=== PATIENT | female | born 1985 | race Caucasian/White ===

== ENCOUNTER 2017-09-06 10:07 | Emergency (ER) | payer SELFPAY ==
[2017-09-06] MEDS ORDERED: ACETAMINOPHEN 500 MG TAB ONE (10:16)
--- NOTE | 2017-09-06 11:07 | ER ---
Nurse's Notes [facility] Name: Belgica Hill Age: 32 yrs Sex: Female : 1985 Arrival Date: 09/06/2017 Time: 10:09 Bed 10 Private MD: Diagnosis: Streptococcal pharyngitis Presentation: 09/06 10:10 Presenting complaint: Patient states: i have this sore throat that started last night; hj fever last night and my neck hurts;. Transition of care: patient was not received from another setting of care. Onset of symptoms was September 06, 2017. Care prior to arrival: None. 10:10 Method Of Arrival: Ambulatory hj 10:10 Acuity: DARIUS 4 hj Triage Assessment: 10:12 General: Appears in no apparent distress. uncomfortable, Behavior is calm, cooperative, hj appropriate for age. 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 - Social history:: Smoking status: unknown. Screenin:22 Abuse screen: Denies threats or abuse. Denies injuries from another. Nutritional ss screening: No deficits noted. Tuberculosis screening: Never had TB. Fall Risk None identified. Assessment: 10:11 Pain: Complains of pain in throat. Respiratory: Airway is patent Respiratory effort is hj even, unlabored, Respiratory pattern is regular, symmetrical, Breath sounds are clear. EENT: Throat. Vital Signs: 10:12 BP 130 / 64; Pulse 108; Resp 18; Temp 101.8; Pulse Ox 100% on R/A; Weight 99.79 kg; hj Height 5 ft. 3 in. (160.02 cm); Pain 10/10; 10:12 Body Mass Index 38.97 (99.79 kg, 160.02 cm) ED Course: 10:09 Patient arrived in ED. tw3 10:11 Triage completed. hj 10:11 Arm band placed on right wrist. hj 10:45 Alfie Rodney PA is PHCP. cp 10:45 Shimon Cervantes MD is Attending Physician. cp 11:00 Patient has correct armband on for positive identification. Bed in low position. ss 11:21 No provider procedures requiring assistance completed. Patient did not have IV access ss during this emergency room visit. Administered Medications: 10:14 Drug: Tylenol 1000 mg Route: PO; hj 11:22 Follow up: Response: No adverse reaction; Marked relief of symptoms ss Outcome: 11:06 Discharge ordered by MD. cp 11:21 Discharged to home ambulatory. ss 11:21 Condition: good 11:21 Discharge instructions given to patient, Instructed on discharge instructions, follow up and referral plans. medication usage, Demonstrated understanding of instructions, follow-up care, medications, Prescriptions given X 1. 11:22 Patient left the ED. ss Signatures: Geno Rouqe RN RN Jesus Regan RN RN hj Alfie Rodney, ZAHEER PA chula Montilla, Oralia tw3 Corrections: (The following items were deleted from the chart) 10:14 10:12 Pulse 110bpm; Resp 18bpm; Pulse Ox 100% RA; Temp 101.8F; 99.79 kg; Height 5 ft. 3 hj in.; BMI: 38.9; hj
--- NOTE | 2017-09-06 11:07 | EDPHYS ---
Physician Documentation [facility] Name: Belgica Hill Age: 32 yrs Sex: Female : 1985 Arrival Date: 09/06/2017 Time: 10:09 Bed 10 Private MD: ED Physician Shimon Cervantes HPI: 09/06 10:50 This 32 yrs old Female presents to ER via Ambulatory with complaints of Sore cp Throat. 10:50 The patient presents with sore throat. The patient describes throat pain as constant. cp Onset: The symptoms/episode began/occurred 5 day(s) ago. Severity of symptoms: in the emergency department the symptoms are unchanged, despite home interventions. Associated signs and symptoms: Pertinent positives: fever, Pertinent negatives cough, diarrhea, flu-like symptoms, vomiting, abdominal pain. 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 - Social history:: Smoking status: unknown. ROS: 10:52 Constitutional: Positive for fever, Negative for body aches, chills, poor PO intake. cp 10:52 Eyes: Negative for injury, pain, redness, and discharge. cp 10:52 ENT: Positive for ear pain, sore throat, Negative for drainage from ear(s). 10:52 Neck: Negative for pain with movement, stiffness. 10:52 Cardiovascular: Negative for chest pain, palpitations. 10:52 Respiratory: Negative for cough, shortness of breath, wheezing. 10:52 Abdomen/GI: Negative for abdominal pain, vomiting, diarrhea, constipation, anorexia. 10:52 Back: Negative for pain at rest, pain with movement. 10:52 : Negative for urinary symptoms. 10:52 Skin: Negative for cellulitis, rash. 10:52 Neuro: Negative for dizziness, headache, weakness. 10:52 All other systems are negative. Exam: 10:55 Constitutional: The patient appears in no acute distress, alert, awake, non-toxic, well cp developed, well nourished, febrile. 10:55 Head/Face: Normocephalic, atraumatic. cp 10:55 Eyes: Periorbital structures: appear normal, Conjunctiva: normal, no exudate, no injection, Lids and lashes: appear normal, bilaterally. 10:55 ENT: External ear(s): are unremarkable, Ear canal(s): are normal, clear, TM's: bulging, is not appreciated, bilaterally, dullness, bilaterally, erythema, is not appreciated, bilaterally, Nose: is normal, Mouth: Lips: moist, Oral mucosa: moist, Posterior pharynx: Airway: no evidence of obstruction, patent, Tonsils: surgically absent, Uvula: midline, non-edematous, swelling, is not appreciated, erythema, that is marked, exudate, is not appreciated, Voice: is normal. 10:55 Neck: ROM/movement: is normal, is supple, no range of motions limitations, no meningismus, no nuchal rigidity, Lymph nodes: lymphadenopathy is appreciated, anterior cervical nodes. 10:55 Chest/axilla: Inspection: normal, Palpation: is normal, no crepitus, no tenderness. 10:55 Cardiovascular: Rate: tachycardic, Rhythm: regular. 10:55 Respiratory: the patient does not display signs of respiratory distress, Respirations: normal, no use of accessory muscles, no retractions, no splinting, no tachypnea, Breath sounds: are clear throughout, no decreased breath sounds, no stridor, no wheezing. 10:55 Abdomen/GI: Exam negative for discomfort, distension, guarding, Inspection: abdomen appears normal. 10:55 Skin: cellulitis, is not appreciated, no rash present. Vital Signs: 10:12 BP 130 / 64; Pulse 108; Resp 18; Temp 101.8; Pulse Ox 100% on R/A; Weight 99.79 kg; hj Height 5 ft. 3 in. (160.02 cm); Pain 10/10; 10:12 Body Mass Index 38.97 (99.79 kg, 160.02 cm) hj MDM: 10:45 Patient medically screened. cp 10:55 Differential diagnosis: epiglottitis, group A strep tonsillitis, mononucleosis, cp peritonsillar abscess pharyngitis, retropharyngeal abcess. 11:05 Data reviewed: vital signs, nurses notes, lab test result(s), and as a result, I will cp discharge patient. 09/06 10:14 Order name: Strep; Complete Time: 10:54 09/06 10:54 Interpretation: Reviewed. cp Administered Medications: 10:14 Drug: Tylenol 1000 mg Route: PO; 11:22 Follow up: Response: No adverse reaction; Marked relief of symptoms ss Disposition: 13:56 Co-signature as Attending Physician, Shimon Cervantes MD I agree with the assessment and [facility] plan of care. Disposition: 09/06/17 11:06 Discharged to Home. Impression: Streptococcal pharyngitis. - Condition is Stable. - Discharge Instructions: Salt Water Gargle, Strep Throat. - Prescriptions for Clindamycin HCl 150 mg Oral Capsule - take 2 capsule by ORAL route every 8 hours for 10 days; 60 capsule. - Medication Reconciliation Form, Thank You Letter, Antibiotic Education, Prescription Opioid Use form. - Follow up: Private Physician; When: 2 - 3 days; Reason: Recheck today's complaints. - Problem is new. - Symptoms are unchanged. Signatures: Dispatcher [employer] EDCO Shimon Cervantes MD MD [facility] Geno Roque, RN RN ss Jesus Regan RN RN Alfie Medina PA PA
== END 2017-09-06 11:22 | disposition home or self-care (01) ==
LOC: ER 10:07
DX: J02.0 Streptococcal pharyngitis (principal); Z88.0 Allergy status to penicillin; Z88.2 Allergy status to sulfonamides
CPT/HCPCS: 87081; 99283

== ENCOUNTER 2018-02-16 16:58 | Emergency (ER) | payer SELFPAY ==
--- NOTE | 2018-02-16 18:13 | EDPHYS ---
Physician Documentation [facility] Name: Belgica Hill Age: 32 yrs Sex: Female : 1985 Arrival Date: 02/16/2018 Time: 17:00 Bed DIS4 Private MD: None, None ED Physician Thomas Pompa HPI: 02/16 23:35 This 32 yrs old Female presents to ER via Ambulatory with complaints of snw Cough, Eye Problem. 23:35 Onset: The symptoms/episode began/occurred gradually, 3 day(s) ago, and became snw persistent. Associated signs and symptoms: Pertinent positives: cough, tearing and redness to left eye, mild periorbital swelling. Modifying factors: The patient symptoms are alleviated by nothing. 23:36 The patient or guardian reports cough, that is intermittent. Severity of symptoms: At snw their worst the symptoms were mild, moderate. Associated signs and symptoms: Pertinent positives: sore throat. It is unknown whether or not the patient has had similar symptoms in the past. It is unknown whether or not the patient has recently seen a physician. Son with similar s/s. Historical: - Allergies: 17:21 PENICILLINS; hb 17:21 Sulfa (Sulfonamide Antibiotics); hb - PMHx: 17:21 Depression; Hypothyroidism; hb - PSHx: 17:21 ; Tonsillectomy; Adenoids; hb - Immunization history:: Adult Immunizations up to date. - Social history:: Smoking status: Patient/guardian denies using tobacco. - Ebola Screening: : No symptoms or risks identified at this time. ROS: 23:34 Constitutional: Negative for fever, chills, and weight loss, ENT: Negative for injury, snw pain, and discharge, Neck: Negative for injury, pain, and swelling, Cardiovascular: Negative for chest pain, palpitations, and edema, Respiratory: Negative for shortness of breath, cough, wheezing, and pleuritic chest pain, Abdomen/GI: Negative for abdominal pain, nausea, vomiting, diarrhea, and constipation, Back: Negative for injury and pain, : Negative for injury, bleeding, discharge, and swelling, MS/Extremity: Negative for injury and deformity, Skin: Negative for injury, rash, and discoloration, Neuro: Negative for headache, weakness, numbness, tingling, and seizure. 23:34 Eyes: Positive for swelling, tearing, of the left upper eyelid and left lower eyelid. Exam: 23:33 Constitutional: This is a well developed, well nourished patient who is awake, alert, snw and in no acute distress. Head/Face: Normocephalic, atraumatic. ENT: Nares patent. No nasal discharge, no septal abnormalities noted. Tympanic membranes are normal and external auditory canals are clear. Oropharynx with no redness, swelling, or masses, exudates, or evidence of obstruction, uvula midline. Mucous membranes moist. Neck: Trachea midline, no thyromegaly or masses palpated, and no cervical lymphadenopathy. Supple, full range of motion without nuchal rigidity, or vertebral point tenderness. No Meningismus. Chest/axilla: Normal chest wall appearance and motion. Nontender with no deformity. No lesions are appreciated. Cardiovascular: Regular rate and rhythm with a normal S1 and S2. No gallops, murmurs, or rubs. Normal PMI, no JVD. No pulse deficits. Respiratory: Lungs have equal breath sounds bilaterally, clear to auscultation and percussion. No rales, rhonchi or wheezes noted. No increased work of breathing, no retractions or nasal flaring. Abdomen/GI: Soft, non-tender, with normal bowel sounds. No distension or tympany. No guarding or rebound. No evidence of tenderness throughout. Back: No spinal tenderness. No costovertebral tenderness. Full range of motion. Skin: Warm, dry with normal turgor. Normal color with no rashes, no lesions, and no evidence of cellulitis. MS/ Extremity: Pulses equal, no cyanosis. Neurovascular intact. Full, normal range of motion. Neuro: Awake and alert, GCS 15, oriented to person, place, time, and situation. Cranial nerves II-XII grossly intact. Motor strength 5/5 in all extremities. Sensory grossly intact. Cerebellar exam normal. Normal gait. Psych: Awake, alert, with orientation to person, place and time. Behavior, mood, and affect are within normal limits. 23:33 Eyes: Periorbital structures: erythema, that is mild, swelling, that is moderate, on the left upper eyelid and left lower eyelid, Pupils: no acute changes, Extraocular movements: no acute changes. Vital Signs: 17:20 BP 144 / 96; Pulse 80; Resp 16; Temp 97.2; Pulse Ox 97% on R/A; Pain 5/10; hb MDM: 17:47 Patient medically screened. snw 23:34 Data reviewed: vital signs, nurses notes. Data interpreted: Pulse oximetry: on room air snw is 97 %. Interpretation: normal. Counseling: I had a detailed discussion with the patient and/or guardian regarding: the historical points, exam findings, and any diagnostic results supporting the discharge/admit diagnosis, the presence of at least one elevated blood pressure reading (>120/80) during this emergency department visit, lab results, the need for outpatient follow up, to return to the emergency department if symptoms worsen or persist or if there are any questions or concerns that arise at home. Special discussion: I have referred the patient to see his PCP for further evaluation of high blood pressure. Based on the history and exam findings, there is no indication for further emergent testing or inpatient evaluation. I discussed with the patient/guardian the need to see the primary care provider for further evaluation of the symptoms. 02/16 17:39 Order name: Flu aj 02/16 17:39 Order name: Strep aj Administered Medications: No medications were administered Disposition: 02/16/18 18:12 Discharged to Home. Impression: Conjunctivitis, Acute upper respiratory infection, unspecified. - Condition is Stable. - Discharge Instructions: Upper Respiratory Infection, Adult, Cool Mist Vaporizer, Rehydration, Adult. - Prescriptions for Vigamox 0.5 % Ophthalmic Drops - instill 1 drop by OPHTHALMIC route every 8 hours for 7 days; 5 milliliter. Zyrtec 10 mg Oral Tablet - take 1 tablet by ORAL route once daily As needed; 20 tablet. Zithromax 500 mg Oral Tablet - take 1 tablet by ORAL route once daily for 5 days; 5 tablet. - Medication Reconciliation Form, Thank You Letter, Antibiotic Education, Prescription Opioid Use form. - Follow up: Private Physician; When: 2 - 3 days; Reason: Recheck today's complaints, Continuance of care, Re-evaluation by your physician. Follow up: Emergency Department; When: As needed; Reason: Worsening of condition. Addendum: 02/20/2018 17:01 Co-signature as Attending Physician, Thomas Pompa MD. g s Signatures: Dispatcher [employer] Swetha Watts RN Leda East, PULP GRINDER-C PULP GRINDER-Csnw Farrah Varela RN RN Thomas Pompa MD MD gs Corrections: (The following items were deleted from the chart) 02/16 18:30 18:12 02/16/2018 18:12 Discharged to Home. Impression: Conjunctivitis; Acute upper aj respiratory infection, unspecified. Condition is Stable. Forms are Medication Reconciliation Form, Thank You Letter, Antibiotic Education, Prescription Opioid Use. Follow up: Private Physician; When: 2 - 3 days; Reason: Recheck today's complaints, Continuance of care, Re-evaluation by your physician. Follow up: Emergency Department; When: As needed; Reason: Worsening of condition. snw
--- NOTE | 2018-02-16 18:13 | ER ---
Nurse's Notes [facility] Name: Belgica Hill Age: 32 yrs Sex: Female : 1985 Arrival Date: 02/16/2018 Time: 17:00 Bed DIS4 Private MD: None, None Diagnosis: Conjunctivitis;Acute upper respiratory infection, unspecified Presentation: 02/16 17:20 Presenting complaint: Patient states: Cough and congestion x 1 week, left eye redness hb and swelling x 2 days. Transition of care: patient was not received from another setting of care. Onset of symptoms was February 16, 2018. Risk Assessment: Do you want to hurt yourself or someone else? Patient reports no desire to harm self or others. 17:20 Method Of Arrival: Ambulatory hb 17:20 Acuity: DARIUS 4 hb 18:30 Initial Sepsis Screen: Does the patient meet any 2 criteria? No. Patient's initial aj sepsis screen is negative. Does the patient have a suspected source of infection? No. Patient's initial sepsis screen is negative. Care prior to arrival: None. Historical: - Allergies: 17:21 PENICILLINS; hb 17:21 Sulfa (Sulfonamide Antibiotics); hb - PMHx: 17:21 Depression; Hypothyroidism; hb - PSHx: 17:21 ; Tonsillectomy; Adenoids; hb - Immunization history:: Adult Immunizations up to date. - Social history:: Smoking status: Patient/guardian denies using tobacco. - Ebola Screening: : No symptoms or risks identified at this time. Screenin:48 Abuse screen: Denies threats or abuse. Denies injuries from another. Nutritional aj screening: No deficits noted. Tuberculosis screening: No symptoms or risk factors identified. Fall Risk None identified. Assessment: 17:39 General: Appears in no apparent distress. comfortable, Behavior is calm, cooperative, aj appropriate for age. Pain: Denies pain. Neuro: Level of Consciousness is awake, alert, obeys commands, Oriented to person, place, time, situation, Appropriate for age. Respiratory: Reports cough that is Airway is patent Respiratory effort is even, unlabored, Respiratory pattern is regular, symmetrical. EENT: Sclera/Cornea are reddened in outer aspect of conjuctiva of left eye, iris of left eye and inner aspect of conjunctiva of left eye Reports nasal congestion nasal discharge. Derm: Skin is intact, is healthy with good turgor, Skin is pink, warm \T\ dry. normal. 18:29 Reassessment: Patient appears in no apparent distress at this time. No changes from aj previously documented assessment. Patient and/or family updated on plan of care and expected duration. Pain level reassessed. Patient is alert, oriented x 3, equal unlabored respirations, skin warm/dry/pink. Vital Signs: 17:20 BP 144 / 96; Pulse 80; Resp 16; Temp 97.2; Pulse Ox 97% on R/A; Pain 5/10; hb ED Course: 17:00 Patient arrived in ED. sb2 17:00 None, None is Private Physician. sb2 17:05 Leda Bass FNP-C [facility]. snw 17:05 Thomas Pompa MD is Attending Physician. snw 17:20 Triage completed. hb 17:21 Arm band placed on left wrist. hb 17:32 Swetha Christianson, RN is Primary Nurse. aj 17:48 No provider procedures requiring assistance completed. Patient did not have IV access aj during this emergency room visit. 18:29 Patient has correct armband on for positive identification. aj Administered Medications: No medications were administered Outcome: 18:12 Discharge ordered by . snw 18:29 Discharged to home ambulatory. aj 18:29 Condition: good 18:29 Discharge instructions given to patient, Instructed on discharge instructions, follow up and referral plans. medication usage, Demonstrated understanding of instructions, follow-up care, medications, Prescriptions given X 3. 18:30 Patient left the ED. aj Signatures: Swetha Christianson, RN RN Leda Parikh FNP-C FNP-Farrah Cornelius RN RN Jordyn العلي sb2
== END 2018-02-16 18:30 | disposition home or self-care (01) ==
LOC: ER 16:58
DX: J06.9 Acute upper respiratory infection, unspecified (principal); H10.9 Unspecified conjunctivitis; Z88.0 Allergy status to penicillin; Z88.2 Allergy status to sulfonamides
CPT/HCPCS: 87081; 87804; 99282

== ENCOUNTER 2018-06-30 15:46 | Emergency (ER) | payer SELFPAY ==
[2018-06-30] MEDS ORDERED: NA CHLORIDE 0.9% 1,000 ML ONE (17:26)
[2018-06-30] MEDS ORDERED: ONDANSETRON 4 MG/2 ML VIAL ONE (17:26)
[2018-06-30 17:42] LABS: Absolute Lymphocytes (CBC) 0.4 K/uL (0.7-4.9); Absolute Monocytes 0.2 K/uL (0.1-1.3); Absolute Neutrophil 1.8 K/uL (1.8-8.0); Basophils % 0.2 % (0-1.3); Hematocrit 41.8 % (36.0-45.0); Lymphocytes % 16.2 % (15.3-44.8); MPV 9.5 fL (7.6-11.3); Monocytes % 7.2 % (3.3-12.3)
[2018-06-30 18:00] LABS: Albumin 3.6 g/dL (3.4-5.0); Bilirubin Direct 0.1 mg/dL (0-0.2); Bilirubin Total 0.3 mg/dL (0.2-1.0); Potassium 3.4 mmol/L (3.5-5.1); Protein, Total 7.6 g/dL (6.4-8.2)
--- NOTE | 2018-06-30 18:55 | ER ---
Nurse's Notes [facility] Name: Belgica Hill Age: 33 yrs Sex: Female : 1985 Arrival Date: 06/30/2018 Time: 15:50 Bed 14 Private MD: Diagnosis: Influenza due to identified novel influenza A virus;Diarrhea, unspecified;Vomiting Presentation: 06/30 16:10 Presenting complaint: Patient states: N/V/D and cough that began Thursday. Pt also aa5 reports abd pain. 16:10 Transition of care: patient was not received from another setting of care. Onset of aa5 symptoms was June 2018. Risk Assessment: Do you want to hurt yourself or someone else? Patient reports no desire to harm self or others. Initial Sepsis Screen: Does the patient meet any 2 criteria? No. Patient's initial sepsis screen is negative. Does the patient have a suspected source of infection? No. Patient's initial sepsis screen is negative. Care prior to arrival: None. 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 - Social history:: Smoking status: Patient uses tobacco products, smokes one-half pack cigarettes per day. - Ebola Screening: : No symptoms or risks identified at this time. Screenin:20 Abuse screen: Denies threats or abuse. Denies injuries from another. Nutritional jl7 screening: No deficits noted. Tuberculosis screening: No symptoms or risk factors identified. Fall Risk IV access (20 points). Total Conde Fall Scale indicates No Risk (0-24 pts). Assessment: 17:20 General: Appears in no apparent distress. uncomfortable, Behavior is calm, cooperative, jl7 appropriate for age. Pain: Complains of pain in abdomen Pain currently is 9 out of 10 on a pain scale. Neuro: Level of Consciousness is awake, alert, obeys commands, Oriented to person, place, time, situation. Cardiovascular: Patient's skin is warm and dry. Respiratory: Airway is patent Respiratory effort is even, unlabored, Respiratory pattern is regular, symmetrical. GI: Abdomen is round non-distended, Reports nausea. : Reports urinary frequency. EENT: No signs and/or symptoms were reported regarding the EENT system. Derm: Skin is pink, warm \T\ dry. Musculoskeletal: No signs and/or symptoms reported regarding the musculoskeletal system. 18:45 Reassessment: Patient appears in no apparent distress at this time. Patient and/or jl7 family updated on plan of care and expected duration. Pain level reassessed. Patient is alert, oriented x 3, equal unlabored respirations, skin warm/dry/pink. Reports decreased nausea. Vital Signs: 16:12 BP 97 / 55; Pulse 115; Resp 18 S; Temp 99.9(TE); Pulse Ox 92% on R/A; Weight 99.79 kg aa5 (R); Height 5 ft. 3 in. (160.02 cm) (R); Pain 9/10; 18:45 BP 106 / 51; Pulse 100; Resp 19; Temp 100.3(O); Pulse Ox 93% ; jl7 16:12 Body Mass Index 38.97 (99.79 kg, 160.02 cm) aa5 ED Course: 15:50 Patient arrived in ED. rg4 16:10 Arm band placed on. aa5 16:12 Triage completed. aa5 16:53 Luis Fernando Corbin NP is PHCP. pm1 16:53 Arya Cartagena MD is Attending Physician. pm1 17:08 Joy Terrell RN is Primary Nurse. jl7 17:20 Radiology exam delayed due to lab results not completed at this time. (BUN/Creatinine) vr test not completed at this time. 17:20 Initial lab(s) drawn, by me, sent to lab. Inserted saline lock: 20 gauge in right jl7 antecubital area, using aseptic technique. Blood collected. 17:38 Urine collected: clean catch specimen, blood tinged. 5 17:38 Urine Microscopic Only Sent. mh5 17:39 Patient has correct armband on for positive identification. Placed in gown. Bed in low mh5 position. Call light in reach. Side rails up X 1. Pillow given. Pulse ox on. NIBP on. 17:56 Chest Single View XRAY In Process Unspecified. EDMS 19:09 No provider procedures requiring assistance completed. IV discontinued, intact, jl7 bleeding controlled, No redness/swelling at site. Pressure dressing applied. Administered Medications: 17:29 Drug: NS 0.9% 1000 ml Route: IV; Rate: 1000 ml; Site: right antecubital; jl7 18:30 Follow up: IV Status: Completed infusion jl7 17:30 Drug: Zofran 4 mg Route: IVP; Site: right antecubital; jl7 18:00 Follow up: Response: No adverse reaction; Nausea is decreased jl7 19:04 Drug: Ibuprofen 600 mg Route: PO; jl7 19:10 Follow up: Response: Medication administered at discharge. jl7 Outcome: 18:55 Discharge ordered by . pm1 19:09 Discharged to home ambulatory. jl7 19:09 Condition: stable 19:09 Discharge instructions given to patient, family, Instructed on discharge instructions, follow up and referral plans. medication usage, Demonstrated understanding of instructions, follow-up care, medications, Prescriptions given X 2. 19:11 Patient left the ED. jl7 Signatures: Dispatcher [employer] EDMS Marlene Lau, RN RN [email or web address] Grace Monahan Patrick, NP MANAGER UTILIZATION MANAGEMENT pm1 Eduarda Jones 4 Miranda Bangura 5 Joy Terrell RN RN jl7 Corrections: (The following items were deleted from the chart) 16:14 16:10 Presenting complaint: Patient states: N/V/D and cough that began Thursday. aa5 aa5 16:14 16:12 Pulse 115bpm; Resp 18bpm; Spontaneous; Pulse Ox 92% RA; Temp 99.9F Temporal; aa5 99.79 kg Reported; Height 5 ft. 3 in. Reported; BMI: 38.9; Pain 9/10; aa5
--- NOTE | 2018-06-30 18:56 | EDPHYS ---
Physician Documentation [facility] Name: Belgica Hill Age: 33 yrs Sex: Female : 1985 Arrival Date: 06/30/2018 Time: 15:50 Bed 14 Private MD: ED Physician Arya Cartagena HPI: 06/30 18:00 This 33 yrs old Female presents to ER via Ambulatory with complaints of pm1 Nausea/Vomiting/Diarrhea, Cough. 18:00 The patient presents to the emergency department with nausea, vomiting, diarrhea, pm1 abdominal pain. Onset: The symptoms/episode began/occurred 3 day(s) ago. Possible causes: sick contacts, by family, . The symptoms are aggravated by nothing. The symptoms are alleviated by nothing. Associated signs and symptoms: Pertinent positives: fever. Severity of symptoms: in the emergency department the symptoms are worse. The patient has not experienced similar symptoms in the past. The patient has not recently seen a physician. 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 - Social history:: Smoking status: Patient uses tobacco products, smokes one-half pack cigarettes per day. - Ebola Screening: : No symptoms or risks identified at this time. ROS: 18:00 Eyes: Negative for injury, pain, redness, and discharge, ENT: Negative for injury, pm1 pain, and discharge, Neck: Negative for injury, pain, and swelling, Cardiovascular: Negative for chest pain, palpitations, and edema, Respiratory: Negative for shortness of breath, cough, wheezing, and pleuritic chest pain. 18:00 Back: Negative for injury and pain, : Negative for injury, bleeding, discharge, and swelling, MS/Extremity: Negative for injury and deformity, Skin: Negative for injury, rash, and discoloration, Neuro: Negative for headache, weakness, numbness, tingling, and seizure. 18:00 Constitutional: Positive for body aches, fever. 18:00 Abdomen/GI: Positive for abdominal pain, nausea, vomiting, and diarrhea. Exam: 18:00 Constitutional: This is a well developed, well nourished patient who is awake, alert, pm1 and in no acute distress. Head/Face: Normocephalic, atraumatic. Eyes: Pupils equal round and reactive to light, extra-ocular motions intact. Lids and lashes normal. Conjunctiva and sclera are non-icteric and not injected. Cornea within normal limits. Periorbital areas with no swelling, redness, or edema. ENT: Nares patent. No nasal discharge, no septal abnormalities noted. Tympanic membranes are normal and external auditory canals are clear. Oropharynx with no redness, swelling, or masses, exudates, or evidence of obstruction, uvula midline. Mucous membranes moist. Neck: Trachea midline, no thyromegaly or masses palpated, and no cervical lymphadenopathy. Supple, full range of motion without nuchal rigidity, or vertebral point tenderness. No Meningismus. Chest/axilla: Normal chest wall appearance and motion. Nontender with no deformity. No lesions are appreciated. Cardiovascular: Regular rate and rhythm with a normal S1 and S2. No gallops, murmurs, or rubs. Normal PMI, no JVD. No pulse deficits. Respiratory: Lungs have equal breath sounds bilaterally, clear to auscultation and percussion. No rales, rhonchi or wheezes noted. No increased work of breathing, no retractions or nasal flaring. Abdomen/GI: Soft, non-tender, with normal bowel sounds. No distension or tympany. No guarding or rebound. No evidence of tenderness throughout. Back: No spinal tenderness. No costovertebral tenderness. Full range of motion. Skin: Warm, dry with normal turgor. Normal color with no rashes, no lesions, and no evidence of cellulitis. MS/ Extremity: Pulses equal, no cyanosis. Neurovascular intact. Full, normal range of motion. 18:00 Neuro: Orientation: is normal, Motor: is normal, moves all fours. Vital Signs: 16:12 BP 97 / 55; Pulse 115; Resp 18 S; Temp 99.9(TE); Pulse Ox 92% on R/A; Weight 99.79 kg aa5 (R); Height 5 ft. 3 in. (160.02 cm) (R); Pain 9/10; 18:45 BP 106 / 51; Pulse 100; Resp 19; Temp 100.3(O); Pulse Ox 93% ; jl7 16:12 Body Mass Index 38.97 (99.79 kg, 160.02 cm) aa5 MDM: 17:02 Patient medically screened. pm1 18:54 Data reviewed: vital signs. Counseling: I had a detailed discussion with the patient pm1 and/or guardian regarding: the historical points, exam findings, and any diagnostic results supporting the discharge/admit diagnosis, lab results, radiology results, the need for outpatient follow up, to return to the emergency department if symptoms worsen or persist or if there are any questions or concerns that arise at home. 06/30 15:58 Order name: Flu; Complete Time: 17:33 snw 06/30 15:58 Order name: Urine Microscopic Only; Complete Time: 19:16 snw 06/30 17:11 Order name: Basic Metabolic Panel; Complete Time: 18:12 pm1 06/30 17:11 Order name: CBC with Diff pm1 06/30 17:11 Order name: Creatinine for Radiology; Complete Time: 18:00 pm1 06/30 17:11 Order name: Hepatic Function; Complete Time: 18:12 pm1 06/30 17:11 Order name: Lipase; Complete Time: 18:12 pm1 06/30 17:12 Order name: Chest Single View XRAY pm1 06/30 17:46 Order name: Urine Dipstick--Ancillary (enter results) 06/30 17:46 Order name: Urine --Ancillary (enter results) 06/30 19:09 Order name: Urine Culture [facility] 06/30 15:58 Order name: Urine Test (obtain specimen); Complete Time: 17:38 snw 06/30 15:58 Order name: Urine Dipstick-Ancillary (obtain specimen); Complete Time: 17:38 snw 06/30 17:11 Order name: IV Saline Lock; Complete Time: 17:44 pm1 06/30 17:11 Order name: Labs collected and sent; Complete Time: 17:44 pm1 Administered Medications: 17:29 Drug: NS 0.9% 1000 ml Route: IV; Rate: 1000 ml; Site: right antecubital; jl7 18:30 Follow up: IV Status: Completed infusion jl7 17:30 Drug: Zofran 4 mg Route: IVP; Site: right antecubital; jl7 18:00 Follow up: Response: No adverse reaction; Nausea is decreased jl7 19:04 Drug: Ibuprofen 600 mg Route: PO; jl7 19:10 Follow up: Response: Medication administered at discharge. jl7 Disposition: 19:13 Co-signature as Attending Physician, Arya Cartagena MD. rn Disposition: 06/30/18 18:55 Discharged to Home. Impression: Influenza due to identified novel influenza A virus, Diarrhea, unspecified, Vomiting. - Condition is Stable. - Discharge Instructions: Diarrhea, Adult, Influenza, Adult, Nausea and Vomiting, Adult. - Prescriptions for Bentyl 20 mg Oral Tablet - take 1 tablet by ORAL route every 6 hours As needed; 20 tablet. Zofran 4 mg Oral Tablet - take 1 tablet by ORAL route every 12 hours As needed; 20 tablet. - Medication Reconciliation Form, Thank You Letter, Antibiotic Education, Prescription Opioid Use form. - Follow up: Emergency Department; When: As needed; Reason: Worsening of condition. Follow up: Private Physician; When: 2 - 3 days; Reason: Recheck today's complaints, Continuance of care, Re-evaluation by your physician. - Problem is new. - Symptoms have improved. Signatures: Dispatcher [employer] EDTN Leda Bass, VISUAL MERCHANDISING ASSOCIATE-C VISUAL MERCHANDISING ASSOCIATE-Csnw Arya Cartagena MD MD rn Calderon, Audri RN RN aa5 Luis Fernando Corbin, YAN SMALL BATTERY PLATE ASSEMBLER pm1 Joy Terrell RN RN jl7 Corrections: (The following items were deleted from the chart) 17:38 17:12 Abdomen Pelvis W Con+CT.RAD.BRZ ordered. [facility] EDTN 19:11 18:55 06/30/2018 18:55 Discharged to Home. Impression: Influenza due to identified jl7 novel influenza A virus; Diarrhea, unspecified; Vomiting. Condition is Stable. Forms are Medication Reconciliation Form, Thank You Letter, Antibiotic Education, Prescription Opioid Use. Follow up: Emergency Department; When: As needed; Reason: Worsening of condition. Follow up: Private Physician; When: 2 - 3 days; Reason: Recheck today's complaints, Continuance of care, Re-evaluation by your physician. Problem is new. Symptoms have improved. pm1
[2018-06-30 19:08] LABS: Urine Amorphous Sediment 3+ /HPF (NONE SEEN); Urine Bacteria 20-50 /HPF (<20); Urine Culture Reflex Order REFLEXED; Urine RBC TNTC /HPF (NONE SEEN)
[2018-06-30] MEDS ORDERED: IBUPROFEN 400 MG TAB ONE (19:11)
[2018-06-30] MEDS ORDERED: IBUPROFEN 200 MG TAB PO ONE (19:11)
--- NOTE | 2018-06-30 19:52 | RAD REPORT ---
EXAM DESCRIPTION: [place] Single View06/30/2018 5:55 pm CLINICAL HISTORY: cough COMPARISON: none FINDINGS: Mild bilateral interstitial lung opacities are present. The heart is normal size Mediastinum is mildly prominent IMPRESSION: Mild bilateral interstitial lung opacities may indicate an atypical pneumonia. Mediastinum is mildly prominent. This may be secondary to normal vessels, mediastinal fat or lymphade nopathy. Follow up PA and lateral chest series is recommended
[2018-06-30 20:46] LABS: Blood Morphology Comment NOT SEEN (NOT SEEN); Platelet Estimate ADEQ; Platelets, Giant PRESENT; Urine White Blood Cell Casts OK
[2018-06-30 21:41] LABS: Urine Blood 3+ (NEG); Urine Glucose NEGATIVE (NEG); Urine Protein 3+ (NEG); Urine Specific Gravity 1.025 (1.005-1.030)
== END 2018-06-30 19:11 | disposition home or self-care (01) ==
LOC: ER 15:46
DX: J10.1 Influenza due to other identified influenza virus with other respiratory manifestations (principal); R19.7 Diarrhea, unspecified; F17.210 Nicotine dependence, cigarettes, uncomplicated; Z88.0 Allergy status to penicillin; Z88.2 Allergy status to sulfonamides
CPT/HCPCS: 36415; 71045; 80048; 80076; 81003; 81015; 81025; 83690; 85025; 87086; 87088; 87804; 96361; 96374; 99284; J2405; J7030

== ENCOUNTER 2018-07-03 13:52 | Inpatient (IN) | payer MEDICAID, OTHER, SELFPAY ==
[2018-07-03] MEDS ORDERED: IPRATROPIUM BROM 0.5MG/2.5ML ONE (14:28)
[2018-07-03] MEDS ORDERED: ALBUTEROL 2.5 MG/3 ML NEB SOL ONE (14:28)
[2018-07-03 14:44] LABS: Absolute Lymphocytes (CBC) 0.4 K/uL (0.7-4.9); Absolute Monocytes 0.2 K/uL (0.1-1.3); Absolute Neutrophil 5.3 K/uL (1.8-8.0); Basophils % 0.2 % (0-1.3); Hematocrit 46.1 % (36.0-45.0); MPV 10.2 fL (7.6-11.3); RBC Red Blood Cell Count 6.11 M/uL (3.86-4.86)
[2018-07-03 14:48] LABS: Protime INR 1.4
[2018-07-03 14:54] LABS: ALT/SGPT 34 U/L (12-78); AST/SGOT 94 U/L (15-37); Albumin 3.1 g/dL (3.4-5.0); Alkaline Phosphatase 76 U/L (45-117); BUN Blood Urea Nitrogen 22 mg/dL (7-18); Bicarbonate 20 mmol/L (21-32); Bilirubin Direct 0.2 mg/dL (0-0.2); Bilirubin Total 0.4 mg/dL (0.2-1.0); CKMB Creatine Kinase MB < 1.0 ng/mL (0.3-3.6); Creatine Phosphokinase 996 U/L (26-192); Glucose Level 144 mg/dL (74-106); Lipase 142 U/L (73-393); Potassium 3.1 mmol/L (3.5-5.1); Protein, Total 7.7 g/dL (6.4-8.2); Sodium Level 137 mmol/L (136-145); Troponin (Emerg Dept Use Only) 0.02 ng/mL (0.0-0.045)
[2018-07-03] MEDS ORDERED: NA CHLORIDE 0.9% 2,000 ML ONE (15:05)
--- NOTE | 2018-07-03 15:05 | RAD REPORT ---
EXAM DESCRIPTION: [place] Pa And Lat (2 Views)07/03/2018 2:49 pm CLINICAL HISTORY: Cough COMPARISON: June 30, 2018 FINDINGS: Bilateral lung consolidations have developed. Heart is normal size IMPRESSION: Moderate bilateral pneumonia
[2018-07-03] MEDS ORDERED: Levofloxacin 750mg IV 750 MG/150 ML BAG IV ONE (15:14)
--- NOTE | 2018-07-03 15:58 | EDPHYS ---
Physician Documentation [facility] Name: Belgica Hill Age: 33 yrs Sex: Female : 1985 Arrival Date: 07/03/2018 Time: 14:04 Bed 15 Private MD: ED Physician Arya Cartagena HPI: 07/03 15:31 This 33 yrs old Female presents to ER via EMS with complaints of Flu Symptoms.kb 15:31 The patient presents to the emergency department with nausea, vomiting, diarrhea. kb Onset: The symptoms/episode began/occurred 6 day(s) ago. Possible causes: unknown. The symptoms are aggravated by nothing. The symptoms are alleviated by nothing. Associated signs and symptoms: Pertinent positives: diarrhea, nausea, vomiting. Severity of symptoms: At their worst the symptoms were moderate in the emergency department the symptoms are unchanged. The patient has not experienced similar symptoms in the past. The patient has been recently seen at the [facility] Emergency Department, this week, for similar complaints. Pt reports cough, congestion, shortness of breath, dizziness, n/v/d and weakness. Symptoms started on Thursday and have gotten worse. had similar symptoms, both seen here and diagnosed with the flu.. 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 - Social history:: Smoking status: Patient/guardian denies using tobacco. - Ebola Screening: : Patient negative for fever greater than or equal to 101.5 degrees Fahrenheit, and additional compatible Ebola Virus Disease symptoms. ROS: 15:30 Constitutional: Negative for fever, chills, and weight loss, ENT: Negative for injury, kb pain, and discharge, Neck: Negative for injury, pain, and swelling, Cardiovascular: Negative for chest pain, palpitations, and edema, Back: Negative for injury and pain, : Negative for injury, bleeding, discharge, and swelling, MS/Extremity: Negative for injury and deformity, Skin: Negative for injury, rash, and discoloration. 15:30 Respiratory: Positive for cough, shortness of breath, Negative for dyspnea on exertion, hemoptysis, orthopnea, pleurisy, sputum production, wheezing. 15:30 Abdomen/GI: Positive for nausea, vomiting, and diarrhea, Negative for abdominal pain, constipation, abdominal cramps, abdominal distension, anorexia. 15:30 Neuro: Positive for dizziness, weakness, Negative for altered mental status, gait disturbance, headache, hearing loss, loss of consciousness, numbness, seizure activity, speech changes, syncope, near syncope, tingling, tinnitus, tremor, visual changes. Exam: 15:30 Constitutional: This is a well developed, well nourished patient who is awake, alert, kb and in no acute distress. Head/Face: Normocephalic, atraumatic. Chest/axilla: Normal chest wall appearance and motion. Nontender with no deformity. No lesions are appreciated. Cardiovascular: Regular rate and rhythm with a normal S1 and S2. No gallops, murmurs, or rubs. Normal PMI, no JVD. No pulse deficits. Abdomen/GI: Soft, non-tender, with normal bowel sounds. No distension or tympany. No guarding or rebound. No evidence of tenderness throughout. Skin: Warm, dry with normal turgor. Normal color with no rashes, no lesions, and no evidence of cellulitis. MS/ Extremity: Pulses equal, no cyanosis. Neurovascular intact. Full, normal range of motion. Neuro: Awake and alert, GCS 15, oriented to person, place, time, and situation. Cranial nerves II-XII grossly intact. Motor strength 5/5 in all extremities. Sensory grossly intact. Cerebellar exam normal. Normal gait. 15:30 Respiratory: mild respiratory distress is noted, Respirations: normal, Breath sounds: decreased breath sounds, that are moderate, are located in both bases. Vital Signs: 13:50 BP 124 / 93; Pulse 124; Resp 19; Temp 98.8(O); Pulse Ox 78% on R/A; Weight 113.4 kg rb1 (R); Height 5 ft. 3 in. (160.02 cm); 15:09 BP 90 / 52; Pulse 130; Resp 26; hb 15:59 BP 106 / 65; Pulse 113; Resp 24; Pulse Ox 85% on 4 lpm NC; hb 16:30 BP 115 / 60; Pulse 112; Resp 31; Pulse Ox 91% ; rb1 17:30 BP 108 / 75; Pulse 108; Resp 34; Pulse Ox 92% ; rb1 18:04 BP 138 / 60; Pulse 108; Resp 30; Pulse Ox 91% ; rb1 19:29 BP 110 / 73; Pulse 119; Resp 26; Temp 98.7; Pulse Ox 95% on 75% BiPAP; aa1 13:50 Body Mass Index 44.29 (113.40 kg, 160.02 cm) rb1 13:50 Administered O2 5 L via mask rb1 16:30 Bipap rb1 17:30 BiPap rb1 18:04 BiPap rb1 MDM: 14:04 Patient medically screened. kb 15:29 Data reviewed: vital signs, nurses notes. Data interpreted: Pulse oximetry: on room air kb is 79 %. Interpretation: hypoxia. Plan: will initiate a nebulizer treatment. Counseling: I had a detailed discussion with the patient and/or guardian regarding: the historical points, exam findings, and any diagnostic results supporting the discharge/admit diagnosis, lab results, radiology results, the need for further work-up and treatment in the hospital. 07/03 14:05 Order name: Basic Metabolic Panel kb 07/03 14:05 Order name: Blood Culture Adult (2) kb 07/03 14:05 Order name: CBC with Diff kb 07/03 14:05 Order name: Ckmb kb 07/03 14:05 Order name: CPK kb 07/03 14:05 Order name: Lactate; Complete Time: 14:54 kb 07/03 14:05 Order name: LFT's; Complete Time: 14:58 kb 07/03 14:05 Order name: Lipase; Complete Time: 14:58 kb 07/03 14:05 Order name: Procalcitonin; Complete Time: 14:58 kb 07/03 14:05 Order name: Protime (+inr); Complete Time: 14:58 kb 07/03 14:05 Order name: Ptt, Activated; Complete Time: 14:58 kb 07/03 14:05 Order name: Troponin (emerg Dept Use Only); Complete Time: 14:58 kb 07/03 14:05 Order name: Urine Microscopic Only kb 07/03 14:06 Order name: Basic Metabolic Panel; Complete Time: 14:58 EDMS 07/03 14:06 Order name: Blood Culture EDMS 07/03 14:06 Order name: CBC with Automated Diff; Complete Time: 17:30 EDMS 07/03 14:06 Order name: CKMB Creatine Kinase MB; Complete Time: 14:58 EDMS 07/03 14:06 Order name: Creatine Phosphokinase; Complete Time: 14:58 EDMS 07/03 14:11 Order name: Chest Pa And Lat (2 Views) XRAY; Complete Time: 15:09 kb 07/03 15:56 Order name: Flu; Complete Time: 17:16 kb 07/03 15:56 Order name: Urine Culture kb 07/03 15:56 Order name: Sputum Culture kb 07/03 16:22 Order name: BIPAP eb 07/03 17:29 Order name: Manual Differential; Complete Time: 17:30 EDMS 07/03 17:57 Order name: ABG Arterial Blood Gas; Complete Time: 17:57 EDMS 07/03 18:09 Order name: Lactate Sepsis 2 HR Follow-up; Complete Time: 18:10 EDMS 07/03 14:05 Order name: Cardiac monitoring; Complete Time: 15:05 kb 07/03 14:05 Order name: EKG - Nurse/Tech; Complete Time: 15:05 kb 07/03 14:05 Order name: IV Saline Lock - Large Bore; Complete Time: 14:25 kb 07/03 14:05 Order name: Labs collected and sent; Complete Time: 14:25 kb 07/03 14:05 Order name: O2 Per Protocol; Complete Time: 14:25 kb 07/03 14:05 Order name: O2 Sat Monitoring; Complete Time: 14:25 kb Administered Medications: 14:20 Drug: DuoNeb (3:1) (2.5 mg - 0.5 mg) 3 ml Route: Nebulizer; hb 14:35 Follow up: Response: No adverse reaction rb1 14:55 Drug: NS 0.9% (30 ml/kg) 30 ml/kg Route: IV; Rate: bolus; Site: right antecubital; rb1 15:05 Drug: LevaQUIN 750 mg Volume: 150 ml; Route: IVPB; Infused Over: 90 mins; Site: right rb1 antecubital; 16:38 Follow up: Response: No adverse reaction; IV Status: Completed infusion rb1 17:00 Drug: NS 0.9% (30 ml/kg) 30 ml/kg {Note: 3rd Liter administered.} Route: IV; Rate: rb1 bolus; Site: right antecubital; 18:52 Follow up: IV Status: Completed infusion rb1 Disposition: 07/04 07:22 Co-signature as Attending Physician, Arya Cartagena MD. rn Disposition: 07/03/18 15:58 Hospitalization ordered by Andrae Rai for Inpatient Admission. Preliminary diagnosis are Influenza due to identified novel influenza A virus, Pneumonia, unspecified organism, Sepsis, unspecified organism. - Bed requested for Intensive Care Unit. - Status is Inpatient Admission. aa1 - Condition is Stable. - Problem is new. - Symptoms are unchanged. UTI on Admission? No Critical care time excluding procedures: 07/03 18:45 Critical care time: Bedside Care: 30 minutes, Consultation: 10 minutes, Family kb Intervention: 5 minutes. Total time: 45 minutes Signatures: Dispatcher [employer] [facility] Lilly Flores, SINTIA ETHANOL MAINTENANCE MECHANIC-Geetha Tran, YURIY RN aa1 Arya Cartagena MD MD rn Barber, Rebecca, RN RN [facility] Farrah Varela RN RN Rachel Ramos Corrections: (The following items were deleted from the chart) 14:47 14:06 Chest Single View+RAD.RAD.BRZ ordered. [facility] EDFL 17:55 15:58 Hospitalization Ordered by Andrae Rai DO for Inpatient Admission. Preliminary eb diagnosis is Influenza due to identified novel influenza A virus; Pneumonia, unspecified organism; Sepsis, unspecified organism. Bed requested for Intensive Care Unit. Status is Inpatient Admission. Condition is Stable. Problem is new. Symptoms are unchanged. UTI on Admission? No. kb 19:52 17:55 07/03/2018 15:58 Hospitalization Ordered by Andrae Rai DO for Inpatient aa1 Admission. Preliminary diagnosis is Influenza due to identified novel influenza A virus; Pneumonia, unspecified organism; Sepsis, unspecified organism. Bed requested for Intensive Care Unit. Status is Inpatient Admission. Condition is Stable. Problem is new. Symptoms are unchanged. UTI on Admission? No. eb
--- NOTE | 2018-07-03 15:58 | ER ---
Nurse's Notes [facility] Name: Belg[place] Hill Age: 33 yrs Sex: Female : 1985 Arrival Date: 07/03/2018 Time: 14:04 Bed 15 Private MD: Diagnosis: Influenza due to identified novel influenza A virus;Pneumonia, unspecified organism;Sepsis, unspecified organism Presentation: 07/03 13:50 Presenting complaint: EMS states: Pt. is 33 yr. old, was here 4 days ago for flu rb1 symptoms. A \T\ O x 4. C/o nausea, vomiting, diarrhea, and dizziness. P 120, 75% RA, 92% O2 4 L NC. History none, meds none, Allergy Penicillin and Sulfa. Transition of care: patient was not received from another setting of care. Onset of symptoms was June 29, 2018. Risk Assessment: Do you want to hurt yourself or someone else? Patient reports no desire to harm self or others. Initial Sepsis Screen: Does the patient meet any 2 criteria?. Care prior to arrival: None. 13:50 Method Of Arrival: EMS: [facility] rb1 13:50 Acuity: DARIUS 3 rb1 14:30 Initial Sepsis Screen: Does the patient meet any 2 criteria? RR > 20 per min. HR > 90 rb1 bpm. Yes Does the patient have a suspected source of infection? Yes: Productive cough/pneumonia If YES to both, name of provider notified: Lilly MOY-Lacey CLINICAL DATA SPECIALIST: 13:50 LMP 06/29/2018 rb1 Historical: - Allergies: 13:50 PENICILLINS; rb1 13:50 Sulfa (Sulfonamide Antibiotics); rb1 - Home Meds: 13:50 None [Active]; rb1 - PMHx: 13:50 Depression; Hypothyroidism; rb1 - PSHx: 13:50 ; Tonsillectomy; Adenoids; rb1 - Immunization history:: Adult Immunizations up to date. - Social history:: Smoking status: Patient/guardian denies using tobacco. - Ebola Screening: : Patient negative for fever greater than or equal to 101.5 degrees Fahrenheit, and additional compatible Ebola Virus Disease symptoms. Screenin:50 Abuse screen: Denies threats or abuse. Nutritional screening: Has had N/V for 3 or more rb1 days. Tuberculosis screening: No symptoms or risk factors identified. Fall Risk None identified. Assessment: 13:50 General: Appears uncomfortable, obese, Behavior is calm, cooperative, Reports chills rb1 for x 4 days. fever for feeling ill for fatigue for. General: Pt. reports being here 4 days ago for the same symptoms. Feeling worse.. Pain: Complains of pain in generalized body aches Pain currently is 6 out of 10 on a pain scale. Pain began x 4 days. Neuro: Level of Consciousness is awake, alert, obeys commands, Oriented to person, place, time, situation. Neuro: Reports dizziness. Cardiovascular: Capillary refill < 3 seconds is brisk in bilateral fingers. Respiratory: Airway is patent Respiratory effort is even, unlabored, Respiratory pattern is regular, symmetrical. Respiratory: Reports cough that is non-productive. GI: Reports diarrhea, nausea, vomiting. : No signs and/or symptoms were reported regarding the genitourinary system. Derm: Skin is pink, warm \T\ dry. Musculoskeletal: Range of motion: intact in all extremities. 14:50 Reassessment: Patient appears in no apparent distress at this time. No changes from rb1 previously documented assessment. 15:50 Reassessment: Patient appears in no apparent distress at this time. Patient and/or rb1 family updated on plan of care and expected duration. Pain level reassessed. Patient is alert, oriented x 3, equal unlabored respirations, skin warm/dry/pink. is at bedside. 16:45 Reassessment: Pt. is complaining of her chest hurting from wearing the BiPap. Provider rb1 notified. 17:01 Reassessment: Notified Dr. Rai that O2 sat on BiPap was 83%. Received order for ABG, rb1 respiratory was paged by Rachel law secretary. 17:03 Reassessment: Respiratory at bedside. Dr. Rai is at bedside. rb1 18:00 Reassessment: Patient appears in no apparent distress at this time. Patient and/or rb1 family updated on plan of care and expected duration. Pain level reassessed. Patient is alert, oriented x 3, equal unlabored respirations, skin warm/dry/pink. Pt. was asking when the BiPap could come off, re-educated on the necessity for the BiPap. BiPap settings are 15 over 8 and 45%. 18:09 Reassessment: Received lab alert for Lactate 7.1. rb1 18:15 Reassessment: Spoke to Dr. Rai via telephone, informed of critical lab for Lactate rb1 7.1. Received order for 1/2 NS \T\ 125 ml/h. 18:20 Reassessment: Called report to YURIY Moralez. Information from the SBAR was given. Informed rb1 that the Lovenox was not administered. All questions asked and answered. 19:10 Reassessment: Patient appears in no apparent distress at this time. Patient and/or aa1 family updated on plan of care and expected duration. Pain level reassessed. Patient is alert, oriented x 3, equal unlabored respirations, skin warm/dry/pink. Pt awaiting admission to ICU. 19:40 Reassessment: Patient appears in no apparent distress at this time. Patient is alert, aa1 oriented x 3, equal unlabored respirations, skin warm/dry/pink. Pt to be admitted to ICU at this time. Medicated for nausea per pt request. Vital Signs: 13:50 BP 124 / 93; Pulse 124; Resp 19; Temp 98.8(O); Pulse Ox 78% on R/A; Weight 113.4 kg rb1 (R); Height 5 ft. 3 in. (160.02 cm); 15:09 BP 90 / 52; Pulse 130; Resp 26; hb 15:59 BP 106 / 65; Pulse 113; Resp 24; Pulse Ox 85% on 4 lpm NC; hb 16:30 BP 115 / 60; Pulse 112; Resp 31; Pulse Ox 91% ; rb1 17:30 BP 108 / 75; Pulse 108; Resp 34; Pulse Ox 92% ; rb1 18:04 BP 138 / 60; Pulse 108; Resp 30; Pulse Ox 91% ; rb1 19:29 BP 110 / 73; Pulse 119; Resp 26; Temp 98.7; Pulse Ox 95% on 75% BiPAP; aa1 13:50 Body Mass Index 44.29 (113.40 kg, 160.02 cm) rb1 13:50 Administered O2 5 L via mask rb1 16:30 Bipap rb1 17:30 BiPap rb1 18:04 BiPap rb1 ED Course: 13:50 Arm band placed on right wrist. rb1 13:50 Patient has correct armband on for positive identification. Placed in gown. Bed in low rb1 position. Call light in reach. Side rails up X 1. laboratory monitor on. Pulse ox on. NIBP on. Warm blanket given. 14:04 Patient arrived in ED. kb 14:04 [facility] Flores [facility]-C [facility] kb 14:04 Arya Cartagena MD is Attending Physician. kb 14:05 Pati Wall, YURIY is Primary Nurse. rb1 14:11 Triage completed. rb1 14:18 Initial lab(s) drawn, by me, sent to lab. First set of blood cultures drawn by me. dh3 Inserted saline lock: 20 gauge in right antecubital area, using aseptic technique. Blood collected. 14:33 Second set of blood cultures drawn by me. dh3 14:48 Chest Pa And Lat (2 Views) XRAY In Process Unspecified. EDMS 15:04 EKG done, by ED staff, reviewed by Lilly PATRICIO. dh3 15:57 Andrae Rai DO is Hospitalizing Provider. kb 17:25 Missed attempt(s): 20 gauge in left antecubital area. Bleeding controlled, band aid dh3 applied, catheter tip intact. 17:30 Repeat lab(s) drawn. by me, sent to lab. Missed attempt(s): 24 gauge in right hand. dh3 Bleeding controlled, band aid applied, catheter tip intact. 19:00 Report given to YURIY Iniguez. rb1 19:40 No provider procedures requiring assistance completed. Patient admitted, IV remains in aa1 place. Administered Medications: 14:20 Drug: DuoNeb (3:1) (2.5 mg - 0.5 mg) 3 ml Route: Nebulizer; hb 14:35 Follow up: Response: No adverse reaction rb1 14:55 Drug: NS 0.9% (30 ml/kg) 30 ml/kg Route: IV; Rate: bolus; Site: right antecubital; rb1 15:05 Drug: LevaQUIN 750 mg Volume: 150 ml; Route: IVPB; Infused Over: 90 mins; Site: right rb1 antecubital; 16:38 Follow up: Response: No adverse reaction; IV Status: Completed infusion rb1 17:00 Drug: NS 0.9% (30 ml/kg) 30 ml/kg {Note: 3rd Liter administered.} Route: IV; Rate: rb1 bolus; Site: right antecubital; 18:52 Follow up: IV Status: Completed infusion rb1 Outcome: 15:58 Decision to Hospitalize by Provider. kb 19:40 Admitted to ICU accompanied by nurse, accompanied by tech, family with patient, via aa1 stretcher, room 3, with oxygen, on monitor, with chart, Other bedside report given to Gissell Hamilton RN 19:40 Condition: stable 19:40 Discharge instructions given to patient, significant other, Instructed on the need for admit, Demonstrated understanding of instructions. 19:52 Patient left the ED. aa1 Signatures: Dispatcher [employer] EDMS Lilly Flores, AUTOMATIC PAD MAKING MACHINE OPERATOR-C AUTOMATIC PAD MAKING MACHINE OPERATOR-Geetha Tran RN RN aa1 Pati Wall RN RN rb1 Farrah Varela RN RN Sierra Oconnell 3 Corrections: (The following items were deleted from the chart) 15:35 15:09 BP 90 / 52; Pulse 130bpm; hb hb
--- NOTE | 2018-07-03 16:15 | P.HP ---
Certification for Inpatient Patient admitted to: Inpatient With expected LOS: >2 Midnights Patient will require the following post-hospital care: None Practitioner: I am a practitioner with admitting privileges, knowledge of patient current condition, hospital course, and medical plan of care. Services: Services provided to patient in accordance with Admission requirements found in Title 42 Section 412.3 of the Code of Federal Regulations Patient History Date of Service: 07/03/18 Primary Care Provider: None Reason for admission: Shortness of breath History of Present Illness: 33-year-old female presented to the emergency room with increasing shortness of breath. Patient had increasing shortness of breath. Further reports of fever, chills, cough, congestion, nausea, vomiting, and poor oral intake has worsened over the last several days. Most of the information came from the ER provider and who was at bedside. Apparently the patient was seen early in the week and diagnosed with influenza. Since she had symptoms after being seen she had not been given any Tamiflu. She was sent home with symptomatic treatment. Her symptoms worsened. reports poor oral intake. Increase cough and congestion noted. Increased fatigue with poor mobility also noted. Patient came to the ER for further evaluation. Patient was seen in the emergency room. She was found to be hypoxic with noted tachycardia, tachypnea and hypotension. Sepsis protocol was started. Patient given bolus of normal saline with improvement of blood pressure. Patient started on nasal cannula. Patient found to have bilateral pneumonia. White count 6.0, hemoglobin 14. Sodium 137, potassium 3.1, BUN of 22, creatinine 1 2.6 with a GFR of 22. Glucose 144. Lactic acid elevated pro calcitonin elevated. Patient admitted to ICU for further treatment. When I saw the patient ER, she appeared septic. Patient stable at this time with normal saline and IV antibiotics started. Patient reports no prior medical problems in the past. She does smoke about a half a pack per day. Drinks on occasion. Allergies Penicillins Allergy (Verified 04/05/12 18:46) Hives/Rash Sulfa (Sulfonamide Antibiotics) [Sulfa(Sulfonamide Antibiotics)] Allergy ( Verified 04/05/12 18:46) Hives/Rash Home medications list reviewed: Yes - Past Medical/Surgical History -: Tobacco abuse -: 2 prior C-sections -: Tonsillectomy and adenectomy Psychosocial/ Personal History: Patient is . She has 2 children. She does not work. - Family History Mother -: Lung disease (COPD) - Social History Smoking Status: Light Tobacco smoker (1-9 cigarettes/day) Counseled patient to stop smoking for: less than 10 minutes Smoking therapy provided: Yes Patient receptive to therapy: Yes Alcohol use: Yes CD- Drugs: No Caffeine use: Yes Place of Residence: Home Review of Systems General: Fever, Chills, Weakness, Malaise, As per HPI Eyes: Unremarkable ENT: Nose Congestion, As per HPI Respiratory: Cough, Shortness of Breath, As per HPI Cardiovascular: Paroxysmal Noc. Dyspnea, As per HPI Gastrointestinal: Nausea, Vomiting, Diarrhea, As per HPI Genitourinary: Unremarkable Musculoskeletal: Back Pain, As per HPI Integumentary: Unremarkable Neurological: Weakness, As per HPI Lymphatics: Unremarkable Physical Examination - Physical Exam General: Alert, Oriented x3, Cooperative, Mild distress HEENT: Atraumatic, Normocephalic, PERRLA, Other (Mucous membranes dry including lips) Neck: Supple, No Thyromegaly Respiratory: Diminished (Bilaterally) Cardiovascular: Abnormal pulses (Sinus tachycardia noted) Gastrointestinal: Normal bowel sounds, Soft and benign, Non-distended, No tenderness, No masses, No rebound, No guarding, Other (Patient obese) Musculoskeletal: No contractures Integumentary: No rashes, No erythema, Other (Cool extremities noted. Capillary refill for 2 nail beds slow.) Neurological: Normal speech, Normal strength at 5/5 x4 extr, Normal tone, Normal affect - Studies Laboratory Data (last 24 hrs) 07/03/18 14:18: PT 16.3 H, INR 1.40, APTT 39.1 H 07/03/18 14:18: WBC 6.0 D, Hgb 14.8, Hct 46.1 H, Plt Count 112 L D 07/03/18 14:18: Sodium 137, Potassium 3.1 L, BUN 22 H, Creatinine 2.56 H D, Glucose 144 H, Total Bilirubin 0.4, AST 94 H, ALT 34, Alkaline Phosphatase 76, Lipase 142 Assessment and Plan - Plan Impression: Severe sepsis secondary acute respiratory failure related to bilateral pneumonia with recent influenza A positive Acute renal failure likely related to sepsis Nausea, vomiting, diarrhea likely related to influenza Thrombocytopenia likely related to sepsis Hypokalemia likely related to vomiting and diarrhea Tobacco abuse possibly underlying COPD Suspect underlying obstructive sleep apnea Plan: Severe sepsis secondary acute respiratory failure related to bilateral pneumonia with recent influenza A positive: Sepsis protocol initiated. Patient will go to ICU. Patient to get bolus normal saline. Will continue with aggressive fluid hydration. Blood cultures, sputum culture will be obtained. Will recheck influenza/strep test. Patient on IV Levaquin and Tamiflu. Will maintain sats above 90%. Patient may require CPAP/BiPAP at night. Will consult pulmonology and nephrology to further assess. Will continue to monitor closely. Monitor electrolytes. Recheck chest x-ray in the morning. Continue with sepsis protocol. Acute renal failure likely related to sepsis: Continue with aggressive fluid hydration with sepsis protocol in place. Nephrology consulted to further assess. Nausea, vomiting, diarrhea likely related to influenza: Continue IV fluids. Will provide medication for nausea. Thrombocytopenia likely related to sepsis: Will monitor closely. Hypokalemia likely related to vomiting and diarrhea: Will replace potassium. Will monitor and adjust appropriately. Tobacco abuse possibly underlying COPD: Patient plans to quit. Patient may require nicotine patch. Will provide albuterol/Atrovent/Brovana. Maintain sats above 90%. Suspect underlying obstructive sleep apnea: Patient may require CPAP at night. Patient should have sleep study done as an outpatient. Discharge Plan: Home Plan to discharge in: Greater than 2 days - Advance Directives Does patient have a Living Will: No Does patient have a Durable POA for Healthcare: No - Code Status/Comfort Care Code Status Assessed: Yes (Patient full code.) Time Spent Managing Pts Care (In Minutes): 55
[2018-07-03] MEDS ORDERED: NA CHLORIDE 0.9% 1,000 ML ONE (17:02)
[2018-07-03 17:24] LABS: Toxic Granulation PRESENT
[2018-07-03 17:25] LABS: Blood Morphology Comment NOT SEEN (NOT SEEN); Platelet Estimate ADEQ
[2018-07-03] MEDS ORDERED: BENZONATATE 100 MG CAP PO PRN (17:37)
[2018-07-03] MEDS ORDERED: NA CHLORIDE 0.9% 1,000 ML IV SCH (17:37)
[2018-07-03 17:55] LABS: Arterial Blood Carboxyhemoglob 0.5 % (0-1.5)
[2018-07-03] MEDS ORDERED: OSELTAMIVIR PHOSPHATE 30 MG/5 ML SUSPENSION UD PO SCH (18:30)
[2018-07-03] MEDS ORDERED: NACHLORIDE 0.45% 1,000 ML IV ONE (18:40)
[2018-07-03] MEDS: NACHLORIDE 0.45% 1,000 ML IV SCH (18:40)
[2018-07-03] MEDS: ONDANSETRON 4 MG/2 ML VIAL IV PRN (19:37)
[2018-07-03] MEDS ORDERED: ONDANSETRON 4 MG/2 ML VIAL ONE (19:48)
[2018-07-03] MEDS: ARFORMOTEROL TARTRATE 15 MCG/2 ML VIAL.NEB NEB SCH (20:00)
[2018-07-03] MEDS: ENOXAPARIN 30 MG/0.3 ML SQ SCH (20:28)
[2018-07-03] MEDS: ALBUTEROL 2.5 MG/3 ML NEB SOL NEB PRN (20:56)
[2018-07-03] MEDS: IPRATROPIUM BROM 0.5MG/2.5ML NEB PRN (20:56)
[2018-07-03] MEDS ORDERED: VANCOMYCIN 1 GM in NA CHLORIDE 0.9% 500 ML IVPB ONE (22:02)
[2018-07-03] MEDS ORDERED: VANCOMYCIN 1 GM/250 ML BAG ONE (22:40)
[2018-07-04] MEDS: IPRATROPIUM BROM 0.5MG/2.5ML NEB PRN ×2 (01:19→08:31)
[2018-07-04] MEDS: ALBUTEROL 2.5 MG/3 ML NEB SOL NEB PRN (01:19)
[2018-07-04 05:25] LABS: Arterial Blood Carboxyhemoglob 0.9 % (0-1.5); Blood Gas Oxyhemoglobin 91.6 % (94-97); Blood O2 Saturation 92.9 % (92-98.5)
[2018-07-04 05:41] LABS: Urine Appearance TURBID; Urine Blood 3+ (NEG); Urine Color DK YELLOW; Urine Glucose NEGATIVE (NEG); Urine Protein 3+ (NEG); Urine Specific Gravity >=1.030 (1.005-1.030); Urine Urobilinogen 0.2 mg/dL (0.2-1.0); Urine pH 5.5 (5.0-7.0)
--- NOTE | 2018-07-04 05:50 | P.INFCA ---
Sepsis Focused Assessment - Sepsis Screen Result Severe Sepsis: Positive Septic Shock: Negative - Evaluation Current stage of sepsis: Severe sepsis - Vital Signs Reviewed: Yes Temperature: 98.7 F Heart rate: 119 Blood Pressure: 110/73 Respiratory Rate: 26 - Examination Date exam was performed: 07/04/18 Time exam was performed: 02:00 Heart: Regular rate/rhythm, S1, S2, Tachycardia Lungs: Crackles, Respiratory distress Peripheral pulses: 2+ Slightly diminished Peripheral pulse location: Radial Capillary refill: <2 Seconds Skin examination: Pallor, Not mottled
[2018-07-04 05:51] LABS: Absolute Lymphocytes (CBC) 0.4 K/uL (0.7-4.9); Absolute Monocytes 0.2 K/uL (0.1-1.3); Absolute Neutrophil 3.5 K/uL (1.8-8.0); Basophils % 0.2 % (0-1.3); Hematocrit 35.5 % (36.0-45.0); Lymphocytes % 10.3 % (15.3-44.8); MPV 10.6 fL (7.6-11.3); Monocytes % 4.8 % (3.3-12.3); RBC Red Blood Cell Count 4.73 M/uL (3.86-4.86)
[2018-07-04] MEDS: NACHLORIDE 0.45% 1,000 ML IV SCH ×3 (06:00→16:44)
[2018-07-04 06:21] LABS: Urine Bilirubin NEGATIVE (NEG)
[2018-07-04 06:32] LABS: Platelet Estimate DECR; Urine White Blood Cell Casts OK
[2018-07-04 06:34] LABS: Blood Morphology Comment NOT SEEN (NOT SEEN); Platelets, Giant PRESENT
[2018-07-04 06:56] LABS: Albumin 2.1 g/dL (3.4-5.0); Bilirubin Total 0.2 mg/dL (0.2-1.0); Potassium 3.6 mmol/L (3.5-5.1); Protein, Total 5.5 g/dL (6.4-8.2)
[2018-07-04 07:24] LABS: Magnesium 1.3 mg/dL (1.8-2.4)
--- NOTE | 2018-07-04 07:53 | RAD REPORT ---
EXAM DESCRIPTION: US - Renal Ultrasound-Complete - 07/03/2018 10:51 pm CLINICAL HISTORY: Acute renal failure, sepsis COMPARISON: CT in July 2016 FINDINGS: The right kidney measures 12.2 x 5.0 x 4.7 cm. The left kidney measures 11.9 x 4.6 x 5.7 cm. Cortical thickness within normal range. Echogenicity is increased slightly which may be body habi tus artifact. Mild underlying medical renal disease is possible. No hydronephrosis or suspicious dalia l mass. Bladder was too contracted to allow all optimal assessment. IMPRESSION: No hydronephrosis or suspicious renal mass. Mild increase in cortical echogenicity may be body habitus artifact or mild underlying medical renal disease.
[2018-07-04] MEDS ORDERED: Magnesium Sulfate 2gm IVPB 2 G/50 ML BAG IV ONE (08:00)
[2018-07-04 08:03] LABS: Urine Bacteria >50 /HPF (<20); Urine Culture Reflex Order REFLEXED; Urine RBC <5 /HPF (NONE SEEN)
--- NOTE | 2018-07-04 08:03 | RAD REPORT ---
EXAM DESCRIPTION: RAD - Chest Single View - 07/04/2018 7:01 am CLINICAL HISTORY: Pneumonia COMPARISON: July 03 TECHNIQUE: AP portable chest image was obtained 0651 hours . FINDINGS: Lung volumes are low. Dense airspace opacification is present in the right hilum and supra hilar region slightly improved from prior day imaging. Right lung base opacification has improved. Th ere is significant mid and lower left lung field airspace opacification not substantially different. Left pleural fluid is evident. Cardiac silhouette is stable. Trachea remains midline. IMPRESSION: Minimal improvement in the bilateral pulmonary edema or bilateral pneumonia pattern.
[2018-07-04 08:04] LABS: Urine Amorphous Sediment TRACE /HPF (NONE SEEN)
[2018-07-04] MEDS: ARFORMOTEROL TARTRATE 15 MCG/2 ML VIAL.NEB NEB SCH ×2 (08:30→20:00)
[2018-07-04] MEDS ORDERED: VANCOMYCIN 1 GM in NA CHLORIDE 0.9% 500 ML IVPB SCH (09:00)
[2018-07-04] MEDS ORDERED: FAMOTIDINE 20 MG/2 ML VIAL IV SCH (09:00)
--- NOTE | 2018-07-04 09:34 | P.PN ---
Subjective Date of Service: 07/04/18 Primary Care Provider: None Chief Complaint: Shortness of breath Subjective: Other (Patient clinically appears improved since yesterday. Still on BiPAP.) Physical Examination - Vital Signs Temperature: 98.7 F Blood Pressure: 106/69 Pulse: 108 Respirations: 34 Pulse Ox (%): 95 - Physical Exam General: Alert, Other (Less distress noted since yesterday. Slight anxiety noted. Currently on BiPAP) HEENT: Atraumatic, Other (Dry mucous membranes) Neck: Supple Respiratory: Other (Improved air movement bilateral. Diminished to the lower bases posteriorly.) Cardiovascular: Abnormal pulses (Mild sinus tachycardia) Gastrointestinal: Normal bowel sounds, Soft and benign, Non-distended, No tenderness, No masses, No rebound, No guarding Musculoskeletal: No erythema, No tenderness, No warmth Integumentary: No tenderness/swelling, No erythema, No warmth, No cyanosis Neurological: Normal speech, Normal strength at 5/5 x4 extr, Normal tone, Normal affect - Studies Laboratory Data (last 24 hrs) 07/03/18 14:18: PT 16.3 H, INR 1.40, APTT 39.1 H 07/03/18 14:18: WBC 6.0 D, Hgb 14.8, Hct 46.1 H, Plt Count 112 L D 07/03/18 14:18: Sodium 137, Potassium 3.1 L, BUN 22 H, Creatinine 2.56 H D, Glucose 144 H, Total Bilirubin 0.4, AST 94 H, ALT 34, Alkaline Phosphatase 76, Lipase 142 Medications List Reviewed: Yes Assessment & Plan Discharge Plan: Home Plan to discharge in: Greater than 2 days Physician Review Additional Text: Impression: Severe sepsis secondary to acute respiratory failure related to bacteremia/UTI/ bilateral pneumonia with recent influenza A Acute renal failure secondary to sepsis Nausea, vomiting, diarrhea likely related to influenza/sepsis Thrombocytopenia secondary to sepsis Hypokalemia, hypomagnesia likely related to vomiting and diarrhea Tobacco abuse possibly with underlying COPD with exacerbation and acute respiratory failure Suspect underlying obstructive sleep apnea Suspect GERD Obesity, BMI 48.5 Plan: Severe sepsis secondary to acute respiratory failure related to bacteremia/UTI/ bilateral pneumonia with recent influenza A : Continue with aggressive IV fluid hydration. Patient currently on IV Levaquin. IV vancomycin added due to bacteremia with Gram-positive cocci. Await final culture results. Will continue to wean off BiPAP. Discontinue Tamiflu as repeat influenza test negative. Sepsis protocol in place. Patient clinically improved but will remain in ICU. Await further recommendations from pulmonology and nephrology. Encourage oral intake. I will turn the service over to Dr. Richardson tomorrow. I will go over the plan of care with her. Acute renal failure secondary to sepsis: Continue with aggressive IV fluid hydration with sepsis protocol in place. Nephrology consulted to further assess. Renal ultrasound ordered. Nausea, vomiting, diarrhea likely related to influenza/sepsis: Continue IV fluids. Will provide medication for nausea as needed. This appears improved.. Thrombocytopenia secondary to sepsis: Will monitor closely. Will hold DVT prophylaxis-Lovenox if platelet count less than 75. Hypokalemia, hypomagnesia likely related to vomiting and diarrhea: Will continue to replace potassium. Will monitor and adjust appropriately. Tobacco abuse possibly underlying COPD with exacerbation and acute respiratory failure: Patient plans to quit. Patient may require nicotine patch. Will continue with Albuterol/Atrovent/Brovana. Patient on oral steroid. Continue to wean off BiPAP. Maintain sats above 90%. Suspect underlying obstructive sleep apnea: Patient may require CPAP at night. Patient should have sleep study done as an outpatient. Suspect GERD: Continue with PPI. Obesity, BMI 48.5: Address lifestyle modification education. Time Spent Managing Pts Care (In Minutes): 55
[2018-07-04] MEDS: ALPRAZOLAM 0.25 MG TABLET PO PRN ×3 (09:44→21:30)
[2018-07-04] MEDS: VANCOMYCIN 2 GM in NA CHLORIDE 0.9% 500 ML IVPB SCH (09:44)
[2018-07-04] MEDS: THIAMINE 200 MG/2 ML INJ IVP SCH (09:45)
[2018-07-04] MEDS: GUAIFENESIN 600 MG SA TAB PO SCH ×2 (09:46→20:06)
[2018-07-04] MEDS: FAMOTIDINE 20 MG/2 ML VIAL IV SCH ×2 (09:46→20:06)
[2018-07-04] MEDS ORDERED: INFLUENZA VACCINE (for 3y+) 0.5 ML DOSE IMVAC ONE (10:00)
[2018-07-04 10:12] LABS: Blood O2 Saturation 86.8 % (92-98.5)
[2018-07-04 10:13] LABS: Blood Gas Oxyhemoglobin 85.7 % (94-97)
--- NOTE | 2018-07-04 10:55 | EKG ---
Test Date: 2018-07-03 Test Time: 14:51:54 Bulldozer Operator: ILANA MEASUREMENT RESULTS: Intervals: Rate: 119 CT: 130 QRSD: 76 QT: 290 QTc: 407 [place]: P: 46 CT: 130 QRS: 29 T: 48 INTERPRETIVE STATEMENTS: Sinus tachycardia Possible Left atrial enlargement Borderline ECG Compared to ECG 05/05/2016 20:15:38 Sinus rhythm no longer present Electronically Signed On 07-04-18 10:53:43 SOLO MUSICIAN by Kris Bowman
[2018-07-04 11:17] LABS: Phosphorus 3.5 mg/dL (2.5-4.9); Uric Acid 7.2 mg/dL (2.6-6.0)
[2018-07-04] MEDS: predniSONE 20 MG TAB PO SCH ×2 (11:30→20:06)
[2018-07-04 12:45] LABS: Urine Appearance TURBID; Urine Bilirubin NEGATIVE (NEG); Urine Blood NEGATIVE (NEG); Urine Color YELLOW; Urine Glucose NEGATIVE (NEG); Urine Protein 3+ (NEG); Urine Urobilinogen 0.2 mg/dL (0.2-1.0)
[2018-07-04 13:11] LABS: Urine Bacteria 20-50 /HPF (<20)
[2018-07-04 13:12] LABS: Urine Culture Reflex Order REFLEXED
[2018-07-04] MEDS: ENOXAPARIN 30 MG/0.3 ML SQ SCH (16:44)
[2018-07-04] MEDS: VANCOMYCIN ORAL SOLN 250 MG/5 ML OSYR PO SCH ×2 (18:10→23:03)
--- NOTE | 2018-07-04 22:52 | P.CNS ---
Date of Consult: 07/03/18 Reason for Consult: TRES Requesting Physician: Andrae Rai Primary Care Provider: None Chief Complaint: Shortness of breath History of Present Illness: 33-year-old female presented to the emergency room with increasing shortness of breath. Patient had increasing shortness of breath. Further reports of fever, chills, cough, congestion, nausea, vomiting, and poor oral intake has worsened over the last several days. Most of the information came from the ER provider and who was at bedside. Apparently the patient was seen early in the week and diagnosed with influenza. Since she had symptoms after being seen she had not been given any Tamiflu. She was sent home with symptomatic treatment. Her symptoms worsened. reports poor oral intake. Increase cough and congestion noted. Increased fatigue with poor mobility also noted. Patient came to the ER for further evaluation. Patient was seen in the emergency room. She was found to be hypoxic with noted tachycardia, tachypnea and hypotension. Sepsis protocol was started. Patient given bolus of normal saline with improvement of blood pressure. Patient started on nasal cannula. Patient found to have bilateral pneumonia. White count 6.0, hemoglobin 14. Sodium 137, potassium 3.1, BUN of 22, creatinine 1 2.6 with a GFR of 22. Glucose 144. Lactic acid elevated pro calcitonin elevated. Patient admitted to ICU for further treatment. 15:31 This 33 yrs old Female presents to ER via EMS with complaints of Flu Symptoms.kb 15:31 The patient presents to the emergency department with nausea, vomiting, diarrhea. kb Onset: The symptoms/episode began/occurred 6 day(s) ago. Possible causes: unknown. The symptoms are aggravated by nothing. The symptoms are alleviated by nothing. Associated signs and symptoms: Pertinent positives: diarrhea, nausea, vomiting. Severity of symptoms: At their worst the symptoms were moderate in the emergency department the symptoms are unchanged. The patient has not experienced similar symptoms in the past. The patient has been recently seen at the [facility] Emergency Department, this week, for similar complaints. Pt reports cough, congestion, shortness of breath, dizziness, n/v/d and weakness. Symptoms started on Thursday and have gotten worse. had similar symptoms, both seen here and diagnosed with the flu.. Allergies Penicillins Allergy (Verified 04/05/12 18:46) Hives/Rash Sulfa (Sulfonamide Antibiotics) [Sulfa(Sulfonamide Antibiotics)] Allergy ( Verified 04/05/12 18:46) Hives/Rash Home Medications: NK [No Home Meds] 07/03/18 - Past Medical/Surgical History Diabetic: No -: Tobacco abuse -: depression -: hypothroidism -: 2 prior C-sections -: Tonsillectomy and adenectomy Psychosocial/ Personal History: Patient is . She has 2 children. She does not work. - Family History Mother Medical History: Lung disease - Social History Smoking Status: Current every day smoker Alcohol use: No CD- Drugs: No Caffeine use: Yes Place of Residence: Home Review of Systems 10-point ROS is otherwise unremarkable General: Fever, Weakness, Malaise Respiratory: Cough, Shortness of Breath Cardiovascular: Edema, Light Headedness Neurological: Weakness Physical Examination Temp Pulse Resp BP Pulse Ox 97.9 F 95 H 36 H 104/81 95 07/04/18 20:00 07/04/18 22:00 07/04/18 22:00 07/04/18 22:00 07/04/18 22:00 General: Oriented x3, Cooperative, Moderate distress HEENT: Atraumatic, Mucous membr. moist/pink Neck: Supple Respiratory: Clear to auscultation bilaterally (on Bipap), Normal air movement Cardiovascular: Regular rate/rhythm, No rubs, Edema (Non pitting) Gastrointestinal: Hypoactive, Soft and benign, Non-distended, No guarding Musculoskeletal: No clubbing, No contractures Integumentary: No rashes, No cyanosis Neurological: Normal speech Urinary: Dover catheter Blood work reviewed in the chart. Na 137; K 3.1; CO2 20; BUN 22; Cr 2.56 Imagings Data: EXAM DESCRIPTION: [place] Feliciano And Lat (2 Views)07/03/2018 2:49 pm CLINICAL HISTORY: Cough COMPARISON: June 30, 2018 FINDINGS: Bilateral lung consolidations have developed. Heart is normal size IMPRESSION: Moderate bilateral pneumonia. EXAM DESCRIPTION: US - Renal Ultrasound-Complete - 07/03/2018 10:51 pm CLINICAL HISTORY: Acute renal failure, sepsis COMPARISON: CT in July 2016 FINDINGS: The right kidney measures 12.2 x 5.0 x 4.7 cm. The left kidney measures 11.9 x 4.6 x 5.7 cm. Cortical thickness within normal range. Echogenicity is increased slightly which may be body habitus artifact. Mild underlying medical renal disease is possible. No hydronephrosis or suspicious renal mass. Bladder was too contracted to allow all optimal assessment. IMPRESSION: No hydronephrosis or suspicious renal mass. Mild increase in cortical echogenicity may be body habitus artifact or mild underlying medical renal disease. Conclusions/Impression: A/ Sepsis/ Shock. Acute hypoxic respiratory failure. TRES. Proteinuria. Hypokalemia. Acidosis. Hypocalcemia. Hypomagnesemia. Hyperglycemia. Rhabdomyolysis, mild. Hypoalbuminemia. Microcytic anemia suspicious for iron deficiency. Thrombocytopenia. P/ Continue current POC and Medications. Seen and examined in the ER. Agree with transfer to the ICU. Bipap therapy as ordered. Replete lytes. Continue aggressive IVF. Bolus as needed. Agree with abx. No NSAIDs. AM labs. Daily weight. Thank you kindly for the consultation. Critical Care: Yes (Greater than 30 minutes patient care.)
[2018-07-04] MEDS ORDERED: POTASSIUM 25 MEQ EFFERV TAB PO ONE (22:57)
[2018-07-04] MEDS ORDERED: CALCITROL 0.25 MCG CAP PO ONE (23:00)
--- NOTE | 2018-07-04 23:08 | P.PN ---
Date of Service: 07/04/18 Vital Signs Temp Pulse Resp BP Pulse Ox 97.9 F 95 H 36 H 104/81 95 07/04/18 20:00 07/04/18 22:00 07/04/18 22:00 07/04/18 22:00 07/04/18 22:00 Medications Albuterol Sulfate (Proventil 0.083% Neb Soln) 2.5 mg NEB [id number] PRN PRN Reason: SHORTNESS OF BREATH Stop: 08/02/18 17:38 Last Admin: 07/04/18 01:19 Dose: 2.5 mg Alprazolam (Xanax) 0.25 mg PO TID PRN PRN Reason: ANXIETY Stop: 08/03/18 08:13 Last Admin: 07/04/18 21:30 Dose: 0.25 mg Arformoterol Tartrate (Brovana) 15 mcg NEB BIDRESP JOSE Stop: 08/02/18 20:01 Last Admin: 07/04/18 20:00 Dose: 15 mcg Benzonatate (Tessalon Perle) 100 mg PO TID PRN PRN Reason: COUGH Stop: 08/02/18 17:38 Calcitriol (Rocaltrol) 1 mcg PO ONCE ONE Stop: 07/04/18 23:01 Calcitriol (Rocaltrol) 0.5 mcg PO DAILY [facility] Stop: 08/04/18 09:01 Cholecalciferol (Vitamin D 5,000 Iu Cap) 5,000 unit PO DAILY JOSE Stop: 08/04/18 09:01 Enoxaparin Sodium (Lovenox 30 Mg Inj) 30 mg SQ DAILY 5 PM JOSE Stop: 08/02/18 17:38 Last Admin: 07/04/18 16:44 Dose: 30 mg Famotidine (Pepcid) 20 mg IV BID JOSE Stop: 08/03/18 21:01 Last Admin: 07/04/18 20:06 Dose: 20 mg Guaifenesin (Mucinex 600mg) 600 mg PO BID JSOE Stop: 08/03/18 09:01 Last Admin: 07/04/18 20:06 Dose: 600 mg Levofloxacin/Dextrose (Levaquin 750 Mg/150 Ml Ivpb (Premix)) 750 mg in 150 mls @ 100 mls/hr IV Q48H [facility]; Protocol Stop: 08/04/18 17:01 Sodium Chloride (Sodium Chloride 0.45%) 1,000 mls @ 125 mls/hr IV .Q8H [facility] Stop: 08/02/18 18:41 Last Admin: 07/04/18 16:44 Dose: 1,000 mls Vancomycin HCl 2 gm/ Sodium (Chloride) 500 mls @ 250 mls/hr IVPB Q36H [facility] Stop: 08/03/18 09:01 Last Admin: 07/04/18 09:44 Dose: 500 mls Ipratropium Stewart (Atrovent Neb) 0.5 mg NEB [id number] PRN PRN Reason: SHORTNESS OF BREATH Stop: 08/02/18 17:38 Last Admin: 07/04/18 08:31 Dose: 0.5 mg Ondansetron HCl (Zofran) 4 mg IV QIDP PRN PRN Reason: NAUSEA / VOMITING Stop: 08/02/18 17:38 Last Admin: 07/03/18 19:37 Dose: 4 mg Potassium Bicarbonate (K-Lyte) 50 meq PO 1X ONE Stop: 07/04/18 22:58 Prednisone (Deltasone) 20 mg PO BID [facility] Stop: 08/03/18 10:01 Last Admin: 07/04/18 20:06 Dose: 20 mg Sodium Bicarbonate (Sodium Bicarb 325 Mg) 650 mg PO BID [facility] Stop: 08/04/18 09:01 Thiamine HCl (Vitamin B-1) 100 mg IVP DAILY [facility] Stop: 08/03/18 09:01 Last Admin: 07/04/18 09:45 Dose: 100 mg Vancomycin HCl (Vancocin) 125 mg PO Q6HR [facility]; Protocol Stop: 08/03/18 18:01 Last Admin: 07/04/18 23:03 Dose: 125 mg Microbiology Results 07/03/18 14:35 Blood - Blood Aerobic Blood Culture - Preliminary 07/03/18 14:35 Blood - Blood Gram Stain - Preliminary 07/03/18 14:35 Blood - Blood Anaerobic Blood Culture - Preliminary 07/03/18 14:35 Blood - Blood Gram Stain - Preliminary 07/03/18 14:18 Blood - Blood Aerobic Blood Culture - Preliminary 07/03/18 14:18 Blood - Blood Gram Stain - Preliminary 07/03/18 14:18 Blood - Blood Anaerobic Blood Culture - Preliminary 07/03/18 14:18 Blood - Blood Gram Stain - Preliminary Assessment/ Plan: Nephrology. CPS stable on Bipap. +Dyspnea. No CP. No acute events overnight. Vitals, medications, blood work and imaging reviewed in the chart. General: Oriented x3, Cooperative, Moderate distress HEENT: Atraumatic, Mucous membr. moist/pink Neck: Supple Respiratory: Clear to auscultation bilaterally (on Bipap), Normal air movement Cardiovascular: Regular rate/rhythm, No rubs, Edema (Non pitting) Gastrointestinal: Hypoactive, Soft and benign, Non-distended, No guarding Musculoskeletal: No clubbing, No contractures Integumentary: No rashes, No cyanosis Neurological: Normal speech Urinary: Dover catheter Blood work reviewed in the chart. Na 137; K 3.1; CO2 20; BUN 22; Cr 2.56 Greater than 30 minutes patient care. Imagings Data: EXAM DESCRIPTION: [place] Feliciano And Lat (2 Views)07/03/2018 2:49 pm CLINICAL HISTORY: Cough COMPARISON: June 30, 2018 FINDINGS: Bilateral lung consolidations have developed. Heart is normal size IMPRESSION: Moderate bilateral pneumonia. EXAM DESCRIPTION: US - Renal Ultrasound-Complete - 07/03/2018 10:51 pm CLINICAL HISTORY: Acute renal failure, sepsis COMPARISON: CT in July 2016 FINDINGS: The right kidney measures 12.2 x 5.0 x 4.7 cm. The left kidney measures 11.9 x 4.6 x 5.7 cm. Cortical thickness within normal range. Echogenicity is increased slightly which may be body habitus artifact. Mild underlying medical renal disease is possible. No hydronephrosis or suspicious renal mass. Bladder was too contracted to allow all optimal assessment. IMPRESSION: No hydronephrosis or suspicious renal mass. Mild increase in cortical echogenicity may be body habitus artifact or mild underlying medical renal disease. Conclusions/Impression: A/ Sepsis/ Shock. Influenza. BL PNA. C.diff. Acute hypoxic respiratory failure. TRES in the setting of sepsis. Proteinuria. Hypokalemia. Acidosis. Hypocalcemia. Hypomagnesemia. Hyperglycemia on steroids. Rhabdomyolysis, mild. Hypoalbuminemia. Microcytic anemia suspicious for iron deficiency. Thrombocytopenia. P/ Continue current POC and Medications. Bipap therapy as ordered. Replete lytes. Give potassium. Start Vitamin D. Start oral bicarb. Continue aggressive IVF. Bolus as needed. Agree with abx. Follow up cultures. No NSAIDs. AM labs. Daily weight.
[2018-07-05] MEDS: ONDANSETRON 4 MG/2 ML VIAL IV PRN ×2 (00:31→09:02)
[2018-07-05] MEDS: NACHLORIDE 0.45% 1,000 ML IV SCH (00:36)
[2018-07-05] MEDS: VANCOMYCIN ORAL SOLN 250 MG/5 ML OSYR PO SCH ×4 (05:39→23:28)
[2018-07-05 05:44] LABS: Absolute Lymphocytes (CBC) 0.7 K/uL (0.7-4.9); Absolute Monocytes 0.3 K/uL (0.1-1.3); Absolute Neutrophil 6.5 K/uL (1.8-8.0); Basophils % 0.1 % (0-1.3); Hematocrit 35.6 % (36.0-45.0); Lymphocytes % 8.8 % (15.3-44.8); MPV 11.2 fL (7.6-11.3); Monocytes % 3.9 % (3.3-12.3)
[2018-07-05 05:55] LABS: Albumin 2.2 g/dL (3.4-5.0); Bilirubin Total 0.3 mg/dL (0.2-1.0); Magnesium 2.6 mg/dL (1.8-2.4); Phosphorus 1.9 mg/dL (2.5-4.9); Potassium 4.3 mmol/L (3.5-5.1); Protein, Total 6.4 g/dL (6.4-8.2); Uric Acid 7.7 mg/dL (2.6-6.0)
[2018-07-05 06:11] LABS: Blood Morphology Comment NOT SEEN (NOT SEEN); Platelet Estimate DECR; Urine White Blood Cell Casts OK
[2018-07-05] MEDS ORDERED: LIDOCAINE 1% MPF 5 ML VIAL ONE (07:28)
[2018-07-05] MEDS ORDERED: LORazepam 2 MG/ML VIAL IV ONE ×2 (07:57→10:06)
[2018-07-05] MEDS: ARFORMOTEROL TARTRATE 15 MCG/2 ML VIAL.NEB NEB SCH (08:06)
[2018-07-05] MEDS ORDERED: FUROSEMIDE 20 MG/ 2ML VIAL IV ONE ×2 (08:21→13:49)
--- NOTE | 2018-07-05 08:27 | P.CNS ---
Date of Consult: 07/05/18 Primary Care Provider: None Chief Complaint: Shortness of breath History of Present Illness: Patient is 33 years of age evaluated by me for bacteremia respiratory distress admitted to this hospital complaining of chills cough congestion patient also has diarrhea C. difficile positive she came to the emergency room was diagnosed with influenza discharged came back again in respiratory distress appear to be in septic shock presumed strep pneumonia blood cultures are positive renal insufficiency currently she is very agitated. Unable to keep the BiPAP - Allergies Penicillins Allergy (Verified 04/05/12 18:46) Hives/Rash Sulfa (Sulfonamide Antibiotics) [Sulfa(Sulfonamide Antibiotics)] Allergy ( Verified 04/05/12 18:46) Hives/Rash Home Medications: NK [No Home Meds] 07/03/18 - Past Medical/Surgical History Diabetic: No -: Tobacco abuse -: depression -: hypothroidism -: 2 prior C-sections -: Tonsillectomy and adenectomy Psychosocial/ Personal History: Patient is . She has 2 children. She does not work. - Family History Mother Medical History: Lung disease - Social History Smoking Status: Current every day smoker Alcohol use: No CD- Drugs: No Caffeine use: Yes Place of Residence: Home Review of Systems Respiratory: Cough, Shortness of Breath Gastrointestinal: Diarrhea Physical Examination Temp Pulse Resp BP Pulse Ox 97.8 F 95 H 30 H 113/75 92 07/05/18 00:00 07/05/18 08:00 07/05/18 08:00 07/05/18 08:00 07/05/18 08:00 General: Alert, Moderate distress HEENT: Atraumatic Neck: Supple Respiratory: Crackles/rales (Crackles bilaterally) Cardiovascular: No edema, Regular rate/rhythm, Normal S1 S2 Gastrointestinal: Normal bowel sounds, Soft and benign Musculoskeletal: No clubbing, No swelling - Problems (1) Pneumonia Current Visit: Yes Status: Acute Plan: Patient is 33 years of age admitted with bilateral diffuse pneumonia blood cultures are positive for Gram positive Haq I in pairs and chains most likely streptococcal pneumonia currently on vancomycin and levofloxacin ID is pending the Dc IV fluids steroids add vitamin-C to thymine pro calcitonin is very elevated patient also has acute renal failure most likely ET and no response to IV fluids patient is getting agitated refusal to keep BiPAP on she is also is a problem with a face mask patient needs to be on fluid restriction right now avoid volume overload he may end up being intubated Qualifiers: Pneumonia type: due to Pneumococcus
[2018-07-05] MEDS: THIAMINE 200 MG/2 ML INJ IVP SCH (08:32)
[2018-07-05] MEDS: GUAIFENESIN 600 MG SA TAB PO SCH ×2 (08:32→20:46)
[2018-07-05] MEDS: ASCORBIC ACID 500 MG TABLET PO SCH (08:32)
[2018-07-05] MEDS: VITAMIN D 5,000 UNIT CAP PO SCH (08:32)
[2018-07-05] MEDS: FAMOTIDINE 20 MG/2 ML VIAL IV SCH (08:32)
[2018-07-05] MEDS ORDERED: HALOPERIDOL LACT 5 MG/ML INJ IV ONE (08:56)
[2018-07-05] MEDS: CALCITROL 0.25 MCG CAP PO SCH (09:04)
[2018-07-05] MEDS: SODIUM BICARB 325 MG TAB PO SCH ×2 (09:04→20:46)
[2018-07-05] MEDS ORDERED: RSI MEDICATION KIT IV ONE (11:22)
[2018-07-05] MEDS ORDERED: PROPOFOL 1,000 MG/100 ML VIAL IV ONE (11:25)
[2018-07-05] MEDS ORDERED: MIDAZOLAM HCL 2 MG/2 ML INJ ONE (12:04)
[2018-07-05] MEDS ORDERED: KETAMINE HCL 500 MG/5 ML VIAL IV STA (12:57)
[2018-07-05] MEDS ORDERED: SUCCINYLCHOLINE 20 MG/ML (10 ML) IV ONE ×2 (13:00→15:41)
--- NOTE | 2018-07-05 13:14 | RAD REPORT ---
EXAM DESCRIPTION: RAD - Chest Single View - 07/05/2018 12:58 pm CLINICAL HISTORY: Respiratory distress, intubation, central line placement COMPARISON: July 04 TECHNIQUE: AP portable chest image was obtained 1256 hours . FINDINGS: ET tube has been placed. Tip is T3-4 level estimated 2 cm above the aortic arch. This is 4 cm from the clint. Right subclavian central line has been placed with tip mid SVC. No pneumothorax. Extensive alveolar opacification throughout the lung mensah progressive from prior day imaging. Cardi ac silhouette is stable. No enlarging pleural effusion. IMPRESSION: ETT T3-4 level well above the clint. Right subclavian central line placement with tip mid SVC. No pneumothorax. Worsening pulmonary edema pattern.
[2018-07-05] MEDS: ALBUTEROL 2.5 MG/3 ML NEB SOL NEB PRN ×2 (14:23→20:28)
[2018-07-05] MEDS: PROPOFOL 1,000 MG/100 ML VIAL IV PRN ×4 (14:26→23:27)
[2018-07-05] MEDS: ENOXAPARIN 30 MG/0.3 ML SQ SCH (16:23)
[2018-07-05] MEDS ORDERED: Levofloxacin 750mg IV 750 MG/150 ML BAG IV SCH (17:00)
--- NOTE | 2018-07-05 19:21 | P.PN ---
Subjective Date of Service: 07/06/18 Primary Care Provider: None Chief Complaint: Shortness of breath Subjective: Worsening Patient seen and examined at bedside. No family at bedside. Chart reviewed and case discussed with Dr. becker and nursing staff. Patient more agitated. She is pulling off her BiPAP mask, oxygen probe, and any other lines she could get a her hand to. As soon as she is off the oxygen, her oxygen saturation drops to 60s to 70s. She seems very agitated, unable to sit still. Unsure if she has any underlying behavioral/psych disease. Review of Systems 10-point ROS is otherwise unremarkable Physical Examination - Vital Signs Temperature: 97.6 F Blood Pressure: 88/60 Pulse: 99 Respirations: 30 Pulse Ox (%): 91 - Physical Exam General: Moderate distress, Confused HEENT: Atraumatic, Mucous membr. moist/pink Neck: 2+ carotid pulse no bruit Respiratory: Diminished, Crackles/rales, Other (Oxygen desaturation) Cardiovascular: No edema, Regular rate/rhythm Gastrointestinal: Normal bowel sounds, Soft and benign, Non-distended Musculoskeletal: No clubbing Integumentary: No rashes - Studies Medications List Reviewed: Yes Assessment And Plan - Plan Severe sepsis acute respiratory failure/ ARDS Bacteremia UTI Bilateral pneumonia with recent influenza A : Continue with aggressive IV fluid hydration. Patient currently on IV Levaquin, and IV vancomycin (due to bacteremia with Gram -positive cocci.) Await final culture results. Patient agitated overnight, continued to pull off wires and bi-pap. Continued to de sat, and was tachypneic. She continued to be agitated despite 2 x ativan and Haldol. She required intubation as she was tiring out. Difficult patient to sedate, continued agitation even after diprovan 150 Iv and succ 40 IV; She was able to be intubated after IM succinycholine. Her midline access likely was infiltrated. Since she needed urgent access, a center line was ordered and placed urgently for further fluids/medications. Acute renal failure secondary to sepsis: Continue with aggressive IV fluid hydration with sepsis protocol in place. Nephrology consulted to further assess. Renal ultrasound ordered. Nausea, vomiting, diarrhea likely related to influenza/sepsis: Continue IV fluids. Will provide medication for nausea as needed. This appears improved. Thrombocytopenia secondary to sepsis: Will monitor closely. Will hold DVT prophylaxis-Lovenox if platelet count less than 75. Hypokalemia, hypomagnesia likely related to vomiting and diarrhea: Will continue to replace potassium. Will monitor and adjust appropriately. Tobacco abuse possibly underlying COPD with exacerbation and acute respiratory failure: Patient plans to quit. Patient may require nicotine patch. Will continue with Albuterol/Atrovent/Brovana. Patient on oral steroid. Suspect underlying obstructive sleep apnea: Patient may require CPAP at night. Patient should have sleep study done as an outpatient. Suspect GERD: Continue with PPI.
[2018-07-05] MEDS: VANCOMYCIN 2 GM in NA CHLORIDE 0.9% 500 ML IVPB SCH (21:26)
--- NOTE | 2018-07-06 00:04 | P.PN ---
Date of Service: 07/05/18 Vital Signs Temp Pulse Resp BP Pulse Ox 97.5 F 101 H 31 H 94/65 94 07/05/18 20:00 07/05/18 22:00 07/05/18 22:00 07/05/18 22:00 07/05/18 22:00 Medications Albuterol Sulfate (Proventil 0.083% Neb Soln) 2.5 mg NEB [id number] PRN PRN Reason: SHORTNESS OF BREATH Stop: 08/02/18 17:38 Last Admin: 07/05/18 20:28 Dose: 2.5 mg Alprazolam (Xanax) 0.25 mg PO TID PRN PRN Reason: ANXIETY Stop: 08/03/18 08:13 Last Admin: 07/04/18 21:30 Dose: 0.25 mg Ascorbic Acid (Vitamin C) 500 mg PO DAILY [facility] Stop: 08/04/18 09:01 Last Admin: 07/05/18 08:32 Dose: 500 mg Benzonatate (Tessalon Perle) 100 mg PO TID PRN PRN Reason: COUGH Stop: 08/02/18 17:38 Last Admin: 07/05/18 00:31 Dose: 100 mg Calcitriol (Rocaltrol) 0.5 mcg PO DAILY [facility] Stop: 08/04/18 09:01 Last Admin: 07/05/18 09:04 Dose: 0.5 mcg Cholecalciferol (Vitamin D 5,000 Iu Cap) 5,000 unit PO DAILY [facility] Stop: 08/04/18 09:01 Last Admin: 07/05/18 08:32 Dose: 5,000 unit Enoxaparin Sodium (Lovenox 30 Mg Inj) 30 mg SQ DAILY 5 PM [facility]SE Stop: 08/02/18 17:38 Last Admin: 07/05/18 16:23 Dose: 30 mg Famotidine (Pepcid) 20 mg IV DAILY [facility] Stop: 08/03/18 21:01 Fentanyl Citrate (Sublimaze) 25 mcg IV Q4HP PRN PRN Reason: PAIN SEVERE Stop: 08/04/18 13:23 Guaifenesin (Mucinex 600mg) 600 mg PO BID JOSE Stop: 08/03/18 09:01 Last Admin: 07/05/18 20:46 Dose: Not Given Haloperidol Lactate (Haldol) 2 mg IV Q4H PRN PRN Reason: AGITATION Stop: 08/04/18 08:38 Levofloxacin/Dextrose (Levaquin 750 Mg/150 Ml Ivpb (Premix)) 750 mg in 150 mls @ 100 mls/hr IV Q48H [facility]; Protocol Stop: 08/04/18 17:01 Last Admin: 07/05/18 16:23 Dose: 150 mls Vancomycin HCl 2 gm/ Sodium (Chloride) 500 mls @ 250 mls/hr IVPB Q36H [facility] Stop: 08/03/18 09:01 Last Admin: 07/05/18 21:26 Dose: 500 mls Propofol (Diprivan) 1,000 mg in 100 mls @ 0 mls/hr IV PRN PRN; Protocol PRN Reason: SEDATION Stop: 08/04/18 13:23 Last Admin: 07/05/18 23:27 Dose: 100 mls Lorazepam (Ativan) 2 mg IV Q2HP PRN PRN Reason: SEDATION Stop: 08/04/18 13:23 Midazolam HCl (Versed) 2 mg IV Q2HP PRN PRN Reason: SEDATION Stop: 08/04/18 13:23 Ondansetron HCl (Zofran) 4 mg IV QIDP PRN PRN Reason: NAUSEA / VOMITING Stop: 08/02/18 17:38 Last Admin: 07/05/18 09:02 Dose: 4 mg Sodium Bicarbonate (Sodium Bicarb 325 Mg) 650 mg PO BID [facility] Stop: 08/04/18 09:01 Last Admin: 07/05/18 20:46 Dose: 650 mg Thiamine HCl (Vitamin B-1) 100 mg IVP DAILY [facility] Stop: 08/03/18 09:01 Last Admin: 07/05/18 08:32 Dose: 100 mg Vancomycin HCl (Vancocin) 125 mg PO Q6HR [facility]; Protocol Stop: 08/03/18 18:01 Last Admin: 07/05/18 23:28 Dose: 125 mg Microbiology Results 07/03/18 14:35 Blood - Blood Aerobic Blood Culture - Preliminary 07/03/18 14:35 Blood - Blood Gram Stain - Preliminary 07/03/18 14:35 Blood - Blood Anaerobic Blood Culture - Preliminary 07/03/18 14:35 Blood - Blood Gram Stain - Preliminary 07/03/18 14:18 Blood - Blood Aerobic Blood Culture - Preliminary 07/03/18 14:18 Blood - Blood Gram Stain - Preliminary 07/03/18 14:18 Blood - Blood Anaerobic Blood Culture - Preliminary 07/03/18 14:18 Blood - Blood Gram Stain - Preliminary Assessment/ Plan: Nephrology. Intubated this morning due to severe hypoxia. Unable to obtain an IH/ ROS due to sedation. Vitals, medications, blood work and imaging reviewed in the chart. General: Sedated HEENT: Atraumatic, Mucous membr. moist/pink Neck: Supple Respiratory: Clear to auscultation bilaterally (Intubated), Normal air movement Cardiovascular: Regular rate/rhythm, No rubs, Edema (Non pitting) Gastrointestinal: Hypoactive, Soft and benign, Non-distended, No guarding Musculoskeletal: No clubbing, No contractures Integumentary: No rashes, No cyanosis Neurological: Normal speech Urinary: Dover catheter Blood work reviewed in the chart. Na 137; K 3.1; CO2 20; BUN 22; Cr 2.56 Greater than 30 minutes patient care. Imagings Data: EXAM DESCRIPTION: [place] Feliciano And Lat (2 Views)07/03/2018 2:49 pm CLINICAL HISTORY: Cough COMPARISON: June 30, 2018 FINDINGS: Bilateral lung consolidations have developed. Heart is normal size IMPRESSION: Moderate bilateral pneumonia. EXAM DESCRIPTION: US - Renal Ultrasound-Complete - 07/03/2018 10:51 pm CLINICAL HISTORY: Acute renal failure, sepsis COMPARISON: CT in July 2016 FINDINGS: The right kidney measures 12.2 x 5.0 x 4.7 cm. The left kidney measures 11.9 x 4.6 x 5.7 cm. Cortical thickness within normal range. Echogenicity is increased slightly which may be body habitus artifact. Mild underlying medical renal disease is possible. No hydronephrosis or suspicious renal mass. Bladder was too contracted to allow all optimal assessment. IMPRESSION: No hydronephrosis or suspicious renal mass. Mild increase in cortical echogenicity may be body habitus artifact or mild underlying medical renal disease. Conclusions/Impression: A/ Sepsis/ Shock. Influenza. BL PNA. C.diff. Acute hypoxic respiratory failure sp intubation [id number]. TRES in the setting of sepsis. Proteinuria. Hypokalemia. Acidosis. Hypocalcemia. HypoPO4. Hypomagnesemia. Hyperglycemia on steroids. Rhabdomyolysis, mild. Hypoalbuminemia. Microcytic anemia suspicious for iron deficiency. Thrombocytopenia. P/ Continue current POC and Medications. Ventilatory support as ordered. Replete lytes per protocol. Hold IVF. Pressor support as need to maintain perfusion. Agree with abx. Monitor vanco levels. Follow up cultures. No NSAIDs. AM labs. Daily weight.
[2018-07-06] MEDS: PROPOFOL 1,000 MG/100 ML VIAL IV PRN ×6 (02:31→21:18)
[2018-07-06] MEDS: VANCOMYCIN ORAL SOLN 250 MG/5 ML OSYR PO SCH ×3 (05:10→19:22)
[2018-07-06 05:49] LABS: Arterial Blood Carboxyhemoglob 1.1 % (0-1.5); Blood Gas Oxyhemoglobin 87.4 % (94-97); Blood O2 Saturation 88.9 % (92-98.5)
[2018-07-06 05:50] LABS: Absolute Lymphocytes (CBC) 0.6 K/uL (0.7-4.9); Absolute Monocytes 0.2 K/uL (0.1-1.3); Absolute Neutrophil 5.5 K/uL (1.8-8.0); Basophils % 0.1 % (0-1.3); Lymphocytes % 10.1 % (15.3-44.8); MPV 10.1 fL (7.6-11.3); Monocytes % 3.7 % (3.3-12.3); RBC Red Blood Cell Count 4.03 M/uL (3.86-4.86)
[2018-07-06 05:59] LABS: Albumin 2.1 g/dL (3.4-5.0); Bilirubin Total 0.4 mg/dL (0.2-1.0); Magnesium 2.8 mg/dL (1.8-2.4); Potassium 3.2 mmol/L (3.5-5.1); Protein, Total 5.9 g/dL (6.4-8.2)
[2018-07-06] MEDS: KCL 20 MEQ/100 mL IVPB 20 MEQ/100 ML BAG IV SCH ×2 (06:57→09:03)
[2018-07-06] MEDS: CALCITROL 0.25 MCG CAP PO SCH (07:20)
[2018-07-06] MEDS: GUAIFENESIN 600 MG SA TAB PO SCH ×2 (07:20→21:00)
[2018-07-06] MEDS: FENTANYL CITR 100 MCG/2 ML IV PRN (07:28)
[2018-07-06] MEDS: ALBUTEROL 2.5 MG/3 ML NEB SOL NEB PRN (07:56)
[2018-07-06] MEDS: LORazepam 2 MG/ML VIAL IV PRN (08:00)
--- NOTE | 2018-07-06 08:08 | ECHO ---
HEIGHT: 5 ft 3 in WEIGHT: 275 lb 11.2 oz DATE OF STUDY: 07/05/[address]: Andrae Rai DO 2-DIMENSIONAL: YES M.MODE: YES DOPPLER: YES COLOR FLOW: YES TDS: NO PORTABLE: NO DEFINITY: NO BUBBLE STUDY: NO DIAGNOSIS: SEVERE SEPSIS CARDIAC HISTORY: CATHERIZATION: SURGERY: PROSTHETIC VALVE: PACEMAKER: MEASUREMENTS (cm) DIASTOLIC (NORMALS) SYSTOLIC (NORMALS) IVSd 1.1 (0.6-1.2) LA Diam (1.9-4.0) LVEF 48% LVIDd 4.5 (3.5-5.7) LVIDs 3.6 (2.0-3.5) %FS 16% LVPWd 1.2 (0.6-1.2) Ao Diam 2.2 (2.0-3.7) 2 DIMENSIONAL ASSESSMENT: RIGHT ATRIUM: NORMAL LEFT ATRIUM: NORMAL RIGHT VENTRICLE: NORMAL LEFT VENTRICLE: NORMAL TRICUSPID VALVE: NORMAL MITRAL VALVE: NORMAL PULMONIC VALVE: NORMAL AORTIC VALVE: NORMAL PERICARDIAL EFFUSION: NONE AORTIC ROOT: NORMAL LEFT VENTRICULAR WALL MOTION: MILD GLOBAL HYPOKINESIS. DOPPLER/COLOR FLOW: MILD MITRAL REGURGITATION. COMMENTS: MILDLY DEPRESSED LEFT VENTRICULAR EJECTION FRACTION. MILD MITRAL REGURGITATION. TECHNOLOGIST: Padma LEIJA
[2018-07-06] MEDS: MIDAZOLAM HCL 2 MG/2 ML INJ IV PRN (08:15)
[2018-07-06] MEDS ORDERED: NOREPINEPHRINE 4 MG in D5W 250 ML IV PRN (08:20)
--- NOTE | 2018-07-06 08:44 | P.PN ---
Subjective Date of Service: 07/08/18 Primary Care Provider: None Chief Complaint: Respiratory failure shock Patient is not improving she appears to be not in ARDS low blood pressure diffuse infiltrate blood cultures positive for pneumococcus Review of Systems is unable to be obtained Physical Examination - Vital Signs Temperature: 98.5 F Blood Pressure: 85/49 Pulse: 97 Respirations: 26 Pulse Ox (%): 92 - Physical Exam General: Moderate distress Respiratory: Crackles/rales, Expiratory wheezes Cardiovascular: No edema, Regular rate/rhythm - Studies Medications List Reviewed: Yes Assessment & Plan - Problems (Diagnosis) (1) Pneumonia Onset Date: 07/05/18 Current Visit: Yes Status: Acute Plan: Patient is 33 years of age admitted with bilateral diffuse pneumonia blood cultures are positive for Gram positive Haq I in pairs and chains most likely streptococcal pneumonia currently on vancomycin and levofloxacin ID is pending the Dc IV fluids steroids add vitamin-C to thymine pro calcitonin is very elevated patient also has acute renal failure most likely ET and no response to IV fluids patient is getting agitated refusal to keep BiPAP on she is also is a problem with a face mask patient needs to be on fluid restriction right now avoid volume overload he may end up being intubated Qualifiers: Pneumonia type: due to Pneumococcus Laterality: bilateral (2) Respiratory failure Current Visit: Yes Status: Acute Plan: Patient is in an respiratory failure probably has ARDS pneumococcal bacteremia acute renal failure renal function is worse IV increase the PEEP start low-dose tube feeds trial of some steroids change to cefepime Dc Levaquin and vancomycin patient is on DVT prophylaxis continue with famotidine chest x-ray looks worse may need to use Levophed patient is hypoxic with a PO2 of 60 on 70% oxygen PEEP was increased to 10 Physician Review Additional Text: I
--- NOTE | 2018-07-06 08:45 | RAD REPORT ---
EXAM DESCRIPTION: RAD - Chest Single View - 07/06/2018 7:05 am CLINICAL HISTORY: intubation Chest pain. COMPARISON: Chest Single View dated 07/05/2018; Chest Single View dated 07/04/2018; Chest Pa And Lat ( 2 Views) dated 07/03/2018; Chest Single View dated 06/30/2018 FINDINGS: Portable technique limits examination quality. Tip of the ET tube is above the clint. Enteric tube coils in the stomach. Right-sided venous cathete r has tip in the SVC. Bilateral pulmonary opacities are again noted, appearing mildly improved since comparative study. The heart is upper limit normal in size.
[2018-07-06] MEDS ORDERED: CEFEPIME 1 GM/VIAL IV SCH (09:00)
[2018-07-06] MEDS: CEFEPIME/SWI 1gm 10 ML IV SCH (09:03)
[2018-07-06] MEDS: HYDROCORTISONE SUC 100 MG INJ IV SCH ×2 (09:03→21:45)
[2018-07-06] MEDS: THIAMINE 200 MG/2 ML INJ IVP SCH (09:03)
[2018-07-06] MEDS: SODIUM BICARB 325 MG TAB PO SCH ×2 (09:04→21:45)
[2018-07-06] MEDS: FAMOTIDINE 20 MG/2 ML VIAL IV SCH (09:04)
[2018-07-06] MEDS: ASCORBIC ACID 500 MG TABLET PO SCH (09:05)
[2018-07-06] MEDS: VITAMIN D 5,000 UNIT CAP PO SCH (09:05)
[2018-07-06 10:05] LABS: Blood O2 Saturation 89.4 % (92-98.5)
--- NOTE | 2018-07-06 13:23 | P.PN ---
Subjective Date of Service: 07/06/18 Primary Care Provider: None Chief Complaint: Shortness of breath Subjective: Worsening Patient seen and examined at bedside. No family at bedside. Chart reviewed and case discussed with Dr. becker and nursing staff. Patient intubated yesterday. Currently sedated and requiring increasing Levophed for pressure support. Decreased urine production Review of Systems 10-point ROS is otherwise unremarkable Physical Examination - Vital Signs Temperature: 97.6 F Blood Pressure: 88/60 Pulse: 99 Respirations: 30 Pulse Ox (%): 91 - Physical Exam General: Other (Sedated, agitated when trying to; unable to follow commands) Neck: 2+ carotid pulse no bruit, JVD not distended Respiratory: Other (Intubated) Cardiovascular: No edema Gastrointestinal: Normal bowel sounds - Studies Microbiology Data (last 24 hrs): 07/03/18 14:35 Blood - Blood Aerobic Blood Culture - Final Strep Pneumoniae 07/03/18 14:35 Blood - Blood Gram Stain - Final 07/03/18 14:35 Blood - Blood Anaerobic Blood Culture - Final Strep Pneumoniae 07/03/18 14:35 Blood - Blood Gram Stain - Final 07/03/18 14:18 Blood - Blood Aerobic Blood Culture - Final Strep Pneumoniae 07/03/18 14:18 Blood - Blood Gram Stain - Final 07/03/18 14:18 Blood - Blood Anaerobic Blood Culture - Final Strep Pneumoniae 07/03/18 14:18 Blood - Blood Gram Stain - Final Medications List Reviewed: Yes Assessment And Plan - Plan Severe sepsis acute respiratory failure/ ARDS Bacteremia with Streptococcus pneumonia UTI Bilateral pneumonia with recent influenza A : Continue with aggressive IV fluid hydration. IV Levaquin and vancomycin discontinued. Patient switched to IV cefepime for bacteremia with Streptococcus pneumonia. Currently intubated and sedated. Acute renal failure secondary to sepsis: Continue with aggressive IV fluid hydration with sepsis protocol in place. Nephrology consulted to further assess. Worsening kidney function Clostridium difficile colitis: Continue oral vancomycin Thrombocytopenia secondary to sepsis: Will monitor closely. Will hold DVT prophylaxis-Lovenox if platelet count less than 75. Tobacco abuse possibly underlying COPD with exacerbation and acute respiratory failure: Patient plans to quit. Patient may require nicotine patch. Will continue with Albuterol/Atrovent/Brovana. Patient on oral steroid. Suspect underlying obstructive sleep apnea: Patient may require CPAP at night. Patient should have sleep study done as an outpatient. Suspect GERD: Continue with PPI. DVT prophylaxis: Lovenox GI prophylaxis: PPI Diet: NPO Disposition: Acutely ill at this time, serious condition. Discussed with the the severity of patient's illness this time.
[2018-07-06] MEDS: ENOXAPARIN 30 MG/0.3 ML SQ SCH (18:56)
--- NOTE | 2018-07-06 21:31 | P.PN ---
Date of Service: 07/06/18 Vital Signs Temp Pulse Resp BP Pulse Ox 98.3 F 88 28 H 104/63 96 07/06/18 16:00 07/06/18 19:15 07/06/18 19:15 07/06/18 19:15 07/06/18 19:15 Medications Alprazolam (Xanax) 0.25 mg PO TID PRN PRN Reason: ANXIETY Stop: 08/03/18 08:13 Last Admin: 07/04/18 21:30 Dose: 0.25 mg Ascorbic Acid (Vitamin C) 500 mg PO DAILY JOSE Stop: 08/04/18 09:01 Last Admin: 07/06/18 09:05 Dose: 500 mg Benzonatate (Tessalon Perle) 100 mg PO TID PRN PRN Reason: COUGH Stop: 08/02/18 17:38 Last Admin: 07/05/18 00:31 Dose: 100 mg Calcitriol (Rocaltrol) 0.5 mcg PO DAILY JOSE Stop: 08/04/18 09:01 Last Admin: 07/06/18 07:20 Dose: Not Given Cholecalciferol (Vitamin D 5,000 Iu Cap) 5,000 unit PO DAILY [facility] Stop: 08/04/18 09:01 Last Admin: 07/06/18 09:05 Dose: 5,000 unit Enoxaparin Sodium (Lovenox 30 Mg Inj) 30 mg SQ DAILY 5 PM [facility] Stop: 08/02/18 17:38 Last Admin: 07/06/18 18:56 Dose: 30 mg Enteral Nutritional Formula (Nepro) 0 ml FT CONT [facility] Stop: 08/05/18 09:01 Famotidine (Pepcid) 20 mg IV DAILY [facility] Stop: 08/03/18 21:01 Last Admin: 07/06/18 09:04 Dose: 20 mg Fentanyl Citrate (Sublimaze) 25 mcg IV Q4HP PRN PRN Reason: PAIN SEVERE Stop: 08/04/18 13:23 Last Admin: 07/06/18 07:28 Dose: 25 mcg Guaifenesin (Mucinex 600mg) 600 mg PO BID [facility] Stop: 08/03/18 09:01 Last Admin: 07/06/18 07:20 Dose: Not Given Haloperidol Lactate (Haldol) 2 mg IV Q4H PRN PRN Reason: AGITATION Stop: 08/04/18 08:38 Hydrocortisone Sodium Succinate (Solu-Cortef) 100 mg IV Q12HR JOSE Stop: 08/05/18 09:01 Last Admin: 07/06/18 09:03 Dose: 100 mg Propofol (Diprivan) 1,000 mg in 100 mls @ 0 mls/hr IV PRN PRN; Protocol PRN Reason: SEDATION Stop: 08/04/18 13:23 Last Admin: 07/06/18 21:18 Dose: 100 mls Norepinephrine Bitartrate 4 mg (/ Dextrose) 254 mls @ 0 mls/hr IV PRN PRN; Protocol PRN Reason: Hemodynamic Parameters Stop: 08/05/18 08:21 Last Admin: 07/06/18 08:37 Dose: 254 mls Cefepime HCl (Maxipime 1 Gm/10 Ml Ivp) 10 mls @ 200 mls/hr IV DAILY [facility] Stop: 08/05/18 09:01 Last Admin: 07/06/18 09:03 Dose: 10 mls Lorazepam (Ativan) 2 mg IV Q2HP PRN PRN Reason: SEDATION Stop: 08/04/18 13:23 Last Admin: 07/06/18 08:00 Dose: 2 mg Midazolam HCl (Versed) 2 mg IV Q2HP PRN PRN Reason: SEDATION Stop: 08/04/18 13:23 Last Admin: 07/06/18 08:15 Dose: 2 mg Ondansetron HCl (Zofran) 4 mg IV QIDP PRN PRN Reason: NAUSEA / VOMITING Stop: 08/02/18 17:38 Last Admin: 07/05/18 09:02 Dose: 4 mg Sodium Bicarbonate (Sodium Bicarb 325 Mg) 650 mg PO BID [facility] Stop: 08/04/18 09:01 Last Admin: 07/06/18 09:04 Dose: 650 mg Sterile Water (Sterile Water For Inj (10 Ml Vial)) 2 ml IV UD [facility] Stop: 08/05/18 09:01 Thiamine HCl (Vitamin B-1) 100 mg IVP DAILY [facility] Stop: 08/03/18 09:01 Last Admin: 07/06/18 09:03 Dose: 100 mg Vancomycin HCl (Vancocin) 125 mg PO Q6HR [facility]; Protocol Stop: 08/03/18 18:01 Last Admin: 07/06/18 19:22 Dose: 125 mg Microbiology Results 07/03/18 14:35 Blood - Blood Aerobic Blood Culture - Final Strep Pneumoniae 07/03/18 14:35 Blood - Blood Gram Stain - Final 07/03/18 14:35 Blood - Blood Anaerobic Blood Culture - Final Strep Pneumoniae 07/03/18 14:35 Blood - Blood Gram Stain - Final 07/03/18 14:18 Blood - Blood Aerobic Blood Culture - Final Strep Pneumoniae 07/03/18 14:18 Blood - Blood Gram Stain - Final 07/03/18 14:18 Blood - Blood Anaerobic Blood Culture - Final Strep Pneumoniae 07/03/18 14:18 Blood - Blood Gram Stain - Final Assessment/ Plan: Nephrology. Intubated [id number]. Sedated. Unable to obtain an IH/ ROS due to sedation. No acute events. Vitals, medications, blood work and imaging reviewed in the chart. General: Sedated HEENT: Atraumatic, Mucous membr. moist/pink Neck: Supple Respiratory: Clear to auscultation bilaterally (Intubated), Normal air movement Cardiovascular: Regular rate/rhythm, No rubs, No edema Gastrointestinal: Hypoactive, Soft and benign, Non-distended, No guarding Musculoskeletal: No clubbing, No contractures Integumentary: No rashes, No cyanosis Neurological: Normal speech Urinary: [place] catheter Blood work reviewed in the chart. Na 137; K 3.1; CO2 20; BUN 22; Cr 2.56 Greater than 30 minutes patient care. Imagings Data: EXAM DESCRIPTION: [place] Brasher (2 Views)07/03/2018 2:49 pm CLINICAL HISTORY: Cough COMPARISON: June 30, 2018 FINDINGS: Bilateral lung consolidations have developed. Heart is normal size IMPRESSION: Moderate bilateral pneumonia. EXAM DESCRIPTION: US - Renal Ultrasound-Complete - 07/03/2018 10:51 pm CLINICAL HISTORY: Acute renal failure, sepsis COMPARISON: CT in July 2016 FINDINGS: The right kidney measures 12.2 x 5.0 x 4.7 cm. The left kidney measures 11.9 x 4.6 x 5.7 cm. Cortical thickness within normal range. Echogenicity is increased slightly which may be body habitus artifact. Mild underlying medical renal disease is possible. No hydronephrosis or suspicious renal mass. Bladder was too contracted to allow all optimal assessment. IMPRESSION: No hydronephrosis or suspicious renal mass. Mild increase in cortical echogenicity may be body habitus artifact or mild underlying medical renal disease. Conclusions/Impression: A/ Sepsis/ Shock. Influenza. BL PNA. C.diff. Acute hypoxic respiratory failure sp intubation [id number]. TRES in the setting of sepsis. Proteinuria. Hypokalemia. Acidosis. Hypocalcemia. HypoPO4. Hypomagnesemia. Hyperglycemia on steroids. Rhabdomyolysis, mild. Hypoalbuminemia. Microcytic anemia suspicious for iron deficiency. Thrombocytopenia. P/ Continue current POC and Medications. Ventilatory support as ordered. Replete lytes per protocol. Pressor support as need to maintain perfusion. Agree with abx. Monitor vanco levels. Follow up cultures. Agree with tube feeds. No NSAIDs. AM labs. Daily weight.
[2018-07-07] MEDS: VANCOMYCIN ORAL SOLN 250 MG/5 ML OSYR PO SCH ×5 (00:21→23:53)
[2018-07-07] MEDS: PROPOFOL 1,000 MG/100 ML VIAL IV PRN ×5 (00:36→22:57)
[2018-07-07 05:07] LABS: Absolute Lymphocytes (CBC) 0.4 K/uL (0.7-4.9); Absolute Monocytes 0.4 K/uL (0.1-1.3); Absolute Neutrophil 5.2 K/uL (1.8-8.0); Hematocrit 29.3 % (36.0-45.0); MPV 9.9 fL (7.6-11.3); RBC Red Blood Cell Count 3.96 M/uL (3.86-4.86)
[2018-07-07 05:32] LABS: Bilirubin Total 0.4 mg/dL (0.2-1.0); Magnesium 3.3 mg/dL (1.8-2.4); Potassium 4.3 mmol/L (3.5-5.1); Protein, Total 6.2 g/dL (6.4-8.2); Thyroid Stimulating Hormone 0.434 uIU/mL (0.360-3.740); Uric Acid 9.6 mg/dL (2.6-6.0)
[2018-07-07 05:34] LABS: Urine Appearance CLOUDY; Urine Bilirubin NEGATIVE (NEG); Urine Blood 2+ (NEG); Urine Color YELLOW; Urine Glucose NEGATIVE (NEG); Urine Protein 1+ (NEG); Urine Urobilinogen 0.2 mg/dL (0.2-1.0); Urine pH 5.5 (5.0-7.0)
[2018-07-07 05:58] LABS: Urine Bacteria 20-50 /HPF (<20); Urine Culture Reflex Order NOT NEEDED; Urine RBC 20-50 /HPF (NONE SEEN)
[2018-07-07 06:54] LABS: Blood Gas Oxyhemoglobin 89.1 % (94-97); Blood O2 Saturation 90.8 % (92-98.5)
--- NOTE | 2018-07-07 08:24 | RAD REPORT ---
EXAM DESCRIPTION: [place] Single View07/07/2018 6:41 am CLINICAL HISTORY: Chest pain COMPARISON: July 06, 2018 FINDINGS: Endotracheal tube has its tip 4.5 centimeters above the clint. Nasogastric tube is prese nt the stomach. A central venous line remains in place. There has been mild improvement in diffuse bilateral pulmonary opacities. Heart is normal size IMPRESSION: Mild improvement in bilateral pulmonary opacities
--- NOTE | 2018-07-07 08:46 | P.PN ---
Subjective Date of Service: 07/08/18 Primary Care Provider: None Chief Complaint: Respiratory failure septic shock Patient's condition is stable she is weaned off for vasopressors oxygenation requirement is stable still on propofol Review of Systems is unable to be obtained Physical Examination - Vital Signs Temperature: 97.6 F Blood Pressure: 104/68 Pulse: 85 Respirations: 18 Pulse Ox (%): 93 - Physical Exam General: Unresponsive, Other HEENT: Atraumatic Respiratory: Crackles/rales (Crackles bilaterally) Cardiovascular: No edema, Regular rate/rhythm - Studies Microbiology Data (last 24 hrs): 07/03/18 14:35 Blood - Blood Aerobic Blood Culture - Final Strep Pneumoniae 07/03/18 14:35 Blood - Blood Gram Stain - Final 07/03/18 14:35 Blood - Blood Anaerobic Blood Culture - Final Strep Pneumoniae 07/03/18 14:35 Blood - Blood Gram Stain - Final 07/03/18 14:18 Blood - Blood Aerobic Blood Culture - Final Strep Pneumoniae 07/03/18 14:18 Blood - Blood Gram Stain - Final 07/03/18 14:18 Blood - Blood Anaerobic Blood Culture - Final Strep Pneumoniae 07/03/18 14:18 Blood - Blood Gram Stain - Final Medications List Reviewed: Yes Assessment & Plan - Problems (Diagnosis) (1) Pneumonia Onset Date: 07/05/18 Current Visit: Yes Status: Acute Plan: Patient is 33 years of age admitted with septic shock renal failure and kidney function is has not improved chest x-ray looks somewhat better advanced endotracheal tube by 2 cm white count is normal advanced tube feeds to 20 cc an hr patient is tolerating diarrhea has resolved Dc steroids tomorrow use Ativan and fentanyl wean off propofol patient is on FiO2 of 55% PEEP of 10 Qualifiers: Pneumonia type: due to Pneumococcus Laterality: bilateral (2) Respiratory failure Current Visit: Yes Status: Acute Plan: Patient is in an respiratory failure probably has ARDS pneumococcal bacteremia acute renal failure renal function is worse IV increase the PEEP start low-dose tube feeds trial of some steroids change to cefepime Dc Levaquin and vancomycin patient is on DVT prophylaxis continue with famotidine chest x-ray looks worse may need to use Levophed patient is hypoxic with a PO2 of 60 on 70% oxygen PEEP was increased to 10
[2018-07-07] MEDS: GUAIFENESIN 600 MG SA TAB PO SCH ×2 (09:00→20:06)
[2018-07-07] MEDS: FAMOTIDINE 20 MG/2 ML VIAL IV SCH (09:18)
[2018-07-07] MEDS: THIAMINE 200 MG/2 ML INJ IVP SCH (09:18)
[2018-07-07] MEDS: LORazepam 2 MG/ML VIAL IV PRN ×2 (09:18→14:46)
[2018-07-07] MEDS: CALCITROL 0.25 MCG CAP PO SCH (09:19)
[2018-07-07] MEDS: CEFEPIME/SWI 1gm 10 ML IV SCH (09:19)
[2018-07-07] MEDS: SODIUM BICARB 325 MG TAB PO SCH ×2 (09:19→20:05)
[2018-07-07] MEDS: ASCORBIC ACID 500 MG TABLET PO SCH (09:19)
[2018-07-07] MEDS: VITAMIN D 5,000 UNIT CAP PO SCH (09:19)
[2018-07-07] MEDS: HYDROCORTISONE SUC 100 MG INJ IV SCH ×2 (13:08→20:06)
[2018-07-07] MEDS ORDERED: FUROSEMIDE 40 MG/4 ML VIAL IV ONE (14:00)
[2018-07-07] MEDS ORDERED: PROPOFOL 200 MG/20 ML VIAL IV ONE ×3 (14:49→16:07)
[2018-07-07] MEDS ORDERED: PROPOFOL 200 MG/20 ML VIAL IV PRN (16:15)
[2018-07-07] MEDS: ENOXAPARIN 30 MG/0.3 ML SQ SCH (17:34)
[2018-07-07] MEDS: FUROSEMIDE 40 MG/4 ML VIAL IV SCH (19:25)
--- NOTE | 2018-07-07 19:34 | PN ---
Date of Progress Note: 07/07/2018 Subjective: The patient was seen and examined. She remains intubated. She has been off Levophed si nce last night. She is doing better. Objective: Vital signs: Showing temperature of 97.6, pulse rate of 85, respiratory rate of 18, and blood pressure 104/68. General: She is intubated and sedated. She remains on 10 of PEEP and 60% FiO2. HEENT: Atraumatic head. Lungs: Auscultation of lung revealed bilateral equal air entry. Abdomen: Obese and nontender. Extremities: Without any evidence of edema. Laboratory Data: At this time is showing sodium of 142, potassium of 4.3, chloride of 111, BUN of 60 and creatinine of 3.86, which seems to be worsening. CBC showing hemoglobin of 9.8, hematocrit of 2 9.3, and platelet count of 117, which also seems to be improving compared to previous. Current Medications: Include alprazolam p.r.n., ascorbic acid, calcitriol, cefepime 1 g daily, vitam in D, Lovenox for deep vein thrombosis prophylaxis, Haldol p.r.n. for agitation. She remains on Vers ed and vancomycin oral 125 mg every 6 hours. Impression: 1.Acute renal insufficiency secondary to possibly from acute tubular necrosis from ongoing sepsis an d hypotension. The patient is nonoliguric; however, urine output seems to be dropping slightly. We will go ahead and give her 1 dose of IV Lasix to promote urine output and monitor her closely and als o to help with her hypoxia. She is off pressors at this time. May need small boluses of IV fluids t o keep MAP above 70. 2.Hypoxic respiratory failure secondary to possibly from pneumonia and underlying influenza secondar y to septic shock. The patient remains on the ventilator and being managed by Pulmonary. 3.Clostridium difficile, currently on p.o. vancomycin. 4.Acidosis. Continue to monitor. 5.Hyperglycemia, on steroids. 6.Rhabdomyolysis, mild. 7.Thrombocytopenia, improving. Plan: The patient's renal function slightly worsened today. Urine output is also slightly dropping. We will give her a dose of Lasix and monitor her urine output. If she responds, she can be put on higher doses of Lasix and monitor her urine output and for hypoxia. Continue all other medications. Antibiotics have been adjusted for renal function and we will follow up with daily labs. MARIO/LEXI Voice ID: [id number] Report ID: [id number]
[2018-07-07] MEDS: WATER FOR INJ,STERILE 10 ML IV SCH (20:06)
--- NOTE | 2018-07-07 20:45 | RAD REPORT ---
EXAM DESCRIPTION: RAD - Chest Single View - 07/07/2018 8:25 pm CLINICAL HISTORY: E-tube reposition, Ngt placement Chest pain. COMPARISON: Chest Single View dated 07/07/2018; Chest Single View dated 07/06/2018; Chest Single View dated 07/05/2018; Chest Single View dated 07/04/2018 FINDINGS: Portable technique limits examination quality. The tip of the ET tube appears at the level of the clint. About 2 cm of retraction may be considered . Enteric tube descends into the upper abdomen. Right-sided PICC line is unchanged with tip in the SV C.
[2018-07-07] MEDS: MIDAZOLAM HCL 2 MG/2 ML INJ IV PRN (22:58)
[2018-07-08] MEDS: PROPOFOL 1,000 MG/100 ML VIAL IV PRN ×7 (02:10→22:58)
[2018-07-08] MEDS: LORazepam 2 MG/ML VIAL IV PRN ×2 (03:50→19:21)
[2018-07-08 05:20] LABS: Absolute Lymphocytes (CBC) 0.5 K/uL (0.7-4.9); Absolute Monocytes 0.4 K/uL (0.1-1.3); Absolute Neutrophil 7.7 K/uL (1.8-8.0); Basophils % 0.1 % (0-1.3); Eosinophils % 0.2 % (0-4.4); Hematocrit 29.4 % (36.0-45.0); Lymphocytes % 6.3 % (15.3-44.8); MPV 9.5 fL (7.6-11.3); Monocytes % 5.2 % (3.3-12.3); RBC Red Blood Cell Count 3.97 M/uL (3.86-4.86)
[2018-07-08] MEDS: VANCOMYCIN ORAL SOLN 250 MG/5 ML OSYR PO SCH ×4 (05:39→23:01)
[2018-07-08 05:43] LABS: Albumin 2.1 g/dL (3.4-5.0); Bilirubin Total 0.3 mg/dL (0.2-1.0); Magnesium 3.2 mg/dL (1.8-2.4); Phosphorus 4.7 mg/dL (2.5-4.9); Potassium 3.8 mmol/L (3.5-5.1); Protein, Total 6.1 g/dL (6.4-8.2)
--- NOTE | 2018-07-08 08:37 | P.PN ---
Subjective Date of Service: 07/08/18 Primary Care Provider: None Chief Complaint: Respiratory failure septic shock Patient continues to be agitated still hypoxic has desat on minimal exertion hemodynamically stable she is not on any vasopressors significant diarrhea since the tube feeds were increased Review of Systems is unable to be obtained Physical Examination - Vital Signs Temperature: 97.5 F Blood Pressure: 104/54 Pulse: 74 Respirations: 27 Pulse Ox (%): 93 - Physical Exam General: Unresponsive (On a propofol drip), Other Respiratory: Crackles/rales (Bilateral crackles) Cardiovascular: No edema, Regular rate/rhythm - Studies Medications List Reviewed: Yes Assessment & Plan - Problems (Diagnosis) (1) Pneumonia Onset Date: 07/05/18 Current Visit: Yes Status: Acute Plan: Patient is 33 years of age admitted with septic shock renal failure and kidney function is has not improved chest x-ray looks somewhat better advanced endotracheal tube by 2 cm white count is normal advanced tube feeds to 20 cc an hr patient is tolerating diarrhea has resolved Dc steroids tomorrow use Ativan and fentanyl wean off propofol patient is on FiO2 of 55% PEEP of 10 Qualifiers: Pneumonia type: due to Pneumococcus Laterality: bilateral (2) Respiratory failure Current Visit: Yes Status: Acute Plan: Patient has ARDS IV increase the PEEP to 15 cm agree with diuretics and 4 in negative fluid balance steroids have been discontinued patient has significant diarrhea I decrease tube feeds on oral vancomycin white count normal renal function is worse currently on vitamin-C p.o. and IV thymine continue with supportive care chest x-ray reviewed she still has bilateral infiltrates left greater than right Physician Review Additional Text: I
[2018-07-08] MEDS ORDERED: HYDROCORTISONE SUC 100 MG INJ IV SCH (09:00)
[2018-07-08] MEDS: GUAIFENESIN 600 MG SA TAB PO SCH ×2 (09:00→20:34)
[2018-07-08] MEDS: CALCITROL 0.25 MCG CAP PO SCH (09:00)
--- NOTE | 2018-07-08 09:49 | RAD REPORT ---
EXAM DESCRIPTION: RAD - Chest Single View - 07/08/2018 8:18 am CLINICAL HISTORY: Pneumonia, intubation COMPARISON: July 07 TECHNIQUE: AP portable chest image was obtained 0814 hours . FINDINGS: Tip of the endotracheal tube is at the T3 level, above the aortic arch an approximately 4 cm from the clint. NG tube extends below the diaphragm, off the field of view. Bilateral pulmonary opacification has improved but not resolved. Heart size is upper normal and stabl e. Vasculature is prominent. Right-sided venous access catheter has not changed. No pneumothorax or e nlarging pleural effusion. No acute bony abnormality seen. No acute aortic findings suspected. IMPRESSION: ETT tip is T3 level approximately 4 cm above the clint. NG tube remains in good positio n. Partial clearing of bilateral edema or infiltrate.
[2018-07-08] MEDS: FUROSEMIDE 40 MG/4 ML VIAL IV SCH (09:59)
[2018-07-08] MEDS: ASCORBIC ACID 500 MG TABLET PO SCH (09:59)
[2018-07-08] MEDS: VITAMIN D 5,000 UNIT CAP PO SCH (09:59)
[2018-07-08] MEDS: SODIUM BICARB 325 MG TAB PO SCH ×2 (09:59→20:32)
[2018-07-08] MEDS: FAMOTIDINE 20 MG/2 ML VIAL IV SCH (10:00)
[2018-07-08] MEDS: CEFEPIME/SWI 1gm 10 ML IV SCH (10:01)
[2018-07-08] MEDS: OSELTAMIVIR PHOSPHATE 30 MG/5 ML SUSPENSION UD PO SCH (10:31)
[2018-07-08] MEDS: THIAMINE 200 MG/2 ML INJ IVP SCH (10:31)
[2018-07-08] MEDS: METRONIDAZOLE 500mg IVPB 500 MG/100 ML BAG IV SCH ×2 (10:31→17:14)
[2018-07-08 11:11] LABS: Barbiturates NEGATIVE (NEGATIVE); Benzodiazepines POSITIVE (NEGATIVE); Cocaine NEGATIVE (NEGATIVE); METHAMPHETAM NEGATIVE (NEGATIVE); Methadone NEGATIVE (NEGATIVE); Opiates NEGATIVE (NEGATIVE); Phencyclidine NEGATIVE (NEGATIVE); THC Cannibis NEGATIVE (NEGATIVE)
[2018-07-08] MEDS: NEPRO 1,000 ML BOT FT SCH (12:58)
[2018-07-08] MEDS: ENOXAPARIN 30 MG/0.3 ML SQ SCH (17:14)
--- NOTE | 2018-07-08 17:40 | P.PN ---
Subjective Date of Service: 07/07/18 Primary Care Provider: None Chief Complaint: Respiratory failure septic shock Subjective: No new changes Patient seen and examined at bedside. No family at bedside. Chart reviewed and case discussed with Dr. becker and nursing staff. Patient intubated. Currently sedated and requiring increasing Levophed for pressure support. Decreased urine production Review of Systems 10-point ROS is otherwise unremarkable Physical Examination - Vital Signs Temperature: 97.6 F Blood Pressure: 99/67 Pulse: 99 Respirations: 43 Pulse Ox (%): 97 - Studies Medications List Reviewed: Yes Assessment And Plan - Plan Severe sepsis acute respiratory failure/ ARDS Bacteremia with Streptococcus pneumonia UTI Bilateral pneumonia with recent influenza A : Continue with aggressive IV fluid hydration. IV Levaquin and vancomycin discontinued. Patient switched to IV cefepime for bacteremia with Streptococcus pneumonia. Currently intubated and sedated. Acute renal failure secondary to sepsis: Continue with aggressive IV fluid hydration with sepsis protocol in place. Nephrology consulted to further assess. Worsening kidney function Clostridium difficile colitis: Continue oral vancomycin Thrombocytopenia secondary to sepsis: Will monitor closely. Will hold DVT prophylaxis-Lovenox if platelet count less than 75. Tobacco abuse possibly underlying COPD with exacerbation and acute respiratory failure: Patient on oral steroid. Suspect underlying obstructive sleep apnea: Patient may require CPAP at night. Patient should have sleep study done as an outpatient. Suspect GERD: Continue with PPI. DVT prophylaxis: Lovenox GI prophylaxis: PPI Diet: NPO Disposition: Acutely ill at this time, serious condition. Discussed with the and mother the severity of patient's illness this time.
--- NOTE | 2018-07-08 17:42 | P.PN ---
Subjective Date of Service: 07/08/18 Primary Care Provider: None Chief Complaint: Respiratory failure septic shock Subjective: No new changes Patient seen and examined at bedside. No family at bedside. Chart reviewed and case discussed with Dr. becker and nursing staff. Patient intubated. Currently sedated and requiring increasing Levophed for pressure support. Decreased urine production Review of Systems 10-point ROS is otherwise unremarkable Physical Examination - Vital Signs Temperature: 97.6 F Blood Pressure: 99/67 Pulse: 99 Respirations: 43 Pulse Ox (%): 97 - Physical Exam General: Unresponsive HEENT: Atraumatic, PERRLA, EOMI Neck: Supple, JVD not distended Respiratory: Other (Intubated) Cardiovascular: Regular rate/rhythm, Normal S1 S2 Gastrointestinal: Normal bowel sounds, No tenderness Musculoskeletal: No tenderness Integumentary: No rashes Neurological: Normal speech, Normal tone, Normal affect Lymphatics: No axilla or inguinal lymphadenopathy - Studies Medications List Reviewed: Yes Assessment And Plan - Plan Severe sepsis acute respiratory failure/ ARDS Bacteremia with Streptococcus pneumonia UTI Bilateral pneumonia with recent influenza A : Continue with aggressive IV fluid hydration. Continue IV cefepime for bacteremia with Streptococcus pneumonia. PEEP increased to 15 Tamiflu restarted for possibility of influenza Currently intubated and sedated. Requiring more pressure support Acute renal failure secondary to sepsis: Continue with aggressive IV fluid hydration with sepsis protocol in place. Nephrology consulted to further assess. Worsening kidney function Clostridium difficile colitis: Continue oral vancomycin Thrombocytopenia secondary to sepsis: Will monitor closely. Will hold DVT prophylaxis-Lovenox if platelet count less than 75. Tobacco abuse possibly underlying COPD with exacerbation and acute respiratory failure: Patient on oral steroid. Suspect underlying obstructive sleep apnea: Patient may require CPAP at night. Patient should have sleep study done as an outpatient. Suspect GERD: Continue with PPI. DVT prophylaxis: Lovenox GI prophylaxis: PPI Diet: NPO Disposition: Acutely ill at this time, serious condition. Discussed with the and mother the severity of patient's illness this time.
[2018-07-08] MEDS ORDERED: ALBUMIN HUMAN 25% 200 ML IV ONE (18:00)
[2018-07-08] MEDS: FENTANYL CITR 100 MCG/2 ML IV PRN (20:33)
--- NOTE | 2018-07-08 22:19 | P.PN ---
Date of Service: 07/08/18 Vital Signs Temp Pulse Resp BP Pulse Ox 97.6 F 102 H 33 H 78/44 L 94 07/08/18 17:41 07/08/18 18:00 07/08/18 18:00 07/08/18 18:00 07/08/18 18:00 Medications Alprazolam (Xanax) 0.25 mg PO TID PRN PRN Reason: ANXIETY Stop: 08/03/18 08:13 Last Admin: 07/04/18 21:30 Dose: 0.25 mg Ascorbic Acid (Vitamin C) 500 mg PO DAILY JOSE Stop: 08/04/18 09:01 Last Admin: 07/08/18 09:59 Dose: 500 mg Benzonatate (Tessalon Perle) 100 mg PO TID PRN PRN Reason: COUGH Stop: 08/02/18 17:38 Last Admin: 07/05/18 00:31 Dose: 100 mg Calcitriol (Rocaltrol) 0.5 mcg PO DAILY JOSE Stop: 08/04/18 09:01 Last Admin: 07/08/18 09:00 Dose: Not Given Cholecalciferol (Vitamin D 5,000 Iu Cap) 5,000 unit PO DAILY JOSE Stop: 08/04/18 09:01 Last Admin: 07/08/18 09:59 Dose: 5,000 unit Enoxaparin Sodium (Lovenox 30 Mg Inj) 30 mg SQ DAILY 5 PM JOSE Stop: 08/02/18 17:38 Last Admin: 07/08/18 17:14 Dose: 30 mg Enteral Nutritional Formula (Nepro) 0 ml FT CONT JOSE Stop: 08/05/18 09:01 Last Admin: 07/08/18 12:58 Dose: 1,000 ml Famotidine (Pepcid) 20 mg IV DAILY JOSE Stop: 08/03/18 21:01 Last Admin: 07/08/18 10:00 Dose: 20 mg Fentanyl Citrate (Sublimaze) 25 mcg IV Q4HP PRN PRN Reason: PAIN SEVERE Stop: 08/04/18 13:23 Last Admin: 07/08/18 20:33 Dose: 25 mcg Guaifenesin (Mucinex 600mg) 600 mg PO BID JOSE Stop: 08/03/18 09:01 Last Admin: 07/08/18 20:34 Dose: Not Given Haloperidol Lactate (Haldol) 2 mg IV Q4H PRN PRN Reason: AGITATION Stop: 08/04/18 08:38 Propofol (Diprivan) 1,000 mg in 100 mls @ 0 mls/hr IV PRN PRN; Protocol PRN Reason: SEDATION Stop: 08/04/18 13:23 Last Admin: 07/08/18 19:35 Dose: 100 mls Norepinephrine Bitartrate 4 mg (/ Dextrose) 254 mls @ 0 mls/hr IV PRN PRN; Protocol PRN Reason: Hemodynamic Parameters Stop: 08/05/18 08:21 Last Admin: 07/06/18 08:37 Dose: 254 mls Cefepime HCl (Maxipime 1 Gm/10 Ml Ivp) 10 mls @ 200 mls/hr IV DAILY JOSE Stop: 08/05/18 09:01 Last Admin: 07/08/18 10:01 Dose: 10 mls Metronidazole/Sodium Chloride (Flagyl 500mg/100 Ml Iv Premix) 500 mg in 100 mls @ 100 mls/hr IV Q8HR JOSE Stop: 08/07/18 10:01 Last Admin: 07/08/18 17:14 Dose: 100 mls Lorazepam (Ativan) 2 mg IV Q2HP PRN PRN Reason: SEDATION Stop: 08/04/18 13:23 Last Admin: 07/08/18 19:21 Dose: 2 mg Midazolam HCl (Versed) 2 mg IV Q2HP PRN PRN Reason: SEDATION Stop: 08/04/18 13:23 Last Admin: 07/07/18 22:58 Dose: 2 mg Ondansetron HCl (Zofran) 4 mg IV QIDP PRN PRN Reason: NAUSEA / VOMITING Stop: 08/02/18 17:38 Last Admin: 07/05/18 09:02 Dose: 4 mg Oseltamivir Phosphate (Tamiflu Suspension) 30 mg PO DAILY JOSE Stop: 07/12/18 09:01 Last Admin: 07/08/18 10:31 Dose: 30 mg Sodium Bicarbonate (Sodium Bicarb 325 Mg) 650 mg PO BID JOSE Stop: 08/04/18 09:01 Last Admin: 07/08/18 20:32 Dose: 650 mg Sterile Water (Sterile Water For Inj (10 Ml Vial)) 2 ml IV UD JOSE Stop: 08/05/18 09:01 Last Admin: 07/07/18 20:06 Dose: 2 ml Thiamine HCl (Vitamin B-1) 100 mg IVP DAILY JOSE Stop: 08/03/18 09:01 Last Admin: 07/08/18 10:31 Dose: 100 mg Vancomycin HCl (Vancocin) 125 mg PO Q6HR [facility]; Protocol Stop: 08/03/18 18:01 Last Admin: 07/08/18 17:16 Dose: 125 mg Microbiology Results 07/03/18 14:35 Blood - Blood Aerobic Blood Culture - Final Strep Pneumoniae 07/03/18 14:35 Blood - Blood Gram Stain - Final 07/03/18 14:35 Blood - Blood Anaerobic Blood Culture - Final Strep Pneumoniae 07/03/18 14:35 Blood - Blood Gram Stain - Final 07/03/18 14:18 Blood - Blood Aerobic Blood Culture - Final Strep Pneumoniae 07/03/18 14:18 Blood - Blood Gram Stain - Final 07/03/18 14:18 Blood - Blood Anaerobic Blood Culture - Final Strep Pneumoniae 07/03/18 14:18 Blood - Blood Gram Stain - Final Assessment/ Plan: Nephrology. Intubated [id number]. Sedated. Unable to obtain an IH/ ROS due to sedation. No acute events. Vitals, medications, blood work and imaging reviewed in the chart. General: Sedated HEENT: Atraumatic, Mucous membr. moist/pink Neck: Supple Respiratory: Clear to auscultation bilaterally (Intubated), Normal air movement Cardiovascular: Regular rate/rhythm, No rubs, No edema Gastrointestinal: Hypoactive, Soft and benign, Non-distended, No guarding Musculoskeletal: No clubbing, No contractures Integumentary: No rashes, No cyanosis Neurological: Normal speech Urinary: Dover catheter Blood work reviewed in the chart. Na 137; K 3.1; CO2 20; BUN 22; Cr 2.56 Greater than 30 minutes patient care. Imagings Data: EXAM DESCRIPTION: [place] Brasher (2 Views)07/03/2018 2:49 pm CLINICAL HISTORY: Cough COMPARISON: June 30, 2018 FINDINGS: Bilateral lung consolidations have developed. Heart is normal size IMPRESSION: Moderate bilateral pneumonia. EXAM DESCRIPTION: US - Renal Ultrasound-Complete - 07/03/2018 10:51 pm CLINICAL HISTORY: Acute renal failure, sepsis COMPARISON: CT in July 2016 FINDINGS: The right kidney measures 12.2 x 5.0 x 4.7 cm. The left kidney measures 11.9 x 4.6 x 5.7 cm. Cortical thickness within normal range. Echogenicity is increased slightly which may be body habitus artifact. Mild underlying medical renal disease is possible. No hydronephrosis or suspicious renal mass. Bladder was too contracted to allow all optimal assessment. IMPRESSION: No hydronephrosis or suspicious renal mass. Mild increase in cortical echogenicity may be body habitus artifact or mild underlying medical renal disease. Conclusions/Impression: A/ Sepsis/ Shock. Influenza. BL PNA. C.diff. Acute hypoxic respiratory failure sp intubation [id number]. TRES in the setting of sepsis. Proteinuria. Hypokalemia. Acidosis. Hypocalcemia. HypoPO4. Hypomagnesemia. Hyperglycemia on steroids. Rhabdomyolysis, mild. Hypoalbuminemia. Microcytic anemia suspicious for iron deficiency. Thrombocytopenia. P/ Continue current POC and Medications. Ventilatory support as ordered. Replete lytes per protocol. Pressor support as need to maintain perfusion. Agree with abx. Monitor vanco levels. Follow up cultures. Agree with tube feeds. Discontinue Lasix and give prn. No NSAIDs. AM labs. Daily weight.
[2018-07-08] MEDS: MIDAZOLAM HCL 2 MG/2 ML INJ IV PRN (23:57)
[2018-07-09] MEDS: METRONIDAZOLE 500mg IVPB 500 MG/100 ML BAG IV SCH ×3 (01:09→16:00)
[2018-07-09] MEDS: PROPOFOL 1,000 MG/100 ML VIAL IV PRN ×6 (02:08→21:42)
[2018-07-09] MEDS: HALOPERIDOL LACT 5 MG/ML INJ IV PRN ×2 (03:22→08:22)
[2018-07-09] MEDS: VANCOMYCIN ORAL SOLN 250 MG/5 ML OSYR PO SCH ×3 (05:19→17:27)
[2018-07-09 06:10] LABS: Urine Appearance TURBID; Urine Bilirubin NEGATIVE (NEG); Urine Blood 2+ (NEG); Urine Color YELLOW; Urine Glucose NEGATIVE (NEG); Urine Protein 1+ (NEG); Urine Specific Gravity 1.025 (1.005-1.030); Urine Urobilinogen 0.2 mg/dL (0.2-1.0)
[2018-07-09 06:13] LABS: Absolute Lymphocytes (CBC) 0.8 K/uL (0.7-4.9); Absolute Monocytes 0.3 K/uL (0.1-1.3); Absolute Neutrophil 8.5 K/uL (1.8-8.0); Albumin 2.6 g/dL (3.4-5.0); Basophils % 0.2 % (0-1.3); Bilirubin Total 0.5 mg/dL (0.2-1.0); Eosinophils % 0.8 % (0-4.4); Hematocrit 26.6 % (36.0-45.0); Lymphocytes % 7.8 % (15.3-44.8); MPV 9.1 fL (7.6-11.3); Monocytes % 3.1 % (3.3-12.3); Phosphorus 4.8 mg/dL (2.5-4.9); Potassium 3.7 mmol/L (3.5-5.1); Protein, Total 6.4 g/dL (6.4-8.2); Uric Acid 9.4 mg/dL (2.6-6.0)
[2018-07-09] MEDS: FENTANYL CITR 100 MCG/2 ML IV PRN ×2 (06:34→10:23)
[2018-07-09 06:41] LABS: Urine Bacteria NONE SEEN /HPF (<20); Urine RBC >50 /HPF (NONE SEEN)
[2018-07-09 06:42] LABS: Urine Amorphous Sediment 2+ /HPF (NONE SEEN); Urine Coarse Granular Casts 0-5 /LPF (NONE SEEN); Urine Culture Reflex Order NOT NEEDED
[2018-07-09] MEDS: CEFEPIME/SWI 1gm 10 ML IV SCH (08:22)
[2018-07-09] MEDS: FAMOTIDINE 20 MG/2 ML VIAL IV SCH (08:22)
[2018-07-09 08:26] LABS: Blood Morphology Comment NOTED (NOT SEEN); Hypochromasia 1+; Platelet Estimate ADEQ; Platelets, Giant FEW; Urine White Blood Cell Casts DIFF
[2018-07-09 08:27] LABS: Toxic Granulation 1+
[2018-07-09] MEDS: THIAMINE 200 MG/2 ML INJ IVP SCH (08:28)
[2018-07-09] MEDS: SODIUM BICARB 325 MG TAB PO SCH ×2 (08:28→22:14)
[2018-07-09] MEDS: ASCORBIC ACID 500 MG TABLET PO SCH (08:28)
[2018-07-09] MEDS: GUAIFENESIN 600 MG SA TAB PO SCH ×2 (08:28→22:14)
[2018-07-09] MEDS: VITAMIN D 5,000 UNIT CAP PO SCH (08:28)
[2018-07-09] MEDS: CALCITROL 0.25 MCG CAP PO SCH (08:28)
[2018-07-09] MEDS: OSELTAMIVIR PHOSPHATE 30 MG/5 ML SUSPENSION UD PO SCH (08:29)
[2018-07-09] MEDS ORDERED: POLYVINYL ALCOHOL 1.4% 15 ML EACH EYE PRN (10:45)
[2018-07-09] MEDS: LORazepam 2 MG/ML VIAL IV SCH ×3 (11:45→20:12)
--- NOTE | 2018-07-09 11:45 | P.PN ---
Subjective Date of Service: 07/09/18 Primary Care Provider: None Chief Complaint: Respiratory failure Patient is still continues to remain agitated requiring propofol has diarrhea lung 15 of peep 40% oxygen Review of Systems is unable to be obtained General: Unremarkable Physical Examination - Vital Signs Temperature: 99.1 F Blood Pressure: 93/58 Pulse: 96 Respirations: 35 Pulse Ox (%): 95 - Physical Exam General: Unresponsive Respiratory: Clear to auscultation bilaterally Cardiovascular: No edema, Regular rate/rhythm - Studies Medications List Reviewed: Yes Assessment & Plan - Problems (Diagnosis) (1) Respiratory failure Current Visit: Yes Status: Acute Plan: Patient admitted with respiratory failure secondary to pneumococcal pneumonia hemodynamically stable off vasopressors continue with current levels of peep and oxygen Lasix has been discontinued still has diarrhea continue with low level tube feeds use Ativan and fentanyl white to decrease dose of propofol labs reviewed chest x-ray ordered Qualifiers: Chronicity: acute Physician Review Additional Text: I
--- NOTE | 2018-07-09 13:40 | RAD REPORT ---
EXAM DESCRIPTION: RAD - Chest Single View - 07/09/2018 12:49 pm CLINICAL HISTORY: Respiratory failure COMPARISON: July 08 TECHNIQUE: AP portable chest image was obtained 1233 hours . FINDINGS: Endotracheal tube is unchanged in position. NG tube extends below the diaphragm, off the f ield of view. Right subclavian central line also unchanged. Interstitial and alveolar opacification in the lung mensah, slightly worse on the left, has not estrada ed significantly from prior imaging. No suspicion for a progressive process. Heart and vasculature are normal. No pneumothorax or enlarging pleural effusion. No acute bony abnor mality seen. No acute aortic findings suspected. IMPRESSION: Pleural and parenchymal opacification in each lung field not substantially different fro m prior day study. Tubes and lines are unchanged.
[2018-07-09] MEDS: FENTANYL CITR 100 MCG/2 ML IV SCH ×3 (13:57→22:13)
[2018-07-09] MEDS: ENOXAPARIN 30 MG/0.3 ML SQ SCH (16:00)
--- NOTE | 2018-07-09 16:44 | P.PN ---
Subjective Date of Service: 07/09/18 Primary Care Provider: None Chief Complaint: Respiratory failure Subjective: No new changes Patient seen and examined at bedside. No family at bedside. Chart reviewed and case discussed with Dr. becker, Dr. Jones and nursing staff. Patient intubated. Currently sedated; hemodynamically stable off of Levophed. Review of Systems 10-point ROS is otherwise unremarkable Physical Examination - Vital Signs Temperature: 99.0 F Blood Pressure: 125/94 Pulse: 111 Respirations: 36 Pulse Ox (%): 94 - Physical Exam General: Other (Sedated and intubated) HEENT: Atraumatic, PERRLA, EOMI Neck: Supple, JVD not distended Respiratory: Other (Intubated) Cardiovascular: Regular rate/rhythm, Normal S1 S2 Gastrointestinal: Normal bowel sounds, No tenderness Musculoskeletal: No tenderness Integumentary: No rashes Neurological: Normal speech, Normal tone, Normal affect Lymphatics: No axilla or inguinal lymphadenopathy - Studies Medications List Reviewed: Yes Assessment And Plan - Plan Severe sepsis acute respiratory failure/ ARDS Bacteremia with Streptococcus pneumonia UTI Bilateral pneumonia with recent influenza A : Continue with aggressive IV fluid hydration. Continue IV cefepime for bacteremia with Streptococcus pneumonia. PEEP increased to 15 Tamiflu restarted for possibility of influenza Currently intubated and sedated. Requiring more pressure support Now off Levophed, blood pressures stable at this time Acute renal failure secondary to sepsis: Continue with aggressive IV fluid hydration with sepsis protocol in place. Nephrology consulted to further assess. Worsening kidney function Clostridium difficile colitis: Continue oral vancomycin Thrombocytopenia secondary to sepsis: Will monitor closely. Will hold DVT prophylaxis-Lovenox if platelet count less than 75. Tobacco abuse possibly underlying COPD with exacerbation and acute respiratory failure: Patient on oral steroid. Suspect underlying obstructive sleep apnea: Patient may require CPAP at night. Patient should have sleep study done as an outpatient. Suspect GERD: Continue with PPI. DVT prophylaxis: Lovenox GI prophylaxis: PPI Diet: NPO Disposition: Acutely ill at this time, serious condition. Continue to monitor
[2018-07-09] MEDS ORDERED: POTASSIUM 25 MEQ EFFERV TAB FT ONE (21:22)
--- NOTE | 2018-07-09 21:24 | P.PN ---
Date of Service: 07/09/18 Vital Signs Temp Pulse Resp BP Pulse Ox 99.0 F 94 H 24 H 96/60 96 07/09/18 16:44 07/09/18 21:00 07/09/18 21:00 07/09/18 21:00 07/09/18 21:00 Medications Alprazolam (Xanax) 0.25 mg PO TID PRN PRN Reason: ANXIETY Stop: 08/03/18 08:13 Last Admin: 07/04/18 21:30 Dose: 0.25 mg Artificial Tears (Liquiflim Tears 1.4% Ophth Soumya) 1 drops EACH EYE TID PRN PRN Reason: DRY EYES Stop: 08/08/18 10:46 Ascorbic Acid (Vitamin C) 500 mg PO DAILY JOSE Stop: 08/04/18 09:01 Last Admin: 07/09/18 08:28 Dose: 500 mg Benzonatate (Tessalon Perle) 100 mg PO TID PRN PRN Reason: COUGH Stop: 08/02/18 17:38 Last Admin: 07/05/18 00:31 Dose: 100 mg Calcitriol (Rocaltrol) 0.5 mcg PO DAILY JOSE Stop: 08/04/18 09:01 Last Admin: 07/09/18 08:28 Dose: 0.5 mcg Cholecalciferol (Vitamin D 5,000 Iu Cap) 5,000 unit PO DAILY JOSE Stop: 08/04/18 09:01 Last Admin: 07/09/18 08:28 Dose: 5,000 unit Enoxaparin Sodium (Lovenox 30 Mg Inj) 30 mg SQ DAILY 5 PM JOSE Stop: 08/02/18 17:38 Last Admin: 07/09/18 16:00 Dose: 30 mg Enteral Nutritional Formula (Nepro) 0 ml FT CONT JOSE Stop: 08/05/18 09:01 Last Admin: 07/08/18 12:58 Dose: 1,000 ml Famotidine (Pepcid) 20 mg IV DAILY JOSE Stop: 08/03/18 21:01 Last Admin: 07/09/18 08:22 Dose: 20 mg Fentanyl Citrate (Sublimaze) 25 mcg IV Q4H JOSE Stop: 08/08/18 14:01 Last Admin: 07/09/18 18:14 Dose: 25 mcg Guaifenesin (Mucinex 600mg) 600 mg PO BID JOSE Stop: 08/03/18 09:01 Last Admin: 07/09/18 08:28 Dose: 600 mg Haloperidol Lactate (Haldol) 2 mg IV Q4H PRN PRN Reason: AGITATION Stop: 08/04/18 08:38 Last Admin: 07/09/18 08:22 Dose: 2 mg Propofol (Diprivan) 1,000 mg in 100 mls @ 0 mls/hr IV PRN PRN; Protocol PRN Reason: SEDATION Stop: 08/04/18 13:23 Last Admin: 07/09/18 15:55 Dose: 100 mls Norepinephrine Bitartrate 4 mg (/ Dextrose) 254 mls @ 0 mls/hr IV PRN PRN; Protocol PRN Reason: Hemodynamic Parameters Stop: 08/05/18 08:21 Last Admin: 07/06/18 08:37 Dose: 254 mls Cefepime HCl (Maxipime 1 Gm/10 Ml Ivp) 10 mls @ 200 mls/hr IV DAILY [facility] Stop: 08/05/18 09:01 Last Admin: 07/09/18 08:22 Dose: 10 mls Metronidazole/Sodium Chloride (Flagyl 500mg/100 Ml Iv Premix) 500 mg in 100 mls @ 100 mls/hr IV Q8HR [facility] Stop: 08/07/18 10:01 Last Admin: 07/09/18 16:00 Dose: 100 mls Lorazepam (Ativan) 2 mg IV Q2HP PRN PRN Reason: SEDATION Stop: 08/04/18 13:23 Last Admin: 07/08/18 19:21 Dose: 2 mg Lorazepam (Ativan) 2 mg IV Q4H JOSE Stop: 08/08/18 12:01 Last Admin: 07/09/18 20:12 Dose: 2 mg Midazolam HCl (Versed) 2 mg IV Q2HP PRN PRN Reason: SEDATION Stop: 08/04/18 13:23 Last Admin: 07/08/18 23:57 Dose: 2 mg Ondansetron HCl (Zofran) 4 mg IV QIDP PRN PRN Reason: NAUSEA / VOMITING Stop: 08/02/18 17:38 Last Admin: 07/05/18 09:02 Dose: 4 mg Oseltamivir Phosphate (Tamiflu Suspension) 30 mg PO DAILY [facility] Stop: 07/12/18 09:01 Last Admin: 07/09/18 08:29 Dose: 30 mg Sodium Bicarbonate (Sodium Bicarb 325 Mg) 650 mg PO BID JOSE Stop: 08/04/18 09:01 Last Admin: 07/09/18 08:28 Dose: 650 mg Sterile Water (Sterile Water For Inj (10 Ml Vial)) 2 ml IV UD [facility] Stop: 08/05/18 09:01 Last Admin: 07/07/18 20:06 Dose: 2 ml Thiamine HCl (Vitamin B-1) 100 mg IVP DAILY JOSE Stop: 08/03/18 09:01 Last Admin: 07/09/18 08:28 Dose: 100 mg Vancomycin HCl (Vancocin) 125 mg PO Q6HR [facility]; Protocol Stop: 08/03/18 18:01 Last Admin: 07/09/18 17:27 Dose: 125 mg Microbiology Results 07/03/18 14:35 Blood - Blood Aerobic Blood Culture - Final Strep Pneumoniae 07/03/18 14:35 Blood - Blood Gram Stain - Final 07/03/18 14:35 Blood - Blood Anaerobic Blood Culture - Final Strep Pneumoniae 07/03/18 14:35 Blood - Blood Gram Stain - Final 07/03/18 14:18 Blood - Blood Aerobic Blood Culture - Final Strep Pneumoniae 07/03/18 14:18 Blood - Blood Gram Stain - Final 07/03/18 14:18 Blood - Blood Anaerobic Blood Culture - Final Strep Pneumoniae 07/03/18 14:18 Blood - Blood Gram Stain - Final Assessment/ Plan: Nephrology. Intubated [id number]. Sedated. Unable to obtain an IH/ ROS due to sedation. No acute events. Vitals, medications, blood work and imaging reviewed in the chart. General: Sedated HEENT: Atraumatic, Mucous membr. moist/pink Neck: Supple Respiratory: Clear to auscultation bilaterally (Intubated), Normal air movement Cardiovascular: Regular rate/rhythm, No rubs, No edema Gastrointestinal: Hypoactive, Soft and benign, Non-distended, No guarding Musculoskeletal: No clubbing, No contractures Integumentary: No rashes, No cyanosis Neurological: Normal speech Urinary: Dover catheter Blood work reviewed in the chart. Na 137; K 3.1; CO2 20; BUN 22; Cr 2.56 Greater than 30 minutes patient care. Imagings Data: EXAM DESCRIPTION: [place] (2 Views)07/03/2018 2:49 pm CLINICAL HISTORY: Cough COMPARISON: June 30, 2018 FINDINGS: Bilateral lung consolidations have developed. Heart is normal size IMPRESSION: Moderate bilateral pneumonia. EXAM DESCRIPTION: US - Renal Ultrasound-Complete - 07/03/2018 10:51 pm CLINICAL HISTORY: Acute renal failure, sepsis COMPARISON: CT in July 2016 FINDINGS: The right kidney measures 12.2 x 5.0 x 4.7 cm. The left kidney measures 11.9 x 4.6 x 5.7 cm. Cortical thickness within normal range. Echogenicity is increased slightly which may be body habitus artifact. Mild underlying medical renal disease is possible. No hydronephrosis or suspicious renal mass. Bladder was too contracted to allow all optimal assessment. IMPRESSION: No hydronephrosis or suspicious renal mass. Mild increase in cortical echogenicity may be body habitus artifact or mild underlying medical renal disease. Conclusions/Impression: A/ Sepsis/ Shock. Influenza. BL PNA. C.diff. Acute hypoxic respiratory failure sp intubation [id number]. TRES in the setting of sepsis. Proteinuria. Hypokalemia. Hyponatremia. Acidosis. Hypocalcemia. HypoPO4. Hypomagnesemia. Hyperglycemia on steroids. Rhabdomyolysis, mild. Hypoalbuminemia. Microcytic anemia suspicious for iron deficiency. Thrombocytopenia. P/ Continue current POC and Medications. Ventilatory support as ordered. Replete lytes per protocol. Give potassium today. Pressor support as need to maintain perfusion. Agree with abx. Monitor vanco levels. Follow up cultures. Agree with tube feeds. Add free water due to hypernatremia. Give Lasix prn. No NSAIDs. AM labs. Daily weight. Case discussed with Dr. Richardson
[2018-07-10] MEDS: METRONIDAZOLE 500mg IVPB 500 MG/100 ML BAG IV SCH ×3 (00:11→16:54)
[2018-07-10] MEDS: LORazepam 2 MG/ML VIAL IV SCH ×6 (00:11→20:11)
[2018-07-10] MEDS: VANCOMYCIN ORAL SOLN 250 MG/5 ML OSYR PO SCH ×4 (00:11→18:29)
[2018-07-10] MEDS: FENTANYL CITR 100 MCG/2 ML IV SCH ×6 (01:53→22:00)
[2018-07-10] MEDS: PROPOFOL 1,000 MG/100 ML VIAL IV PRN ×4 (03:32→19:58)
[2018-07-10 05:37] LABS: Absolute Lymphocytes (CBC) 0.9 K/uL (0.7-4.9); Absolute Monocytes 0.5 K/uL (0.1-1.3); Absolute Neutrophil 11.7 K/uL (1.8-8.0); Basophils % 0.2 % (0-1.3); Eosinophils % 1.7 % (0-4.4); Hematocrit 27.5 % (36.0-45.0); Lymphocytes % 6.5 % (15.3-44.8); MPV 8.9 fL (7.6-11.3); Monocytes % 3.8 % (3.3-12.3)
[2018-07-10 05:54] LABS: Albumin 2.4 g/dL (3.4-5.0); Bilirubin Total 0.5 mg/dL (0.2-1.0); Potassium 3.8 mmol/L (3.5-5.1); Protein, Total 6.1 g/dL (6.4-8.2); Uric Acid 9.7 mg/dL (2.6-6.0)
[2018-07-10 06:26] LABS: Arterial Blood Carboxyhemoglob 1.5 % (0-1.5); Blood Gas Oxyhemoglobin 86.7 % (94-97); Blood O2 Saturation 88.7 % (92-98.5)
[2018-07-10] MEDS: FAMOTIDINE 20 MG/2 ML VIAL IV SCH (08:44)
[2018-07-10] MEDS: ASCORBIC ACID 500 MG TABLET PO SCH (08:44)
[2018-07-10] MEDS: SODIUM BICARB 325 MG TAB PO SCH ×2 (08:44→20:45)
[2018-07-10] MEDS: VITAMIN D 5,000 UNIT CAP PO SCH (08:44)
[2018-07-10] MEDS: OSELTAMIVIR PHOSPHATE 30 MG/5 ML SUSPENSION UD PO SCH ×2 (08:45→09:04)
[2018-07-10] MEDS: GUAIFENESIN 600 MG SA TAB PO SCH ×2 (08:45→20:15)
[2018-07-10] MEDS: CALCITROL 0.25 MCG CAP PO SCH (08:45)
[2018-07-10] MEDS: CEFEPIME/SWI 1gm 10 ML IV SCH (08:49)
[2018-07-10] MEDS: THIAMINE 200 MG/2 ML INJ IVP SCH (09:09)
--- NOTE | 2018-07-10 10:24 | P.PN ---
Subjective Date of Service: 07/10/18 Primary Care Provider: None Chief Complaint: Respiratory failure Patient has severe agitation requiring IV propofol Ativan fentanyl than 50% oxygen blood pressure stable hypernatremic Review of Systems is unable to be obtained Physical Examination - Vital Signs Temperature: 97.4 F Blood Pressure: 98/55 Pulse: 85 Respirations: 23 Pulse Ox (%): 98 - Physical Exam General: Comatose Respiratory: Clear to auscultation bilaterally, Diminished Cardiovascular: No edema, Regular rate/rhythm - Studies Medications List Reviewed: Yes Assessment & Plan - Problems (Diagnosis) (1) Respiratory failure Current Visit: Yes Status: Acute Plan: No change in her condition chest x-ray no change some haziness on both sides left greater than the right labs reviewed start on D5 water renal function is improving oxygenation satisfactory on 50% FiO2 Qualifiers: Chronicity: acute (2) Diarrhea Current Visit: Yes Status: Acute Plan: Patient has infectious diarrhea continue with 10 cc an hr up tube feeds she is on Flagyl and oral vancomycin for C. difficile Qualifiers: Diarrhea type: infectious Qualified Code(s): A09 - Infectious gastroenteritis and colitis, unspecified Physician Review Additional Text: I
--- NOTE | 2018-07-10 11:48 | RAD REPORT ---
EXAM DESCRIPTION: RAD - Chest Single View - 07/10/2018 5:47 am CLINICAL HISTORY: Respiratory failure Chest pain. COMPARISON: Chest Single View dated 07/09/2018; Chest Single View dated 07/08/2018; Chest Single View dated 07/07/2018; Chest Single View dated 07/07/2018 FINDINGS: Portable technique limits examination quality. Tip of the ET tube is above the clint. Enteric tube descends in the stomach. Right-sided PICC line h as tip in the SVC. Bilateral pulmonary opacities are noted, without significant change.The heart is n ormal in size. IMPRESSION: Stable chest.
[2018-07-10] MEDS: D5W 1,000 ML IV SCH (12:01)
--- NOTE | 2018-07-10 12:39 | P.PN ---
Subjective Date of Service: 07/10/18 Primary Care Provider: None Chief Complaint: Respiratory failure Subjective: No new changes Patient seen and examined at bedside. No family at bedside. Chart reviewed and case discussed with Dr. becker, Dr. Jones and nursing staff. Patient intubated. Currently sedated; hemodynamically stable off of Levophed. Review of Systems 10-point ROS is otherwise unremarkable Physical Examination - Vital Signs Temperature: 97.4 F Blood Pressure: 98/55 Pulse: 85 Respirations: 23 Pulse Ox (%): 98 - Physical Exam General: Other (Intubated, sedated) HEENT: Atraumatic, PERRLA, EOMI Neck: Supple, JVD not distended Cardiovascular: Regular rate/rhythm, Normal S1 S2 Gastrointestinal: Normal bowel sounds, No tenderness Musculoskeletal: No tenderness Integumentary: No rashes - Studies Medications List Reviewed: Yes Assessment And Plan - Plan Severe sepsis acute respiratory failure/ ARDS Bacteremia with Streptococcus pneumonia UTI Bilateral pneumonia with recent influenza A : Hypernatremia Continue IV fluids with D5 Continue IV cefepime for bacteremia with Streptococcus pneumonia. No pressure support, PEEP of 15, 5 to increase to 50. Tamiflu restarted for possibility of influenza Currently intubated and sedated. Now off Levophed, blood pressures stable at this time Still requiring proper fall. At 30 right now, continue to wean as tolerated Possibility of trach for patient as unable to be weaned off of vent. Acute renal failure secondary to sepsis: Continue with aggressive IV fluid hydration with sepsis protocol in place. Nephrology consulted to further assess. Worsening kidney function Clostridium difficile colitis: Continue oral vancomycin Thrombocytopenia secondary to sepsis: Will monitor closely. Will hold DVT prophylaxis-Lovenox if platelet count less than 75. Tobacco abuse possibly underlying COPD with exacerbation and acute respiratory failure: Patient on oral steroid. Suspect underlying obstructive sleep apnea: Patient may require CPAP at night. Patient should have sleep study done as an outpatient. Suspect GERD: Continue with PPI. DVT prophylaxis: Lovenox GI prophylaxis: PPI Diet: NPO Disposition: Acutely ill at this time, serious condition. Nursing staff discussed with importance of family meeting in regards to further goals of care for patient. not sure if he will be able to make it here today. If no answer by this afternoon, so called the discussed over the phone. I would rather not have this discussion over the phone regarding a trach.
--- NOTE | 2018-07-10 14:31 | P.PN ---
Date of Service: 07/10/18 patient looks quite ill. intubated. bun slightly higher/sodium high as well but creatinine actually better. patient has rectal tube with loose stools and has had over 1.2 litres of UO since yesterday. sedated/intubated. pulm/intesivist following. vs: sbp 70-90. sedated. intubated. lungs: decreased bs cvs regular 80-90 abd soft (patient is sedated) ext dry skin/non-pitting edema a/p septic shock/resp failure/persistent hypotension/darron/hypernatremia/ dehydration/? adrenal insufficiency...she was recently on steroids, were stopped few days ago: continue gentle d5w. the fact that her bp is not coming up easily and started staying low after the steroids were stopped, points to a component of adrenal insuffiency. i feel the risk of using some steroid to stabilize bp is outweight by the benefit of getting improvement in bp in setting of adrenal insufficiency. ordered stat random cortisol but it wont be helpful if its high as patient is very ill...a low level will confirm, furhter, need for iv steroids. will discuss with Dr. Villa and allow him to decide on steroid dose, if he as well agrees.
[2018-07-10] MEDS: WATER FOR INJ,STERILE 10 ML IV SCH (16:54)
[2018-07-10] MEDS: HYDROCORTISONE SUC 100 MG INJ IV SCH ×2 (16:54→20:11)
[2018-07-10] MEDS: ENOXAPARIN 30 MG/0.3 ML SQ SCH (16:56)
[2018-07-10] MEDS: NEPRO 1,000 ML BOT FT SCH (21:10)
[2018-07-11] MEDS: METRONIDAZOLE 500mg IVPB 500 MG/100 ML BAG IV SCH ×3 (00:07→17:00)
[2018-07-11] MEDS: D5W 1,000 ML IV SCH (00:08)
[2018-07-11] MEDS: PROPOFOL 1,000 MG/100 ML VIAL IV PRN ×3 (00:56→12:47)
[2018-07-11] MEDS: FENTANYL CITR 100 MCG/2 ML IV SCH ×6 (02:00→21:20)
[2018-07-11] MEDS: LORazepam 2 MG/ML VIAL IV SCH ×7 (03:59→23:46)
[2018-07-11] MEDS: VANCOMYCIN ORAL SOLN 250 MG/5 ML OSYR PO SCH ×4 (05:39→17:16)
[2018-07-11 05:51] LABS: Albumin 2.3 g/dL (3.4-5.0); Bilirubin Total 0.5 mg/dL (0.2-1.0); Potassium 3.9 mmol/L (3.5-5.1); Protein, Total 6.4 g/dL (6.4-8.2)
[2018-07-11 06:01] LABS: Arterial Blood Carboxyhemoglob 1.3 % (0-1.5); Blood Gas Oxyhemoglobin 94.3 % (94-97); Blood O2 Saturation 96.2 % (92-98.5)
[2018-07-11] MEDS: FAMOTIDINE 20 MG/2 ML VIAL IV SCH (08:17)
[2018-07-11] MEDS: HYDROCORTISONE SUC 100 MG INJ IV SCH ×2 (08:17→21:21)
[2018-07-11] MEDS: GUAIFENESIN 600 MG SA TAB PO SCH ×2 (08:18→21:00)
[2018-07-11] MEDS: SODIUM BICARB 325 MG TAB PO SCH ×2 (08:18→21:21)
[2018-07-11] MEDS: VITAMIN D 5,000 UNIT CAP PO SCH (08:19)
[2018-07-11] MEDS: CALCITROL 0.25 MCG CAP PO SCH (08:19)
[2018-07-11] MEDS: CEFEPIME/SWI 1gm 10 ML IV SCH (08:22)
[2018-07-11] MEDS: ASCORBIC ACID 500 MG TABLET PO SCH (08:22)
[2018-07-11] MEDS: THIAMINE 200 MG/2 ML INJ IVP SCH (08:22)
--- NOTE | 2018-07-11 09:49 | RAD REPORT ---
EXAM DESCRIPTION: [place] Single View07/11/2018 5:41 am CLINICAL HISTORY: Respiratory failure COMPARISON: July 10 FINDINGS: Bilateral pulmonary opacities have mildly improved. Lines and tubes remain in good position Heart is normal size IMPRESSION: Mild improvement in diffuse bilateral pulmonary opacities
[2018-07-11] MEDS ORDERED: D5W 1,000 ML IV SCH ×2 (14:00)
--- NOTE | 2018-07-11 15:03 | P.PN ---
Subjective Date of Service: 07/11/18 Primary Care Provider: None Chief Complaint: Respiratory failure Subjective: No new changes Patient seen and examined at bedside. No family at bedside. Chart reviewed and case discussed with Dr. becker, Dr. Jones and nursing staff. Patient intubated. Currently sedated; unable to be weaned off propofol. Review of Systems 10-point ROS is otherwise unremarkable Physical Examination - Vital Signs Temperature: 97.4 F Blood Pressure: 109/61 Pulse: 74 Respirations: 20 Pulse Ox (%): 97 - Physical Exam General: Other (Intubated and sedated) HEENT: Atraumatic, PERRLA, EOMI Neck: Supple, JVD not distended Cardiovascular: Regular rate/rhythm, Normal S1 S2 Gastrointestinal: Normal bowel sounds, No tenderness Musculoskeletal: No tenderness Integumentary: No rashes - Studies Medications List Reviewed: Yes Assessment And Plan - Plan Severe sepsis/shock acute respiratory failure/ ARDS Hypotension Bacteremia with Streptococcus pneumonia UTI Bilateral pneumonia with recent influenza A : Hypernatremia Continue IV fluids with D5W, hypernatremia improving Continue IV cefepime for bacteremia with Streptococcus pneumonia. No pressure support, PEEP of 15, 5 to increase to 50. Continue to wean as tolerated Tamiflu restarted for possibility of influenza Currently intubated and sedated. Now off Levophed, blood pressures stable at this time Still requiring propofol. Decreased to 25 at this time. Continue to wean as tolerated. Possibility of trach for patient as unable to be weaned off of vent. Acute renal failure secondary to sepsis: Continue with aggressive IV fluid hydration with sepsis protocol in place. Nephrology consulted to further assess. Worsening kidney function Clostridium difficile colitis: Continue oral vancomycin Thrombocytopenia secondary to sepsis: Will monitor closely. Will hold DVT prophylaxis-Lovenox if platelet count less than 75. Tobacco abuse possibly underlying COPD with exacerbation and acute respiratory failure: Patient on oral steroid. Suspect underlying obstructive sleep apnea: Patient may require CPAP at night. Patient should have sleep study done as an outpatient. Suspect GERD: Continue with PPI. DVT prophylaxis: Lovenox GI prophylaxis: PPI Diet: NPO Family discussion, 07/11/2018. Meds with , mother, step dad and brother along with ICU nurse Zora. We discussed the severity of illness at this time in the guarded prognosis for Ms. Hill at this time. We discussed current care: Patient is currently receiving 2 broad-spectrum antibiotics for her bacteremia and pneumonia. She is receiving Tamiflu for her influenza and she is receiving oral vancomycin via tube feeds for her C. diff colitis. She is also getting D5 W for hypernatremic, tube feeds. She is currently intubated , ventilated via vent only. We also discussed that renal failure is stable at this time, no dialysis at this moment but it it could still be a possibility down the line. We discussed that patient has been unable to be weaned off of the vent and sedation. Anytime sedation is decreased or FiO2 is decreased, patient starts to get agitated and starts to desat. We discussed that being intubated is not a long-term solution and a trach may be a possibility for the patient as she has been unable to be weaned off of the vent and sedation. and family agree with the plan to proceed for a ENT evaluation for trach placement. Family would like to be at bedside more often now to see if the agitation/anxiety will be less with them around and they would like another trial of weaning off of sedation. Disposition: Acutely ill at this time, serious condition. Nursing staff discussed with importance of family meeting in regards to further goals of care for patient. not sure if he will be able to make it here today. If no answer by this afternoon, so called the discussed over the phone. I would rather not have this discussion over the phone regarding a trach.
[2018-07-11] MEDS: ENOXAPARIN 30 MG/0.3 ML SQ SCH (17:00)
[2018-07-12] MEDS: VANCOMYCIN ORAL SOLN 250 MG/5 ML OSYR PO SCH ×5 (00:22→23:47)
[2018-07-12] MEDS: METRONIDAZOLE 500mg IVPB 500 MG/100 ML BAG IV SCH ×3 (00:53→17:25)
[2018-07-12] MEDS: PROPOFOL 1,000 MG/100 ML VIAL IV PRN (00:53)
[2018-07-12] MEDS: FENTANYL CITR 100 MCG/2 ML IV SCH ×6 (02:01→21:55)
[2018-07-12] MEDS: LORazepam 2 MG/ML VIAL IV SCH ×6 (04:20→23:47)
[2018-07-12 06:23] LABS: Arterial Blood Carboxyhemoglob 1.7 % (0-1.5); Blood Gas Oxyhemoglobin 93.5 % (94-97); Blood O2 Saturation 95.6 % (92-98.5)
[2018-07-12 07:26] LABS: Absolute Lymphocytes (CBC) 1.2 K/uL (0.7-4.9); Absolute Monocytes 0.9 K/uL (0.1-1.3); Absolute Neutrophil 11.2 K/uL (1.8-8.0); Basophils % 0.5 % (0-1.3); Eosinophils % 1.5 % (0-4.4); Hematocrit 28.5 % (36.0-45.0); MPV 7.9 fL (7.6-11.3); Monocytes % 6.7 % (3.3-12.3); RBC Red Blood Cell Count 3.86 M/uL (3.86-4.86)
[2018-07-12 07:37] LABS: Magnesium 2.9 mg/dL (1.8-2.4); Phosphorus 6.6 mg/dL (2.5-4.9)
[2018-07-12 07:39] LABS: Albumin 2.3 g/dL (3.4-5.0); Bilirubin Total 0.3 mg/dL (0.2-1.0); Potassium 3.6 mmol/L (3.5-5.1); Protein, Total 6.2 g/dL (6.4-8.2)
[2018-07-12 08:04] LABS: Urine White Blood Cell Casts OK
[2018-07-12 08:05] LABS: Anisocytosis SLIGHT; Blood Morphology Comment NOTED (NOT SEEN); Platelet Estimate ADEQ
--- NOTE | 2018-07-12 08:06 | RAD REPORT ---
EXAM DESCRIPTION: [place] Single View07/12/2018 6:53 am CLINICAL HISTORY: Shortness of breath COMPARISON: July 11, 2018 FINDINGS: Mild worsening in diffuse bilateral alveolar pulmonary opacities The heart is normal size Lines and tubes remain good position IMPRESSION: Mild worsening in diffuse bilateral alveolar opacities which may represent pulmonary brea ma or ARDS
[2018-07-12] MEDS: THIAMINE 200 MG/2 ML INJ IVP SCH (08:09)
[2018-07-12] MEDS: WATER FOR INJ,STERILE 10 ML IV SCH ×2 (08:09→20:44)
[2018-07-12] MEDS: HYDROCORTISONE SUC 100 MG INJ IV SCH ×3 (08:09→20:44)
[2018-07-12] MEDS: FAMOTIDINE 20 MG/2 ML VIAL IV SCH (08:09)
[2018-07-12] MEDS: MIDAZOLAM HCL 2 MG/2 ML INJ IV PRN ×3 (08:09→20:44)
[2018-07-12] MEDS: GUAIFENESIN 600 MG SA TAB PO SCH (08:10)
[2018-07-12] MEDS: CALCITROL 0.25 MCG CAP PO SCH (08:10)
--- NOTE | 2018-07-12 08:26 | P.PN ---
Subjective Date of Service: 07/12/18 Primary Care Provider: None Chief Complaint: Respiratory failure Patient is improving renal function. is the better oxygen requirements have declined. Patient still has significant diarrhea Review of Systems is unable to be obtained Physical Examination - Vital Signs Temperature: 97.6 F Blood Pressure: 126/82 Pulse: 97 Respirations: 26 Pulse Ox (%): 93 - Physical Exam General: Unresponsive Respiratory: Clear to auscultation bilaterally Cardiovascular: No edema, Regular rate/rhythm - Studies Medications List Reviewed: Yes Assessment & Plan - Problems (Diagnosis) (1) Respiratory failure Current Visit: Yes Status: Acute Plan: Admitted with respiratory failure clinically doing better oxygen requirements have declined renal function has improved plan to reduce the dose of steroids cultures are so far negative chest x-ray no significant change patient's oxygenation has improved significantly plan to hold trach for now reduce dose of Ativan and fentanyl Qualifiers: Chronicity: acute (2) Diarrhea Current Visit: Yes Status: Acute Plan: Patient still has significant diarrhea will hold tube feeds for 24 hr Qualifiers: Diarrhea type: infectious Qualified Code(s): A09 - Infectious gastroenteritis and colitis, unspecified Physician Review Additional Text: I
[2018-07-12] MEDS: ASCORBIC ACID 500 MG TABLET PO SCH (08:28)
[2018-07-12] MEDS: CEFEPIME/SWI 1gm 10 ML IV SCH (08:28)
[2018-07-12] MEDS: SODIUM BICARB 325 MG TAB PO SCH ×2 (08:29→20:44)
[2018-07-12] MEDS: VITAMIN D 5,000 UNIT CAP PO SCH (08:29)
[2018-07-12 09:59] LABS: Albumin 2.3 g/dL (3.4-5.0); Bilirubin Total 0.3 mg/dL (0.2-1.0); Potassium 3.4 mmol/L (3.5-5.1); Protein, Total 6.3 g/dL (6.4-8.2)
[2018-07-12] MEDS: LORazepam 2 MG/ML VIAL IV PRN (11:13)
--- NOTE | 2018-07-12 13:05 | P.PN ---
Subjective Date of Service: 07/12/18 Primary Care Provider: None Chief Complaint: Respiratory failure Patient seen and examined at bedside. No family at bedside. Chart reviewed and case discussed with Dr. becker, Dr. Jones and nursing staff. Patient intubated. Decreased oxygen requirement today. Off of propofal since 4:30 a.m. tolerating well Review of Systems 10-point ROS is otherwise unremarkable Physical Examination - Vital Signs Temperature: 97.6 F Blood Pressure: 110/68 Pulse: 82 Respirations: 19 Pulse Ox (%): 94 - Physical Exam General: Obese, Other (Intubated) Respiratory: Other (Intubated) Cardiovascular: Normal pulses, Regular rate/rhythm Gastrointestinal: Other (NG tube ) - Studies Medications List Reviewed: Yes Assessment And Plan - Plan Severe sepsis/shock acute respiratory failure/ ARDS Hypotension Bacteremia with Streptococcus pneumonia UTI Bilateral pneumonia with recent influenza A : Hypernatremia Continue IV fluids with D5W, hypernatremia resolved Continue IV cefepime for bacteremia with Streptococcus pneumonia. On SIMV currently. Tolerating. Continue to wean as tolerated Tamiflu restarted for possibility of influenza Currently intubated and sedated. Now off propofol. Scheduled Ativan and frontal Now off Levophed, blood pressures stable at this time Possibility of trach for patient as unable to be weaned off of vent. We will hold off further few days to see how patient tolerates vent P ENT consulted for trach evaluation Acute renal failure secondary to sepsis: Continue with aggressive IV fluid hydration with sepsis protocol in place. Nephrology consulted to further assess. Clostridium difficile colitis: Continue oral vancomycin. Thrombocytopenia secondary to sepsis: Will monitor closely. Will hold DVT prophylaxis-Lovenox if platelet count less than 75. Tobacco abuse possibly underlying COPD with exacerbation and acute respiratory failure: Patient on oral steroid. Suspect underlying obstructive sleep apnea: Patient may require CPAP at night. Patient should have sleep study done as an outpatient. Suspect GERD: Continue with PPI. DVT prophylaxis: Lovenox GI prophylaxis: PPI Diet: Tube feeds. Patient continues to have diarrhea, will hold tube feeds at this time. Family discussion, 07/11/2018. Met with , mother, step dad and brother along with ICU nurse Zora. We discussed the severity of illness at this time in the guarded prognosis for Ms. Hill at this time. We discussed current care: Patient is currently receiving 2 broad-spectrum antibiotics for her bacteremia and pneumonia. She is receiving Tamiflu for her influenza and she is receiving oral vancomycin via tube feeds for her C. diff colitis. She is also getting D5 W for hypernatremic, tube feeds. She is currently intubated , ventilated via vent only. We also discussed that renal failure is stable at this time, no dialysis at this moment but it it could still be a possibility down the line. We discussed that patient has been unable to be weaned off of the vent and sedation. Anytime sedation is decreased or FiO2 is decreased, patient starts to get agitated and starts to desat. We discussed that being intubated is not a long-term solution and a trach may be a possibility for the patient as she has been unable to be weaned off of the vent and sedation. and family agree with the plan to proceed for a ENT evaluation for trach placement. Family would like to be at bedside more often now to see if the agitation/anxiety will be less with them around and they would like another trial of weaning off of sedation. Disposition: Acutely ill at this time, serious condition. Trach evaluation, possible trach if unable to be weaned off vent
[2018-07-12] MEDS: KCL 20 MEQ/100 mL IVPB 20 MEQ/100 ML BAG IV SCH ×2 (14:42→15:51)
[2018-07-12] MEDS: ENOXAPARIN 30 MG/0.3 ML SQ SCH (17:25)
--- NOTE | 2018-07-12 17:58 | P.PN ---
Date of Service: 07/12/18 Consult for trach noted in Virtual Event [facility]. Chart briefly reviewed and spoke with nurse, Zora. Patient improving today with toleration of SIMV, decreasing oxygen requirements and lessening need for sedation. Will hold off on formal consult. Please call my office if consult is needed in the future. Thanks!
[2018-07-12] MEDS: D5W 1,000 ML IV SCH (18:00)
[2018-07-12] MEDS: NYSTATIN 500,000 UNIT/5 ML UDC PO SCH (22:17)
[2018-07-13] MEDS: METRONIDAZOLE 500mg IVPB 500 MG/100 ML BAG IV SCH ×3 (01:51→17:20)
[2018-07-13] MEDS: FENTANYL CITR 100 MCG/2 ML IV SCH ×6 (01:52→22:03)
[2018-07-13] MEDS ORDERED: KCL 20 MEQ/100 mL IVPB 20 MEQ/100 ML BAG IV SCH (02:00)
[2018-07-13] MEDS: LORazepam 2 MG/ML VIAL IV SCH ×5 (03:59→20:27)
[2018-07-13 05:20] LABS: Albumin 2.2 g/dL (3.4-5.0); Bilirubin Total 0.4 mg/dL (0.2-1.0); Magnesium 2.6 mg/dL (1.8-2.4); Phosphorus 4.7 mg/dL (2.5-4.9); Protein, Total 6.1 g/dL (6.4-8.2)
[2018-07-13] MEDS: VANCOMYCIN ORAL SOLN 250 MG/5 ML OSYR PO SCH ×3 (05:46→17:21)
[2018-07-13 06:01] LABS: Blood O2 Saturation 94.6 % (92-98.5)
[2018-07-13] MEDS: MIDAZOLAM HCL 2 MG/2 ML INJ IV PRN ×3 (06:41→21:15)
--- NOTE | 2018-07-13 08:29 | RAD REPORT ---
EXAM DESCRIPTION: RAD - [place] Single View - 07/13/2018 7:15 am CLINICAL HISTORY: Respiratory failure Chest pain. COMPARISON: Chest Single View dated 07/12/2018; Chest Single View dated 07/11/2018; Chest Single View dated 07/10/2018; Chest Single View dated 07/09/2018 FINDINGS: Portable technique limits examination quality. Extensive bilateral pulmonary opacities appear unchanged since comparative study. The heart is normal in size. Tip of the ET tube is above the clint. Right-sided venous catheter has tip in the SVC. Ent maggie tube descends into the upper abdomen. IMPRESSION: Stable chest since 07/12/2018.
--- NOTE | 2018-07-13 08:45 | P.PN ---
Subjective Date of Service: 07/13/18 Primary Care Provider: None Chief Complaint: Respiratory failure Patient is steadily put improving is off propofol using Ativan and fentanyl scheduled doses still has significant diarrhea despite turning off the tube feeds hemodynamically stable the knee function has improved Review of Systems is unable to be obtained Physical Examination - Vital Signs Temperature: 98.5 F Blood Pressure: 126/79 Pulse: 99 Respirations: 24 Pulse Ox (%): 92 - Physical Exam General: Unresponsive Respiratory: Clear to auscultation bilaterally Cardiovascular: No edema, Regular rate/rhythm - Studies Medications List Reviewed: Yes Assessment & Plan - Problems (Diagnosis) (1) Respiratory failure Current Visit: Yes Status: Acute Plan: Patient is steadily improving currently on FiO2 of 35% PEEP of 10 chest x-ray still shows some haziness hemodynamically stable renal function is also improving cultures are all negative Qualifiers: Chronicity: acute (2) Diarrhea Current Visit: Yes Status: Acute Plan: Still has persistent diarrhea resume low grades of tube feeds Lomotil for diarrhea Qualifiers: Diarrhea type: infectious Qualified Code(s): A09 - Infectious gastroenteritis and colitis, unspecified Physician Review Additional Text: I
[2018-07-13] MEDS ORDERED: NEPRO 1,000 ML BOT FT SCH (09:00)
[2018-07-13] MEDS: CALCITROL 0.25 MCG CAP PO SCH (09:00)
[2018-07-13] MEDS: NYSTATIN 500,000 UNIT/5 ML UDC PO SCH ×3 (10:00→20:28)
[2018-07-13] MEDS: CEFEPIME/SWI 1gm 10 ML IV SCH (10:07)
[2018-07-13] MEDS: WATER FOR INJ,STERILE 10 ML IV SCH ×2 (10:43→20:27)
[2018-07-13] MEDS: HYDROCORTISONE SUC 100 MG INJ IV SCH ×2 (10:43→20:27)
[2018-07-13] MEDS: FAMOTIDINE 20 MG/2 ML VIAL IV SCH (10:43)
[2018-07-13] MEDS: THIAMINE 200 MG/2 ML INJ IVP SCH (10:43)
[2018-07-13 10:56] LABS: Albumin 2.4 g/dL (3.4-5.0); Bilirubin Total 0.4 mg/dL (0.2-1.0); Potassium 3.7 mmol/L (3.5-5.1); Protein, Total 6.3 g/dL (6.4-8.2)
--- NOTE | 2018-07-13 11:32 | RAD REPORT ---
EXAM DESCRIPTION: RAD - Abdomen 1 View (KUB) - 07/13/2018 11:26 am CLINICAL HISTORY: confirm dobhoff placement Pain COMPARISON: No comparisons FINDINGS: The enteric tube is likely in the stomach, although the tip is not completely included on the radiograph.
[2018-07-13] MEDS: DIPHENOX/ATROP SULF 1 TAB PO PRN (13:19)
[2018-07-13] MEDS: VITAMIN D 5,000 UNIT CAP PO SCH (13:19)
[2018-07-13] MEDS: SODIUM BICARB 325 MG TAB PO SCH ×2 (13:19→20:28)
[2018-07-13] MEDS: ASCORBIC ACID 500 MG TABLET PO SCH (13:19)
--- NOTE | 2018-07-13 13:26 | RAD REPORT ---
EXAM DESCRIPTION: RAD - Abdomen 1 View (KUB) - 07/13/2018 1:17 pm CLINICAL HISTORY: verify dobhoff placement Pain COMPARISON: Abdomen 1 View (KUB) dated 07/13/2018 FINDINGS: The enteric tube is in the stomach. The tip is in the distal aspect of the stomach.
[2018-07-13] MEDS: NEPRO 1,000 ML BOT FT SCH (15:32)
[2018-07-13] MEDS: D5W 1,000 ML IV SCH (15:32)
[2018-07-13] MEDS: ENOXAPARIN 30 MG/0.3 ML SQ SCH (17:20)
[2018-07-13] MEDS: LACTOBACILLUS/ACIDOPHILUS TAB PO SCH (17:20)
--- NOTE | 2018-07-13 17:36 | PN ---
Date of Progress Note: 07/13/2018 Subjective: The patient is seen and examined. Chart reviewed and case discussed with RN. Family at the bedside. Treatment plan explained. All questions answered. The patient overall is doing frankie r. She has been in the hospital for 10 days, still on the ventilator. She has been able to be weane d off the propofol and is not as sedated. She is beginning to follow commands and appears to underst and conversation. Medications: List reviewed. Physical Examination: Vital Signs: Temperature 98.5, heart rate 99, blood pressure 126/79, respirations 24, and O2 of 92% on ET tube 35% FiO2. General: Awake, alert, intubated, lightly sedated, morbidly obese female, somewhat ill appearing. CV: S1 and S2. Regular rate and rhythm. Peripheral pulses present. Respiratory: Moving air well. Diminished breath sounds. Minimal wheezing. No stridor or use of ac cessory muscles. Gastrointestinal: Abdomen is soft, nontender, and nondistended. Positive bowel sounds. No guarding or rigidity. Extremities: No clubbing or cyanosis. The patient does have some trace pedal edema. Neurologic: Nonfocal. Moves all 4 extremities. Opens eyes spontaneously. ET tube in place. Laboratory Data: Sodium 147, potassium 3.7, chloride 115, CO2 of 23, BUN 87, creatinine 2.32, glucos e 101, calcium 8.3, and albumin 2.4. WBC 13.6, H and H of 9.2 and 28.5, platelets 469, and neutrophi ls 82%. ABG; pH is 7.42, PCO2 is 30.8, PO2 of 74, and bicarb is 19. Blood cultures grew out Strep p neumoniae. C diff assay is positive. Repeat influenza screen is negative. Repeat blood culture cheng wed no growth to date. KUB shows enteric tube is likely in the stomach, although the tip is not comp letely included on the radiograph. Assessment And Plan: A 33-year-old female with, 1.Severe sepsis, shock, improving, not on pressors at this time. 2.Acute respiratory failure secondary to acute respiratory distress syndrome related to pneumonia an d influenza. The patient is still on the ventilator, difficult to wean. We will continue to obtain weaning trials. The patient is currently on 35% FiO2. Awake, alert, and following commands. I appr eciate Dr. Villa's input. 3.Bacteremia with Streptococcus pneumoniae. We will continue with IV antibiotics. Repeat cultures are negative to date. 4.Bilateral pneumonia with recent influenza A. Continue antibiotics. 5.Hypernatremia. Continue D5W. Monitor sodium levels. The patient to be restarted on feeds. We w ill continue the free water bolus. 6.Hypotension, improved. 7.Acute cystitis without hematuria. Urine culture pending. 8.Clostridium difficile infection. The patient is on Flagyl and vancomycin. We will add Lactinex. 9.Acute kidney injury secondary to sepsis. Creatinine is improving. 10.Thrombocytopenia secondary to sepsis, resolved. Platelet count has improved. 11.Nicotine dependence with cigarette smoking, continuous. 12.Likely chronic obstructive pulmonary disease with acute exacerbation. 13.Likely obstructive sleep apnea. Recommend sleep study done as an outpatient. 14.Gastroesophageal reflux disease. We will continue with PPI. 15.Gastrointestinal and deep venous thrombosis prophylaxis with Lovenox and PPI. PLAN: We will add probiotics. We will restart tube feeds. Continue with weaning trials and extubat e if continues to improve. Hold off on trach at this time. Monitor sodium levels. We will continue to monitor in ICU setting. SA/MODL Voice ID: [id number] Report ID: [id number]
[2018-07-14] MEDS: LORazepam 2 MG/ML VIAL IV SCH ×4 (00:10→12:00)
[2018-07-14] MEDS: METRONIDAZOLE 500mg IVPB 500 MG/100 ML BAG IV SCH ×3 (00:10→18:09)
[2018-07-14] MEDS: VANCOMYCIN ORAL SOLN 250 MG/5 ML OSYR PO SCH ×4 (00:11→18:09)
[2018-07-14] MEDS: FENTANYL CITR 100 MCG/2 ML IV SCH ×4 (02:44→14:00)
[2018-07-14 04:35] LABS: HBsAG Nonreactive (Nonreactive)
[2018-07-14 05:28] LABS: Absolute Lymphocytes (CBC) 1.5 K/uL (0.7-4.9); Absolute Monocytes 0.9 K/uL (0.1-1.3); Absolute Neutrophil 10.2 K/uL (1.8-8.0); Basophils % 0.4 % (0-1.3); Eosinophils % 1.1 % (0-4.4); Hematocrit 25.6 % (36.0-45.0); Lymphocytes % 11.6 % (15.3-44.8); MPV 7.7 fL (7.6-11.3); Monocytes % 7.1 % (3.3-12.3); RBC Red Blood Cell Count 3.47 M/uL (3.86-4.86)
[2018-07-14 05:42] LABS: Albumin 2.1 g/dL (3.4-5.0); Bilirubin Total 0.3 mg/dL (0.2-1.0); Magnesium 2.3 mg/dL (1.8-2.4); Phosphorus 4.5 mg/dL (2.5-4.9); Potassium 3.9 mmol/L (3.5-5.1); Protein, Total 5.7 g/dL (6.4-8.2); Uric Acid 9.6 mg/dL (2.6-6.0)
[2018-07-14] MEDS ORDERED: POTASSIUM 25 MEQ EFFERV TAB PO ONE (05:51)
[2018-07-14] MEDS: CALCITROL 0.25 MCG CAP PO SCH (09:00)
[2018-07-14 09:39] LABS: Urine Appearance TURBID; Urine Bilirubin NEGATIVE (NEG); Urine Blood 2+ (NEG); Urine Color YELLOW; Urine Glucose NEGATIVE (NEG); Urine Protein 1+ (NEG); Urine Specific Gravity 1.015 (1.005-1.030); Urine Urobilinogen 0.2 mg/dL (0.2-1.0); Urine pH 5.5 (5.0-7.0)
[2018-07-14] MEDS: FAMOTIDINE 20 MG/2 ML VIAL IV SCH (09:54)
[2018-07-14] MEDS: D5W 1,000 ML IV SCH (09:54)
[2018-07-14] MEDS: CEFEPIME/SWI 1gm 10 ML IV SCH (09:54)
[2018-07-14] MEDS: THIAMINE 200 MG/2 ML INJ IVP SCH (09:55)
[2018-07-14] MEDS: ASCORBIC ACID 500 MG TABLET PO SCH (09:56)
[2018-07-14] MEDS: VITAMIN D 5,000 UNIT CAP PO SCH (09:57)
[2018-07-14] MEDS: DIPHENOX/ATROP SULF 1 TAB PO PRN (09:58)
[2018-07-14 10:35] LABS: Urine Bacteria <20 /HPF (<20); Urine Coarse Granular Casts 0-5 /LPF (NONE SEEN); Urine Culture Reflex Order REFLEXED; Urine RBC 20-50 /HPF (NONE SEEN); Urine Yeast MANY (NONE SEEN)
[2018-07-14] MEDS: SODIUM BICARB 325 MG TAB PO SCH ×2 (11:09→20:50)
[2018-07-14] MEDS: NYSTATIN 500,000 UNIT/5 ML UDC PO SCH ×3 (11:09→20:50)
[2018-07-14] MEDS: LACTOBACILLUS/ACIDOPHILUS TAB PO SCH (11:11)
[2018-07-14] MEDS: LORazepam 2 MG/ML VIAL IV PRN (14:44)
[2018-07-14] MEDS ORDERED: AMILORIDE HCL 5 MG TABLET PO ONE ×2 (15:00→19:00)
[2018-07-14] MEDS ORDERED: VITAL HP 1,000 ML BOT RTH SCH (16:00)
[2018-07-14] MEDS ORDERED: FENTANYL CITR 100 MCG/2 ML IV PRN (16:04)
--- NOTE | 2018-07-14 17:32 | PN ---
Date of Progress Note: 07/14/2018 Subjective: Patient was seen and examined. Chart reviewed and case was discussed with RN and Dr. Villa. The patient is cooperating with exam. Seems to be more alert and attentive. Being weaned off all sedation. Medication was reviewed. Physical Examination: Vital Signs: Temperature 98.6, heart rate 97, blood pressure 116/70, respirations 24, O2 93% on 40% FiO2 via ET tube. General: Awake, alert, intubated, not sedated following commands. CV: S1, S2. Regular rate and rhythm. Peripheral pulses present. Respiratory: Somewhat diminished breath sounds. Some rhonchi heard. Otherwise , no use of accessory muscles or stridor. Gastrointestinal: Abdomen is soft, nontender, nondistended. Positive bowel sounds. No guarding or rigidity. Extremities: No clubbing, cyanosis, or edema. Neurologic: Nonfocal. Laboratory Data: Sodium 147, potassium 3.9, chloride 116, CO2 24, BUN 76, creatinine 1.96, glucose 97, uric acid 9.6, calcium 7.7, phosphorus 4.5, magnesium 2.3, albumin 2.1. WBC 12.7, H and H 8.3, 25.6, platelets 401, neutrophils 79%. Repeat UA shows negative nitrite, 1+ leukocyte esterase, 20- 50 rbc's, 5-10 wbc's, less than 20 bacteria. Blood cultures growing out strep pneumoniae 4/4 bottles. C. diff positive. Repeat blood cultures, no growth to date. Sputum cultures, no growth. KUB shows enteric tube in the stomach. Tip is in the distal aspect of the stomach. Assessment And Plan: A 33-year-old female with, 1. Severe sepsis, shock, improving, now off pressors. White count is trending down. 2. Acute respiratory failure secondary to acute respiratory distress syndrome , related to pneumonia and influenza with hypoxia. The patient is slow to wean off the ventilator. We will plan for extubation today. Dr. Villa is on board. 3. Bacteremia secondary to Streptococcus pneumoniae. We will continue IV antibiotics. Repeat blood cultures negative to date. 4. Bacterial pneumonia with recent influenza A infection. Sputum cultures are negative. Continue antibiotics. 5. Hypernatremia. Sodium still elevated mildly at 147. We will continue on D5W. Continue to monitor sodium levels. 6. Acute cystitis without hematuria. Urine has been repeated. Culture has been obtained. Has been treated with antibiotics. 7. Clostridium difficile infection. Continue with Flagyl and p.o. vancomycin. Continue probiotics. 8. Acute kidney injury secondary to sepsis. Creatinine is still elevated at 1.96, however, improving. We will continue to monitor and avoid NSAIDs. 9. Thrombocytopenia, resolved. 10. Nicotine dependence with cigarette smoking continuous. 11. Probable chronic obstructive pulmonary disease with acute exacerbation. 12. Likely obstructive sleep apnea. Will need outpatient sleep study. 13. Gastroesophageal reflux disease without esophagitis. We will continue PPI. 14. Deep venous thrombosis prophylaxis with Lovenox. 15. Severe protein calorie malnutrition Plan: Anticipate extubation today. Continue to monitor in the ICU setting. /LEXI Voice ID: [id number] Report ID: [id number] MTDD
[2018-07-14] MEDS: ENOXAPARIN 30 MG/0.3 ML SQ SCH (18:09)
[2018-07-14] MEDS: MIDAZOLAM HCL 2 MG/2 ML INJ IV PRN (20:50)
[2018-07-15] MEDS: VANCOMYCIN ORAL SOLN 250 MG/5 ML OSYR PO SCH ×4 (01:20→18:13)
[2018-07-15] MEDS: LORazepam 2 MG/ML VIAL IV PRN (01:21)
[2018-07-15] MEDS: METRONIDAZOLE 500mg IVPB 500 MG/100 ML BAG IV SCH (01:21)
[2018-07-15 05:18] LABS: Absolute Lymphocytes (CBC) 1.4 K/uL (0.7-4.9); Absolute Monocytes 0.9 K/uL (0.1-1.3); Absolute Neutrophil 9.5 K/uL (1.8-8.0); Basophils % 0.7 % (0-1.3); Eosinophils % 0.9 % (0-4.4); Hematocrit 26.3 % (36.0-45.0); Lymphocytes % 11.8 % (15.3-44.8); MPV 7.4 fL (7.6-11.3); Monocytes % 7.8 % (3.3-12.3); RBC Red Blood Cell Count 3.56 M/uL (3.86-4.86)
[2018-07-15 05:32] LABS: Albumin 2.2 g/dL (3.4-5.0); Bilirubin Total 0.4 mg/dL (0.2-1.0); Potassium 3.9 mmol/L (3.5-5.1); Protein, Total 6.1 g/dL (6.4-8.2)
[2018-07-15] MEDS: D5W 1,000 ML IV SCH ×3 (06:12→20:12)
--- NOTE | 2018-07-15 08:13 | P.PN ---
Subjective Date of Service: 07/15/18 Primary Care Provider: None Chief Complaint: Respiratory failure Patient is improving doing much better diarrhea has decreased tube feeds were changed patient did tolerate the spontaneous breathing trial yesterday vital signs stable Review of Systems is unable to be obtained Physical Examination - Vital Signs Temperature: 98.5 F Blood Pressure: 119/75 Pulse: 92 Respirations: 22 Pulse Ox (%): 97 - Physical Exam General: Alert, Cooperative Respiratory: Clear to auscultation bilaterally Cardiovascular: Normal S1 S2 - Studies Medications List Reviewed: Yes Assessment & Plan - Problems (Diagnosis) (1) Respiratory failure Current Visit: Yes Status: Acute Plan: Doing much better labs reviewed renal function has improved change to IV Rocephin Dc Flagyl vital signs in oxygenation stable diarrhea has decreased significantly plan to wean and extubate today Qualifiers: Chronicity: acute (2) Diarrhea Current Visit: Yes Status: Acute Plan: Still has persistent diarrhea resume low grades of tube feeds Lomotil for diarrhea Qualifiers: Diarrhea type: infectious Qualified Code(s): A09 - Infectious gastroenteritis and colitis, unspecified Physician Review Additional Text: I
[2018-07-15] MEDS: NYSTATIN 500,000 UNIT/5 ML UDC PO SCH ×4 (09:00→22:39)
[2018-07-15] MEDS: CALCITROL 0.25 MCG CAP PO SCH (09:00)
[2018-07-15] MEDS: VITAMIN D 5,000 UNIT CAP PO SCH (09:36)
[2018-07-15] MEDS: LACTOBACILLUS/ACIDOPHILUS TAB PO SCH (09:36)
[2018-07-15] MEDS: SODIUM BICARB 325 MG TAB PO SCH ×2 (09:36→22:39)
[2018-07-15] MEDS: CEFTRIAXONE/SWI 1gm 1 GM/10 ML SYR IV SCH (09:36)
--- NOTE | 2018-07-15 15:29 | PN ---
Date of Progress Note: 07/15/2018 History: The patient seen and examined. Chart reviewed and case discussed with RN and Dr. Villa. The patient is doing better, now completely off sedation, awake and alert. Plan is to be extubated today. Medications: List reviewed. Physical Examination: Vital Signs: Temperature 98.5, heart rate 92, blood pressure 119/75, respirations 22, and O2 of 97% on the ET tube, 35% FiO2. General: Awake, alert, no acute distress, morbidly obese female. CV: S1, S2. Regular rate and rhythm. Peripheral pulses present. Respiratory: Diminished breath sounds overall. No wheezing or stridor. Gastrointestinal: Abdomen is soft, nontender, nondistended. Positive bowel sounds. Extremities: No clubbing, cyanosis, or edema. Neurologic: Nonfocal. ET tube in place. Laboratory Data: Sodium 145, potassium 3.9, chloride 115, CO2 24, BUN 53, creatinine 1.32, glucose 1 05, calcium 8, albumin 2.2. WBC 12.1, H and H 8.5 and 26.3, platelets 43, neutrophils 78%. Blood cu ltures growing out strep pneumo, / bottles. Assessment And Plan: A 33-year-old female with: 1.Severe sepsis with shock, improving. No longer on pressors. White count is trending down seconda ry to bacteremia. 2.Acute respiratory failure secondary to acute respiratory distress syndrome related to pneumonia an d influenza with hypoxia. Plan is to be extubated today. Appreciate Pulmonology input. 3.Bacteremia secondary to Streptococcus pneumoniae. Continue with IV antibiotics. Repeat cultures are negative to date. 4.Bacterial pneumonia with recent influenzae infection. Sputum cultures are negative. Continue ant ibiotics. 5.Hypernatremia, resolved, corrected. Continue to monitor. 6.Acute cystitis without hematuria, status post treatment. 7.Clostridium difficile infection, on Flagyl, p.o. vancomycin. Continue probiotics. 8.Acute kidney injury secondary to sepsis. Creatinine is trending down, almost normalized. Continu e to monitor and avoid nephrotoxins. 9.Nicotine dependence with cigarette smoking, continuous. 10.Probable chronic obstructive pulmonary disease with acute exacerbation, improved. 11.Likely sleep apnea, obstructive. Outpatient sleep study. 12.Gastroesophageal reflux disease without esophagitis. Continue PPI. 13.Deep vein thrombosis prophylaxis with Lovenox. SA/MODL Voice ID: [id number] Report ID: [id number]
[2018-07-15] MEDS: DIPHENOX/ATROP SULF 1 TAB PO PRN (15:56)
[2018-07-15] MEDS: ENOXAPARIN 30 MG/0.3 ML SQ SCH (18:13)
[2018-07-16] MEDS: VANCOMYCIN ORAL SOLN 250 MG/5 ML OSYR PO SCH ×5 (00:10→23:00)
[2018-07-16 05:12] LABS: Absolute Lymphocytes (CBC) 1.6 K/uL (0.7-4.9); Absolute Monocytes 0.8 K/uL (0.1-1.3); Absolute Neutrophil 8.1 K/uL (1.8-8.0); Basophils % 0.7 % (0-1.3); Eosinophils % 0.8 % (0-4.4); Hematocrit 27.5 % (36.0-45.0); Lymphocytes % 14.9 % (15.3-44.8); MPV 7.8 fL (7.6-11.3); Monocytes % 7.4 % (3.3-12.3); RBC Red Blood Cell Count 3.71 M/uL (3.86-4.86)
[2018-07-16 05:59] LABS: Albumin 2.3 g/dL (3.4-5.0); Bilirubin Total 0.3 mg/dL (0.2-1.0); Folic Acid, (Folate) 10.8 ng/mL (3.1-17.5); Potassium 3.6 mmol/L (3.5-5.1); Protein, Total 6.3 g/dL (6.4-8.2); Uric Acid 5.6 mg/dL (2.6-6.0)
[2018-07-16] MEDS: LACTOBACILLUS/ACIDOPHILUS TAB PO SCH (08:50)
[2018-07-16] MEDS: CEFTRIAXONE/SWI 1gm 1 GM/10 ML SYR IV SCH (08:50)
[2018-07-16] MEDS: SODIUM BICARB 325 MG TAB PO SCH ×2 (08:51→20:07)
[2018-07-16] MEDS: VITAMIN D 5,000 UNIT CAP PO SCH (08:51)
[2018-07-16] MEDS: NYSTATIN 500,000 UNIT/5 ML UDC PO SCH ×3 (08:51→20:07)
[2018-07-16] MEDS: CALCITROL 0.25 MCG CAP PO SCH (08:52)
[2018-07-16] MEDS: ALPRAZOLAM 0.25 MG TABLET PO PRN ×2 (10:54→17:21)
[2018-07-16] MEDS ORDERED: POTASSIUM CL SA 10 MEQ TAB PO ONE (16:00)
[2018-07-16] MEDS: ENOXAPARIN 30 MG/0.3 ML SQ SCH (17:21)
--- NOTE | 2018-07-16 17:33 | PN ---
Date of Progress Note: 07/16/2018 Subjective: The patient is seen and examined. Chart reviewed, and case discussed with RN and Dr. Dk gonzales. The patient was extubated yesterday, has been doing stable on the nasal cannula. at bedside. The patient has been asking to leave the hospital, however, she was counseled that she is not ready to leave. She is still requiring supplemental oxygen at 4 L and she still need to be able to demonstrate eating enterally. Medications: List reviewed. Physical Examination: Vital Signs: Temperature 97.6, heart rate 112, blood pressure 132/84, respirations 26, O2 of 95% on 4 L via nasal cannula. General: Awake, alert, oriented x3. A somewhat ill-appearing female, morbidly obese, BMI 48.7. CV: S1 and S2. Sinus tachycardia. Peripheral pulses present. Respiratory: Moving air well. Diminished breath sounds at the bases. No wheezing. No stridor. Gastrointestinal: Abdomen is soft, nontender, nondistended. Positive bowel sounds. Extremities: No clubbing, cyanosis, or edema. Neurologic: Nonfocal. Laboratory Data: Sodium 144, potassium 3.6, chloride 113, CO2 of 26, BUN 35, creatinine 0.84, glucos e 133, uric acid 5.6, calcium 8.1, iron 42, TIBC 179, transferrin 128, albumin 2.3. Vitamin B12 is 5 99, folate 10.8. WBC 10.6, H and H 9.2/27.5, platelets 329, neutrophils 76%. Urine culture shows E coli, pansensitive. Repeat blood cultures also negative. Initial blood cultures grew out strep pneu moniae. Assessment: A 33-year-old female with: 1.Severe sepsis with shock, resolving. White count has normalized. Off pressors. Secondary to danuta teremia, urinary tract infection, and Clostridium difficile. 2.Acute respiratory failure secondary to acute respiratory distress syndrome related to pneumonia po st-influenza. The patient has hypoxia, doing well off the ventilator. Is currently on 4 L of oxygen via nasal cannula. Appreciate Dr. Villa's input. 3.Bacteremia secondary to Streptococcus pneumoniae. Repeat blood cultures have been negative. We w ill discuss with ID regarding antibiotics. We will likely switch over to p.o. 4.Hypernatremia, corrected. We will continue to monitor. 5.Acute cystitis without hematuria, status post treatment. Repeat urine culture growing out Escheri shahbaz coli. The patient is on Rocephin. 6.Bacterial pneumonia with recent influenza infection. Sputum culture is negative. Antibiotic jan tment completed. 7.Clostridium difficile infection, on p.o. vancomycin. We will continue probiotics. The patient's diarrhea is slowing down. She had 1 episode today. 8.Acute kidney injury secondary to sepsis. Creatinine is now normalized. Continue to avoid NSAIDs. 9.Likely chronic obstructive pulmonary disease with acute exacerbation, improving. 10.Probable sleep apnea, obstructive. The patient will need outpatient sleep study. 11.Nicotine dependence with cigarette smoking, continuous. 12.Gastroesophageal reflux disease without esophagitis. We will continue PPI. 13.Deep venous thrombosis prophylaxis with Lovenox. Plan: The patient did well with sips of water and was able to take her medications. We will go ahea d and start on clear liquid diet and advance as tolerated. Step down to regular floor. Likely disch arge in the next 24 to 48 hours once weaned off oxygen and C diff has improved. /LEXI Voice ID: [id number] Report ID: [id number]
[2018-07-16] MEDS: ONDANSETRON 4 MG/2 ML VIAL IV PRN (22:31)
[2018-07-17 05:01] LABS: Absolute Lymphocytes (CBC) 1.8 K/uL (0.7-4.9); Absolute Monocytes 0.8 K/uL (0.1-1.3); Absolute Neutrophil 7.3 K/uL (1.8-8.0); Basophils % 1.1 % (0-1.3); Eosinophils % 0.9 % (0-4.4); Hematocrit 26.1 % (36.0-45.0); Lymphocytes % 17.5 % (15.3-44.8); MPV 7.8 fL (7.6-11.3); Monocytes % 8.3 % (3.3-12.3); RBC Red Blood Cell Count 3.48 M/uL (3.86-4.86)
[2018-07-17 05:22] LABS: Albumin 2.5 g/dL (3.4-5.0); Bilirubin Total 0.3 mg/dL (0.2-1.0); Potassium 3.9 mmol/L (3.5-5.1); Protein, Total 6.1 g/dL (6.4-8.2)
[2018-07-17] MEDS: VANCOMYCIN ORAL SOLN 250 MG/5 ML OSYR PO SCH ×3 (05:22→17:02)
[2018-07-17] MEDS ORDERED: POTASSIUM CL SA 10 MEQ TAB PO ONE (09:00)
[2018-07-17] MEDS: VITAMIN D 5,000 UNIT CAP PO SCH (10:18)
[2018-07-17] MEDS: LACTOBACILLUS/ACIDOPHILUS TAB PO SCH (10:19)
[2018-07-17] MEDS: SODIUM BICARB 325 MG TAB PO SCH ×2 (10:20→20:49)
[2018-07-17] MEDS: CALCITROL 0.25 MCG CAP PO SCH (10:21)
[2018-07-17] MEDS: NYSTATIN 500,000 UNIT/5 ML UDC PO SCH ×3 (10:21→20:49)
[2018-07-17] MEDS: CEFTRIAXONE/SWI 1gm 1 GM/10 ML SYR IV SCH (10:21)
[2018-07-17] MEDS: D5 0.45 NS 1,000 ML IV SCH (12:43)
--- NOTE | 2018-07-17 13:47 | PN ---
Date of Progress Note: 07/17/2018 Subjective: The patient seen and examined. Chart reviewed and case discussed with RN. at t he bedside. The patient still not doing well on nasal cannula, had to be replaced on Venturi mask. The patient had 1 episode of diarrhea, seems to be a little bit more solid. Medications: List reviewed. Physical Examination: Vital Signs: Temperature 98.3, heart rate 94, blood pressure 123/69, respirations 20, and O2 93% on 10 L venturi mask. General: Awake, alert, oriented x3. Mild respiratory distress. Morbidly obese female. CV: S1 and S2. Sinus tachycardia. Peripheral pulses present. Respiratory: Diminished breath sounds. No wheezing. Gastrointestinal: Abdomen is soft, nontender, nondistended. Positive bowel sounds. Extremities: No clubbing, cyanosis, or edema. Neurologic: Nonfocal. Laboratory Data: Sodium 147, potassium 3.9, chloride 114, CO2 28, BUN 26, creatinine 0.81, glucose 8 7, calcium 8.2. WBC 10.1, H and H 8.6 and 26.1, platelets 295, neutrophils 72%. Blood cultures grow ing strep pneumo. However, repeat blood cultures are negative. Urine culture from the is growi ng out Escherichia coli, pansensitive. Assessment And Plan: A 33-year-old female with: 1.Severe sepsis with shock, resolving secondary to bacteremia, urinary tract infection and Clostridi um difficile infection. 2.Acute respiratory failure secondary to ARDS from post influenza pneumonia. The patient is still h ypoxic on nasal cannula, has to be on Ventimask. We will continue to wean as tolerated, improving. Pulmonology on board. 3.Bacteremia secondary to Streptococcus pneumoniae. Repeat cultures negative. We will switch to p. o. antibiotics on discharge. 4.Hypernatremia. We will start on D5 half NS and monitor. 5.Acute cystitis without hematuria. Status post antibiotics treatment. Urine repeat culture is betito wing out Escherichia coli. Currently on Rocephin. 6.Bacterial pneumonia with recent influenza infection. Sputum cultures negative. Completed treatme nt with antibiotics. 7.Clostridium difficile infection. Continue p.o. vancomycin. Frequency of stools has decreased cherelle n to 1 episode. We will give probiotics. 8.Acute kidney injury secondary to sepsis. Creatinine normalized. Continue to monitor. 9.Probable chronic obstructive pulmonary disease with acute exacerbation, improving. 10.Sleep apnea, obstructive. We will need outpatient sleep study. 11.Nicotine dependence with cigarette smoking continuous. 12.Gastroesophageal reflux disease without esophagitis. Continue PPI. 13.Deep venous thrombosis prophylaxis with Lovenox. Plan: Wean off oxygen as tolerated. Monitor hemoglobin level. Continue Rocephin. We will adjust L ovenox dose to 40 as creatinine is no normalized. Anticipate discharge in the next 24-48 hours vidya spencer on clinical response. /LEXI Voice ID: [id number] Report ID: [id number]
[2018-07-17] MEDS: ENOXAPARIN 40 MG/0.4 ML SQ SCH (17:02)
[2018-07-18] MEDS: VANCOMYCIN ORAL SOLN 250 MG/5 ML OSYR PO SCH ×4 (00:01→17:27)
[2018-07-18] MEDS: D5 0.45 NS 1,000 ML IV SCH (00:01)
[2018-07-18 05:14] LABS: BUN Blood Urea Nitrogen 14 mg/dL (7-18); Bicarbonate 28 mmol/L (21-32); Glucose Level 102 mg/dL (74-106); Potassium 3.7 mmol/L (3.5-5.1); Sodium Level 150 mmol/L (136-145)
[2018-07-18] MEDS: SODIUM BICARB 325 MG TAB PO SCH (09:00)
[2018-07-18] MEDS ORDERED: POTASSIUM CL SA 10 MEQ TAB PO ONE (09:00)
[2018-07-18] MEDS: CALCITROL 0.25 MCG CAP PO SCH (09:32)
[2018-07-18] MEDS: VITAMIN D 5,000 UNIT CAP PO SCH (09:33)
[2018-07-18] MEDS: LACTOBACILLUS/ACIDOPHILUS TAB PO SCH (09:33)
[2018-07-18] MEDS: NYSTATIN 500,000 UNIT/5 ML UDC PO SCH ×3 (09:34→20:53)
[2018-07-18] MEDS: CEFTRIAXONE/SWI 1gm 1 GM/10 ML SYR IV SCH (09:34)
[2018-07-18] MEDS: D5W 1,000 ML IV SCH (10:52)
--- NOTE | 2018-07-18 14:45 | PN ---
Date of Progress Note: 07/18/2018 Subjective: Patient seen at bedside. No events reported. The patient feels well. Denies any fever s, chills, chest pain, shortness of breath, nausea, vomiting, or diarrhea. Objective: Vital Signs: Blood pressure is 137/63, pulse 104, temperature 98.2. General: No acute distress. Heart: Regular rate and rhythm. No murmurs, rubs, gallops. Lungs: Clear to auscultation bilaterally. Abdomen: Soft, nontender, nondistended. Positive bowel sounds x4. Extremities: With trace edema. Laboratory Data: Serum chemistry, sodium 150, potassium 3.7, chloride 115, CO2 28, BUN 14, creatinin e 0.58, glucose 102, calcium 7.9. Impression: 1.Acute kidney injury, resolved. 2.Hypernatremia in the setting of free water deficit of approximately 1.5 L. Plan: The patient has been switched over to D5 at 75 mL/h. We will continue at this rate. I have a lso encouraged the patient to increase her free water intake and we will continue to follow. /LEXI Voice ID: [id number] Report ID: [id number]
[2018-07-18] MEDS: ENOXAPARIN 40 MG/0.4 ML SQ SCH (17:27)
--- NOTE | 2018-07-18 17:37 | PN ---
Subjective: The patient is seen and examined. Chart reviewed, and case discussed with RN. Overall, the patient seems to be doing better. at the bedside. Medications: List reviewed. Physical Examination: Vital Signs: Temperature 98.2, heart rate 104, blood pressure 137/63, respirations 18, O2 of 91% on 5 L via nasal cannula. General: Awake, alert, oriented x3. A morbidly obese female, in some mild respiratory distress. CV: S1, S2. Sinus tachycardia. Peripheral pulses present. Respiratory: The patient is slightly tachypneic. No use of accessory muscles. Somewhat diminished breath sounds. No wheezing. Gastrointestinal: Abdomen is soft, nontender, nondistended. Positive bowel sounds. Extremities: No clubbing, cyanosis, or edema. Neurologic: Nonfocal. Laboratory Data: Sodium 150, potassium 3.7, chloride 115, CO2 of 28, BUN 14, creatinine 0.58, glucos e 102, calcium 7.9. WBC 10.1, H and H 8.6 and 26.1, platelets 295, neutrophils 72%. E coli in urine culture from 07/14/2018. Blood cultures grew out strep pneumo. Repeat blood cultures are negative to date. Assessment: A 33-year-old female with: 1.Severe sepsis with shock, resolving, secondary to bacteremia, urinary tract infection, and Clostri dium difficile infection. 2.Acute respiratory failure secondary to acute respiratory distress syndrome from post-influenza pne umonia. Still hypoxic, requiring nasal cannula and sometimes Ventimask. Continue to wean as tolerat ed. Appreciate Pulmonology input. 3.Bacteremia secondary to streptococcus pneumoniae. Repeat culture is negative. Treated with antib iotics. 4.Hypernatremia. We will switch over to D5W and repeat sodium level. 5.Acute cystitis without hematuria. Repeat urine culture growing out Escherichia coli. On Rocephin currently. 6.Bacterial pneumonia after influenza infection. Sputum cultures are negative. Treatment completed . 7.Clostridium difficile infection. Continue p.o. vancomycin. Stool frequency is decreased. Contin ue probiotics. 8.Acute kidney injury secondary to sepsis. Creatinine normalized. 9.Probable chronic obstructive pulmonary disease with acute exacerbation, currently requiring supple mental oxygen, improved. 10.Obstructive sleep apnea. We will need outpatient sleep study. 11.Nicotine dependence with cigarette smoking, continuous. 12.Gastroesophageal reflux disease without esophagitis. 13.Deep venous thrombosis. Continue Lovenox. Plan: Wean off oxygen. Monitor sodium levels. SA/MODL Voice ID: [id number] Report ID: [id number]
[2018-07-19] MEDS: VANCOMYCIN ORAL SOLN 250 MG/5 ML OSYR PO SCH ×3 (00:36→12:00)
[2018-07-19] MEDS: D5W 1,000 ML IV SCH ×2 (01:11→12:40)
[2018-07-19 05:31] LABS: BUN Blood Urea Nitrogen 9 mg/dL (7-18); Bicarbonate 28 mmol/L (21-32); Glucose Level 103 mg/dL (74-106); Potassium 4.1 mmol/L (3.5-5.1); Sodium Level 146 mmol/L (136-145)
[2018-07-19] MEDS: ALPRAZOLAM 0.25 MG TABLET PO PRN (05:49)
--- NOTE | 2018-07-19 08:38 | P.PN ---
Subjective Date of Service: 07/19/18 Primary Care Provider: None Chief Complaint: Pneumonia and hypoxemia Patient is doing better still requiring oxygen denies having any diarrhea mildly hypernatremic Review of Systems Respiratory: Shortness of Breath Physical Examination - Vital Signs Temperature: 98.6 F Blood Pressure: 107/50 Pulse: 103 Respirations: 24 Pulse Ox (%): 88 - Physical Exam General: Alert, Oriented x3 Respiratory: Clear to auscultation bilaterally Cardiovascular: No edema, Regular rate/rhythm - Studies Medications List Reviewed: Yes Assessment & Plan - Problems (Diagnosis) (1) Respiratory failure Current Visit: Yes Status: Acute Plan: Patient is improving titrate sat to 90% will need home oxygen pneumonia Dc antibiotics Qualifiers: Chronicity: acute (2) Diarrhea Current Visit: Yes Status: Acute Plan: According to the patient has resolved Qualifiers: Diarrhea type: infectious Qualified Code(s): A09 - Infectious gastroenteritis and colitis, unspecified Physician Review Additional Text: I
[2018-07-19] MEDS: VITAMIN D 5,000 UNIT CAP PO SCH (09:10)
[2018-07-19] MEDS: LACTOBACILLUS/ACIDOPHILUS TAB PO SCH (09:10)
[2018-07-19] MEDS: CALCITROL 0.25 MCG CAP PO SCH (09:10)
[2018-07-19] MEDS: NYSTATIN 500,000 UNIT/5 ML UDC PO SCH ×2 (09:11→16:03)
--- NOTE | 2018-07-19 11:57 | RAD REPORT ---
EXAM DESCRIPTION: CT - Head Brain Wo Cont - 07/19/2018 11:42 am CLINICAL HISTORY: Transient alteration of awareness, sepsis COMPARISON: None. TECHNIQUE: Axial 5 mm thick images of the head were obtained without IV contrast. All CT scans are performed using dose optimization technique as appropriate and may include automated exposure control or mA/KV adjustment according to patient size. FINDINGS: No intracranial hemorrhage is present. A 2.3 centimeter area of diminished attenuation wit h poor demarcation of the margins noted in the superior right temporal lobe. Finding is nonspecific i n a patient this age. Nonhemorrhagic infarction is certainly possible although unusual at this age. G iven the history of sepsis, cerebritis or infectious process of the brain parenchyma would be a consi deration. Abscess is not identifiable at this time. If tolerable by the patient, contrast MRI imaging would be recommended. No cortical edema or sulcal effacement. No mass effect, edema or shift of midline structures. Ventric les are normal. Mastoid air cells and visualized portions of the paranasal sinuses are clear. No acute bony findings. Findings telephoned to the referring physician 11:50 a.m.. IMPRESSION: Approximately 2.3 centimeter area of diminished attenuation in the superior right tempor al lobe. Differential considerations include infarction given the complex nature of the patient's medical cond ition. Given the sepsis history, cerebritis or infectious process of the brain parenchyma is not excl uded. If tolerable by the patient, contrast MRI imaging of the head would be suggested.
[2018-07-19] MEDS ORDERED: levETIRAcetam 1,000 MG in NA CHLORIDE 0.9% 100 ML IV ONE (13:10)
[2018-07-19 13:27] LABS: Protime INR 1.5
--- NOTE | 2018-07-19 14:22 | RAD REPORT ---
EXAM DESCRIPTION: MRI - Brain W/Wo Cont - 07/19/2018 2:04 pm CLINICAL HISTORY: CT positive Headache, sepsis. COMPARISON: MRA Head Wo Cont dated 07/19/2018; Head Brain Wo Cont dated 07/19/2018 TECHNIQUE: Multi-sequence, multiplanar MR imaging of the brain was performed with contrast. FINDINGS: A 7 x 6 mm rim enhancing lesion is present in the subcortical white matter left frontal lo be. 16 x 12 mm rim enhancing lesion is seen in the right temporal lobe. Moderate elevated T2 and FLAI R hyperintensity is seen associated with these brain lesions. Restricted diffusion is seen associated with these two lesions, likely indicating that they represent brain abscesses. No hydrocephalus, midline shift or acute hemorrhage seen. Mild fluid is seen in both mastoid air cells. IMPRESSION: Two rim enhancing lesions are present in the brain as detailed demonstrating restricted diffusion mild surrounding brain edema, most compatible with brain abscesses. Findings were discussed with Dr. Fajardo 2:20 p.m. 07/19/2018 by telephone.
--- NOTE | 2018-07-19 14:26 | RAD REPORT ---
EXAM DESCRIPTION: MRI - MRA Head Wo Cont - 07/19/2018 2:03 pm CLINICAL HISTORY: Sepsis, headache, drowsiness COMPARISON: Head Brain Wo Cont dated 07/19/2018 FINDINGS: 3D noncontrast etur-hj-sgbaxy MR angiography of the [place] of [place] was performed. No aneurysm, flow-limiting stenosis or vascular malformation is seen. origin of both posterior communicating artery is noted, normal variant. Forward flow seen in codominant vertebral arteries. The visualized dural venous sinuses appear patent. IMPRESSION: No significant flow abnormality of the [place] of [place] is identified.
--- NOTE | 2018-07-19 14:34 | RAD REPORT ---
EXAM DESCRIPTION: MRI - MRA Neck W/Wo Cont - 07/19/2018 2:04 pm CLINICAL HISTORY: CT POSITIVE Headache, sepsis, drowsiness COMPARISON: No comparisons FINDINGS: Contrast enhance 2D disq-ud-syndgg MR angiography of the neck vessels was performed. A left aortic arch is noted with a normal branching pattern of the great vessels. Common carotid delmar sim and internal carotid arteries are widely patent with no evidence stenosis or occlusion. Vertebra l arteries are patent bilaterally. IMPRESSION: No significant flow abnormality of the neck vessels identified.
[2018-07-19] MEDS ORDERED: VANCOMYCIN 2 GM in NA CHLORIDE 0.9% 500 ML IVPB SCH (15:00)
[2018-07-19] MEDS ORDERED: VANCOMYCIN 1.25 GM in NA CHLORIDE 0.9% 250 ML IVPB SCH (15:00)
[2018-07-19] MEDS: ENOXAPARIN 40 MG/0.4 ML SQ SCH (16:10)
[2018-07-19] MEDS ORDERED: METRONIDAZOLE 500mg IVPB 500 MG/100 ML BAG IV SCH (17:00)
[2018-07-19] MEDS ORDERED: ACYCLOVIR INJ 400 MG in NA CHLORIDE 0.9% 100 ML IVPB SCH (17:00)
[2018-07-19 17:01] LABS: Absolute Lymphocytes (CBC) 1.3 K/uL (0.7-4.9); Absolute Monocytes 0.6 K/uL (0.1-1.3); Absolute Neutrophil 6.7 K/uL (1.8-8.0); Basophils % 1.4 % (0-1.3); Eosinophils % 0.9 % (0-4.4); Hematocrit 25.4 % (36.0-45.0); Lymphocytes % 14.8 % (15.3-44.8); MPV 8.3 fL (7.6-11.3); Monocytes % 6.9 % (3.3-12.3); RBC Red Blood Cell Count 3.31 M/uL (3.86-4.86)
--- NOTE | 2018-07-19 18:37 | EKG ---
Test Date: 2018-07-19 Test Time: 14:53:41 Felled Seam Operator Chainstitch: RONI MEASUREMENT RESULTS: Intervals: Rate: 84 [place]: 116 QRSD: 86 QT: 346 QTc: 408 [place]: P: 26 [place]: 116 QRS: 11 T: 22 INTERPRETIVE STATEMENTS: Normal sinus rhythm Normal ECG Compared to ECG 07/03/2018 14:51:54 Sinus tachycardia no longer present Electronically Signed On 07-19-18 18:35:47 LENS CUTTER by Kris Bowman
--- NOTE | 2018-07-19 20:14 | CON ---
History Of Present Illness: This patient is a 33-year-old female. I was consulted for evaluation of brain abscess, which was diagnosed on MRI done earlier today. The patient initially came in with sh ortness of breath with fever, chills, cough and congestion and eventually, was went into ARDS and was admitted to the hospital and went on to be on ventilator. The patient was continued to have confusi on and CT scan was done and showed some area of suspicion and on MRI, which came out to be most likel y possible 2 abscesses. The patient is currently getting treatment with acyclovir, Rocephin and vanc omycin. Past Medical History: Includes , tonsillectomy, adenectomy, tobacco use. Family History: Consist of lung disease, COPD. Social History: Tobacco use 1 to 9 cigarettes per day. Medications: Vancomycin, Rocephin and acyclovir. See MARs for other medication. Review of Systems: A 10-point review was performed. Physical Examination: General: This is a 33-year-old female lying in bed with shivering and feeling of cold. Vital Signs: Temperature 97.3, pulse 76, respirations 18, blood pressure 136/56. HEENT: Unremarkable. Neck: Supple. Lungs: Basal crackles. Heart: S1, S2. Regular. Abdomen: Soft. Bowel sounds present. Extremity: No edema. Laboratory Data: Shows no new labs are available for this morning. CBC is pending. Chemistry shows sodium 146, potassium 4.1, chloride 112, bicarb 28, BUN 9, creatinine 0.59, glucose is 103. Micro d usha: The patient has E. coli in her urine, sensitive to cephalosporins. The patient also had strep pneumo in her blood cultures 4/4 bottles, sensitive to cephalosporins, Rocephin and vancomycin. MRI of the brain shows 2 rim enhancing lesions are present in the brain as detailed demonstrating restric stacie diffusion, mild surrounding brain edema most compatible with brain abscesses findings. Assessment And Plan: A 33-year-old female with recent respiratory failure and ET tube and NG tube pl acement. Possible reason for brain abscess is upper respiratory tract infection like sinusitis. Con tinue Rocephin and vancomycin as the patient is sensitive to cephalosporins, which was found in her b lood on initial admission strep pneumo and also, the patient was found to have E. coli in her urine. We will continue treatment with that. Consider adding Flagyl if necessary and continue Rocephin hig h dose. We will follow the patient closely. Consider getting toxoplasma and HIV test done also. We will follow the patient as needed. FRANNIE/LEXI Voice ID: [id number] Report ID: [id number]
[2018-07-19] MEDS ORDERED: CEFTRIAXONE/SWI 2gm 2 GM/20 ML SYR IV SCH (21:00)
--- NOTE | 2018-07-20 09:27 | DS ---
Date of Discharge: 07/19/2018 Consultants: 1.Dr. Villa with Pulmonology. 2.Dr. Jones with Nephrology. 3.Dr. Layton with Nephrology. 4.Dr. Doss with Infectious Disease. 5.Dr. Bryant with Neurology. Admitting Diagnoses: 1.Severe sepsis secondary to acute respiratory failure related to bilateral pneumonia with recent in fluenza A positive. 2.Acute renal failure. 3.Intractable nausea and vomiting. 4.Diarrhea. 5.Thrombocytopenia. 6.Hypokalemia. 7.Nicotine dependence with cigarette smoking. 8.Underlying chronic obstructive pulmonary disease. 9.Possible sleep apnea. Discharge Diagnoses: 1.Severe sepsis with shock, resolved. 2.Acute respiratory failure with hypoxia, resolved. 3.Bacteremia secondary to Streptococcus pneumonia, treated with antibiotics. Repeat blood cultures negative. 4.Brain abscess. 5.Hypernatremia, improving. 6.Acute cystitis without hematuria secondary to Escherichia coli. 7.Bacterial pneumonia post influenza. 8.Influenza, treated with Tamiflu. 9.Clostridium difficile infection, treatment completed with p.o. vancomycin. 10.Acute kidney injury secondary to sepsis, corrected. 11.Chronic obstructive pulmonary disease, stable. 12.Most likely, the patient does have obstructive sleep apnea, will need outpatient sleep study. 13.Nicotine dependence with cigarette smoking, continuous. 14.Gastroesophageal reflux disease without esophagitis. Hospital Course: The patient is a 33-year-old female who comes in with severe sepsis with shock seco ndary to influenza pneumonia and subsequent pneumonia post influenza. The patient had some shortness of breath, fever, chills. She was found to be hypoxic. The patient was admitted to the ICU. The p atient remained on the ventilator for a prolonged period of time. Dr. Oconnell was consulted for poss ible trach; however, as the patient was getting ready to be extubated, tracheostomy was deferred. Th e patient also saw Dr. Villa with Pulmonology for ventilation management and due to her respirator y symptoms. The patient responded well to treatment. She did well over the course of the hospital s tre. Her acute respiratory failure improved. She was able to be extubated after a prolonged period of time on the ventilator. She was on nasal cannula. The patient had several sources of infection i ncluding bacteremia secondary to Strep pneumo, which was treated with broad-spectrum IV antibiotics. Repeat cultures were negative. Urine cultures did grow out E coli, which was treated with Rocephin. The patient also developed C diff infection, which was treated with p.o. vancomycin. She completed 15 days of p.o. vancomycin and her diarrhea had essentially resolved. The patient did have some epi sodes of confusion, and therefore she had a CT scan of the brain done, which showed a 2.3 cm lesion. MRI of the brain was done to further elucidate the etiology of this lesion, and findings were consis tent with abscess, one in the frontal lobe and one in the right temporal lobe. The patient likely alvarenga d seeding from bacteremia versus due to immunocompromised state. HIV panel, toxoplasmosis, and LP we re ordered. Neurology consultation was sought. Dr. Bryant recommended Keppra as seizure prophylax is. EEG was also ordered. The patient was started on broad-spectrum IV antibiotics including vancom ycin, Rocephin, and Flagyl, which have brain penetration due to her abscess. The patient was also st arted on acyclovir. The patient's confusion improved. She was then referred for a higher level of c are to tertiary care facility where Neurosurgery Services would be available. The patient was then a ccepted by Dr. Casanova at [facility] to the [facility] neuro floor for neurosurgical consultation and po ssible abscess drainage. The patient was transferred once a bed was available. Total time spent transferring the patient was 52 minutes. Physical Examination: General: Awake, alert, oriented x3. Some mild distress. CV: S1, S2. No murmurs. Respiratory: Moving air well bilaterally with no wheezing. Some diminished breath sounds at the bas es. Gastrointestinal: Abdomen is soft, nontender, nondistended. Positive bowel sounds. Extremities: No clubbing, cyanosis, edema. Neuro: Nonfocal. Speech is normal. SA/MODL Voice ID: [id number] Report ID: [id number]
[2018-07-23 19:36] LABS: HIV 1/2 Antibody Diff Not indicated.; HIV AG/AB 4TH GEN Non-reactive (Non-reactive)
== END 2018-07-19 19:30 | disposition short-term general hospital (02) | DRG 870 ==
LOC: ER 13:52 → ERHOLD 16:00 → 3RD-ICU 19:27 → 4TH 07-16 15:15
PROVIDERS: ADMIT Family Medicine; ATTEND Family Medicine
PROC: 5A09557 Assistance with Respiratory Ventilation, Greater than 96 Consecutive Hours, Continuous Positive Airway Pressure (ICD-10-PCS; 2018-07-03)
PROC: 5A1955Z Respiratory Ventilation, Greater than 96 Consecutive Hours (ICD-10-PCS; principal; 2018-07-05)
PROC: 0BH17EZ Insertion of Endotracheal Airway into Trachea, Via Natural or Artificial Opening (ICD-10-PCS; 2018-07-05)
PROC: 02HV33Z Insertion of Infusion Device into Superior Vena Cava, Percutaneous Approach (ICD-10-PCS; 2018-07-05)
PROC: 0DH57UZ Insertion of Feeding Device into Esophagus, Via Natural or Artificial Opening (ICD-10-PCS; 2018-07-05)
PROC: 3E0G76Z Introduction of Nutritional Substance into Upper GI, Via Natural or Artificial Opening (ICD-10-PCS; 2018-07-05)
DX: A40.3 Sepsis due to Streptococcus pneumoniae (principal); J09.X1 Influenza due to identified novel influenza A virus with pneumonia; J15.9 Unspecified bacterial pneumonia; R65.21 Severe sepsis with septic shock; J96.01 Acute respiratory failure with hypoxia; G06.0 Intracranial abscess and granuloma; N17.0 Acute kidney failure with tubular necrosis; E43 Unspecified severe protein-calorie malnutrition; N17.9 Acute kidney failure, unspecified; E87.0 Hyperosmolality and hypernatremia; N30.00 Acute cystitis without hematuria; A04.72 Enterocolitis due to Clostridium difficile, not specified as recurrent; J44.0 Chronic obstructive pulmonary disease with (acute) lower respiratory infection; J44.1 Chronic obstructive pulmonary disease with (acute) exacerbation; Z68.42 Body mass index [BMI] 45.0-49.9, adult; E87.2 Acidosis; M62.82 Rhabdomyolysis; E27.40 Unspecified adrenocortical insufficiency; B96.20 Unspecified Escherichia coli [E. coli] as the cause of diseases classified elsewhere; G47.33 Obstructive sleep apnea (adult) (pediatric); K21.9 Gastro-esophageal reflux disease without esophagitis; Z88.0 Allergy status to penicillin; Z88.2 Allergy status to sulfonamides; D69.6 Thrombocytopenia, unspecified; E87.6 Hypokalemia; E83.42 Hypomagnesemia; F17.218 Nicotine dependence, cigarettes, with other nicotine-induced disorders; E03.9 Hypothyroidism, unspecified; R80.9 Proteinuria, unspecified; E83.51 Hypocalcemia; R73.9 Hyperglycemia, unspecified; E88.09 Other disorders of plasma-protein metabolism, not elsewhere classified; D50.9 Iron deficiency anemia, unspecified; I95.9 Hypotension, unspecified; E66.01 Morbid (severe) obesity due to excess calories
CPT/HCPCS: 36415; 70450; 70544; 70549; 70553; 71045; 71046; 74018; 76770; 80048; 80053; 80076; 80202; 80307; 81001; 81003; 81015; 81025; 82043; 82435; 82533; 82550; 82553; 82570; 82607; 82746; 82805; 82962; 83540; 83605; 83690; 83735; 83880; 84100; 84132; 84145; 84295; 84300; 84443; 84466; 84484; 84550; 85025; 85610; 85730; 86704; 86706; 86803; 87040; 87070; 87077; 87086; 87088; 87186; 87205; 87340; 87389; 87493; 87804; 93005; 93306; 94002; 94003; 94640; 94660; 94760; 96361; 96365; 96366; 96374; 97110; 97112; 97162; 97530; 99284; 99285; A9577; G9035; J0133; J0330; J0692; J0696; J1630; J1650; J1720; J1940; J1953; J2250; J2405; J2704; J3010; J3370; J3411; J3475; J7030; J7060; J7512; J7605; P9047

== ENCOUNTER 2019-06-09 19:12 | Emergency (ER) | payer OTHER, SELFPAY ==
--- OUTSIDE RECORDS SUMMARY | 2019-06-09 19:20 | XMS REPORT ---
:1985 [facility] [address] [place] [address] [address] [place] [address] Care Team Providers Name Role Phone NIKUNJ COLE Unavailable Unavailable Problems This patient has no known problems. Allergies, Adverse Reactions, Alerts This patient has no known allergies or adverse reactions. Medications This patient has no known medications. Results Test Description Test Time Test Comments Text Results Atomic Results Result Comments RAD, CHEST, 1 2018-08-08 13:13:00 Reason for FINAL REPORT PATIENT ID: VIEW, NON DEPT exam:->hypoxia [id number] RAD, CHEST, 1 VIEW, NON DEPT INDICATION: hypoxia COMPARISON: Prior day's exam FINDINGS: Portable frontal view of the chest. IMPRESSION: Support Lines: None. Lungs and pleura: Improvement inspiration with persistent interstitial congestion at the hilum. No pneumothorax.Heart and mediastinum: Stable contours. Additional findings: None. Signed: JR Robbins Robert MDReport Verified Date/Time: 08/08/2018 13:13:02 Reading Location: [address] Neuro Reading Room C METABOLIC PANEL 2018-08-08 06:21:00 Test Item Value Reference Range Comments SODIUM (BEAKER) (test 138 meq/L 136-145 wjcs=485) POTASSIUM (BEAKER) (test 3.3 meq/L 3.5-5.1 Specimen slightly hemolyzed mfwx=761) CHLORIDE (BEAKER) (test 100 meq/L 98-107 ltnt=320) CO2 (BEAKER) (test rvdy=581) 23 meq/L 22-29 BLOOD UREA NITROGEN (BEAKER) 17 mg/dL 7-21 (test khvz=066) CREATININE (BEAKER) (test 0.74 mg/dL 0.57-1.25 Specimen slightly hemolyzed ppdc=765) GLUCOSE RANDOM (BEAKER) 94 mg/dL 70-105 (test zjrp=741) CALCIUM (BEAKER) (test 9.8 mg/dL 8.4-10.2 olns=111) EGFR (BEAKER) (test 90 mL/min/1.73 sq m ESTIMATED GFR IS NOT denc=0220) ACCURATE CREATININE CLEARANCE IN PREDICTING GLOMERULAR FILTRATION RATE. ESTIMATED GFR IS NOT APPLICABLE FOR DIALYSIS PATIENTS. POCT-GLUCOSE [id number] 17:59:00 Test Item Value Reference Range Comments POC-GLUCOSE METER (BEAKER) 166 mg/dL 70-110 TESTED AT [facility] [address] [facility] (test xpdf=1821) [facility] [address] [id number] 05:42:00 Test Item Value Reference Range Comments MAGNESIUM (BEAKER) (test 1.7 mg/dL 1.6-2.6 Specimen slightly hemolyzed uhse=188) [id number] 05:42:00 Test Item Value Reference Range Comments PHOSPHORUS (BEAKER) (test 4.8 mg/dL 2.3-4.7 Specimen slightly hemolyzed keae=015) BASIC METABOLIC [id number] 05:42:00 Test Item Value Reference Range Comments SODIUM (BEAKER) (test 136 meq/L 136-145 bhwy=559) POTASSIUM (BEAKER) (test 3.1 meq/L 3.5-5.1 Specimen slightly byts=458) hemolyzed CHLORIDE (BEAKER) (test 97 meq/L 98-107 xqgk=601) CO2 (BEAKER) (test 24 meq/L 22-29 igzi=208) BLOOD UREA NITROGEN 18 mg/dL 7-21 (BEAKER) (test mjas=086) CREATININE (BEAKER) (test 0.83 mg/dL 0.57-1.25 Specimen slightly tqzv=898) hemolyzed GLUCOSE RANDOM (BEAKER) 96 mg/dL 70-105 (test refd=592) CALCIUM (BEAKER) (test 10.1 mg/dL 8.4-10.2 dvee=971) EGFR (BEAKER) (test 79 mL/min/1.73 sq m ESTIMATED GFR IS NOT gnnx=0444) ACCURATE CREATININE CLEARANCE IN PREDICTING GLOMERULAR FILTRATION RATE. ESTIMATED GFR IS NOT APPLICABLE FOR DIALYSIS PATIENTS. CBC W/PLT COUNT & AUTO [id number] 05:02:00 Test Item Value Reference Range Comments WHITE BLOOD CELL COUNT (BEAKER) (test wejd=722) 9.7 K/ L 3.5-10.5 RED BLOOD CELL COUNT (BEAKER) (test rwrl=006) 4.26 M/ L 3.93-5.22 HEMOGLOBIN (BEAKER) (test hvqu=322) 10.7 GM/DL 11.2-15.7 HEMATOCRIT (BEAKER) (test evwk=370) 35.7 % 34.1-44.9 MEAN CORPUSCULAR VOLUME (BEAKER) (test gtta=314) 83.8 fL 79.4-94.8 MEAN CORPUSCULAR HEMOGLOBIN (BEAKER) (test 25.1 pg 25.6-32.2 suwp=543) MEAN CORPUSCULAR HEMOGLOBIN CONC (BEAKER) (test 30.0 GM/DL 32.2-35.5 utnm=269) RED CELL DISTRIBUTION WIDTH (BEAKER) (test 17.7 % 11.7-14.4 gcbk=509) PLATELET COUNT (BEAKER) (test utfr=725) 469 K/CU MM 150-450 MEAN PLATELET VOLUME (BEAKER) (test hgof=411) 10.8 fL 9.4-12.3 NUCLEATED RED BLOOD CELLS (BEAKER) (test 0 /100 WBC 0-0 qvry=918) NEUTROPHILS RELATIVE PERCENT (BEAKER) (test 65 % oqzx=414) LYMPHOCYTES RELATIVE PERCENT (BEAKER) (test 22 % amtl=483) MONOCYTES RELATIVE PERCENT (BEAKER) (test 7 % piij=264) EOSINOPHILS RELATIVE PERCENT (BEAKER) (test 4 % rrzg=582) BASOPHILS RELATIVE PERCENT (BEAKER) (test 1 % zhvd=186) NEUTROPHILS ABSOLUTE COUNT (BEAKER) (test 6.32 K/ L 1.56-6.13 tfhg=873) LYMPHOCYTES ABSOLUTE COUNT (BEAKER) (test 2.13 K/ L 1.18-3.74 inzk=406) MONOCYTES ABSOLUTE COUNT (BEAKER) (test 0.71 K/ L 0.24-0.36 xyjc=381) EOSINOPHILS ABSOLUTE COUNT (BEAKER) (test 0.42 K/ L 0.04-0.36 kjij=026) BASOPHILS ABSOLUTE COUNT (BEAKER) (test 0.10 K/ L 0.01-0.08 ncvc=952) IMMATURE GRANULOCYTES-RELATIVE PERCENT (BEAKER) 1 % 0-1 (test ypvf=7988) [id number] 06:38:00 Test Item Value Reference Range Comments PHOSPHORUS (BEAKER) (test acuz=798) 4.9 mg/dL 2.3-4.7 [id number] 06:38:00 Test Item Value Reference Range Comments MAGNESIUM (BEAKER) (test hhlz=751) 1.8 mg/dL 1.6-2.6 BASIC METABOLIC [id number] 06:38:00 Test Item Value Reference Range Comments SODIUM (BEAKER) (test 138 meq/L 136-145 dcam=336) POTASSIUM (BEAKER) (test 2.9 meq/L 3.5-5.1 zrxe=227) CHLORIDE (BEAKER) (test 97 meq/L 98-107 swfb=556) CO2 (BEAKER) (test 29 meq/L 22-29 ndpj=151) BLOOD UREA NITROGEN 22 mg/dL 7-21 (BEAKER) (test ybyi=441) CREATININE (BEAKER) (test 0.79 mg/dL 0.57-1.25 imxv=135) GLUCOSE RANDOM (BEAKER) 105 mg/dL 70-105 (test wvde=120) CALCIUM (BEAKER) (test 10.1 mg/dL 8.4-10.2 bhkq=108) EGFR (BEAKER) (test 84 mL/min/1.73 sq m ESTIMATED GFR IS NOT nufo=3245) ACCURATE CREATININE CLEARANCE IN PREDICTING GLOMERULAR FILTRATION RATE. ESTIMATED GFR IS NOT APPLICABLE FOR DIALYSIS PATIENTS. CBC W/PLT COUNT & AUTO [id number] 05:58:00 Test Item Value Reference Range Comments WHITE BLOOD CELL COUNT (BEAKER) (test yykx=662) 9.4 K/ L 3.5-10.5 RED BLOOD CELL COUNT (BEAKER) (test sjen=471) 4.26 M/ L 3.93-5.22 HEMOGLOBIN (BEAKER) (test zqvg=669) 10.9 GM/DL 11.2-15.7 HEMATOCRIT (BEAKER) (test wvzg=022) 35.3 % 34.1-44.9 MEAN CORPUSCULAR VOLUME (BEAKER) (test lywg=986) 82.9 fL 79.4-94.8 MEAN CORPUSCULAR HEMOGLOBIN (BEAKER) (test 25.6 pg 25.6-32.2 mxar=775) MEAN CORPUSCULAR HEMOGLOBIN CONC (BEAKER) (test 30.9 GM/DL 32.2-35.5 qqir=707) RED CELL DISTRIBUTION WIDTH (BEAKER) (test 17.9 % 11.7-14.4 imsq=732) PLATELET COUNT (BEAKER) (test nslp=847) 415 K/CU MM 150-450 MEAN PLATELET VOLUME (BEAKER) (test xtqw=676) 10.5 fL 9.4-12.3 NUCLEATED RED BLOOD CELLS (BEAKER) (test 0 /100 WBC 0-0 zjzt=453) NEUTROPHILS RELATIVE PERCENT (BEAKER) (test 64 % vbcs=949) LYMPHOCYTES RELATIVE PERCENT (BEAKER) (test 22 % lodt=190) MONOCYTES RELATIVE PERCENT (BEAKER) (test 9 % bdvx=538) EOSINOPHILS RELATIVE PERCENT (BEAKER) (test 4 % fklb=917) BASOPHILS RELATIVE PERCENT (BEAKER) (test 1 % reuz=832) NEUTROPHILS ABSOLUTE COUNT (BEAKER) (test 6.00 K/ L 1.56-6.13 rgqx=933) LYMPHOCYTES ABSOLUTE COUNT (BEAKER) (test 2.05 K/ L 1.18-3.74 befa=572) MONOCYTES ABSOLUTE COUNT (BEAKER) (test 0.83 K/ L 0.24-0.36 qbsz=336) EOSINOPHILS ABSOLUTE COUNT (BEAKER) (test 0.42 K/ L 0.04-0.36 pylk=635) BASOPHILS ABSOLUTE COUNT (BEAKER) (test 0.08 K/ L 0.01-0.08 okiv=326) IMMATURE GRANULOCYTES-RELATIVE PERCENT (BEAKER) 1 % 0-1 (test qkmr=3555) [id number] 09:27:00 Test Item Value Reference Range Comments PHOSPHORUS (BEAKER) (test iaji=838) 4.9 mg/dL 2.3-4.7 BASIC METABOLIC [id number] 09:27:00 Test Item Value Reference Range Comments SODIUM (BEAKER) (test 138 meq/L 136-145 cemh=106) POTASSIUM (BEAKER) (test 3.5 meq/L 3.5-5.1 ypcr=093) CHLORIDE (BEAKER) (test 99 meq/L 98-107 inaf=465) CO2 (BEAKER) (test 27 meq/L 22-29 tbta=951) BLOOD UREA NITROGEN 22 mg/dL 7-21 (BEAKER) (test wjqc=803) CREATININE (BEAKER) (test 0.71 mg/dL 0.57-1.25 ocpq=684) GLUCOSE RANDOM (BEAKER) 108 mg/dL 70-105 (test ovnh=518) CALCIUM (BEAKER) (test 10.4 mg/dL 8.4-10.2 htfd=136) EGFR (BEAKER) (test 95 mL/min/1.73 sq m ESTIMATED GFR IS NOT rrns=8914) ACCURATE CREATININE CLEARANCE IN PREDICTING GLOMERULAR FILTRATION RATE. ESTIMATED GFR IS NOT APPLICABLE FOR DIALYSIS PATIENTS. CBC W/PLT COUNT & AUTO [id number] 06:27:00 Test Item Value Reference Range Comments WHITE BLOOD CELL COUNT (BEAKER) (test wicy=101) 9.1 K/ L 3.5-10.5 RED BLOOD CELL COUNT (BEAKER) (test wxte=453) 4.25 M/ L 3.93-5.22 HEMOGLOBIN (BEAKER) (test edqz=937) 10.7 GM/DL 11.2-15.7 HEMATOCRIT (BEAKER) (test lthf=524) 35.7 % 34.1-44.9 MEAN CORPUSCULAR VOLUME (BEAKER) (test vtlz=837) 84.0 fL 79.4-94.8 MEAN CORPUSCULAR HEMOGLOBIN (BEAKER) (test 25.2 pg 25.6-32.2 sgvj=502) MEAN CORPUSCULAR HEMOGLOBIN CONC (BEAKER) (test 30.0 GM/DL 32.2-35.5 szdo=531) RED CELL DISTRIBUTION WIDTH (BEAKER) (test 18.3 % 11.7-14.4 vibg=318) PLATELET COUNT (BEAKER) (test ixtx=766) 452 K/CU MM 150-450 MEAN PLATELET VOLUME (BEAKER) (test nhwa=476) 10.7 fL 9.4-12.3 NUCLEATED RED BLOOD CELLS (BEAKER) (test 0 /100 WBC 0-0 fwio=159) NEUTROPHILS RELATIVE PERCENT (BEAKER) (test 62 % ctdr=801) LYMPHOCYTES RELATIVE PERCENT (BEAKER) (test 24 % edsh=439) MONOCYTES RELATIVE PERCENT (BEAKER) (test 9 % eykb=359) EOSINOPHILS RELATIVE PERCENT (BEAKER) (test 4 % qfap=348) BASOPHILS RELATIVE PERCENT (BEAKER) (test 1 % wbmh=337) NEUTROPHILS ABSOLUTE COUNT (BEAKER) (test 5.64 K/ L 1.56-6.13 owax=736) LYMPHOCYTES ABSOLUTE COUNT (BEAKER) (test 2.14 K/ L 1.18-3.74 ugwa=907) MONOCYTES ABSOLUTE COUNT (BEAKER) (test 0.83 K/ L 0.24-0.36 igiw=100) EOSINOPHILS ABSOLUTE COUNT (BEAKER) (test 0.36 K/ L 0.04-0.36 ywdr=407) BASOPHILS ABSOLUTE COUNT (BEAKER) (test 0.08 K/ L 0.01-0.08 rlaj=798) IMMATURE GRANULOCYTES-RELATIVE PERCENT (BEAKER) 1 % 0-1 (test glsv=5973) [id number] 19:57:00 Test Item Value Reference Range Comments MAGNESIUM (BEAKER) (test cmri=617) 1.6 mg/dL 1.6-2.6 BASIC METABOLIC [id number] 19:57:00 Test Item Value Reference Range Comments SODIUM (BEAKER) (test 140 meq/L 136-145 kcjq=079) POTASSIUM (BEAKER) (test 3.4 meq/L 3.5-5.1 yuhe=505) CHLORIDE (BEAKER) (test 96 meq/L 98-107 ufrq=776) CO2 (BEAKER) (test 31 meq/L 22-29 goew=150) BLOOD UREA NITROGEN 23 mg/dL 7-21 (BEAKER) (test jgvt=769) CREATININE (BEAKER) (test 0.74 mg/dL 0.57-1.25 oauo=642) GLUCOSE RANDOM (BEAKER) 121 mg/dL 70-105 (test ghmp=778) CALCIUM (BEAKER) (test 10.5 mg/dL 8.4-10.2 zmyh=826) EGFR (BEAKER) (test 90 mL/min/1.73 sq m ESTIMATED GFR IS NOT bumc=4194) ACCURATE CREATININE CLEARANCE IN PREDICTING GLOMERULAR FILTRATION RATE. ESTIMATED GFR IS NOT APPLICABLE FOR DIALYSIS PATIENTS. POCT-GLUCOSE [id number] 18:02:00 Test Item Value Reference Range Comments POC-GLUCOSE METER (BEAKER) 129 mg/dL 70-110 TESTED AT [address] (test mkdy=2175) [facility] [id number] POCT-GLUCOSE [id number] 12:08:00 Test Item Value Reference Range Comments POC-GLUCOSE METER (BEAKER) 145 mg/dL 70-110 TESTED AT [address] (test hhvt=1428) [facility] [address] POCT-GLUCOSE [id number] 06:33:00 Test Item Value Reference Range Comments POC-GLUCOSE METER (BEAKER) 109 mg/dL 70-110 TESTED AT [address] (test apbj=8750) [facility] [address] RAD, CHEST, 1 VIEW, NON [id number] 05:12:00Reason for exam:->PICC line verificationShould this be performed at the bedside?->YesFINAL REPORT Chest one view. Clinical history: PICC line verification Comparison: Chest radiograph 08/03/2018. Technique: A single frontal view of the chest was obtained. Findings: There is a left PICC line with tip in the SVC. The cardiomediastinal contours are stable. There are low lung volumes. There are diffuse bilateral airspace opacities, decreased in the interval. Thereis a small left pleural effusion, grossly unchanged. There is mild elevation of the right hemidiaphragm. There is no pneumothorax. There are surgical clips in the right upper quadrant. Signed: Arya Chávez Verified Date/Time: 08/04/2018 05:12:40 Reading Location: [address] Body Reading Room Electronically signed by: ARYA CHÁVEZ MD on 2018 05:12 [id number] 03:22:00 Test Item Value Reference Range Comments PHOSPHORUS (BEAKER) (test xdfd=794) 4.5 mg/dL 2.3-4.7 BASIC METABOLIC [id number] 03:22:00 Test Item Value Reference Range Comments SODIUM (BEAKER) (test 137 meq/L 136-145 jrck=320) POTASSIUM (BEAKER) (test 3.4 meq/L 3.5-5.1 cxzk=952) CHLORIDE (BEAKER) (test 93 meq/L 98-107 qgux=915) CO2 (BEAKER) (test 32 meq/L 22-29 oinw=698) BLOOD UREA NITROGEN 25 mg/dL 7-21 (BEAKER) (test vcdf=667) CREATININE (BEAKER) (test 0.79 mg/dL 0.57-1.25 idyq=524) GLUCOSE RANDOM (BEAKER) 118 mg/dL 70-105 (test appx=908) CALCIUM (BEAKER) (test 10.6 mg/dL 8.4-10.2 afkv=183) EGFR (BEAKER) (test 84 mL/min/1.73 sq m ESTIMATED GFR IS NOT askt=0553) ACCURATE CREATININE CLEARANCE IN PREDICTING GLOMERULAR FILTRATION RATE. ESTIMATED GFR IS NOT APPLICABLE FOR DIALYSIS PATIENTS. CBC W/PLT COUNT & AUTO [id number] 03:06:00 Test Item Value Reference Range Comments WHITE BLOOD CELL COUNT (BEAKER) (test tcpi=018) 9.5 K/ L 3.5-10.5 RED BLOOD CELL COUNT (BEAKER) (test ipdp=204) 4.51 M/ L 3.93-5.22 HEMOGLOBIN (BEAKER) (test saub=221) 11.3 GM/DL 11.2-15.7 HEMATOCRIT (BEAKER) (test znjk=214) 37.7 % 34.1-44.9 MEAN CORPUSCULAR VOLUME (BEAKER) (test mlry=386) 83.6 fL 79.4-94.8 MEAN CORPUSCULAR HEMOGLOBIN (BEAKER) (test 25.1 pg 25.6-32.2 oizq=877) MEAN CORPUSCULAR HEMOGLOBIN CONC (BEAKER) (test 30.0 GM/DL 32.2-35.5 wtjt=951) RED CELL DISTRIBUTION WIDTH (BEAKER) (test 17.8 % 11.7-14.4 tcju=032) PLATELET COUNT (BEAKER) (test hiix=901) 442 K/CU MM 150-450 MEAN PLATELET VOLUME (BEAKER) (test ukkp=526) 10.4 fL 9.4-12.3 NUCLEATED RED BLOOD CELLS (BEAKER) (test 0 /100 WBC 0-0 jewq=876) NEUTROPHILS RELATIVE PERCENT (BEAKER) (test 70 % yeco=255) LYMPHOCYTES RELATIVE PERCENT (BEAKER) (test 19 % zvyy=397) MONOCYTES RELATIVE PERCENT (BEAKER) (test 9 % wrpi=280) EOSINOPHILS RELATIVE PERCENT (BEAKER) (test 1 % bqod=546) BASOPHILS RELATIVE PERCENT (BEAKER) (test 1 % ayqt=601) NEUTROPHILS ABSOLUTE COUNT (BEAKER) (test 6.58 K/ L 1.56-6.13 iwty=485) LYMPHOCYTES ABSOLUTE COUNT (BEAKER) (test 1.81 K/ L 1.18-3.74 ayoy=018) MONOCYTES ABSOLUTE COUNT (BEAKER) (test 0.83 K/ L 0.24-0.36 oomk=614) EOSINOPHILS ABSOLUTE COUNT (BEAKER) (test 0.12 K/ L 0.04-0.36 xwar=644) BASOPHILS ABSOLUTE COUNT (BEAKER) (test 0.06 K/ L 0.01-0.08 gfqy=142) IMMATURE GRANULOCYTES-RELATIVE PERCENT (BEAKER) 1 % 0-1 (test dcca=6125) POCT-GLUCOSE [id number] 18:21:00 Test Item Value Reference Range Comments POC-GLUCOSE METER (BEAKER) 176 mg/dL 70-110 TESTED AT [address] (test tdge=3950) [place] [address] POCT-GLUCOSE [id number] 11:59:00 Test Item Value Reference Range Comments POC-GLUCOSE METER (BEAKER) 140 mg/dL 70-110 TESTED AT [address] (test awzq=8531) [place] [address] [id number] 08:32:00 Test Item Value Reference Range Comments POTASSIUM (BEAKER) (test mxbb=533) 4.0 meq/L 3.5-5.1 Check Serum Potassium level 2 hours after oral potassium replacement completed or 30 min after intravenous potassium replacement.POCT-GLUCOSE [id number] 06:25:00 Test Item Value Reference Range Comments POC-GLUCOSE METER (BEAKER) 121 mg/dL 70-110 TESTED AT [address] (test tuya=5151) [place] [address] RAD, CHEST, 1 VIEW, NON [id number] 05:21:00While intubatedReason for exam:-& gt;intubated, hypoxemiaShould this be performed at the bedside?->YesFINAL REPORT Chest one view. Clinical history: intubated, hypoxemia Comparison: Chest radiograph 08/02/2018 Technique: A single frontal view of the chest was obtained. Findings:There is a left PICC line with tip in the SVC.The cardiomediastinal contours are stable. There are diffuse airspace opacities which may represent pulmonary edema and/or pneumonia, mildly increased in the interval. There is a small left pleural effusion. There is no pneumothorax. Signed: Arya Chávezeport Verified Date/Time: 08/03/2018 05: 21:21 Reading Location: [facility] C013Y CT Body Reading Room [id number] 04:50:00 Test Item Value Reference Range Comments PHOSPHORUS (BEAKER) (test domw=066) 3.8 mg/dL 2.3-4.7 BASIC METABOLIC [id number] 04:50:00 Test Item Value Reference Range Comments SODIUM (BEAKER) (test 140 meq/L 136-145 kmrs=440) POTASSIUM (BEAKER) (test 3.5 meq/L 3.5-5.1 xzet=703) CHLORIDE (BEAKER) (test 98 meq/L 98-107 sfzs=577) CO2 (BEAKER) (test 30 meq/L 22-29 kyue=174) BLOOD UREA NITROGEN 27 mg/dL 7-21 (BEAKER) (test uubr=071) CREATININE (BEAKER) (test 0.72 mg/dL 0.57-1.25 jgnj=673) GLUCOSE RANDOM (BEAKER) 109 mg/dL 70-105 (test lqgf=931) CALCIUM (BEAKER) (test 10.5 mg/dL 8.4-10.2 lihm=480) EGFR (BEAKER) (test 93 mL/min/1.73 sq m ESTIMATED GFR IS NOT cdsl=8090) ACCURATE CREATININE CLEARANCE IN PREDICTING GLOMERULAR FILTRATION RATE. ESTIMATED GFR IS NOT APPLICABLE FOR DIALYSIS PATIENTS. BLOOD GAS, [id number] 04:45:00 Test Item Value Reference Range Comments PH ARTERIAL (BEAKER) (test ielo=467) 7.48 7.35-7.45 PCO2 ARTERIAL (BEAKER) (test ucou=398) 47 mmHg 35-45 PO2 ARTERIAL (BEAKER) (test rstn=972) 73 mmHg 80-90 O2 SATURATION ARTERIAL (BEAKER) (test shaq=609) 95.3 % 96.0-97.0 HCO3 ARTERIAL (BEAKER) (test gbqi=767) 33 mmol/L 21-29 BASE EXCESS ARTERIAL (BEAKER) (test bvwh=616) 8.8 mmol/L -2.0-3.0 PATIENT TEMPERATURE (BEAKER) (test jthr=2400) 37.2 C FIO2 (BEAKER) (test xqiy=2448) 40.0 % CBC W/PLT COUNT & AUTO [id number] 04:41:00 Test Item Value Reference Range Comments WHITE BLOOD CELL COUNT (BEAKER) (test sksh=980) 6.5 K/ L 3.5-10.5 RED BLOOD CELL COUNT (BEAKER) (test obnb=952) 4.25 M/ L 3.93-5.22 HEMOGLOBIN (BEAKER) (test kepm=817) 10.7 GM/DL 11.2-15.7 HEMATOCRIT (BEAKER) (test ybql=909) 36.2 % 34.1-44.9 MEAN CORPUSCULAR VOLUME (BEAKER) (test iblf=841) 85.2 fL 79.4-94.8 MEAN CORPUSCULAR HEMOGLOBIN (BEAKER) (test 25.2 pg 25.6-32.2 xauv=164) MEAN CORPUSCULAR HEMOGLOBIN CONC (BEAKER) (test 29.6 GM/DL 32.2-35.5 jfcf=472) RED CELL DISTRIBUTION WIDTH (BEAKER) (test 18.1 % 11.7-14.4 turw=882) PLATELET COUNT (BEAKER) (test lllc=947) 390 K/CU MM 150-450 MEAN PLATELET VOLUME (BEAKER) (test xndz=243) 10.5 fL 9.4-12.3 NUCLEATED RED BLOOD CELLS (BEAKER) (test 0 /100 WBC 0-0 bjxo=315) NEUTROPHILS RELATIVE PERCENT (BEAKER) (test 62 % hkot=892) LYMPHOCYTES RELATIVE PERCENT (BEAKER) (test 24 % wsxy=086) MONOCYTES RELATIVE PERCENT (BEAKER) (test 11 % tchx=322) EOSINOPHILS RELATIVE PERCENT (BEAKER) (test 2 % yrjr=744) BASOPHILS RELATIVE PERCENT (BEAKER) (test 1 % lhpj=535) NEUTROPHILS ABSOLUTE COUNT (BEAKER) (test 4.05 K/ L 1.56-6.13 fjuv=077) LYMPHOCYTES ABSOLUTE COUNT (BEAKER) (test 1.53 K/ L 1.18-3.74 adnc=308) MONOCYTES ABSOLUTE COUNT (BEAKER) (test 0.71 K/ L 0.24-0.36 zfqg=315) EOSINOPHILS ABSOLUTE COUNT (BEAKER) (test 0.13 K/ L 0.04-0.36 xahp=917) BASOPHILS ABSOLUTE COUNT (BEAKER) (test 0.05 K/ L 0.01-0.08 rxea=956) IMMATURE GRANULOCYTES-RELATIVE PERCENT (BEAKER) 1 % 0-1 (test xdjp=6236) POCT-GLUCOSE [id number] 23:57:00 Test Item Value Reference Range Comments POC-GLUCOSE METER (BEAKER) 140 mg/dL 70-110 TESTED AT [address] (test mabk=2576) [place] [address] POCT-GLUCOSE [id number] 18:40:00 Test Item Value Reference Range Comments POC-GLUCOSE METER (BEAKER) 108 mg/dL 70-110 TESTED AT [address] (test hekh=3555) [place] [address] [id number] 18:09:00 Test Item Value Reference Range Comments POTASSIUM (BEAKER) (test qmte=744) 4.0 meq/L 3.5-5.1 Check Serum Potassium level 2 hours after oral potassium replacement completed or 30 min after intravenous potassium replacement.[id number] 14:26:00 Test Item Value Reference Range Comments POTASSIUM (BEAKER) (test lrgq=454) 3.9 meq/L 3.5-5.1 Check Serum Potassium level 2 hours after oral potassium replacement completed or 30 min after intravenous potassium replacement.POCT-GLUCOSE [id number] 11:56:00 Test Item Value Reference Range Comments POC-GLUCOSE METER (BEAKER) 123 mg/dL 70-110 TESTED AT [address] (test xffy=5315) [place] [address] RAD, CHEST, 1 VIEW, NON [id number] 07:24:00While intubatedReason for exam:-& gt;intubated, hypoxemiaShould this be performed at the bedside?->YesFINAL REPORT RAD, CHEST, 1 VIEW, NON DEPT INDICATION: intubated , hypoxemia COMPARISON: Prior day's exam FINDINGS: Portable frontal view of the chest. IMPRESSION: Support Lines: Stable left PICC. Lungs and pleura: Unchanged congestive interstitial disease. No pneumothorax.Heart and mediastinum : Stable contours. Additional findings: None. Signed: JR Robbins Robert MDReport Verified Date/Time: 08/02/2018 07:24:36 Reading Location: [address] Neuro Reading Room BLOOD GAS, [id number] 06:38:00 Test Item Value Reference Range Comments PH ARTERIAL (BEAKER) (test mujo=129) 7.49 7.35-7.45 PCO2 ARTERIAL (BEAKER) (test pgpx=389) 42 mmHg 35-45 PO2 ARTERIAL (BEAKER) (test rpft=519) 109 mmHg 80-90 O2 SATURATION ARTERIAL (BEAKER) (test marh=706) 98.3 % 96.0-97.0 HCO3 ARTERIAL (BEAKER) (test vddc=058) 32 mmol/L 21-29 BASE EXCESS ARTERIAL (BEAKER) (test qnbc=774) 7.9 mmol/L -2.0-3.0 PATIENT TEMPERATURE (BEAKER) (test ujny=0215) 37.0 C FIO2 (BEAKER) (test groa=7495) 50.0 % [id number] 04:42:00 Test Item Value Reference Range Comments PHOSPHORUS (BEAKER) (test sofj=272) 2.7 mg/dL 2.3-4.7 [id number] 04:42:00 Test Item Value Reference Range Comments MAGNESIUM (BEAKER) (test zpph=011) 2.2 mg/dL 1.6-2.6 BASIC METABOLIC [id number] 04:42:00 Test Item Value Reference Range Comments SODIUM (BEAKER) (test 140 meq/L 136-145 owmf=031) POTASSIUM (BEAKER) (test 3.1 meq/L 3.5-5.1 cgtn=973) CHLORIDE (BEAKER) (test 97 meq/L 98-107 bsst=685) CO2 (BEAKER) (test 32 meq/L 22-29 edha=688) BLOOD UREA NITROGEN 30 mg/dL 7-21 (BEAKER) (test xyrt=641) CREATININE (BEAKER) (test 0.69 mg/dL 0.57-1.25 rzit=586) GLUCOSE RANDOM (BEAKER) 102 mg/dL 70-105 (test ftdb=263) CALCIUM (BEAKER) (test 10.0 mg/dL 8.4-10.2 lozr=671) EGFR (BEAKER) (test 98 mL/min/1.73 sq m ESTIMATED GFR IS NOT lhud=4878) ACCURATE CREATININE CLEARANCE IN PREDICTING GLOMERULAR FILTRATION RATE. ESTIMATED GFR IS NOT APPLICABLE FOR DIALYSIS PATIENTS. CBC W/PLT COUNT & AUTO [id number] 04:05:00 Test Item Value Reference Range Comments WHITE BLOOD CELL COUNT (BEAKER) (test wdib=634) 6.0 K/ L 3.5-10.5 RED BLOOD CELL COUNT (BEAKER) (test cfyo=140) 4.20 M/ L 3.93-5.22 HEMOGLOBIN (BEAKER) (test swem=954) 10.5 GM/DL 11.2-15.7 HEMATOCRIT (BEAKER) (test epwk=387) 35.2 % 34.1-44.9 MEAN CORPUSCULAR VOLUME (BEAKER) (test rvzm=156) 83.8 fL 79.4-94.8 MEAN CORPUSCULAR HEMOGLOBIN (BEAKER) (test 25.0 pg 25.6-32.2 zxaq=704) MEAN CORPUSCULAR HEMOGLOBIN CONC (BEAKER) (test 29.8 GM/DL 32.2-35.5 osqv=062) RED CELL DISTRIBUTION WIDTH (BEAKER) (test 18.3 % 11.7-14.4 etma=510) PLATELET COUNT (BEAKER) (test tjcr=754) 373 K/CU MM 150-450 MEAN PLATELET VOLUME (BEAKER) (test thrp=899) 10.4 fL 9.4-12.3 NUCLEATED RED BLOOD CELLS (BEAKER) (test 0 /100 WBC 0-0 wrim=862) NEUTROPHILS RELATIVE PERCENT (BEAKER) (test 55 % iwjm=547) LYMPHOCYTES RELATIVE PERCENT (BEAKER) (test 26 % gwsc=802) MONOCYTES RELATIVE PERCENT (BEAKER) (test 14 % atmw=446) EOSINOPHILS RELATIVE PERCENT (BEAKER) (test 4 % amjo=608) BASOPHILS RELATIVE PERCENT (BEAKER) (test 1 % uhch=629) NEUTROPHILS ABSOLUTE COUNT (BEAKER) (test 3.28 K/ L 1.56-6.13 sesl=491) LYMPHOCYTES ABSOLUTE COUNT (BEAKER) (test 1.54 K/ L 1.18-3.74 upnt=824) MONOCYTES ABSOLUTE COUNT (BEAKER) (test 0.83 K/ L 0.24-0.36 vewh=182) EOSINOPHILS ABSOLUTE COUNT (BEAKER) (test 0.22 K/ L 0.04-0.36 cdlw=328) BASOPHILS ABSOLUTE COUNT (BEAKER) (test 0.05 K/ L 0.01-0.08 afgn=257) IMMATURE GRANULOCYTES-RELATIVE PERCENT (BEAKER) 1 % 0-1 (test hean=8822) POCT-GLUCOSE [id number] 00:19:00 Test Item Value Reference Range Comments POC-GLUCOSE METER (BEAKER) 85 mg/dL 70-110 TESTED AT [address] (test xypr=1186) [place] [address] [id number] 20:41:00 Test Item Value Reference Range Comments MAGNESIUM (BEAKER) (test wpsl=553) 2.3 mg/dL 1.6-2.6 POCT-GLUCOSE [id number] 17:45:00 Test Item Value Reference Range Comments POC-GLUCOSE METER (BEAKER) 111 mg/dL 70-110 TESTED AT [address] (test reiq=1080) [place] [address] [id number] 13:40:00 Test Item Value Reference Range Comments POTASSIUM (BEAKER) (test gpdj=127) 3.2 meq/L 3.5-5.1 [id number] 13:40:00 Test Item Value Reference Range Comments MAGNESIUM (BEAKER) (test kuiz=622) 2.4 mg/dL 1.6-2.6 POCT-GLUCOSE [id number] 13:24:00 Test Item Value Reference Range Comments POC-GLUCOSE METER (BEAKER) 119 mg/dL 70-110 TESTED AT [address] (test suhf=7609) [place] [address] RAD, CHEST, 1 VIEW, NON [id number] 09:07:00While intubatedReason for exam:-& gt;intubated, hypoxemiaShould this be performed at the bedside?->YesFINAL REPORT CLINICAL HISTORY: intubated, hypoxemia TECHNIQUE: 1 view of the chest. COMPARISON: 07/31/2018 IMPRESSION: The ETT and NGT have been removed. The left PICC line remains. Bilateral airspace opacities are grossly unchanged. There is no increasing pleural fluid. The cardiomediastinal silhouette is magnified by technique. Signed: Shani Zimmerman MDReport Verified Date/Time: 08/01/2018 09:07:57 Reading Location: [facility] [id number] Neuro Reading Room POCT-GLUCOSE [id number] 06:20:00 Test Item Value Reference Range Comments POC-GLUCOSE METER (BEAKER) 102 mg/dL 70-110 TESTED AT [facility] [address] [facility] (test tiez=0967) [facility] [address] BLOOD GAS, [id number] 05:44:00 Test Item Value Reference Range Comments PH ARTERIAL (BEAKER) (test fbgm=016) 7.49 7.35-7.45 PCO2 ARTERIAL (BEAKER) (test lizd=153) 49 mmHg 35-45 PO2 ARTERIAL (BEAKER) (test zodo=776) 183 mmHg 80-90 O2 SATURATION ARTERIAL (BEAKER) (test qtyq=080) 99.3 % 96.0-97.0 HCO3 ARTERIAL (BEAKER) (test fczu=403) 36 mmol/L 21-29 BASE EXCESS ARTERIAL (BEAKER) (test oemb=705) 11.6 mmol/L -2.0-3.0 PATIENT TEMPERATURE (BEAKER) (test lvyv=9459) 37.5 C FIO2 (BEAKER) (test nafb=5790) 60.0 % [id number] 05:01:00 Test Item Value Reference Range Comments PHOSPHORUS (BEAKER) (test dvnv=520) 4.0 mg/dL 2.3-4.7 BASIC METABOLIC [id number] 05:01:00 Test Item Value Reference Range Comments SODIUM (BEAKER) (test 139 meq/L 136-145 noed=380) POTASSIUM (BEAKER) (test 3.1 meq/L 3.5-5.1 jdyw=354) CHLORIDE (BEAKER) (test 90 meq/L 98-107 ephi=162) CO2 (BEAKER) (test 34 meq/L 22-29 pyvw=021) BLOOD UREA NITROGEN 46 mg/dL 7-21 (BEAKER) (test dvtp=631) CREATININE (BEAKER) (test 0.85 mg/dL 0.57-1.25 jfkg=590) GLUCOSE RANDOM (BEAKER) 110 mg/dL 70-105 (test blla=631) CALCIUM (BEAKER) (test 10.5 mg/dL 8.4-10.2 koaz=646) EGFR (BEAKER) (test 77 mL/min/1.73 sq m ESTIMATED GFR IS NOT gxho=6613) ACCURATE CREATININE CLEARANCE IN PREDICTING GLOMERULAR FILTRATION RATE. ESTIMATED GFR IS NOT APPLICABLE FOR DIALYSIS PATIENTS. CBC W/PLT COUNT & AUTO [id number] 04:00:00 Test Item Value Reference Range Comments WHITE BLOOD CELL COUNT (BEAKER) (test clxn=203) 5.8 K/ L 3.5-10.5 RED BLOOD CELL COUNT (BEAKER) (test ruit=842) 4.11 M/ L 3.93-5.22 HEMOGLOBIN (BEAKER) (test ibtc=177) 10.2 GM/DL 11.2-15.7 HEMATOCRIT (BEAKER) (test nwyf=265) 34.1 % 34.1-44.9 MEAN CORPUSCULAR VOLUME (BEAKER) (test dben=388) 83.0 fL 79.4-94.8 MEAN CORPUSCULAR HEMOGLOBIN (BEAKER) (test 24.8 pg 25.6-32.2 qpnh=793) MEAN CORPUSCULAR HEMOGLOBIN CONC (BEAKER) (test 29.9 GM/DL 32.2-35.5 jysv=449) RED CELL DISTRIBUTION WIDTH (BEAKER) (test 18.6 % 11.7-14.4 vkbm=971) PLATELET COUNT (BEAKER) (test rhba=473) 344 K/CU MM 150-450 MEAN PLATELET VOLUME (BEAKER) (test nqyg=359) 10.3 fL 9.4-12.3 NUCLEATED RED BLOOD CELLS (BEAKER) (test 0 /100 WBC 0-0 umlp=993) NEUTROPHILS RELATIVE PERCENT (BEAKER) (test 56 % bskq=869) LYMPHOCYTES RELATIVE PERCENT (BEAKER) (test 20 % mzmi=443) MONOCYTES RELATIVE PERCENT (BEAKER) (test 15 % qofz=755) EOSINOPHILS RELATIVE PERCENT (BEAKER) (test 8 % mdkx=600) BASOPHILS RELATIVE PERCENT (BEAKER) (test 1 % jyai=404) NEUTROPHILS ABSOLUTE COUNT (BEAKER) (test 3.23 K/ L 1.56-6.13 ckvc=464) LYMPHOCYTES ABSOLUTE COUNT (BEAKER) (test 1.15 K/ L 1.18-3.74 yyfk=481) MONOCYTES ABSOLUTE COUNT (BEAKER) (test 0.84 K/ L 0.24-0.36 kolj=504) EOSINOPHILS ABSOLUTE COUNT (BEAKER) (test 0.43 K/ L 0.04-0.36 dqpu=685) BASOPHILS ABSOLUTE COUNT (BEAKER) (test 0.04 K/ L 0.01-0.08 rkll=879) IMMATURE GRANULOCYTES-RELATIVE PERCENT (BEAKER) 1 % 0-1 (test lsrv=1921) POCT-GLUCOSE [id number] 00:23:00 Test Item Value Reference Range Comments POC-GLUCOSE METER (BEAKER) 105 mg/dL 70-110 TESTED AT [address] (test debs=4398) [place] [id number] 20:23:00 Test Item Value Reference Range Comments MAGNESIUM (BEAKER) (test jznr=516) 2.2 mg/dL 1.6-2.6 POCT-GLUCOSE [id number] 17:54:00 Test Item Value Reference Range Comments POC-GLUCOSE METER (BEAKER) 156 mg/dL 70-110 TESTED AT [address] (test olwv=7310) [place] [address] [id number] 15:45:00 Test Item Value Reference Range Comments MAGNESIUM (BEAKER) (test nyls=179) 2.3 mg/dL 1.6-2.6 BLOOD GAS, [id number] 15:32:00 Test Item Value Reference Range Comments PH ARTERIAL (BEAKER) (test gewx=777) 7.51 7.35-7.45 PCO2 ARTERIAL (BEAKER) (test vwjp=227) 50 mmHg 35-45 PO2 ARTERIAL (BEAKER) (test pdbb=452) 109 mmHg 80-90 O2 SATURATION ARTERIAL (BEAKER) (test dvmz=092) 98.3 % 96.0-97.0 HCO3 ARTERIAL (BEAKER) (test vumh=454) 38 mmol/L 21-29 BASE EXCESS ARTERIAL (BEAKER) (test grsz=063) 13.4 mmol/L -2.0-3.0 PATIENT TEMPERATURE (BEAKER) (test jbks=2964) 37.0 C BASIC METABOLIC [id number] 11:32:00 Test Item Value Reference Range Comments SODIUM (BEAKER) (test 136 meq/L 136-145 saud=009) POTASSIUM (BEAKER) (test 3.6 meq/L 3.5-5.1 bnqh=187) CHLORIDE (BEAKER) (test 86 meq/L 98-107 gkkl=412) CO2 (BEAKER) (test 38 meq/L 22-29 pdpv=033) BLOOD UREA NITROGEN 52 mg/dL 7-21 (BEAKER) (test uuaj=942) CREATININE (BEAKER) (test 1.14 mg/dL 0.57-1.25 xkhk=460) GLUCOSE RANDOM (BEAKER) 103 mg/dL 70-105 (test dibd=757) CALCIUM (BEAKER) (test 10.2 mg/dL 8.4-10.2 mgov=023) EGFR (BEAKER) (test 55 mL/min/1.73 sq m ESTIMATED GFR IS NOT gdor=1303) ACCURATE CREATININE CLEARANCE IN PREDICTING GLOMERULAR FILTRATION RATE. ESTIMATED GFR IS NOT APPLICABLE FOR DIALYSIS PATIENTS. [id number] 07:46:00 Test Item Value Reference Range Comments PHOSPHORUS (BEAKER) (test ljrt=588) 6.9 mg/dL 2.3-4.7 [id number] 07:46:00 Test Item Value Reference Range Comments MAGNESIUM (BEAKER) (test pufg=857) 2.3 mg/dL 1.6-2.6 COMPREHENSIVE METABOLIC [id number] 07:46:00 Test Item Value Reference Range Comments TOTAL PROTEIN (BEAKER) 8.2 gm/dL 6.0-8.3 (test eedl=979) ALBUMIN (BEAKER) (test 3.9 g/dL 3.5-5.0 lvoy=9623) ALKALINE PHOSPHATASE 53 U/L 40-150 (BEAKER) (test gcvj=598) BILIRUBIN TOTAL (BEAKER) 0.3 mg/dL 0.2-1.2 (test fahr=027) SODIUM (BEAKER) (test 135 meq/L 136-145 klwt=148) POTASSIUM (BEAKER) (test 3.6 meq/L 3.5-5.1 kaxx=805) CHLORIDE (BEAKER) (test 85 meq/L 98-107 dlfr=289) CO2 (BEAKER) (test 37 meq/L 22-29 nymx=538) BLOOD UREA NITROGEN 45 mg/dL 7-21 (BEAKER) (test fixy=704) CREATININE (BEAKER) (test 1.15 mg/dL 0.57-1.25 fsqt=414) GLUCOSE RANDOM (BEAKER) 117 mg/dL 70-105 (test hegt=038) CALCIUM (BEAKER) (test 10.0 mg/dL 8.4-10.2 phna=300) AST (SGOT) (BEAKER) (test 18 U/L 5-34 tyug=282) ALT (SGPT) (BEAKER) (test 19 U/L 6-55 kqht=654) EGFR (BEAKER) (test 54 mL/min/1.73 sq m ESTIMATED GFR IS NOT quld=6295) ACCURATE CREATININE CLEARANCE IN PREDICTING GLOMERULAR FILTRATION RATE. ESTIMATED GFR IS NOT APPLICABLE FOR DIALYSIS PATIENTS. Specimen slightly lipemicCBC W/PLT COUNT & AUTO [id number] 06:44 :00 Test Item Value Reference Range Comments WHITE BLOOD CELL COUNT (BEAKER) (test eiis=131) 5.8 K/ L 3.5-10.5 RED BLOOD CELL COUNT (BEAKER) (test zjcb=054) 4.13 M/ L 3.93-5.22 HEMOGLOBIN (BEAKER) (test ndpc=591) 10.3 GM/DL 11.2-15.7 HEMATOCRIT (BEAKER) (test pkog=140) 34.6 % 34.1-44.9 MEAN CORPUSCULAR VOLUME (BEAKER) (test ynxh=551) 83.8 fL 79.4-94.8 MEAN CORPUSCULAR HEMOGLOBIN (BEAKER) (test 24.9 pg 25.6-32.2 kjwu=537) MEAN CORPUSCULAR HEMOGLOBIN CONC (BEAKER) (test 29.8 GM/DL 32.2-35.5 ayzd=629) RED CELL DISTRIBUTION WIDTH (BEAKER) (test 18.6 % 11.7-14.4 piln=212) PLATELET COUNT (BEAKER) (test uznj=169) 335 K/CU MM 150-450 MEAN PLATELET VOLUME (BEAKER) (test mdko=262) 10.6 fL 9.4-12.3 NUCLEATED RED BLOOD CELLS (BEAKER) (test 0 /100 WBC 0-0 aerh=454) NEUTROPHILS RELATIVE PERCENT (BEAKER) (test 52 % rfsp=524) LYMPHOCYTES RELATIVE PERCENT (BEAKER) (test 26 % vyoa=159) MONOCYTES RELATIVE PERCENT (BEAKER) (test 12 % nwbo=318) EOSINOPHILS RELATIVE PERCENT (BEAKER) (test 8 % wwwx=664) BASOPHILS RELATIVE PERCENT (BEAKER) (test 1 % blcp=744) NEUTROPHILS ABSOLUTE COUNT (BEAKER) (test 3.03 K/ L 1.56-6.13 daum=592) LYMPHOCYTES ABSOLUTE COUNT (BEAKER) (test 1.51 K/ L 1.18-3.74 royu=550) MONOCYTES ABSOLUTE COUNT (BEAKER) (test 0.69 K/ L 0.24-0.36 legk=137) EOSINOPHILS ABSOLUTE COUNT (BEAKER) (test 0.48 K/ L 0.04-0.36 rwhx=088) BASOPHILS ABSOLUTE COUNT (BEAKER) (test 0.05 K/ L 0.01-0.08 ybff=831) IMMATURE GRANULOCYTES-RELATIVE PERCENT (BEAKER) 1 % 0-1 (test lruh=8103) BLOOD GAS, [id number] 06:41:00 Test Item Value Reference Range Comments PH ARTERIAL (BEAKER) (test rwrh=901) 7.49 7.35-7.45 PCO2 ARTERIAL (BEAKER) (test tpch=426) 54 mmHg 35-45 PO2 ARTERIAL (BEAKER) (test dyfr=126) 74 mmHg 80-90 O2 SATURATION ARTERIAL (BEAKER) (test lgle=626) 95.7 % 96.0-97.0 HCO3 ARTERIAL (BEAKER) (test fbxu=503) 40 mmol/L 21-29 BASE EXCESS ARTERIAL (BEAKER) (test iakb=411) 14.7 mmol/L -2.0-3.0 PATIENT TEMPERATURE (BEAKER) (test cqhf=7632) 36.6 C FIO2 (BEAKER) (test ktht=6941) 50.0 % While intubatedPOCT-GLUCOSE [id number] 05:56:00 Test Item Value Reference Range Comments POC-GLUCOSE METER (BEAKER) 149 mg/dL 70-110 TESTED AT [address] (test sree=2259) [facility] [address] RAD, CHEST, 1 VIEW, NON [id number] 04:52:00While intubatedReason for exam:-& gt;intubated, hypoxemiaShould this be performed at the bedside?->YesFINAL REPORT RAD, CHEST, 1 VIEW, NON DEPT INDICATION: intubated , hypoxemia COMPARISON: Prior day's exam FINDINGS: Portable frontal view of the chest. IMPRESSION: Support Lines: Stable. Lungs and pleura: Unchanged airspace and pleural opacities. No pneumothorax.Heart and mediastinum: Stable contours. Additional findings: None. Signed: Ja Fernando Verified Date/Time: 07/31/2018 04:52:56 Reading Location: [address] Reading Room POCT-GLUCOSE [id number] 00:15:00 Test Item Value Reference Range Comments POC-GLUCOSE METER (BEAKER) 137 mg/dL 70-110 TESTED AT [address] (test kmji=7551) [place] [id number] 20:57:00 Test Item Value Reference Range Comments MAGNESIUM (BEAKER) (test fiba=905) 2.5 mg/dL 1.6-2.6 BASIC METABOLIC [id number] 20:57:00 Test Item Value Reference Range Comments SODIUM (BEAKER) (test 137 meq/L 136-145 jwny=618) POTASSIUM (BEAKER) (test 3.6 meq/L 3.5-5.1 lkbe=996) CHLORIDE (BEAKER) (test 84 meq/L 98-107 qqaj=489) CO2 (BEAKER) (test 39 meq/L 22-29 ldyr=915) BLOOD UREA NITROGEN 35 mg/dL 7-21 (BEAKER) (test ppio=167) CREATININE (BEAKER) (test 1.05 mg/dL 0.57-1.25 sogk=335) GLUCOSE RANDOM (BEAKER) 113 mg/dL 70-105 (test lqby=757) CALCIUM (BEAKER) (test 10.3 mg/dL 8.4-10.2 sqbg=004) EGFR (BEAKER) (test 60 mL/min/1.73 sq m ESTIMATED GFR IS NOT ipeb=5130) ACCURATE CREATININE CLEARANCE IN PREDICTING GLOMERULAR FILTRATION RATE. ESTIMATED GFR IS NOT APPLICABLE FOR DIALYSIS PATIENTS. POCT-GLUCOSE [id number] 18:15:00 Test Item Value Reference Range Comments POC-GLUCOSE METER (BEAKER) 104 mg/dL 70-110 TESTED AT [facility] [address] [facility] (test yply=0235) [facility] [address] POCT-GLUCOSE [id number] 18:05:00 Test Item Value Reference Range Comments POC-GLUCOSE METER (BEAKER) 128 mg/dL 70-110 TESTED AT [place] [id number] [facility] (test krbp=0696) [facility] [address] RAD, CHEST, 1 VIEW, NON [id number] 14:13:00Reason for exam:->ARDSShould this be performed at the bedside?->YesFINAL REPORT TECHNIQUE: Frontal chest radiograph dated 07/30/2018. CLINICAL HISTORY: ARDS COMPARISON STUDY: Chest radiograph performed earlier the same day IMPRESSION: Life supporttubes and lines are stable in position. No change in diffuse bilateral airspace disease. No pleural effusion or pneumothorax. Cardiomediastinal silhouette is normal in size. No fracture. Signed: Kaitlin Verdeeport Verified Date/Time: 07/30/2018 14:13:56 Reading Location: [facility] Radiology Reading Room [id number] 12:47:00 Test Item Value Reference Range Comments MAGNESIUM (BEAKER) (test oubq=556) 2.2 mg/dL 1.6-2.6 BASIC METABOLIC [id number] 12:47:00 Test Item Value Reference Range Comments SODIUM (BEAKER) (test 139 meq/L 136-145 erkb=483) POTASSIUM (BEAKER) (test 3.3 meq/L 3.5-5.1 lnhr=090) CHLORIDE (BEAKER) (test 85 meq/L 98-107 anfq=357) CO2 (BEAKER) (test 39 meq/L 22-29 vnqr=999) BLOOD UREA NITROGEN 32 mg/dL 7-21 (BEAKER) (test umad=148) CREATININE (BEAKER) (test 0.85 mg/dL 0.57-1.25 ephp=556) GLUCOSE RANDOM (BEAKER) 110 mg/dL 70-105 (test guow=715) CALCIUM (BEAKER) (test 10.8 mg/dL 8.4-10.2 gabq=964) EGFR (BEAKER) (test 77 mL/min/1.73 sq m ESTIMATED GFR IS NOT gusn=7066) ACCURATE CREATININE CLEARANCE IN PREDICTING GLOMERULAR FILTRATION RATE. ESTIMATED GFR IS NOT APPLICABLE FOR DIALYSIS PATIENTS. BLOOD GAS, [id number] 12:40:00 Test Item Value Reference Range Comments PH ARTERIAL (BEAKER) (test mjno=415) 7.57 7.35-7.45 PCO2 ARTERIAL (BEAKER) (test zela=640) 49 mmHg 35-45 PO2 ARTERIAL (BEAKER) (test zzoc=426) 79 mmHg 80-90 O2 SATURATION ARTERIAL (BEAKER) (test vcbx=136) 97.0 % 96.0-97.0 HCO3 ARTERIAL (BEAKER) (test kclf=364) 44 mmol/L 21-29 BASE EXCESS ARTERIAL (BEAKER) (test ehhn=977) 19.8 mmol/L -2.0-3.0 PATIENT TEMPERATURE (BEAKER) (test uxnv=4679) 36.5 C FIO2 (BEAKER) (test lrsi=1381) 50.0 % POCT-GLUCOSE [id number] 12:25:00 Test Item Value Reference Range Comments POC-GLUCOSE METER (BEAKER) 122 mg/dL 70-110 TESTED AT [address] (test vjhd=9112) [facility] [address] POCT-GLUCOSE [id number] 07:07:00 Test Item Value Reference Range Comments POC-GLUCOSE METER (BEAKER) 117 mg/dL 70-110 TESTED AT [address] (test vnhe=2957) [facility] [address] [id number] 05:03:00 Test Item Value Reference Range Comments PHOSPHORUS (BEAKER) (test kcxi=496) 6.0 mg/dL 2.3-4.7 [id number] 05:01:00 Test Item Value Reference Range Comments PROTIME (BEAKER) (test udaq=477) 14.5 seconds 11.7-14.7 INR (BEAKER) (test zrjo=427) 1.1 <=5.9 PARTIAL THROMBOPLASTIN TIME (BEAKER) (test 35.6 seconds 22.5-36.0 atcd=265) RECOMMENDED COUMADIN/WARFARIN INR THERAPY RANGESSTANDARD DOSE: 2.0 - 3.0 Includes: PROPHYLAXIS forvenous thrombosis, systemic embolization; TREATMENT for venous thrombosis and/or pulmonary embolus.HIGH RISK: Target INR is 2.5-3.5 for patients with mechanical heart valves.BLOOD GAS, [id number] 04:56:00 Test Item Value Reference Range Comments PH ARTERIAL (BEAKER) (test faas=750) 7.48 7.35-7.45 PCO2 ARTERIAL (BEAKER) (test jvxd=660) 53 mmHg 35-45 PO2 ARTERIAL (BEAKER) (test hrlq=668) 79 mmHg 80-90 O2 SATURATION ARTERIAL (BEAKER) (test nkdf=872) 96.0 % 96.0-97.0 HCO3 ARTERIAL (BEAKER) (test yqnt=225) 39 mmol/L 21-29 BASE EXCESS ARTERIAL (BEAKER) (test eanp=903) 14.0 mmol/L -2.0-3.0 PATIENT TEMPERATURE (BEAKER) (test rzal=4940) 37.5 C FIO2 (BEAKER) (test hyfw=4283) 50.0 % While intubatedRAD, CHEST, 1 VIEW, NON [id number] 04:46:00While intubatedReason for exam:->intubated, hypoxemiaShould this be performed at the bedside?->YesFINAL REPORT RAD, CHEST, 1 VIEW, NON DEPT INDICATION: intubated, hypoxemia COMPARISON: Prior day's exam FINDINGS: Portable frontal view of the chest. IMPRESSION: Support Lines: Stable. Lungs and pleura: Decreased lung volumes with increased prominent pulmonary vasculature andbilateral patchy heterogeneous airspace opacities. Findings may reflect worsening interstitial and alveolar pulmonary edema however superimposed infection cannot be excluded in the proper clinical setting. Small left pleural effusion. No pneumothorax.Heart and mediastinum: Stable contours. Additional findings: None. Signed: Ja Fernandoort Verified Date/ Time: 07/30/2018 04:46:21 ReadingLocation: [facility] Reading Room CBC W/PLT COUNT & AUTO [id number] 04:40:00 Test Item Value Reference Range Comments WHITE BLOOD CELL COUNT (BEAKER) (test jovy=006) 5.6 K/ L 3.5-10.5 RED BLOOD CELL COUNT (BEAKER) (test hwbm=925) 3.96 M/ L 3.93-5.22 HEMOGLOBIN (BEAKER) (test tnfn=376) 9.8 GM/DL 11.2-15.7 HEMATOCRIT (BEAKER) (test iomi=702) 33.2 % 34.1-44.9 MEAN CORPUSCULAR VOLUME (BEAKER) (test tirh=998) 83.8 fL 79.4-94.8 MEAN CORPUSCULAR HEMOGLOBIN (BEAKER) (test 24.7 pg 25.6-32.2 wavd=480) MEAN CORPUSCULAR HEMOGLOBIN CONC (BEAKER) (test 29.5 GM/DL 32.2-35.5 njyk=051) RED CELL DISTRIBUTION WIDTH (BEAKER) (test 18.4 % 11.7-14.4 iiff=410) PLATELET COUNT (BEAKER) (test nnju=002) 294 K/CU MM 150-450 MEAN PLATELET VOLUME (BEAKER) (test zolb=937) 10.2 fL 9.4-12.3 NUCLEATED RED BLOOD CELLS (BEAKER) (test 0 /100 WBC 0-0 fyvy=917) NEUTROPHILS RELATIVE PERCENT (BEAKER) (test 51 % kbwd=941) LYMPHOCYTES RELATIVE PERCENT (BEAKER) (test 25 % octk=956) MONOCYTES RELATIVE PERCENT (BEAKER) (test 11 % rvxl=757) EOSINOPHILS RELATIVE PERCENT (BEAKER) (test 11 % hvcc=057) BASOPHILS RELATIVE PERCENT (BEAKER) (test 1 % cedz=811) NEUTROPHILS ABSOLUTE COUNT (BEAKER) (test 2.82 K/ L 1.56-6.13 gokm=908) LYMPHOCYTES ABSOLUTE COUNT (BEAKER) (test 1.39 K/ L 1.18-3.74 kihy=195) MONOCYTES ABSOLUTE COUNT (BEAKER) (test 0.62 K/ L 0.24-0.36 trbb=109) EOSINOPHILS ABSOLUTE COUNT (BEAKER) (test 0.63 K/ L 0.04-0.36 cscn=958) BASOPHILS ABSOLUTE COUNT (BEAKER) (test 0.04 K/ L 0.01-0.08 tslk=687) IMMATURE GRANULOCYTES-RELATIVE PERCENT (BEAKER) 1 % 0-1 (test ggqy=0134) BLOOD [id number] 02:00:00 Test Item Value Reference Range Comments CULTURE (BEAKER) (test tkes=0421) No growth in 5 days BLOOD [id number] 02:00:00 Test Item Value Reference Range Comments CULTURE (BEAKER) (test ygej=0859) No growth in 5 days POCT-GLUCOSE [id number] 01:27:00 Test Item Value Reference Range Comments POC-GLUCOSE METER (BEAKER) 112 mg/dL 70-110 TESTED AT [facility] [address] [facility] (test ltos=9668) [facility] [address] [id number] 20:35:00 Test Item Value Reference Range Comments MAGNESIUM (BEAKER) (test fmba=286) 2.0 mg/dL 1.6-2.6 BASIC METABOLIC [id number] 20:35:00 Test Item Value Reference Range Comments SODIUM (BEAKER) (test 139 meq/L 136-145 ndzj=543) POTASSIUM (BEAKER) (test 3.8 meq/L 3.5-5.1 esqb=259) CHLORIDE (BEAKER) (test 87 meq/L 98-107 luhn=264) CO2 (BEAKER) (test 38 meq/L 22-29 flgo=721) BLOOD UREA NITROGEN 23 mg/dL 7-21 (BEAKER) (test izgy=698) CREATININE (BEAKER) (test 0.79 mg/dL 0.57-1.25 dick=027) GLUCOSE RANDOM (BEAKER) 127 mg/dL 70-105 (test qhft=638) CALCIUM (BEAKER) (test 10.6 mg/dL 8.4-10.2 bzlu=590) EGFR (BEAKER) (test 84 mL/min/1.73 sq m ESTIMATED GFR IS NOT plcd=2681) ACCURATE CREATININE CLEARANCE IN PREDICTING GLOMERULAR FILTRATION RATE. ESTIMATED GFR IS NOT APPLICABLE FOR DIALYSIS PATIENTS. RAD, CHEST, 1 VIEW, NON [id number] 20:14:00Reason for exam:->PICC placementShould this be performed at the bedside?->YesFINAL REPORT Portable chest. CLINICAL HISTORY: PICC placement. COMPARISON STUDY : July 29, 2018. FINDINGS: The cardiac silhouette is enlarged. The pulmonary parenchyma demonstrateextensive interstitial and airspace opacities, as on previous. Again noted, a left PICC line has been inserted, the tip projecting over the SVC. The remaining support lines and tubes are unchanged. No pneumothorax is seen. Degenerative changes are noted. IMPRESSION: Left PICC line insertion, the tip projecting over the SVC. Signed: Maciej Espinal MDReport Verified Date/Time: 07/29/2018 20:14:53 Reading Location: [address] Consult Reading Room POCT-GLUCOSE [id number] 16:57:00 Test Item Value Reference Range Comments POC-GLUCOSE METER (BEAKER) 149 mg/dL 70-110 TESTED AT [address] (test pwxn=3480) [place] [address] HEPARIN ASSAY - LOW MOLECULAR [id number] 15:18:00 Test Item Value Reference Range Comments LOVENOX-ANTI 10A (BEAKER) (test voed=2250) 1.09 u/ml 0.60-2.00 Anti-Factor 10-A Level (Heparin Assay for Low Molecular Weight Heparin) Monitoring Guidelines: Blood samples should be obtained 4 hours post subcutaneous injection (time of Peak level) Therapeutic Peak Levels: 0.6-1.0 units/mL twice daily enoxaparin 1.0-2.0 units/mL once daily enoxaparinRef: CHEST 2012;[id number] 13:27:00 Test Item Value Reference Range Comments POC-GLUCOSE METER (BEAKER) 121 mg/dL 70-110 TESTED AT [address] (test dypi=1284) [place] [address] BASIC METABOLIC [id number] 12:13:00 Test Item Value Reference Range Comments SODIUM (BEAKER) (test 140 meq/L 136-145 nibz=924) POTASSIUM (BEAKER) (test 3.2 meq/L 3.5-5.1 xgdh=902) CHLORIDE (BEAKER) (test 91 meq/L 98-107 cvfo=237) CO2 (BEAKER) (test 41 meq/L 22-29 fzdb=876) BLOOD UREA NITROGEN 16 mg/dL 7-21 (BEAKER) (test frby=148) CREATININE (BEAKER) (test 0.68 mg/dL 0.57-1.25 nzuq=865) GLUCOSE RANDOM (BEAKER) 133 mg/dL 70-105 (test gwwp=229) CALCIUM (BEAKER) (test 10.0 mg/dL 8.4-10.2 qygl=199) EGFR (BEAKER) (test 100 mL/min/1.73 sq m ESTIMATED GFR IS NOT llgc=5142) ACCURATE CREATININE CLEARANCE IN PREDICTING GLOMERULAR FILTRATION RATE. ESTIMATED GFR IS NOT APPLICABLE FOR DIALYSIS PATIENTS. [id number] 11:59:00 Test Item Value Reference Range Comments MAGNESIUM (BEAKER) (test nwkz=369) 1.9 mg/dL 1.6-2.6 CBC W/PLT COUNT & AUTO [id number] 07:37:00 Test Item Value Reference Range Comments WHITE BLOOD CELL COUNT (BEAKER) (test hljl=910) 5.1 K/ L 3.5-10.5 RED BLOOD CELL COUNT (BEAKER) (test pwjb=773) 3.67 M/ L 3.93-5.22 HEMOGLOBIN (BEAKER) (test nccl=194) 9.1 GM/DL 11.2-15.7 HEMATOCRIT (BEAKER) (test offo=220) 31.6 % 34.1-44.9 MEAN CORPUSCULAR VOLUME (BEAKER) (test rbll=553) 86.1 fL 79.4-94.8 MEAN CORPUSCULAR HEMOGLOBIN (BEAKER) (test 24.8 pg 25.6-32.2 pdhr=236) MEAN CORPUSCULAR HEMOGLOBIN CONC (BEAKER) (test 28.8 GM/DL 32.2-35.5 kacb=839) RED CELL DISTRIBUTION WIDTH (BEAKER) (test 18.0 % 11.7-14.4 xrgi=310) PLATELET COUNT (BEAKER) (test rdbg=392) 294 K/CU MM 150-450 MEAN PLATELET VOLUME (BEAKER) (test bhej=153) 10.6 fL 9.4-12.3 NUCLEATED RED BLOOD CELLS (BEAKER) (test 0 /100 WBC 0-0 nwam=247) NEUTROPHILS RELATIVE PERCENT (BEAKER) (test 55 % iuaq=536) LYMPHOCYTES RELATIVE PERCENT (BEAKER) (test 23 % xabt=679) MONOCYTES RELATIVE PERCENT (BEAKER) (test 11 % ijfp=268) EOSINOPHILS RELATIVE PERCENT (BEAKER) (test 9 % nwwt=814) BASOPHILS RELATIVE PERCENT (BEAKER) (test 0 % djys=793) NEUTROPHILS ABSOLUTE COUNT (BEAKER) (test 2.83 K/ L 1.56-6.13 bszu=781) LYMPHOCYTES ABSOLUTE COUNT (BEAKER) (test 1.16 K/ L 1.18-3.74 lhqk=564) MONOCYTES ABSOLUTE COUNT (BEAKER) (test 0.58 K/ L 0.24-0.36 khrc=664) EOSINOPHILS ABSOLUTE COUNT (BEAKER) (test 0.44 K/ L 0.04-0.36 khmp=480) BASOPHILS ABSOLUTE COUNT (BEAKER) (test 0.02 K/ L 0.01-0.08 zput=176) IMMATURE GRANULOCYTES-RELATIVE PERCENT (BEAKER) 2 % 0-1 (test rqxm=1664) [id number] 07:05:00 Test Item Value Reference Range Comments PHOSPHORUS (BEAKER) (test scoj=621) 5.1 mg/dL 2.3-4.7 BASIC METABOLIC [id number] 07:05:00 Test Item Value Reference Range Comments SODIUM (BEAKER) (test 142 meq/L 136-145 zmpr=593) POTASSIUM (BEAKER) (test 3.9 meq/L 3.5-5.1 jiec=316) CHLORIDE (BEAKER) (test 92 meq/L 98-107 bylu=868) CO2 (BEAKER) (test 38 meq/L 22-29 okil=471) BLOOD UREA NITROGEN 17 mg/dL 7-21 (BEAKER) (test kmgv=637) CREATININE (BEAKER) (test 0.70 mg/dL 0.57-1.25 zcbz=699) GLUCOSE RANDOM (BEAKER) 140 mg/dL 70-105 (test pumi=802) CALCIUM (BEAKER) (test 10.3 mg/dL 8.4-10.2 efqj=316) EGFR (BEAKER) (test 96 mL/min/1.73 sq m ESTIMATED GFR IS NOT hcxi=8582) ACCURATE CREATININE CLEARANCE IN PREDICTING GLOMERULAR FILTRATION RATE. ESTIMATED GFR IS NOT APPLICABLE FOR DIALYSIS PATIENTS. [id number] 07:00:00 Test Item Value Reference Range Comments PROTIME (BEAKER) (test ezbg=514) 14.7 seconds 11.7-14.7 INR (BEAKER) (test ogby=480) 1.1 <=5.9 PARTIAL THROMBOPLASTIN TIME (BEAKER) (test 30.5 seconds 22.5-36.0 bhuq=354) RECOMMENDED COUMADIN/WARFARIN INR THERAPY RANGESSTANDARD DOSE: 2.0 - 3.0 Includes: PROPHYLAXIS forvenous thrombosis, systemic embolization; TREATMENT for venous thrombosis and/or pulmonary embolus.HIGH RISK: Target INR is 2.5-3.5 for patients with mechanical heart valves.[id number] 06:59:00 Test Item Value Reference Range Comments MAGNESIUM (BEAKER) (test skyw=017) 2.4 mg/dL 1.6-2.6 BLOOD GAS, [id number] 06:57:00 Test Item Value Reference Range Comments PH ARTERIAL (BEAKER) (test yqbx=645) 7.46 7.35-7.45 PCO2 ARTERIAL (BEAKER) (test lyes=838) 59 mmHg 35-45 PO2 ARTERIAL (BEAKER) (test wysl=748) 120 mmHg 80-90 O2 SATURATION ARTERIAL (BEAKER) (test temd=684) 98.4 % 96.0-97.0 HCO3 ARTERIAL (BEAKER) (test vdoy=795) 41 mmol/L 21-29 BASE EXCESS ARTERIAL (BEAKER) (test jihu=870) 15.4 mmol/L -2.0-3.0 PATIENT TEMPERATURE (BEAKER) (test eahi=9895) 37.2 C FIO2 (BEAKER) (test oaml=0845) 50.0 % While intubatedRAD, CHEST, 1 VIEW, NON [id number] 06:02:00While intubatedReason for exam:->intubated, hypoxemiaShould this be performed at the bedside?->YesFINAL REPORT Chest one view. Clinical history: intubated, hypoxemia Comparison: Chest radiograph 07/28/2018. Technique: A single frontal view of the chest was obtained. Findings:Support devices are in satisfactory position.The cardiomediastinal contours are stable. There are persistent diffuse bilateral airspace opacities. There is no pneumothorax. Small bilateral pleural effusions cannot be excluded. Signed: Arya Chávezeport Verified Date/Time: 07/29/2018 06:02:56 Reading Location : [facility] C013Y CT Body Reading Room Electronically signed by: Peewee OLIVAREZ 07/29/2018 06:02 AMPOCT-GLUCOSE [id number] 05:55:00 Test Item Value Reference Range Comments POC-GLUCOSE METER (BEAKER) 165 mg/dL 70-110 TESTED AT [place] [id number] [facility] (test urpx=2478) [facility] [address] POCT-GLUCOSE [id number] 00:09:00 Test Item Value Reference Range Comments POC-GLUCOSE METER (BEAKER) 133 mg/dL 70-110 TESTED AT [address] (test lugp=5254) [place] [address] [id number] 22:33:00 Test Item Value Reference Range Comments MAGNESIUM (BEAKER) (test ymmr=472) 1.8 mg/dL 1.6-2.6 BASIC METABOLIC [id number] 22:33:00 Test Item Value Reference Range Comments SODIUM (BEAKER) (test 142 meq/L 136-145 sazw=383) POTASSIUM (BEAKER) (test 3.5 meq/L 3.5-5.1 sexl=268) CHLORIDE (BEAKER) (test 95 meq/L 98-107 kajh=493) CO2 (BEAKER) (test 36 meq/L 22-29 qxgt=434) BLOOD UREA NITROGEN 16 mg/dL 7-21 (BEAKER) (test pqjx=630) CREATININE (BEAKER) (test 0.73 mg/dL 0.57-1.25 ccpp=703) GLUCOSE RANDOM (BEAKER) 121 mg/dL 70-105 (test kcvn=610) CALCIUM (BEAKER) (test 9.8 mg/dL 8.4-10.2 jqtu=355) EGFR (BEAKER) (test 92 mL/min/1.73 sq m ESTIMATED GFR IS NOT ooxo=2260) ACCURATE CREATININE CLEARANCE IN PREDICTING GLOMERULAR FILTRATION RATE. ESTIMATED GFR IS NOT APPLICABLE FOR DIALYSIS PATIENTS. POCT-GLUCOSE [id number] 17:48:00 Test Item Value Reference Range Comments POC-GLUCOSE METER (BEAKER) 140 mg/dL 70-110 TESTED AT [address] (test ghki=4680) [place] [address] [id number] 12:42:00 Test Item Value Reference Range Comments MAGNESIUM (BEAKER) (test ywjo=042) 1.9 mg/dL 1.6-2.6 BASIC METABOLIC [id number] 12:42:00 Test Item Value Reference Range Comments SODIUM (BEAKER) (test 141 meq/L 136-145 ykor=622) POTASSIUM (BEAKER) (test 4.4 meq/L 3.5-5.1 krtt=541) CHLORIDE (BEAKER) (test 97 meq/L 98-107 ebdb=103) CO2 (BEAKER) (test 35 meq/L 22-29 ybqu=168) BLOOD UREA NITROGEN 15 mg/dL 7-21 (BEAKER) (test gcjk=434) CREATININE (BEAKER) (test 0.71 mg/dL 0.57-1.25 hgfs=800) GLUCOSE RANDOM (BEAKER) 121 mg/dL 70-105 (test zrbi=138) CALCIUM (BEAKER) (test 9.8 mg/dL 8.4-10.2 vimg=702) EGFR (BEAKER) (test 95 mL/min/1.73 sq m ESTIMATED GFR IS NOT dsfg=3368) ACCURATE CREATININE CLEARANCE IN PREDICTING GLOMERULAR FILTRATION RATE. ESTIMATED GFR IS NOT APPLICABLE FOR DIALYSIS PATIENTS. POCT-GLUCOSE [id number] 12:32:00 Test Item Value Reference Range Comments POC-GLUCOSE METER (BEAKER) 129 mg/dL 70-110 TESTED AT [address] (test seoj=2448) [place] [address] RAD, CHEST, 1 VIEW, NON [id number] 07:24:00While intubatedReason for exam:-& gt;intubated, hypoxemiaShould this be performed at the bedside?->YesFINAL REPORT Portable chest. CLINICAL HISTORY: intubated, hypoxemia. COMPARISON STUDY: Chest x-ray from yesterday. FINDINGS: The cardiac silhouette is enlarged. The pulmonary parenchyma demonstrate extensive airspace and interstitial markings, slightly improved from previous. The support lines and tubes are unchanged. No pneumothorax is seen. Degenerative changes are noted. IMPRESSION: Slight improvement in extensive pulmonary opacities. Signed: Maciej Espinal MDReport Verified Date/Time: 07/28/2018 07:24:03 Reading Location: [facility] Reading Room [id number] 05:26:00 Test Item Value Reference Range Comments PHOSPHORUS (BEAKER) (test jzvf=449) 3.8 mg/dL 2.3-4.7 [id number] 05:26:00 Test Item Value Reference Range Comments MAGNESIUM (BEAKER) (test qwtu=191) 2.0 mg/dL 1.6-2.6 COMPREHENSIVE METABOLIC [id number] 05:26:00 Test Item Value Reference Range Comments TOTAL PROTEIN (BEAKER) 7.0 gm/dL 6.0-8.3 (test iixt=374) ALBUMIN (BEAKER) (test 3.2 g/dL 3.5-5.0 clvb=9271) ALKALINE PHOSPHATASE 46 U/L 40-150 (BEAKER) (test wiis=024) BILIRUBIN TOTAL (BEAKER) 0.2 mg/dL 0.2-1.2 (test zbqn=021) SODIUM (BEAKER) (test 142 meq/L 136-145 zuun=616) POTASSIUM (BEAKER) (test 3.6 meq/L 3.5-5.1 aasl=281) CHLORIDE (BEAKER) (test 96 meq/L 98-107 spsl=137) CO2 (BEAKER) (test 39 meq/L 22-29 kuhz=378) BLOOD UREA NITROGEN 14 mg/dL 7-21 (BEAKER) (test qghd=997) CREATININE (BEAKER) (test 0.65 mg/dL 0.57-1.25 xsua=753) GLUCOSE RANDOM (BEAKER) 102 mg/dL 70-105 (test cuje=773) CALCIUM (BEAKER) (test 9.9 mg/dL 8.4-10.2 ykkx=889) AST (SGOT) (BEAKER) (test 24 U/L 5-34 xexa=660) ALT (SGPT) (BEAKER) (test 19 U/L 6-55 ilgq=538) EGFR (BEAKER) (test 105 mL/min/1.73 sq ESTIMATED GFR IS NOT nfun=6859) m ACCURATE CREATININE CLEARANCE IN PREDICTING GLOMERULAR FILTRATION RATE. ESTIMATED GFR IS NOT APPLICABLE FOR DIALYSIS PATIENTS. [id number] 05:14:00 Test Item Value Reference Range Comments PROTIME (BEAKER) (test trcp=689) 14.7 seconds 11.7-14.7 INR (BEAKER) (test wwxo=521) 1.1 <=5.9 PARTIAL THROMBOPLASTIN TIME (BEAKER) (test 40.2 seconds 22.5-36.0 byhj=074) RECOMMENDED COUMADIN/WARFARIN INR THERAPY RANGESSTANDARD DOSE: 2.0 - 3.0 Includes: PROPHYLAXIS forvenous thrombosis, systemic embolization; TREATMENT for venous thrombosis and/or pulmonary embolus.HIGH RISK: Target INR is 2.5-3.5 for patients with mechanical heart valves.BLOOD GAS, [id number] 05:11:00 Test Item Value Reference Range Comments PH ARTERIAL (BEAKER) (test oqls=976) 7.44 7.35-7.45 PCO2 ARTERIAL (BEAKER) (test bkzd=854) 64 mmHg 35-45 PO2 ARTERIAL (BEAKER) (test nxvl=769) 117 mmHg 80-90 O2 SATURATION ARTERIAL (BEAKER) (test mfqv=323) 98.2 % 96.0-97.0 HCO3 ARTERIAL (BEAKER) (test nzxu=535) 42 mmol/L 21-29 BASE EXCESS ARTERIAL (BEAKER) (test lyhh=499) 15.5 mmol/L -2.0-3.0 PATIENT TEMPERATURE (BEAKER) (test wtgm=2735) 37.5 C FIO2 (BEAKER) (test zehl=6837) 50.0 % While intubatedCBC W/PLT COUNT & AUTO [id number] 05:03:00 Test Item Value Reference Range Comments WHITE BLOOD CELL COUNT (BEAKER) (test hrwg=742) 5.3 K/ L 3.5-10.5 RED BLOOD CELL COUNT (BEAKER) (test xrgu=899) 3.40 M/ L 3.93-5.22 HEMOGLOBIN (BEAKER) (test lonh=846) 8.7 GM/DL 11.2-15.7 HEMATOCRIT (BEAKER) (test ackz=797) 29.2 % 34.1-44.9 MEAN CORPUSCULAR VOLUME (BEAKER) (test jeoz=303) 85.9 fL 79.4-94.8 MEAN CORPUSCULAR HEMOGLOBIN (BEAKER) (test 25.6 pg 25.6-32.2 dhia=937) MEAN CORPUSCULAR HEMOGLOBIN CONC (BEAKER) (test 29.8 GM/DL 32.2-35.5 tyfd=058) RED CELL DISTRIBUTION WIDTH (BEAKER) (test 17.7 % 11.7-14.4 awfu=456) PLATELET COUNT (BEAKER) (test wogo=330) 264 K/CU MM 150-450 MEAN PLATELET VOLUME (BEAKER) (test ozbd=613) 10.2 fL 9.4-12.3 NUCLEATED RED BLOOD CELLS (BEAKER) (test 0 /100 WBC 0-0 qnof=269) NEUTROPHILS RELATIVE PERCENT (BEAKER) (test 54 % hxlj=518) LYMPHOCYTES RELATIVE PERCENT (BEAKER) (test 23 % wyng=965) MONOCYTES RELATIVE PERCENT (BEAKER) (test 10 % hrur=832) EOSINOPHILS RELATIVE PERCENT (BEAKER) (test 11 % twtq=035) BASOPHILS RELATIVE PERCENT (BEAKER) (test 1 % jhar=924) NEUTROPHILS ABSOLUTE COUNT (BEAKER) (test 2.83 K/ L 1.56-6.13 hmfe=152) LYMPHOCYTES ABSOLUTE COUNT (BEAKER) (test 1.22 K/ L 1.18-3.74 uvwg=623) MONOCYTES ABSOLUTE COUNT (BEAKER) (test 0.53 K/ L 0.24-0.36 huje=035) EOSINOPHILS ABSOLUTE COUNT (BEAKER) (test 0.60 K/ L 0.04-0.36 fztc=633) BASOPHILS ABSOLUTE COUNT (BEAKER) (test 0.03 K/ L 0.01-0.08 mutz=257) IMMATURE GRANULOCYTES-RELATIVE PERCENT (BEAKER) 1 % 0-1 (test pojh=1539) POCT-GLUCOSE [id number] 21:23:00 Test Item Value Reference Range Comments POC-GLUCOSE METER (BEAKER) 118 mg/dL 70-110 TESTED AT [facility] [address] [facility] (test lcqy=9183) [facility] [address] [id number] 20:20:00 Test Item Value Reference Range Comments MAGNESIUM (BEAKER) (test rmnd=776) 1.8 mg/dL 1.6-2.6 BASIC METABOLIC [id number] 20:20:00 Test Item Value Reference Range Comments SODIUM (BEAKER) (test 142 meq/L 136-145 gvoi=531) POTASSIUM (BEAKER) (test 3.5 meq/L 3.5-5.1 pmnz=701) CHLORIDE (BEAKER) (test 96 meq/L 98-107 inqq=185) CO2 (BEAKER) (test 39 meq/L 22-29 lfac=226) BLOOD UREA NITROGEN 16 mg/dL 7-21 (BEAKER) (test upey=712) CREATININE (BEAKER) (test 0.66 mg/dL 0.57-1.25 jiir=663) GLUCOSE RANDOM (BEAKER) 107 mg/dL 70-105 (test wdej=890) CALCIUM (BEAKER) (test 9.9 mg/dL 8.4-10.2 qtpp=248) EGFR (BEAKER) (test 103 mL/min/1.73 sq m ESTIMATED GFR IS NOT sowe=6250) ACCURATE CREATININE CLEARANCE IN PREDICTING GLOMERULAR FILTRATION RATE. ESTIMATED GFR IS NOT APPLICABLE FOR DIALYSIS PATIENTS. POCT-GLUCOSE [id number] 18:38:00 Test Item Value Reference Range Comments POC-GLUCOSE METER (BEAKER) 103 mg/dL 70-110 TESTED AT [facility] [address] [facility] (test ntee=8069) [facility] [address] HEPARIN ASSAY - LOW MOLECULAR [id number] 14:56:00 Test Item Value Reference Range Comments LOVENOX-ANTI 10A (BEAKER) (test hjzu=9697) 1.20 u/ml 0.60-2.00 Anti-Factor 10-A Level (Heparin Assay for Low Molecular Weight Heparin) Monitoring Guidelines: Blood samples should be obtained 4 hours post subcutaneous injection (time of Peak level) Therapeutic Peak Levels: 0.6-1.0 units/mL twice daily enoxaparin 1.0-2.0 units/mL once daily enoxaparinRef: CHEST 2012;141:p38e-x06pJyya-Bf level, draw 4 hours after 3rd dose of Lovenox.POCT-GLUCOSE [id number] 13:02:00 Test Item Value Reference Range Comments POC-GLUCOSE METER (BEAKER) 116 mg/dL 70-110 TESTED AT [facility] [address] (test pxrm=9024) [facility] [address] BLOOD GAS, [id number] 11:56:00 Test Item Value Reference Range Comments PH ARTERIAL (BEAKER) (test bcdu=434) 7.44 7.35-7.45 PCO2 ARTERIAL (BEAKER) (test reyi=689) 60 mmHg 35-45 PO2 ARTERIAL (BEAKER) (test gmfe=040) 108 mmHg 80-90 O2 SATURATION ARTERIAL (BEAKER) (test gvdt=089) 97.9 % 96.0-97.0 HCO3 ARTERIAL (BEAKER) (test dext=364) 40 mmol/L 21-29 BASE EXCESS ARTERIAL (BEAKER) (test jumi=440) 14.1 mmol/L -2.0-3.0 PATIENT TEMPERATURE (BEAKER) (test kxon=6541) 37.5 C FIO2 (BEAKER) (test pwrf=7789) 50.0 % SPUTUM CULTURE + GRAM [id number] 10:06:00 Test Item Value Reference Range Comments CULTURE (BEAKER) (test hzwu=8932) See comment GRAM STAIN RESULT (BEAKER) (test 3+ White blood cells seen lqsg=8929) GRAM STAIN RESULT (BEAKER) (test 0-5 epithelial cells qjdz=654895) GRAM STAIN RESULT (BEAKER) (test No organisms seen mudl=358795) <1+ yeastNo Normal respiratory perez presentRAD, CHEST, 1 VIEW, NON [id number] 07:38:00While intubatedReason for exam:->intubated, hypoxemiaShould this be performed at the bedside?->YesFINAL REPORT CLINICAL HISTORY: intubated, hypoxemia TECHNIQUE: 1 view of the chest. COMPARISON: 07/26/2018 IMPRESSION: The supporting lines and tubes are unchanged. Confluent bilateral airspace opacities are unchanged versus slightly increased. Pleural effusions cannot be excluded. The cardiac mediastinal silhouette is obscured. Signed: Shani Zimmerman MDReport Verified Date/Time:07/27/2018 07:38:50 Reading Location: [address] Neuro Reading Room CBC W/PLT COUNT & AUTO [id number] 05:47:00 Test Item Value Reference Range Comments WHITE BLOOD CELL COUNT (BEAKER) (test zexi=980) 4.6 K/ L 3.5-10.5 RED BLOOD CELL COUNT (BEAKER) (test qext=729) 3.21 M/ L 3.93-5.22 HEMOGLOBIN (BEAKER) (test lnnm=751) 8.2 GM/DL 11.2-15.7 HEMATOCRIT (BEAKER) (test bzjg=733) 28.0 % 34.1-44.9 MEAN CORPUSCULAR VOLUME (BEAKER) (test xbdk=313) 87.2 fL 79.4-94.8 MEAN CORPUSCULAR HEMOGLOBIN (BEAKER) (test 25.5 pg 25.6-32.2 sswn=837) MEAN CORPUSCULAR HEMOGLOBIN CONC (BEAKER) (test 29.3 GM/DL 32.2-35.5 ahdr=712) RED CELL DISTRIBUTION WIDTH (BEAKER) (test 16.9 % 11.7-14.4 hiew=334) PLATELET COUNT (BEAKER) (test gcjm=894) 218 K/CU MM 150-450 MEAN PLATELET VOLUME (BEAKER) (test dwnl=374) 10.4 fL 9.4-12.3 NUCLEATED RED BLOOD CELLS (BEAKER) (test 0 /100 WBC 0-0 rank=324) NEUTROPHILS RELATIVE PERCENT (BEAKER) (test 52 % esuu=893) LYMPHOCYTES RELATIVE PERCENT (BEAKER) (test 24 % ngml=720) MONOCYTES RELATIVE PERCENT (BEAKER) (test 10 % yskx=977) EOSINOPHILS RELATIVE PERCENT (BEAKER) (test 13 % smby=140) BASOPHILS RELATIVE PERCENT (BEAKER) (test 1 % xvdh=183) NEUTROPHILS ABSOLUTE COUNT (BEAKER) (test 2.41 K/ L 1.56-6.13 sfmu=093) LYMPHOCYTES ABSOLUTE COUNT (BEAKER) (test 1.11 K/ L 1.18-3.74 rvvt=740) MONOCYTES ABSOLUTE COUNT (BEAKER) (test 0.45 K/ L 0.24-0.36 delt=498) EOSINOPHILS ABSOLUTE COUNT (BEAKER) (test 0.59 K/ L 0.04-0.36 nybi=147) BASOPHILS ABSOLUTE COUNT (BEAKER) (test 0.03 K/ L 0.01-0.08 uodo=810) IMMATURE GRANULOCYTES-RELATIVE PERCENT (BEAKER) 1 % 0-1 (test dkcq=8003) [id number] 05:35:00 Test Item Value Reference Range Comments PHOSPHORUS (BEAKER) (test ozpi=389) 3.5 mg/dL 2.3-4.7 [id number] 05:35:00 Test Item Value Reference Range Comments MAGNESIUM (BEAKER) (test jxnd=160) 1.8 mg/dL 1.6-2.6 COMPREHENSIVE METABOLIC [id number] 05:35:00 Test Item Value Reference Range Comments TOTAL PROTEIN (BEAKER) 6.7 gm/dL 6.0-8.3 (test scgn=093) ALBUMIN (BEAKER) (test 3.0 g/dL 3.5-5.0 pmyx=4657) ALKALINE PHOSPHATASE 43 U/L 40-150 (BEAKER) (test grpe=193) BILIRUBIN TOTAL (BEAKER) 0.2 mg/dL 0.2-1.2 (test rgqu=050) SODIUM (BEAKER) (test 141 meq/L 136-145 tdqe=145) POTASSIUM (BEAKER) (test 3.8 meq/L 3.5-5.1 mrfr=941) CHLORIDE (BEAKER) (test 96 meq/L 98-107 vjee=713) CO2 (BEAKER) (test 38 meq/L 22-29 dahd=292) BLOOD UREA NITROGEN 15 mg/dL 7-21 (BEAKER) (test lrun=474) CREATININE (BEAKER) (test 0.59 mg/dL 0.57-1.25 iprx=225) GLUCOSE RANDOM (BEAKER) 106 mg/dL 70-105 (test mikv=170) CALCIUM (BEAKER) (test 9.9 mg/dL 8.4-10.2 qiwy=312) AST (SGOT) (BEAKER) (test 30 U/L 5-34 ndgj=333) ALT (SGPT) (BEAKER) (test 18 U/L 6-55 nkum=930) EGFR (BEAKER) (test 117 mL/min/1.73 sq ESTIMATED GFR IS NOT gvnx=0708) m ACCURATE CREATININE CLEARANCE IN PREDICTING GLOMERULAR FILTRATION RATE. ESTIMATED GFR IS NOT APPLICABLE FOR DIALYSIS PATIENTS. BLOOD GAS, [id number] 05:23:00 Test Item Value Reference Range Comments PH ARTERIAL (BEAKER) (test qgee=559) 7.46 7.35-7.45 PCO2 ARTERIAL (BEAKER) (test nslb=365) 52 mmHg 35-45 PO2 ARTERIAL (BEAKER) (test osom=219) 151 mmHg 80-90 O2 SATURATION ARTERIAL (BEAKER) (test vchh=572) 99.0 % 96.0-97.0 HCO3 ARTERIAL (BEAKER) (test ekhz=557) 36 mmol/L 21-29 BASE EXCESS ARTERIAL (BEAKER) (test hqaa=495) 11.1 mmol/L -2.0-3.0 PATIENT TEMPERATURE (BEAKER) (test umtd=8532) 37.0 C FIO2 (BEAKER) (test vtpf=5731) 50.0 % While intubatedPOCT-GLUCOSE [id number] 04:36:00 Test Item Value Reference Range Comments POC-GLUCOSE METER (BEAKER) 108 mg/dL 70-110 TESTED AT [address] (test muho=8635) [facility] [address] POCT-GLUCOSE [id number] 23:10:00 Test Item Value Reference Range Comments POC-GLUCOSE METER (BEAKER) 127 mg/dL 70-110 TESTED AT [address] (test akzt=5815) [facility] [address] [id number] 20:05:00 Test Item Value Reference Range Comments MAGNESIUM (BEAKER) (test fndz=503) 1.9 mg/dL 1.6-2.6 BASIC METABOLIC [id number] 20:05:00 Test Item Value Reference Range Comments SODIUM (BEAKER) (test 142 meq/L 136-145 rhis=014) POTASSIUM (BEAKER) (test 3.8 meq/L 3.5-5.1 xtas=420) CHLORIDE (BEAKER) (test 95 meq/L 98-107 ikph=842) CO2 (BEAKER) (test 39 meq/L 22-29 ywtr=021) BLOOD UREA NITROGEN 16 mg/dL 7-21 (BEAKER) (test cusf=209) CREATININE (BEAKER) (test 0.61 mg/dL 0.57-1.25 ikyk=236) GLUCOSE RANDOM (BEAKER) 104 mg/dL 70-105 (test xxgc=750) CALCIUM (BEAKER) (test 10.0 mg/dL 8.4-10.2 lwzl=946) EGFR (BEAKER) (test 113 mL/min/1.73 sq m ESTIMATED GFR IS NOT gbjc=0590) ACCURATE CREATININE CLEARANCE IN PREDICTING GLOMERULAR FILTRATION RATE. ESTIMATED GFR IS NOT APPLICABLE FOR DIALYSIS PATIENTS. POCT-GLUCOSE [id number] 18:18:00 Test Item Value Reference Range Comments POC-GLUCOSE METER (BEAKER) 105 mg/dL 70-110 TESTED AT [address] (test uaup=1515) [facility] [address] MR, BRAIN, [id number] 18:14:00FINAL REPORT MR, BRAIN , WITH \T\ WITHOUT CONTRAST INDICATION: Evaluate brain abscesses TECHNIQUE: Multiplanar, multisequence MR imaging of the brain was obtained before and afteruneventful administration of gadolinium contrast. COMPARISON: Contrast enhanced brain MRI dated July 19, 2018 obtained by [facility] FINDINGS:There are two primary diffusion restricted foci which exhibit complete/circumferential rim enhancement. There is minimal adjacent vasogenic edema. Postcontrast lesion measurements are approximately 0.9 x 0.8 mm in the left frontal lobeand the 15 x 12 mm in the right temporal lobe. These measurements are consistent with those demonstrated in the reference examination. No new signal abnormalities have developed over the interval. There is no midline shift or hydrocephalus. Susceptibility weighted images reveal no evidence of intracranial hemorrhage. There are bilateral mastoid effusions. The calvarium is intact. Remaining paranasal sinuses reveal multichamber mucosal thickening. No layering fluid is present. Orbital contents are unremarkable. 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 No new lesions have developed. Paranasal sinus disease likely secondary to intubation status. Signed: JR Robbins Robert MDReport Verified Date/Time: 07/26/2018 18:14:16 Reading Location: [facility] Radiology Reading Room POCT-GLUCOSE [id number] 12 :40:00 Test Item Value Reference Range Comments POC-GLUCOSE METER (BEAKER) 94 mg/dL 70-110 TESTED AT [address] (test heij=3380) [facility] [address] RAD, CHEST, 1 VIEW, NON [id number] 06:56:00While intubatedReason for exam:-& gt;intubated, hypoxemiaShould this be performed at the bedside?->YesFINAL REPORT Chest, one view. HISTORY: intubated, hypoxemia COMPARISON: Radiograph from 07/25/2018 IMPRESSION: Unchanged positioning of the endotracheal tube and left PICC. The patchy pulmonary opacities are unchanged and likely due to edema. There is a more dense left retrocardiac opacity which could be due to atelectasis. However, infection cannot be excluded. Small left pleural effusion. No pneumothorax. The cardiac silhouette is unchanged. No acute bony abnormality. Signed: Darwin Garrison Verified Date/Time: 2018 06:56:26 Reading Location: [facility] Radiology Reading Room [id number] 06:03:00 Test Item Value Reference Range Comments PARTIAL THROMBOPLASTIN TIME (BEAKER) (test 72.1 seconds 22.5-36.0 hocn=089) BLOOD GAS, [id number] 05:48:00 Test Item Value Reference Range Comments PH ARTERIAL (BEAKER) (test rsfg=790) 7.36 7.35-7.45 PCO2 ARTERIAL (BEAKER) (test uimb=597) 73 mmHg 35-45 PO2 ARTERIAL (BEAKER) (test dsrf=147) 89 mmHg 80-90 O2 SATURATION ARTERIAL (BEAKER) (test baaw=990) 96.0 % 96.0-97.0 HCO3 ARTERIAL (BEAKER) (test ckys=673) 40 mmol/L 21-29 BASE EXCESS ARTERIAL (BEAKER) (test onez=042) 12.6 mmol/L -2.0-3.0 PATIENT TEMPERATURE (BEAKER) (test tdjq=5462) 37.0 C FIO2 (BEAKER) (test jxoj=4143) 50.0 % POCT-GLUCOSE [id number] 05:46:00 Test Item Value Reference Range Comments POC-GLUCOSE METER (BEAKER) 154 mg/dL 70-110 TESTED AT [address] (test wxsi=7656) [facility] [address] COMPREHENSIVE METABOLIC [id number] 04:35:00 Test Item Value Reference Range Comments TOTAL PROTEIN (BEAKER) 6.4 gm/dL 6.0-8.3 (test pmcp=207) ALBUMIN (BEAKER) (test 2.8 g/dL 3.5-5.0 sloo=5777) ALKALINE PHOSPHATASE 43 U/L 40-150 (BEAKER) (test xruo=313) BILIRUBIN TOTAL (BEAKER) 0.2 mg/dL 0.2-1.2 (test pcew=630) SODIUM (BEAKER) (test 141 meq/L 136-145 rpig=954) POTASSIUM (BEAKER) (test 3.8 meq/L 3.5-5.1 gauv=618) CHLORIDE (BEAKER) (test 96 meq/L 98-107 ykcn=124) CO2 (BEAKER) (test 41 meq/L 22-29 mmze=532) BLOOD UREA NITROGEN 17 mg/dL 7-21 (BEAKER) (test ljyd=237) CREATININE (BEAKER) (test 0.61 mg/dL 0.57-1.25 zkpv=722) GLUCOSE RANDOM (BEAKER) 119 mg/dL 70-105 (test jyij=257) CALCIUM (BEAKER) (test 9.4 mg/dL 8.4-10.2 obnj=136) AST (SGOT) (BEAKER) (test 22 U/L 5-34 omrv=598) ALT (SGPT) (BEAKER) (test 10 U/L 6-55 bwhm=256) EGFR (BEAKER) (test 113 mL/min/1.73 sq ESTIMATED GFR IS NOT noka=1170) m ACCURATE CREATININE CLEARANCE IN PREDICTING GLOMERULAR FILTRATION RATE. ESTIMATED GFR IS NOT APPLICABLE FOR DIALYSIS PATIENTS. [id number] 04:31:00 Test Item Value Reference Range Comments TRIGLYCERIDES (BEAKER) (test ujxd=196) 233 mg/dL TRIGLYCERIDE REFERENCE RANGELow Risk <150Borderline Risk 150-199High Risk 200-499Very High Risk>=[id number] 04:31:00 Test Item Value Reference Range Comments MAGNESIUM (BEAKER) (test jtec=636) 1.8 mg/dL 1.6-2.6 [id number] 04:31:00 Test Item Value Reference Range Comments PHOSPHORUS (BEAKER) (test oqys=991) 3.2 mg/dL 2.3-4.7 BLOOD GAS, [id number] 04:13:00 Test Item Value Reference Range Comments PH ARTERIAL (BEAKER) (test yxxu=248) 7.35 7.35-7.45 PCO2 ARTERIAL (BEAKER) (test pjqg=006) 78 mmHg 35-45 PO2 ARTERIAL (BEAKER) (test fiwv=004) 165 mmHg 80-90 O2 SATURATION ARTERIAL (BEAKER) (test qbgx=474) 98.9 % 96.0-97.0 HCO3 ARTERIAL (BEAKER) (test ynvd=046) 42 mmol/L 21-29 BASE EXCESS ARTERIAL (BEAKER) (test qjol=974) 14.7 mmol/L -2.0-3.0 PATIENT TEMPERATURE (BEAKER) (test kirg=1442) 37.0 C FIO2 (BEAKER) (test jlkd=4207) 60.0 % While intubatedCBC W/PLT COUNT & AUTO [id number] 04:12:00 Test Item Value Reference Range Comments WHITE BLOOD CELL COUNT (BEAKER) (test gden=883) 4.4 K/ L 3.5-10.5 RED BLOOD CELL COUNT (BEAKER) (test evgr=471) 3.10 M/ L 3.93-5.22 HEMOGLOBIN (BEAKER) (test xqdh=936) 7.8 GM/DL 11.2-15.7 HEMATOCRIT (BEAKER) (test javx=913) 27.0 % 34.1-44.9 MEAN CORPUSCULAR VOLUME (BEAKER) (test mglf=944) 87.1 fL 79.4-94.8 MEAN CORPUSCULAR HEMOGLOBIN (BEAKER) (test 25.2 pg 25.6-32.2 wnol=006) MEAN CORPUSCULAR HEMOGLOBIN CONC (BEAKER) (test 28.9 GM/DL 32.2-35.5 lmmw=077) RED CELL DISTRIBUTION WIDTH (BEAKER) (test 16.7 % 11.7-14.4 ooti=829) PLATELET COUNT (BEAKER) (test fmlm=948) 206 K/CU MM 150-450 MEAN PLATELET VOLUME (BEAKER) (test drpc=850) 10.0 fL 9.4-12.3 NUCLEATED RED BLOOD CELLS (BEAKER) (test 0 /100 WBC 0-0 hdeu=290) NEUTROPHILS RELATIVE PERCENT (BEAKER) (test 51 % lexl=537) LYMPHOCYTES RELATIVE PERCENT (BEAKER) (test 27 % prcz=677) MONOCYTES RELATIVE PERCENT (BEAKER) (test 9 % dsnz=275) EOSINOPHILS RELATIVE PERCENT (BEAKER) (test 12 % zjph=109) BASOPHILS RELATIVE PERCENT (BEAKER) (test 1 % yexg=773) NEUTROPHILS ABSOLUTE COUNT (BEAKER) (test 2.25 K/ L 1.56-6.13 dmcm=301) LYMPHOCYTES ABSOLUTE COUNT (BEAKER) (test 1.21 K/ L 1.18-3.74 etan=541) MONOCYTES ABSOLUTE COUNT (BEAKER) (test 0.39 K/ L 0.24-0.36 uxgd=722) EOSINOPHILS ABSOLUTE COUNT (BEAKER) (test 0.53 K/ L 0.04-0.36 nvia=556) BASOPHILS ABSOLUTE COUNT (BEAKER) (test 0.02 K/ L 0.01-0.08 kgwi=827) IMMATURE GRANULOCYTES-RELATIVE PERCENT (BEAKER) 1 % 0-1 (test typr=9389) POCT-GLUCOSE [id number] 00:09:00 Test Item Value Reference Range Comments POC-GLUCOSE METER (BEAKER) 127 mg/dL 70-110 TESTED AT [address] (test ztak=4145) [place] [address] POCT-GLUCOSE [id number] 18:07:00 Test Item Value Reference Range Comments POC-GLUCOSE METER (BEAKER) 151 mg/dL 70-110 TESTED AT [address] (test fnxa=9560) [place] [id number] BLOOD GAS, [id number] 14:03:00 Test Item Value Reference Range Comments PH ARTERIAL (BEAKER) (test xhih=306) 7.33 7.35-7.45 PCO2 ARTERIAL (BEAKER) (test iudy=637) 76 mmHg 35-45 PO2 ARTERIAL (BEAKER) (test bfcx=448) 102 mmHg 80-90 O2 SATURATION ARTERIAL (BEAKER) (test azyv=246) 96.9 % 96.0-97.0 HCO3 ARTERIAL (BEAKER) (test jkho=220) 40 mmol/L 21-29 BASE EXCESS ARTERIAL (BEAKER) (test ttur=480) 11.8 mmol/L -2.0-3.0 PATIENT TEMPERATURE (BEAKER) (test hgga=7855) 37.1 C FIO2 (BEAKER) (test comh=8746) 50.0 % TOXOPLASMA GONDII ANTIBODY, [id number] 13:46:00 Test Item Value Reference Range Comments TOXOPLASMA IGM ANTIBODY (BEAKER) (test jogm=165) Negative TEST PERFORMED BY WorkhintPOCT-GLUCOSE [id number] 12:14:00 Test Item Value Reference Range Comments POC-GLUCOSE METER (BEAKER) 119 mg/dL 70-110 TESTED AT [facility] [address] [facility] (test ztuy=8247) [facility] [address] BLOOD [id number] 07:01:00 Test Item Value Reference Range Comments CULTURE (BEAKER) (test bypd=9277) No growth in 5 days BLOOD [id number] 07:01:00 Test Item Value Reference Range Comments CULTURE (BEAKER) (test rihx=6894) No growth in 5 days CBC W/PLT COUNT & AUTO [id number] 06:12:00 Test Item Value Reference Range Comments WHITE BLOOD CELL COUNT (BEAKER) (test fdfl=876) 5.6 K/ L 3.5-10.5 RED BLOOD CELL COUNT (BEAKER) (test cdhx=229) 3.15 M/ L 3.93-5.22 HEMOGLOBIN (BEAKER) (test boms=214) 7.9 GM/DL 11.2-15.7 HEMATOCRIT (BEAKER) (test wigr=775) 27.7 % 34.1-44.9 MEAN CORPUSCULAR VOLUME (BEAKER) (test zdjq=955) 87.9 fL 79.4-94.8 MEAN CORPUSCULAR HEMOGLOBIN (BEAKER) (test 25.1 pg 25.6-32.2 gjow=996) MEAN CORPUSCULAR HEMOGLOBIN CONC (BEAKER) (test 28.5 GM/DL 32.2-35.5 utgv=386) RED CELL DISTRIBUTION WIDTH (BEAKER) (test 16.6 % 11.7-14.4 kotd=978) PLATELET COUNT (BEAKER) (test qfjb=919) 214 K/CU MM 150-450 MEAN PLATELET VOLUME (BEAKER) (test ccgs=052) 10.6 fL 9.4-12.3 NUCLEATED RED BLOOD CELLS (BEAKER) (test 0 /100 WBC 0-0 maze=918) NEUTROPHILS RELATIVE PERCENT (BEAKER) (test 63 % tkdb=370) LYMPHOCYTES RELATIVE PERCENT (BEAKER) (test 20 % tneb=453) MONOCYTES RELATIVE PERCENT (BEAKER) (test 7 % epos=473) EOSINOPHILS RELATIVE PERCENT (BEAKER) (test 9 % vveh=244) BASOPHILS RELATIVE PERCENT (BEAKER) (test 0 % irxi=822) NEUTROPHILS ABSOLUTE COUNT (BEAKER) (test 3.53 K/ L 1.56-6.13 euju=723) LYMPHOCYTES ABSOLUTE COUNT (BEAKER) (test 1.11 K/ L 1.18-3.74 eanc=459) MONOCYTES ABSOLUTE COUNT (BEAKER) (test 0.40 K/ L 0.24-0.36 ukrc=301) EOSINOPHILS ABSOLUTE COUNT (BEAKER) (test 0.53 K/ L 0.04-0.36 kfmv=028) BASOPHILS ABSOLUTE COUNT (BEAKER) (test 0.01 K/ L 0.01-0.08 qhbi=970) IMMATURE GRANULOCYTES-RELATIVE PERCENT (BEAKER) 1 % 0-1 (test utcm=2585) [id number] 05:24:00 Test Item Value Reference Range Comments PHOSPHORUS (BEAKER) (test jdjc=901) 3.3 mg/dL 2.3-4.7 [id number] 05:24:00 Test Item Value Reference Range Comments MAGNESIUM (BEAKER) (test fqvb=878) 1.3 mg/dL 1.6-2.6 COMPREHENSIVE METABOLIC [id number] 05:24:00 Test Item Value Reference Range Comments TOTAL PROTEIN (BEAKER) 6.1 gm/dL 6.0-8.3 (test butq=294) ALBUMIN (BEAKER) (test 2.6 g/dL 3.5-5.0 oudc=4813) ALKALINE PHOSPHATASE 45 U/L 40-150 (BEAKER) (test dwcl=155) BILIRUBIN TOTAL (BEAKER) 0.2 mg/dL 0.2-1.2 (test pbcv=775) SODIUM (BEAKER) (test 140 meq/L 136-145 opuz=692) POTASSIUM (BEAKER) (test 4.3 meq/L 3.5-5.1 pxxy=194) CHLORIDE (BEAKER) (test 99 meq/L 98-107 wmay=813) CO2 (BEAKER) (test 38 meq/L 22-29 ablo=133) BLOOD UREA NITROGEN 14 mg/dL 7-21 (BEAKER) (test icon=477) CREATININE (BEAKER) (test 0.65 mg/dL 0.57-1.25 ootc=794) GLUCOSE RANDOM (BEAKER) 128 mg/dL 70-105 (test jrke=885) CALCIUM (BEAKER) (test 8.8 mg/dL 8.4-10.2 lwxc=788) AST (SGOT) (BEAKER) (test 12 U/L 5-34 klqn=952) ALT (SGPT) (BEAKER) (test 8 U/L 6-55 asku=688) EGFR (BEAKER) (test 105 mL/min/1.73 sq ESTIMATED GFR IS NOT vyuy=5807) m ACCURATE CREATININE CLEARANCE IN PREDICTING GLOMERULAR FILTRATION RATE. ESTIMATED GFR IS NOT APPLICABLE FOR DIALYSIS PATIENTS. [id number] 05:18:00 Test Item Value Reference Range Comments PARTIAL THROMBOPLASTIN TIME (BEAKER) (test 76.2 seconds 22.5-36.0 zjbm=750) BLOOD GAS, [id number] 05:18:00 Test Item Value Reference Range Comments PH ARTERIAL (BEAKER) (test lbzf=981) 7.32 7.35-7.45 PCO2 ARTERIAL (BEAKER) (test vlhm=718) 78 mmHg 35-45 PO2 ARTERIAL (BEAKER) (test drrk=891) 162 mmHg 80-90 O2 SATURATION ARTERIAL (BEAKER) (test kchp=712) 98.8 % 96.0-97.0 HCO3 ARTERIAL (BEAKER) (test sulk=591) 39 mmol/L 21-29 BASE EXCESS ARTERIAL (BEAKER) (test zknb=269) 9.7 mmol/L -2.0-3.0 PATIENT TEMPERATURE (BEAKER) (test zpwz=2986) 38.0 C FIO2 (BEAKER) (test mjim=4264) 70.0 % While intubatedRAD, CHEST, 1 VIEW, NON [id number] 04:30:00While intubatedReason for exam:->intubated, hypoxemiaShould this be performed at the bedside?->YesFINAL REPORT EXAMINATION: AP PORTABLE CHEST RADIOGRAPH CLINICAL INDICATION: Hypoxia IMPRESSION: Compared with 07/24/2018 Endotracheal tube tip projects over the midline approximately 3 cm superior to the clint. Tip of the left upper extremity central line projects over the cavoatrial junction. Tip of the nasogastric tube is indistinct. Dedicated abdominal imaging could be performed to confirm tip positioning. The heart is enlarged as before. Coarse reticular and more confluent patchy opacities are again noted throughout both lungs, similar to previous allowing for differences in technique and rotation. No definite evidence of new lung consolidation or pneumothorax. Signed: Monica Hickmaneport Verified Date/Time: 07/25/2018 04:30:31 Reading Location: [address] Reading Room [id number] 02:21:00 Test Item Value Reference Range Comments PARTIAL THROMBOPLASTIN TIME (BEAKER) (test 70.5 seconds 22.5-36.0 ulmz=111) POCT-GLUCOSE [id number] 01:58:00 Test Item Value Reference Range Comments POC-GLUCOSE METER (BEAKER) 135 mg/dL 70-110 TESTED AT [address] (test kagt=7599) [place] [address] SCREEN, [id number] 22:22:00 Test Item Value Reference Range Comments TEST URINE (BEAKER) (test fjwl=821) Negative [id number] 19:30:00 Test Item Value Reference Range Comments PARTIAL THROMBOPLASTIN TIME (BEAKER) (test 82.7 seconds 22.5-36.0 vzvk=401) POCT-GLUCOSE [id number] 18:04:00 Test Item Value Reference Range Comments POC-GLUCOSE METER (BEAKER) 125 mg/dL 70-110 TESTED AT [address] (test dggt=3904) [place] [address] POCT-GLUCOSE [id number] 17:35:00 Test Item Value Reference Range Comments POC-GLUCOSE METER (BEAKER) 80 mg/dL 70-110 TESTED AT [address] (test qjnd=4399) [place] [id number] BLOOD GAS, [id number] 12:31:00 Test Item Value Reference Range Comments PH ARTERIAL (BEAKER) (test dewk=063) 7.31 7.35-7.45 PCO2 ARTERIAL (BEAKER) (test cxkb=231) 71 mmHg 35-45 PO2 ARTERIAL (BEAKER) (test othe=174) 139 mmHg 80-90 O2 SATURATION ARTERIAL (BEAKER) (test vsmm=927) 98.4 % 96.0-97.0 HCO3 ARTERIAL (BEAKER) (test qvup=551) 35 mmol/L 21-29 BASE EXCESS ARTERIAL (BEAKER) (test tbwx=930) 7.2 mmol/L -2.0-3.0 PATIENT TEMPERATURE (BEAKER) (test porp=2160) 37.3 C FIO2 (BEAKER) (test dzsc=4336) 70.0 % POCT-GLUCOSE [id number] 11:52:00 Test Item Value Reference Range Comments POC-GLUCOSE METER (BEAKER) 119 mg/dL 70-110 TESTED AT [facility] [address] [place] [address] (test boog=7492) [facility] [address] [id number] 11:05:00 Test Item Value Reference Range Comments PARTIAL THROMBOPLASTIN TIME (BEAKER) (test 87.8 seconds 22.5-36.0 naus=841) RAD, CHEST, 1 VIEW, NON [id number] 08:36:00While intubatedReason for exam:-& gt;intubated, hypoxemiaShould this be performed at the bedside?->YesFINAL REPORT Chest x-ray Clinical History: intubated, hypoxemia Comparison: July 23, 2018 Views: PRASAD Chest x-ray:The cardiac and mediastinal silhouettes are difficult to visualize. There is no evidence of a pneumothorax. There is evidence of a small left pleural effusion.There is evidence of overt cardiac failure. The visible regional skeleton is intact. There is evidence of a diffusely increased interstitial markings and parenchymal disease. A nasogastric tube traverses the esophagus. The patient is intubated. There is a right PICC line terminating in the superior vena cava.. Impression: No change Signed: Lana Solano Verified Date/Time: 2018 08:36:14 Reading Location: [place] [address] Angio Body Reading Room [id number] 06:52:00 Test Item Value Reference Range Comments PHOSPHORUS (BEAKER) (test figk=996) 2.8 mg/dL 2.3-4.7 [id number] 06:52:00 Test Item Value Reference Range Comments MAGNESIUM (BEAKER) (test wdyw=135) 1.4 mg/dL 1.6-2.6 COMPREHENSIVE METABOLIC [id number] 06:52:00 Test Item Value Reference Range Comments TOTAL PROTEIN (BEAKER) 5.9 gm/dL 6.0-8.3 (test dtkn=650) ALBUMIN (BEAKER) (test 2.6 g/dL 3.5-5.0 aacm=6139) ALKALINE PHOSPHATASE 48 U/L 40-150 (BEAKER) (test cxbx=960) BILIRUBIN TOTAL (BEAKER) 0.2 mg/dL 0.2-1.2 (test wmcz=092) SODIUM (BEAKER) (test 140 meq/L 136-145 xixs=340) POTASSIUM (BEAKER) (test 4.3 meq/L 3.5-5.1 gkmo=081) CHLORIDE (BEAKER) (test 103 meq/L 98-107 sngn=247) CO2 (BEAKER) (test 34 meq/L 22-29 goui=309) BLOOD UREA NITROGEN 11 mg/dL 7-21 (BEAKER) (test ivfb=189) CREATININE (BEAKER) (test 0.64 mg/dL 0.57-1.25 pitt=695) GLUCOSE RANDOM (BEAKER) 125 mg/dL 70-105 (test igeu=138) CALCIUM (BEAKER) (test 8.4 mg/dL 8.4-10.2 ksiy=852) AST (SGOT) (BEAKER) (test 11 U/L 5-34 tlvo=747) ALT (SGPT) (BEAKER) (test 6 U/L 6-55 ujuz=231) EGFR (BEAKER) (test 107 mL/min/1.73 sq ESTIMATED GFR IS NOT dopg=4539) m ACCURATE CREATININE CLEARANCE IN PREDICTING GLOMERULAR FILTRATION RATE. ESTIMATED GFR IS NOT APPLICABLE FOR DIALYSIS PATIENTS. BLOOD GAS, [id number] 06:24:00 Test Item Value Reference Range Comments PH ARTERIAL (BEAKER) (test encx=230) 7.32 7.35-7.45 PCO2 ARTERIAL (BEAKER) (test sdrf=413) 69 mmHg 35-45 PO2 ARTERIAL (BEAKER) (test yeji=932) 129 mmHg 80-90 O2 SATURATION ARTERIAL (BEAKER) (test nutb=052) 98.1 % 96.0-97.0 HCO3 ARTERIAL (BEAKER) (test ibml=380) 34 mmol/L 21-29 BASE EXCESS ARTERIAL (BEAKER) (test mjpp=334) 7.0 mmol/L -2.0-3.0 PATIENT TEMPERATURE (BEAKER) (test qffl=1231) 38.0 C FIO2 (BEAKER) (test mhnr=8716) 70.0 % While intubatedC W/PLT COUNT & AUTO [id number] 06:19:00 Test Item Value Reference Range Comments WHITE BLOOD CELL COUNT (BEAKER) (test kcuu=979) 6.4 K/ L 3.5-10.5 RED BLOOD CELL COUNT (BEAKER) (test pqpo=885) 3.13 M/ L 3.93-5.22 HEMOGLOBIN (BEAKER) (test pvqk=581) 8.0 GM/DL 11.2-15.7 HEMATOCRIT (BEAKER) (test gahx=271) 26.8 % 34.1-44.9 MEAN CORPUSCULAR VOLUME (BEAKER) (test hibf=774) 85.6 fL 79.4-94.8 MEAN CORPUSCULAR HEMOGLOBIN (BEAKER) (test 25.6 pg 25.6-32.2 zwzb=177) MEAN CORPUSCULAR HEMOGLOBIN CONC (BEAKER) (test 29.9 GM/DL 32.2-35.5 hohf=674) RED CELL DISTRIBUTION WIDTH (BEAKER) (test 16.4 % 11.7-14.4 dhgx=113) PLATELET COUNT (BEAKER) (test lvtx=929) 182 K/CU MM 150-450 MEAN PLATELET VOLUME (BEAKER) (test zxap=511) 10.2 fL 9.4-12.3 NUCLEATED RED BLOOD CELLS (BEAKER) (test 0 /100 WBC 0-0 ctun=914) NEUTROPHILS RELATIVE PERCENT (BEAKER) (test 73 % zexl=350) LYMPHOCYTES RELATIVE PERCENT (BEAKER) (test 14 % ppcj=817) MONOCYTES RELATIVE PERCENT (BEAKER) (test 5 % ugyw=326) EOSINOPHILS RELATIVE PERCENT (BEAKER) (test 8 % lfaf=462) BASOPHILS RELATIVE PERCENT (BEAKER) (test 0 % gelh=757) NEUTROPHILS ABSOLUTE COUNT (BEAKER) (test 4.64 K/ L 1.56-6.13 omav=357) LYMPHOCYTES ABSOLUTE COUNT (BEAKER) (test 0.87 K/ L 1.18-3.74 iftf=431) MONOCYTES ABSOLUTE COUNT (BEAKER) (test 0.34 K/ L 0.24-0.36 tbhy=053) EOSINOPHILS ABSOLUTE COUNT (BEAKER) (test 0.49 K/ L 0.04-0.36 diiz=197) BASOPHILS ABSOLUTE COUNT (BEAKER) (test 0.02 K/ L 0.01-0.08 qiwy=479) IMMATURE GRANULOCYTES-RELATIVE PERCENT (BEAKER) 1 % 0-1 (test fhwe=0833) POCT-GLUCOSE [id number] 06:13:00 Test Item Value Reference Range Comments POC-GLUCOSE METER (BEAKER) 132 mg/dL 70-110 TESTED AT [facility] [address] [facility] (test cisv=4552) [facility] [address] CBC W/PLT COUNT & AUTO [id number] 01:49:00 Test Item Value Reference Range Comments WHITE BLOOD CELL COUNT (BEAKER) (test knhy=688) 7.0 K/ L 3.5-10.5 RED BLOOD CELL COUNT (BEAKER) (test ljel=058) 3.19 M/ L 3.93-5.22 HEMOGLOBIN (BEAKER) (test nupq=835) 8.0 GM/DL 11.2-15.7 HEMATOCRIT (BEAKER) (test axho=432) 27.3 % 34.1-44.9 MEAN CORPUSCULAR VOLUME (BEAKER) (test gcsm=341) 85.6 fL 79.4-94.8 MEAN CORPUSCULAR HEMOGLOBIN (BEAKER) (test 25.1 pg 25.6-32.2 lghc=842) MEAN CORPUSCULAR HEMOGLOBIN CONC (BEAKER) (test 29.3 GM/DL 32.2-35.5 nxpq=801) RED CELL DISTRIBUTION WIDTH (BEAKER) (test 16.4 % 11.7-14.4 ruyh=741) PLATELET COUNT (BEAKER) (test tuyo=290) 191 K/CU MM 150-450 MEAN PLATELET VOLUME (BEAKER) (test ppma=997) 10.4 fL 9.4-12.3 NUCLEATED RED BLOOD CELLS (BEAKER) (test 0 /100 WBC 0-0 wiju=928) NEUTROPHILS RELATIVE PERCENT (BEAKER) (test 68 % ntkz=665) LYMPHOCYTES RELATIVE PERCENT (BEAKER) (test 15 % xmfb=782) MONOCYTES RELATIVE PERCENT (BEAKER) (test 5 % ijhi=943) EOSINOPHILS RELATIVE PERCENT (BEAKER) (test 11 % tmzj=480) BASOPHILS RELATIVE PERCENT (BEAKER) (test 0 % nyub=841) NEUTROPHILS ABSOLUTE COUNT (BEAKER) (test 4.79 K/ L 1.56-6.13 mrhb=437) LYMPHOCYTES ABSOLUTE COUNT (BEAKER) (test 1.04 K/ L 1.18-3.74 ftsg=299) MONOCYTES ABSOLUTE COUNT (BEAKER) (test 0.38 K/ L 0.24-0.36 cwtu=770) EOSINOPHILS ABSOLUTE COUNT (BEAKER) (test 0.75 K/ L 0.04-0.36 uvld=890) BASOPHILS ABSOLUTE COUNT (BEAKER) (test 0.02 K/ L 0.01-0.08 bpab=808) IMMATURE GRANULOCYTES-RELATIVE PERCENT (BEAKER) 1 % 0-1 (test drbr=8710) [id number] 01:26:00 Test Item Value Reference Range Comments PARTIAL THROMBOPLASTIN TIME (BEAKER) (test 66.2 seconds 22.5-36.0 ghjj=721) POCT-GLUCOSE [id number] 00:57:00 Test Item Value Reference Range Comments POC-GLUCOSE METER (BEAKER) 105 mg/dL 70-110 TESTED AT [address] (test kdzq=7888) [place] [id number] POCT-GLUCOSE [id number] 18:55:00 Test Item Value Reference Range Comments POC-GLUCOSE METER (BEAKER) 102 mg/dL 70-110 TESTED AT [address] (test ovwj=0455) [place] [address] [id number] 18:46:00 Test Item Value Reference Range Comments PARTIAL THROMBOPLASTIN TIME (BEAKER) (test 66.5 seconds 22.5-36.0 tstj=815) POCT-GLUCOSE [id number] 11:56:00 Test Item Value Reference Range Comments POC-GLUCOSE METER (BEAKER) 90 mg/dL 70-110 TESTED AT [address] (test bhzy=8805) [facility] [address] TOXOPLASMA GONDII ANTIBODY, [id number] 11:31:00 Test Item Value Reference Range Comments TOXOPLASMA GONDII IGG QUANTITATIVE (BEAKER) (test < IU/mL <10.0 pist=8308) Toxoplasma Gondii IgG Result Interpretation: </=9.9 IU/mL Normal 10- 11 IU/mL Equivocal>/=12 IU/mL [id number] 11:12:00 Test Item Value Reference Range Comments PARTIAL THROMBOPLASTIN TIME (BEAKER) (test 78.5 seconds 22.5-36.0 ijhx=721) HEMOGLOBIN AND [id number] 11:05:00 Test Item Value Reference Range Comments HEMOGLOBIN (BEAKER) (test vzvi=987) 6.9 GM/DL 11.2-15.7 HEMATOCRIT (BEAKER) (test hlnp=626) 24.2 % 34.1-44.9 BLOOD GAS, [id number] 10:57:00 Test Item Value Reference Range Comments PH ARTERIAL (BEAKER) (test oflr=849) 7.30 7.35-7.45 PCO2 ARTERIAL (BEAKER) (test ntdj=046) 66 mmHg 35-45 PO2 ARTERIAL (BEAKER) (test nvmp=239) 160 mmHg 80-90 O2 SATURATION ARTERIAL (BEAKER) (test llhx=301) 98.8 % 96.0-97.0 HCO3 ARTERIAL (BEAKER) (test xbes=618) 32 mmol/L 21-29 BASE EXCESS ARTERIAL (BEAKER) (test kyro=722) 4.6 mmol/L -2.0-3.0 PATIENT TEMPERATURE (BEAKER) (test gijc=3979) 38.0 C FIO2 (BEAKER) (test nwys=1941) 80.0 % SPUTUM CULTURE + GRAM [id number] 10:48:00 Test Item Value Reference Range Comments CULTURE (BEAKER) (test vjyi=4074) No growth GRAM STAIN RESULT (BEAKER) (test 2+ White blood cells seen ihgy=7585) GRAM STAIN RESULT (BEAKER) (test 0-5 epithelial cells cbck=62411) GRAM STAIN RESULT (BEAKER) (test No organisms seen bfuj=07933) POCT-GLUCOSE [id number] 06:42:00 Test Item Value Reference Range Comments POC-GLUCOSE METER (BEAKER) 106 mg/dL 70-110 TESTED AT [facility] [address] (test pasm=8752) [place] [address] RAD, CHEST, 1 VIEW, NON [id number] 04:43:00While intubatedReason for exam:-& gt;intubated, hypoxemiaShould this be performed at the bedside?->YesFINAL REPORT RAD, CHEST, 1 VIEW, NON DEPT INDICATION: intubated , hypoxemia COMPARISON: Prior day's exam FINDINGS: Portable frontal view of the chest. IMPRESSION: Support Lines: ET tube, feeding tube and left-sided central catheter without evidence of malpositioning. Right-sided PICC is been removed in the interim. Lungs and pleura: Left retrocardiac and bilateral airspace opacities are slightly decreased in the interim, compatible with decreased edema No pneumothorax.Heart and mediastinum: Stable contours. Additional findings: None. Signed: Peterson Booker MDReport Verified Date/Time: 07/23/2018 04:43:52 Reading Location: [address] Neuro Reading Room BLOOD GAS, [id number] 04:29:00 Test Item Value Reference Range Comments PH ARTERIAL (BEAKER) (test upds=396) 7.31 7.35-7.45 PCO2 ARTERIAL (BEAKER) (test qzzh=239) 64 mmHg 35-45 PO2 ARTERIAL (BEAKER) (test xjai=124) 180 mmHg 80-90 O2 SATURATION ARTERIAL (BEAKER) (test xtmc=721) 99.0 % 96.0-97.0 HCO3 ARTERIAL (BEAKER) (test lkxa=151) 31 mmol/L 21-29 BASE EXCESS ARTERIAL (BEAKER) (test cvdy=662) 4.5 mmol/L -2.0-3.0 PATIENT TEMPERATURE (BEAKER) (test qseh=7946) 38.0 C FIO2 (BEAKER) (test zsmt=3654) 100.0 % While [id number] 04:07:00 Test Item Value Reference Range Comments PHOSPHORUS (BEAKER) (test kobr=801) 4.5 mg/dL 2.3-4.7 [id number] 04:07:00 Test Item Value Reference Range Comments MAGNESIUM (BEAKER) (test kmnp=621) 1.4 mg/dL 1.6-2.6 COMPREHENSIVE METABOLIC [id number] 04:07:00 Test Item Value Reference Range Comments TOTAL PROTEIN (BEAKER) 6.0 gm/dL 6.0-8.3 (test fbou=394) ALBUMIN (BEAKER) (test 2.7 g/dL 3.5-5.0 qvys=7363) ALKALINE PHOSPHATASE 49 U/L 40-150 (BEAKER) (test nscw=355) BILIRUBIN TOTAL (BEAKER) 0.3 mg/dL 0.2-1.2 (test gvwy=913) SODIUM (BEAKER) (test 141 meq/L 136-145 fchv=794) POTASSIUM (BEAKER) (test 4.3 meq/L 3.5-5.1 ekef=950) CHLORIDE (BEAKER) (test 104 meq/L 98-107 fttb=050) CO2 (BEAKER) (test 31 meq/L 22-29 myps=399) BLOOD UREA NITROGEN 13 mg/dL 7-21 (BEAKER) (test btil=526) CREATININE (BEAKER) (test 0.79 mg/dL 0.57-1.25 sgld=212) GLUCOSE RANDOM (BEAKER) 97 mg/dL 70-105 (test nasw=311) CALCIUM (BEAKER) (test 8.1 mg/dL 8.4-10.2 wfek=917) AST (SGOT) (BEAKER) (test 11 U/L 5-34 fism=401) ALT (SGPT) (BEAKER) (test 9 U/L 6-55 qnqa=815) EGFR (BEAKER) (test 84 mL/min/1.73 sq m ESTIMATED GFR IS NOT qgda=9469) ACCURATE CREATININE CLEARANCE IN PREDICTING GLOMERULAR FILTRATION RATE. ESTIMATED GFR IS NOT APPLICABLE FOR DIALYSIS PATIENTS. [id number] 04:00:00 Test Item Value Reference Range Comments PARTIAL THROMBOPLASTIN TIME (BEAKER) (test 63.6 seconds 22.5-36.0 vclz=798) CBC W/PLT COUNT & AUTO [id number] 03:49:00 Test Item Value Reference Range Comments WHITE BLOOD CELL COUNT (BEAKER) (test hzwz=754) 7.8 K/ L 3.5-10.5 RED BLOOD CELL COUNT (BEAKER) (test bvsq=136) 2.82 M/ L 3.93-5.22 HEMOGLOBIN (BEAKER) (test vzbt=884) 7.0 GM/DL 11.2-15.7 HEMATOCRIT (BEAKER) (test bhgm=756) 24.0 % 34.1-44.9 MEAN CORPUSCULAR VOLUME (BEAKER) (test tivo=626) 85.1 fL 79.4-94.8 MEAN CORPUSCULAR HEMOGLOBIN (BEAKER) (test 24.8 pg 25.6-32.2 kzsf=257) MEAN CORPUSCULAR HEMOGLOBIN CONC (BEAKER) (test 29.2 GM/DL 32.2-35.5 vnzq=844) RED CELL DISTRIBUTION WIDTH (BEAKER) (test 18.0 % 11.7-14.4 mbpy=476) PLATELET COUNT (BEAKER) (test nrcx=993) 181 K/CU MM 150-450 MEAN PLATELET VOLUME (BEAKER) (test brhd=361) 10.5 fL 9.4-12.3 NUCLEATED RED BLOOD CELLS (BEAKER) (test 0 /100 WBC 0-0 sacj=198) NEUTROPHILS RELATIVE PERCENT (BEAKER) (test 78 % fouo=035) LYMPHOCYTES RELATIVE PERCENT (BEAKER) (test 14 % ibdk=349) MONOCYTES RELATIVE PERCENT (BEAKER) (test 6 % asrf=168) EOSINOPHILS RELATIVE PERCENT (BEAKER) (test 1 % jewo=768) BASOPHILS RELATIVE PERCENT (BEAKER) (test 0 % anoj=323) NEUTROPHILS ABSOLUTE COUNT (BEAKER) (test 6.13 K/ L 1.56-6.13 txzk=696) LYMPHOCYTES ABSOLUTE COUNT (BEAKER) (test 1.12 K/ L 1.18-3.74 wqwm=601) MONOCYTES ABSOLUTE COUNT (BEAKER) (test 0.48 K/ L 0.24-0.36 knna=189) EOSINOPHILS ABSOLUTE COUNT (BEAKER) (test 0.05 K/ L 0.04-0.36 aakg=395) BASOPHILS ABSOLUTE COUNT (BEAKER) (test 0.03 K/ L 0.01-0.08 hvfs=114) IMMATURE GRANULOCYTES-RELATIVE PERCENT (BEAKER) 0 % 0-1 (test wntd=4980) POCT-GLUCOSE [id number] 01:32:00 Test Item Value Reference Range Comments POC-GLUCOSE METER (BEAKER) 98 mg/dL 70-110 TESTED AT [address] (test agoy=3754) [place] [address] [id number] 19:05:00 Test Item Value Reference Range Comments PARTIAL THROMBOPLASTIN TIME (BEAKER) (test 36.8 seconds 22.5-36.0 rzae=799) BLOOD GAS, [id number] 18:27:00 Test Item Value Reference Range Comments PH ARTERIAL (BEAKER) (test ezwv=425) 7.34 7.35-7.45 PCO2 ARTERIAL (BEAKER) (test dtgm=937) 60 mmHg 35-45 PO2 ARTERIAL (BEAKER) (test qseo=937) 92 mmHg 80-90 O2 SATURATION ARTERIAL (BEAKER) (test pgvg=467) 95.6 % 96.0-97.0 HCO3 ARTERIAL (BEAKER) (test xqwb=492) 31 mmol/L 21-29 BASE EXCESS ARTERIAL (BEAKER) (test rkrd=495) 5.0 mmol/L -2.0-3.0 PATIENT TEMPERATURE (BEAKER) (test njis=9546) 38.5 C FIO2 (BEAKER) (test kota=9359) 100.0 % POCT-GLUCOSE [id number] 18:14:00 Test Item Value Reference Range Comments POC-GLUCOSE METER (BEAKER) 89 mg/dL 70-110 TESTED AT [address] (test xyap=6726) [place] [address] BLOOD GAS, [id number] 14:54:00 Test Item Value Reference Range Comments PH ARTERIAL (BEAKER) (test bzlk=734) 7.36 7.35-7.45 PCO2 ARTERIAL (BEAKER) (test dgay=424) 60 mmHg 35-45 PO2 ARTERIAL (BEAKER) (test evnw=599) 88 mmHg 80-90 O2 SATURATION ARTERIAL (BEAKER) (test vkne=139) 94.9 % 96.0-97.0 HCO3 ARTERIAL (BEAKER) (test xofx=323) 32 mmol/L 21-29 BASE EXCESS ARTERIAL (BEAKER) (test rbml=056) 6.3 mmol/L -2.0-3.0 PATIENT TEMPERATURE (BEAKER) (test wwcb=1800) 39.0 C FIO2 (BEAKER) (test qxfz=8220) 100.0 % BASIC METABOLIC [id number] 12:45:00 Test Item Value Reference Range Comments SODIUM (BEAKER) (test 141 meq/L 136-145 mxxb=621) POTASSIUM (BEAKER) (test 4.5 meq/L 3.5-5.1 vzvs=594) CHLORIDE (BEAKER) (test 102 meq/L 98-107 ximo=005) CO2 (BEAKER) (test 28 meq/L 22-29 qeko=925) BLOOD UREA NITROGEN 9 mg/dL 7-21 (BEAKER) (test fkdd=670) CREATININE (BEAKER) (test 0.66 mg/dL 0.57-1.25 mray=703) GLUCOSE RANDOM (BEAKER) 78 mg/dL 70-105 (test slmv=720) CALCIUM (BEAKER) (test 7.9 mg/dL 8.4-10.2 fxzz=762) EGFR (BEAKER) (test 103 mL/min/1.73 sq m ESTIMATED GFR IS NOT elvd=8807) ACCURATE CREATININE CLEARANCE IN PREDICTING GLOMERULAR FILTRATION RATE. ESTIMATED GFR IS NOT APPLICABLE FOR DIALYSIS PATIENTS. [id number] 12:32:00 Test Item Value Reference Range Comments PARTIAL THROMBOPLASTIN TIME (BEAKER) (test 44.4 seconds 22.5-36.0 bryq=450) CRYPTOCOCCAL [id number] 11:54:00 Test Item Value Reference Range Comments CRYPTOCOCCAL ANTIGEN, SERUM (BEAKER) (test Negative Negative, Interference xrsz=9305) RESPIRATORY PANEL [id number] 10:54:00 Test Item Value Reference Range Comments HUMAN METAPNEUMOVIRUS (BEAKER) (test Not detected Not detected, Equivocal wvlj=6260) RHINOVIRUS (BEAKER) (test aijb=0096) Not detected Not detected, Equivocal INFLUENZA A (BEAKER) (test reab=7308) Not detected Not detected, Equivocal INFLUENZA A (NO SUBTYPE) (test Not detected, Equivocal qdgq=4296) INFLUENZA A SUBTYPE H1 (BEAKER) (test Not detected, Equivocal vncw=6159) INFLUENZA A SUBTYPE H3 (BEAKER) (test Not detected, Equivocal pqpa=4017) INFLUENZA A SUBTYPE H1-2009 (BEAKER) Not detected, Equivocal (test cmty=8996) INFLUENZA B (BEAKER) (test mtqx=0359) Not detected Not detected, Equivocal RESPIRATORY SYNCYTIAL VIRUS (BEAKER) Not detected Not detected, Equivocal (test tcnx=3538) PARAINFLUENZA VIRUS 1 (BEAKER) (test Not detected Not detected, Equivocal ccrx=7654) PARAINFLUENZA VIRUS 2 (BEAKER) (test Not detected Not detected, Equivocal kvgg=8124) PARAINFLUENZA VIRUS 3 (BEAKER) (test Not detected Not detected, Equivocal yjby=9671) PARAINFLUENZA VIRUS 4 (BEAKER) (test Not detected Not detected, Equivocal yeps=4957) ADENOVIRUS (BEAKER) (test oqtn=6042) Not detected Not detected, Equivocal CORONAVIRUS 229E (BEAKER) (test Not detected Not detected, Equivocal ssim=4771) CORONAVIRUS HKU1 (BEAKER) (test Not detected Not detected, Equivocal gdnk=6441) CORONAVIRUS NL63 (BEAKER) (test Not detected Not detected, Equivocal hfjs=2464) CORONAVIRUS OC43 (BEAKER) (test Not detected Not detected, Equivocal paif=5020) BORDETELLA PERTUSSIS (BEAKER) (test Not detected Not detected, Equivocal xcpt=9538) CHLAMYDOPHILA PNEUMONIAE (BEAKER) (test Not detected Not detected, Equivocal lmih=5600) MYCOPLASMA PNEUMONIAE (BEAKER) (test Not detected Not detected, Equivocal ieix=5310) Other viruses and bacteria not targeted by this PCR panel cannot be excluded; therefore clinical correlation and follow up of serology, culture results, and other molecular studies is required. The results are not intended to be used as the sole means for clinical diagnosis or patient management decisions. This sample was tested at the [facility] using the [employer] FilmArray Respiratory Panel. It is FDA cleared and has been verified and approved by the [facility] for clinical use on nasal swab specimens. It is not FDA-cleared for use on bronchial wash/lavage samples. However, for this sample type, validation was performed and test characteristics were determined and approved, by [facility] for clinical use under the Clinical Laboratory Improvement Amendments (CLIA) of 1988 requirements. Therefore, FDA clearance isnot required. This laboratory is CLIA-certified and [employer] (CAP)-accredited to perform high complexity testing.HEPATIC FUNCTION [id number] 10:38:00 Test Item Value Reference Range Comments TOTAL PROTEIN (BEAKER) (test byzc=787) 6.2 gm/dL 6.0-8.3 ALBUMIN (BEAKER) (test bxht=8249) 2.9 g/dL 3.5-5.0 BILIRUBIN TOTAL (BEAKER) (test pkip=661) 0.4 mg/dL 0.2-1.2 BILIRUBIN DIRECT (BEAKER) (test sgce=325) 0.3 mg/dL 0.1-0.5 ALKALINE PHOSPHATASE (BEAKER) (test tfcs=251) 55 U/L 40-150 AST (SGOT) (BEAKER) (test fvcd=770) 14 U/L 5-34 ALT (SGPT) (BEAKER) (test valb=346) 13 U/L 6-55 LACTIC ACID, ARTERIAL, WHOLE [id number] 09:17:00 Test Item Value Reference Range Comments LACTATE BLOOD ARTERIAL (2) (BEAKER) (test 0.6 mmol/L 0.5-2.2 este=7778) BLOOD GAS, [id number] 08:59:00 Test Item Value Reference Range Comments PH ARTERIAL (BEAKER) (test bsoh=952) 7.36 7.35-7.45 PCO2 ARTERIAL (BEAKER) (test lnzg=421) 56 mmHg 35-45 PO2 ARTERIAL (BEAKER) (test lkta=552) 136 mmHg 80-90 O2 SATURATION ARTERIAL (BEAKER) (test nvio=818) 98.4 % 96.0-97.0 HCO3 ARTERIAL (BEAKER) (test obkn=824) 31 mmol/L 21-29 BASE EXCESS ARTERIAL (BEAKER) (test scuf=097) 4.6 mmol/L -2.0-3.0 PATIENT TEMPERATURE (BEAKER) (test aevs=4392) 38.0 C FIO2 (BEAKER) (test uzdu=8298) 80.0 % CT, SINUS, WITHOUT IV [id number] 08:48:00Reason for exam:->evaluate extension of brain abscessFINAL REPORT CT Sinus Clinical History: evaluate extension of brain abscess Technique: Contiguous axial, sagittal, and coronal images through the paranasal sinuses without contrast. This exam was performed according to the departmental dose optimization program which includes automated exposure control, adjustment of the mA and/or kV according to the patient size, and/or use ofan iterative reconstruction technique. Comparisons: No prior head or sinus imaging available for comparison. Findings: Please note that the brain is incompletely imaged with limited evaluation on this noncontrast maxillofacial protocol. However, there is nonspecific hypodensity in the right inferior temporal lobe adjacent to the right tympanomastoid air cells which are completely opacified. The left tympanomastoid air cells are also completely opacified by fluid. There are air- fluid levels in the bilateral maxillary and sphenoid sinuses. However, please note that there is support tubing in place. The nasal septum is deviated to the left. There is a right lamellar cell. 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 Impression: Nonspecific hypodensity in the right temporal lobe adjacent to fluid -filledmastoid air cells. 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 An abscess cannot be excluded. Further evaluation with a gadolinium-enhanced MRI brain is recommended. Signed: Shani Zimmerman Verified Date/Time: 07/22/2018 08: 48:38 Reading Location: [address] Neuro Reading Room RAD, CHEST, 1 VIEW, NON [id number] 06:48:00Reason for exam:->intubatedShould this be performed at the bedside?->YesFINAL REPORT RAD, CHEST, 1 VIEW, NON DEPT INDICATION: intubated COMPARISON: Prior day's exam FINDINGS: Portable frontal view of the chest. IMPRESSION: Support Lines: ET tube and right- sided PICC are unchanged without evidence of malpositioning. Lungs and pleura: Bilateral airspace and interstitial opacities have apparently increased slightly in the interim, however, this maybe due in part to interstitial crowding decreased inspiration on current exam. Left retrocardiac atelectasis not significantly changed. Superimposed infection may be excluded clinically. No pneumothorax.Heart and mediastinum: Stable contours. Additional findings: None. Signed: Peterson Bookerort Verified Date/Time: 07/22/2018 06:48:56 Reading Location: [address] Neuro Reading Room POCT-GLUCOSE [id number] 06:17:00 Test Item Value Reference Range Comments POC-GLUCOSE METER (BEAKER) 113 mg/dL 70-110 TESTED AT [facility] [address] (test cybk=9000) [facility] [address] BLOOD GAS, [id number] 05:57:00 Test Item Value Reference Range Comments PH ARTERIAL (BEAKER) (test kmee=984) 7.39 7.35-7.45 PCO2 ARTERIAL (BEAKER) (test goif=459) 73 mmHg 35-45 PO2 ARTERIAL (BEAKER) (test esdz=514) 49 mmHg 80-90 O2 SATURATION ARTERIAL (BEAKER) (test tazh=186) 79.5 % 96.0-97.0 HCO3 ARTERIAL (BEAKER) (test krgz=432) 43 mmol/L 21-29 BASE EXCESS ARTERIAL (BEAKER) (test ldfz=880) 15.3 mmol/L -2.0-3.0 PATIENT TEMPERATURE (BEAKER) (test mznn=4909) 38.0 C FIO2 (BEAKER) (test jmvy=8221) 80.0 % [id number] 05:19:00 Test Item Value Reference Range Comments MAGNESIUM (BEAKER) (test auqx=890) 1.3 mg/dL 1.6-2.6 BASIC METABOLIC [id number] 05:19:00 Test Item Value Reference Range Comments SODIUM (BEAKER) (test 141 meq/L 136-145 dusq=579) POTASSIUM (BEAKER) (test 3.8 meq/L 3.5-5.1 pdbv=334) CHLORIDE (BEAKER) (test 102 meq/L 98-107 vdxx=581) CO2 (BEAKER) (test 30 meq/L 22-29 wjfe=897) BLOOD UREA NITROGEN 9 mg/dL 7-21 (BEAKER) (test eamh=890) CREATININE (BEAKER) (test 0.69 mg/dL 0.57-1.25 xcvh=485) GLUCOSE RANDOM (BEAKER) 89 mg/dL 70-105 (test jyap=914) CALCIUM (BEAKER) (test 8.0 mg/dL 8.4-10.2 tksf=644) EGFR (BEAKER) (test 98 mL/min/1.73 sq m ESTIMATED GFR IS NOT cwzu=6163) ACCURATE CREATININE CLEARANCE IN PREDICTING GLOMERULAR FILTRATION RATE. ESTIMATED GFR IS NOT APPLICABLE FOR DIALYSIS PATIENTS. [id number] 05:16:00 Test Item Value Reference Range Comments PARTIAL THROMBOPLASTIN TIME (BEAKER) (test 33.2 seconds 22.5-36.0 bceu=159) Prior to initiating heparinCBC W/PLT COUNT & AUTO [id number] 05: 05:00 Test Item Value Reference Range Comments WHITE BLOOD CELL COUNT (BEAKER) (test wtlb=462) 8.4 K/ L 3.5-10.5 RED BLOOD CELL COUNT (BEAKER) (test uuaf=744) 3.11 M/ L 3.93-5.22 HEMOGLOBIN (BEAKER) (test peeg=851) 7.7 GM/DL 11.2-15.7 HEMATOCRIT (BEAKER) (test dgxx=300) 25.9 % 34.1-44.9 MEAN CORPUSCULAR VOLUME (BEAKER) (test flnr=092) 83.3 fL 79.4-94.8 MEAN CORPUSCULAR HEMOGLOBIN (BEAKER) (test 24.8 pg 25.6-32.2 srpd=273) MEAN CORPUSCULAR HEMOGLOBIN CONC (BEAKER) (test 29.7 GM/DL 32.2-35.5 zcdc=319) RED CELL DISTRIBUTION WIDTH (BEAKER) (test 18.4 % 11.7-14.4 xhta=823) PLATELET COUNT (BEAKER) (test vdox=835) 202 K/CU MM 150-450 MEAN PLATELET VOLUME (BEAKER) (test skrn=581) 10.7 fL 9.4-12.3 NUCLEATED RED BLOOD CELLS (BEAKER) (test 0 /100 WBC 0-0 jcaz=310) NEUTROPHILS RELATIVE PERCENT (BEAKER) (test 80 % uiqb=837) LYMPHOCYTES RELATIVE PERCENT (BEAKER) (test 11 % fbak=257) MONOCYTES RELATIVE PERCENT (BEAKER) (test 6 % plfo=859) EOSINOPHILS RELATIVE PERCENT (BEAKER) (test 1 % naee=056) BASOPHILS RELATIVE PERCENT (BEAKER) (test 1 % aaut=691) NEUTROPHILS ABSOLUTE COUNT (BEAKER) (test 6.75 K/ L 1.56-6.13 uzdr=974) LYMPHOCYTES ABSOLUTE COUNT (BEAKER) (test 0.95 K/ L 1.18-3.74 ehlw=185) MONOCYTES ABSOLUTE COUNT (BEAKER) (test 0.53 K/ L 0.24-0.36 ibcm=635) EOSINOPHILS ABSOLUTE COUNT (BEAKER) (test 0.09 K/ L 0.04-0.36 kepn=404) BASOPHILS ABSOLUTE COUNT (BEAKER) (test 0.06 K/ L 0.01-0.08 jhuc=710) IMMATURE GRANULOCYTES-RELATIVE PERCENT (BEAKER) 1 % 0-1 (test kpyn=3588) CT, CHEST WITH IV CONTRAST- PE TEST [id number] 03:36:00FINAL REPORT TECHNIQUE: CT scan of the chest WITH intravenous contrast. Dose modulation, iterative reconstruction, and/or weight-based adjustment of the mA/kV was utilized to reduce the radiation dose to as low as reasonably achievable. INDICATION: Worsening hypoxic respiratory failure. COMPARISON: Chest x-ray July 21, 2018 4:59 PM. FINDINGS: LINES/TUBES: None. PULMONARY ARTERIES: The ventricular diameter and ventricular septum position suggests mild right heart strain. Although examination is significantly limited by motion and breathing artifact, on axial image 63-67 of series 3, pulmonary embolism extending from the right main pulmonary artery into the upper and lower lobar pulmonary arteries is demonstrated. Evaluation of the segmental and subsegmental pulmonary arteries is precluded secondary to degree of motion artifact. LUNGS AND AIRWAYS: Bilateral multilobar airspace consolidation without effusions, favored to represent multifocal infection. PLEURA: The pleural spaces are clear. HEART AND MEDIASTINUM: The visualized thyroid gland is normal. Evaluation of the karen is significantly limited due to the degree of motion artifact. Within these limitations, no definite hilar adenopathy is identified. As per above, findings suggestive of mild right heart strain.SOFT TISSUES AND BONES: Unremarkable. UPPER ABDOMEN: ET tube and nasogastric tube are present without evidence of malpositioning. IMPRESSION: 1. Examination significantly limited due to motion artifact. Within these limitations, pulmonary emboli within the right main and right lobar pulmonary arteries is noted. Evaluation of the segmental and subsegmental pulmonary arteries is precluded due to degree of breathing and motion artifact.2.. Multi lobar bilateral airspace consolidation without effusions, favored to represent multifocal infection given patient's history of pneumococcal pneumonia. In theappropriate clinical setting, diffuse alveolar hemorrhage may have a similar appearance Findings discussed with the surgery resident on-call at 3:[address] Booker Signed: Peterson Bookereport Verified Date/Time: 07/22/2018 03 :36:58 Reading Location: [facility] B1 C013V Neuro Reading Room BASIC METABOLIC [id number] 23:30:00 Test Item Value Reference Range Comments SODIUM (BEAKER) (test 141 meq/L 136-145 cudj=141) POTASSIUM (BEAKER) (test 3.7 meq/L 3.5-5.1 rbxr=463) CHLORIDE (BEAKER) (test 102 meq/L 98-107 qbxh=283) CO2 (BEAKER) (test 29 meq/L 22-29 podi=250) BLOOD UREA NITROGEN 7 mg/dL 7-21 (BEAKER) (test lraq=994) CREATININE (BEAKER) (test 0.64 mg/dL 0.57-1.25 jhkc=137) GLUCOSE RANDOM (BEAKER) 79 mg/dL 70-105 (test zerv=958) CALCIUM (BEAKER) (test 7.9 mg/dL 8.4-10.2 laox=864) EGFR (BEAKER) (test 107 mL/min/1.73 sq m ESTIMATED GFR IS NOT zhkm=5750) ACCURATE CREATININE CLEARANCE IN PREDICTING GLOMERULAR FILTRATION RATE. ESTIMATED GFR IS NOT APPLICABLE FOR DIALYSIS PATIENTS. RAD, CHEST, 1 VIEW, NON [id number] 19:05:00Reason for exam:->post RYNA PICC lineShould this be performed at the bedside?->YesFINAL REPORT History: Respiratory distress. FINDINGS: Compared with earlier film the same date, diffuse bilateral airspace opacity, possibly lung edema, pneumonia or ARDS has increased. Life-support tubes and lines appear in stable positions. No pneumothorax. The heart and mediastinum are stable. Bones are unremarkable. IMPRESSION: 1. Diffuse bilateral pulmonary airspace opacity, increased since earlier film of the same date. Signed: Donovan Shepherd Verified Date/Time:07/21/2018 19:05:16 Reading Location: [facility] Diagnostic Imaging Reading Room - [facility] F1 1120 POCT-GLUCOSE [id number] 18:47:00 Test Item Value Reference Range Comments POC-GLUCOSE METER (BEAKER) 99 mg/dL 70-110 TESTED AT [facility] [address] [facility] (test eogo=2154) [facility] [address] BASIC METABOLIC [id number] 18:00:00 Test Item Value Reference Range Comments SODIUM (BEAKER) (test 143 meq/L 136-145 fwar=118) POTASSIUM (BEAKER) (test 3.7 meq/L 3.5-5.1 qckl=880) CHLORIDE (BEAKER) (test 106 meq/L 98-107 zcjr=457) CO2 (BEAKER) (test 28 meq/L 22-29 wlul=451) BLOOD UREA NITROGEN 7 mg/dL 7-21 (BEAKER) (test bcbm=451) CREATININE (BEAKER) (test 0.62 mg/dL 0.57-1.25 fvjo=723) GLUCOSE RANDOM (BEAKER) 94 mg/dL 70-105 (test ffdk=180) CALCIUM (BEAKER) (test 7.9 mg/dL 8.4-10.2 khlw=937) EGFR (BEAKER) (test 111 mL/min/1.73 sq m ESTIMATED GFR IS NOT rckb=3151) ACCURATE CREATININE CLEARANCE IN PREDICTING GLOMERULAR FILTRATION RATE. ESTIMATED GFR IS NOT APPLICABLE FOR DIALYSIS PATIENTS. [id number] 17:56:00 Test Item Value Reference Range Comments MAGNESIUM (BEAKER) (test tjdi=672) 1.6 mg/dL 1.6-2.6 LACTIC ACID, ARTERIAL, WHOLE [id number] 17:54:00 Test Item Value Reference Range Comments LACTATE BLOOD ARTERIAL (2) 0.6 mmol/L 0.5-2.2 Specimen slightly hemolyzed (BEAKER) (test bcgw=5856) BLOOD GAS, [id number] 14:00:00 Test Item Value Reference Range Comments PH ARTERIAL (BEAKER) (test zqhw=179) 7.46 7.35-7.45 PCO2 ARTERIAL (BEAKER) (test kwjo=296) 38 mmHg 35-45 PO2 ARTERIAL (BEAKER) (test nkhx=905) 193 mmHg 80-90 O2 SATURATION ARTERIAL (BEAKER) (test cece=990) 99.4 % 96.0-97.0 HCO3 ARTERIAL (BEAKER) (test lrwv=188) 26 mmol/L 21-29 BASE EXCESS ARTERIAL (BEAKER) (test odyl=416) 2.4 mmol/L -2.0-3.0 PATIENT TEMPERATURE (BEAKER) (test sxqe=8705) 37.0 C FIO2 (BEAKER) (test qzsv=3774) 70.0 % RAD, CHEST, 1 VIEW, NON [id number] 13:26:00Reason for exam:-> intubationShould this be performed at the bedside?->YesFINAL REPORT Chest dated 07/21/2018 COMPARISON: 07/20/2018 Clinical Information : intubation Comment: Since prior examination, there is interval intubation with tip seen approximately 3 cm above the clint. A nasogastric tube and right subclavian central venous catheter are noted.There is no significant interval change in airspace disease in both lungs. Signed: Avery Maldonado MDReport Verified Date/Time: 07/21/2018 13:26:53 Reading Location: [address] Consult Reading Room BLOOD GAS , [id number] 11:39:00 Test Item Value Reference Range Comments PH ARTERIAL (BEAKER) (test opoe=737) 7.50 7.35-7.45 PCO2 ARTERIAL (BEAKER) (test dorp=390) 42 mmHg 35-45 PO2 ARTERIAL (BEAKER) (test felz=308) 53 mmHg 80-90 O2 SATURATION ARTERIAL (BEAKER) (test ccfr=531) 90.0 % 96.0-97.0 HCO3 ARTERIAL (BEAKER) (test hlsb=733) 32 mmol/L 21-29 BASE EXCESS ARTERIAL (BEAKER) (test ddnk=604) 7.8 mmol/L -2.0-3.0 PATIENT TEMPERATURE (BEAKER) (test ajjn=3808) 37.0 C FIO2 (BEAKER) (test sxjp=0946) 100.0 % [id number] 10:18:00 Test Item Value Reference Range Comments MAGNESIUM (BEAKER) (test mwow=104) 2.1 mg/dL 1.6-2.6 BASIC METABOLIC [id number] 10:18:00 Test Item Value Reference Range Comments SODIUM (BEAKER) (test 143 meq/L 136-145 zkdp=013) POTASSIUM (BEAKER) (test 3.7 meq/L 3.5-5.1 uhcb=555) CHLORIDE (BEAKER) (test 103 meq/L 98-107 pzon=121) CO2 (BEAKER) (test 28 meq/L 22-29 hmsa=344) BLOOD UREA NITROGEN 6 mg/dL 7-21 (BEAKER) (test qpbr=495) CREATININE (BEAKER) (test 0.65 mg/dL 0.57-1.25 ezsz=311) GLUCOSE RANDOM (BEAKER) 90 mg/dL 70-105 (test pvkd=534) CALCIUM (BEAKER) (test 8.1 mg/dL 8.4-10.2 imys=379) EGFR (BEAKER) (test 105 mL/min/1.73 sq m ESTIMATED GFR IS NOT rpzu=9901) ACCURATE CREATININE CLEARANCE IN PREDICTING GLOMERULAR FILTRATION RATE. ESTIMATED GFR IS NOT APPLICABLE FOR DIALYSIS PATIENTS. BLOOD GAS, [id number] 06:19:00 Test Item Value Reference Range Comments PH ARTERIAL (BEAKER) (test cmpu=366) 7.54 7.35-7.45 PCO2 ARTERIAL (BEAKER) (test gizv=149) 37 mmHg 35-45 PO2 ARTERIAL (BEAKER) (test qosz=761) 180 mmHg 80-90 O2 SATURATION ARTERIAL (BEAKER) (test ujhg=376) 99.4 % 96.0-97.0 HCO3 ARTERIAL (BEAKER) (test ilim=896) 31 mmol/L 21-29 BASE EXCESS ARTERIAL (BEAKER) (test fxtn=100) 7.6 mmol/L -2.0-3.0 PATIENT TEMPERATURE (BEAKER) (test tnau=5318) 37.3 C FIO2 (BEAKER) (test yihr=3860) 100.0 % [id number] 05:24:00 Test Item Value Reference Range Comments FERRITIN (BEAKER) (test laze=939) 149 ng/mL 5-275 VITAMIN B12 AND [id number] 05:24:00 Test Item Value Reference Range Comments VITAMIN B12 (BEAKER) (test tgmu=685) 361 pg/mL 213-816 FOLATE (BEAKER) (test kqup=484) 6.2 ng/mL >=7.0 SCREEN, [id number] 05:04:00 Test Item Value Reference Range Comments TEST URINE (BEAKER) (test cwlc=102) Negative [id number] 05:00:00 Test Item Value Reference Range Comments MAGNESIUM (BEAKER) (test gmko=963) 0.8 mg/dL 1.6-2.6 RETICULOCYTE [id number] 05:00:00 Test Item Value Reference Range Comments RETICULOCYTE COUNT PCT (BEAKER) (test yskh=817) 5.1 % 0.5-1.7 IRON, TIBC, % SAT. (WITHOUT FERRITIN)2018-07-21 04:59:00 Test Item Value Reference Range Comments IRON (BEAKER) (test gfaz=622) 14.0 ug/dL 40.0-160.0 TOTAL IRON BINDING CAPACITY (BEAKER) (test 158 ug/dL 250-450 nsgz=025) IRON % SATURATION (2) (BEAKER) (test ftzg=0511) 9 % 20-55 [id number] 04:58:00 Test Item Value Reference Range Comments PHOSPHORUS (BEAKER) (test gwft=105) 3.8 mg/dL 2.3-4.7 BASIC METABOLIC [id number] 04:58:00 Test Item Value Reference Range Comments SODIUM (BEAKER) (test 145 meq/L 136-145 othw=848) POTASSIUM (BEAKER) (test 3.7 meq/L 3.5-5.1 eayh=300) CHLORIDE (BEAKER) (test 108 meq/L 98-107 rkcp=949) CO2 (BEAKER) (test 29 meq/L 22-29 goue=198) BLOOD UREA NITROGEN 6 mg/dL 7-21 (BEAKER) (test ekjn=239) CREATININE (BEAKER) (test 0.66 mg/dL 0.57-1.25 rzxb=443) GLUCOSE RANDOM (BEAKER) 91 mg/dL 70-105 (test irgm=434) CALCIUM (BEAKER) (test 8.2 mg/dL 8.4-10.2 blmg=220) EGFR (BEAKER) (test 103 mL/min/1.73 sq m ESTIMATED GFR IS NOT setc=9552) ACCURATE CREATININE CLEARANCE IN PREDICTING GLOMERULAR FILTRATION RATE. ESTIMATED GFR IS NOT APPLICABLE FOR DIALYSIS PATIENTS. LACTATE DEHYDROGENASE (LDH)2018-07-21 04:58:00 Test Item Value Reference Range Comments LACTATE DEHYDROGENASE (BEAKER) (test ijje=590) 310 U/L 125-220 B-TYPE NATRIURETIC FACTOR (BNP)2018-07-21 04:54:00 Test Item Value Reference Range Comments B-TYPE NATRIURETIC PEPTIDE (BEAKER) (test 187 pg/mL 0-100 ycql=751) CBC W/PLT COUNT & AUTO [id number] 04:42:00 Test Item Value Reference Range Comments WHITE BLOOD CELL COUNT (BEAKER) (test xjfh=239) 9.7 K/ L 3.5-10.5 RED BLOOD CELL COUNT (BEAKER) (test byzn=515) 3.07 M/ L 3.93-5.22 HEMOGLOBIN (BEAKER) (test bkng=743) 7.7 GM/DL 11.2-15.7 HEMATOCRIT (BEAKER) (test tziw=603) 25.2 % 34.1-44.9 MEAN CORPUSCULAR VOLUME (BEAKER) (test wbif=507) 82.1 fL 79.4-94.8 MEAN CORPUSCULAR HEMOGLOBIN (BEAKER) (test 25.1 pg 25.6-32.2 dqkh=293) MEAN CORPUSCULAR HEMOGLOBIN CONC (BEAKER) (test 30.6 GM/DL 32.2-35.5 zhft=911) RED CELL DISTRIBUTION WIDTH (BEAKER) (test 18.6 % 11.7-14.4 blpe=195) PLATELET COUNT (BEAKER) (test qtho=625) 201 K/CU MM 150-450 MEAN PLATELET VOLUME (BEAKER) (test fibx=038) 10.6 fL 9.4-12.3 NUCLEATED RED BLOOD CELLS (BEAKER) (test 0 /100 WBC 0-0 ucka=921) NEUTROPHILS RELATIVE PERCENT (BEAKER) (test 80 % ucuj=706) LYMPHOCYTES RELATIVE PERCENT (BEAKER) (test 12 % fmph=261) MONOCYTES RELATIVE PERCENT (BEAKER) (test 6 % dped=755) EOSINOPHILS RELATIVE PERCENT (BEAKER) (test 0 % spch=939) BASOPHILS RELATIVE PERCENT (BEAKER) (test 0 % pqef=898) NEUTROPHILS ABSOLUTE COUNT (BEAKER) (test 7.76 K/ L 1.56-6.13 kpoi=875) LYMPHOCYTES ABSOLUTE COUNT (BEAKER) (test 1.20 K/ L 1.18-3.74 idve=006) MONOCYTES ABSOLUTE COUNT (BEAKER) (test 0.60 K/ L 0.24-0.36 xytg=146) EOSINOPHILS ABSOLUTE COUNT (BEAKER) (test 0.03 K/ L 0.04-0.36 fmal=969) BASOPHILS ABSOLUTE COUNT (BEAKER) (test 0.04 K/ L 0.01-0.08 mkjp=229) IMMATURE GRANULOCYTES-RELATIVE PERCENT (BEAKER) 0 % 0-1 (test mlyp=3053) EEG AWAKE AND [id number] 20:05:00Reason for exam:->monica abscessNeurophysiology Electroencephalogram Report DATE OF REPORT: 07/20/18Date(s ) of Study: 07/20/18ACC: [id number]: [id number] time: 17:17hrsStop time: 17: 38hICD-10: R41.82 Altered Mental StatusCPT Code: 70880 EEG: awake and drowsy &lt ;40 min HISTORY: 33 y/o female referred for inpatient EEG due to altered mental status. MEDICATIONS THAT COULD AFFECT EEG: None TECHNICAL SUMMARY: This is a digital video EEG recorded with 32 input channels reviewed with bipolar and referential montages using the modified combinatorial system nomenclature. DESCRIPTION OF RECORD: AWAKE: During the maximally alert state, the posterior dominant rhythm was 10-11 Hz. More anteriorly, similar frequency activity was seen with lowvoltage >18 Hz activity present frontally. There was occasional 5-7 Hz activity seen diffusely. SLEEP: Drowsiness showed a loss of faster frequencies with fragmentation of the PDR. No sleep featureswere seen. Activation Procedures: Hyperventilation was not performed. Photic stimulation was not done. Events: None IMPRESSION: Abnormal awake and drowsy EEG due to: 1. Intermittent mild slowing, generalizedCLINICAL COMMENT: This study suggests a mild nonspecific encephalopathic state. No epileptiform abnormalities , including electrographic seizures. An EEG without epileptiform discharges does not exclude the possibility of epilepsy. Fiordaliza Woodson MDFellNew Lifecare [facility] Neurophysiology Jerrell Noland MDNeurophysiology/Epilepsy Attending RAD, CHEST, 1 VIEW, NON [id number] 19:52:00Reason for exam:->pneumococcal pneumoniaShould this be performed at the bedside?->YesFINAL REPORT Chest, one view History: Pneumococcal pneumonia Comparison: noneFindings:Extensive bilateral airspace disease, left greater than right. Normal size heart. Small bilateral pleural effusions are apparent. There is a right subclavian central venous catheter, which terminates within the superior vena cava. Impression: 1. Extensive bilateral airspace disease, whichcould represent multifocal pneumonia given the patient's demographics and clinical history. Pulmonary edema would also be in the differential.2. Small bilateral pleural effusions. Signed: Maninder Vazquez MDReport Verified Date/Time: 2018 19:52:35 Reading Location: [facility] Reading Room [id number] 18: 50:00 Test Item Value Reference Range Comments POC-POTASSIUM (BEAKER) (test 3.6 meq/L 3.6-5.5 TESTED AT [address] crvf=8811) [place] [address] [id number] 18:50:00 Test Item Value Reference Range Comments POC-GLUCOSE (BEAKER) (test 86 mg/dL 70-110 TESTED AT [address] eiui=6255) [place] [address] POCT-CALCIUM [id number] 18:50:00 Test Item Value Reference Range Comments POC-CALCIUM IONIZED (BEAKER) 1.08 mmol/L 1.12-1.27 TESTED AT [address] (test wijf=3262) [place] [address] [id number] 18:50:00 Test Item Value Reference Range Comments POC-HEMATOCRIT (BEAKER) (test 22 % 36-45 TESTED AT [address] mfvo=2712) [place] [address] [id number] 18:50:00 Test Item Value Reference Range Comments POC-HEMOGLOBIN (BEAKER) 7.5 g/dL 12.0-15.0 TESTED AT [address] (test vfpn=9198) [place] [address]TESTED AT [place] [address] POCT-BLOOD GASES, [id number] 18:49:00 Test Item Value Reference Range Comments TEMP, CELSIUS-POC (BEAKER) 37.0 (test axcp=6623) FIO2-POC (BEAKER) (test TESTED AT [address] qbey=6619) [place] [address] PH, ARTERIAL-POC (BEAKER) 7.525 7.350-7.450 (test oyrg=7678) PCO2, ARTERIAL-POC (BEAKER) 31.9 mm Hg 35.0-45.0 (test bjto=9266) PO2, ARTERIAL-POC (BEAKER) 44.0 mm Hg 80.0-90.0 (test ypwl=9973) SO2, ARTERIAL-POC (BEAKER) 85.0 % 96.0-97.0 (test qtbm=2657) HCO3, ARTERIAL-POC (BEAKER) 26.4 meq/L 21.0-29.0 (test ufck=5378) BASE EXCESS, ARTERIAL-POC 4.0 meq/L -2.0-3.0 (BEAKER) (test pejc=4468) [id number] 18:49:00 Test Item Value Reference Range Comments POC-SODIUM (BEAKER) (test 145 meq/L 135-148 TESTED AT [address] pzmg=9919) [place] [address] POCT-LACTIC ACID, [id number] 17:54:00 Test Item Value Reference Range Comments POC-LACTIC ACID, VENOUS 0.5 mmol/L 0.9-1.7 [address] AT [address] (BEAKER) (test bdhs=9741) [place] [address] [id number] 17:54:00 Test Item Value Reference Range Comments POC-SODIUM (BEAKER) (test 146 meq/L 135-148 TESTED AT [address] qjca=3422) [place] [address] [id number] 17:54:00 Test Item Value Reference Range Comments POC-POTASSIUM (BEAKER) (test 3.4 meq/L 3.6-5.5 TESTED AT [place] [address] [address] dspn=7212) [place] [address] [id number] 17:54:00 Test Item Value Reference Range Comments POC-GLUCOSE (BEAKER) (test 88 mg/dL 70-110 TESTED AT [address] wbau=7393) [place] [address] POCT-CALCIUM [id number] 17:54:00 Test Item Value Reference Range Comments POC-CALCIUM IONIZED (BEAKER) 1.11 mmol/L 1.12-1.27 TESTED AT [address] (test vjho=6360) [place] [address] [id number] 17:54:00 Test Item Value Reference Range Comments POC-HEMATOCRIT (BEAKER) (test 22 % 36-45 TESTED AT [address] kycr=2040) [place] [address] [id number] 17:54:00 Test Item Value Reference Range Comments POC-HEMOGLOBIN (BEAKER) 7.5 g/dL 12.0-15.0 TESTED AT [address] (test awkh=0509) [place] [address]TESTED AT [place] [address] POCT-BLOOD GASES, [id number] 17:53:00 Test Item Value Reference Range Comments TEMP, CELSIUS-POC (BEAKER) 37.0 (test ldpl=3485) FIO2-POC (BEAKER) (test TESTED AT [address] ooyp=8092) [place] [address] PH, VENOUS-POC (BEAKER) 7.456 7.320-7.420 (test dhzx=7469) PCO2, VENOUS-POC (BEAKER) 38.6 mm Hg 41.0-51.0 (test mear=8720) PO2, VENOUS-POC (BEAKER) 36.0 mm Hg 25.0-40.0 (test jsvv=0658) SO2, VENOUS-POC (BEAKER) 72.0 % 40.0-70.0 (test slfb=7520) HCO3, VENOUS-POC (BEAKER) 27.2 meq/L 21.0-29.0 (test ysue=7211) BASE EXCESS, VENOUS-POC 3.0 meq/L -2.0-3.0 (BEAKER) (test edrf=5352) TOXOPLASMA GONDII ANTIBODY, [id number] 12:55:00 Test Item Value Reference Range Comments TOXOPLASMA GONDII IGG QUANTITATIVE (BEAKER) (test < IU/mL <10.0 dcee=6742) Toxoplasma Gondii IgG Result Interpretation: </=9.9 IU/mL Normal 10- 11 IU/mL Equivocal>/=12 IU/mL PositiveVANCOMYCIN LEVEL, [id number] 11:06:00 Test Item Value Reference Range Comments VANCOMYCIN TROUGH (BEAKER) (test fjsb=053) 8.2 ug/mL 10.0-20.0 COMPREHENSIVE METABOLIC [id number] 09:18:00 Test Item Value Reference Range Comments TOTAL PROTEIN (BEAKER) 6.0 gm/dL 6.0-8.3 (test wpaw=241) ALBUMIN (BEAKER) (test 2.9 g/dL 3.5-5.0 qrxr=1845) ALKALINE PHOSPHATASE 49 U/L 40-150 (BEAKER) (test kxwx=157) BILIRUBIN TOTAL (BEAKER) 0.6 mg/dL 0.2-1.2 (test rxvs=473) SODIUM (BEAKER) (test 146 meq/L 136-145 gsbs=477) POTASSIUM (BEAKER) (test 3.7 meq/L 3.5-5.1 vjcq=959) CHLORIDE (BEAKER) (test 111 meq/L 98-107 gbhf=392) CO2 (BEAKER) (test 28 meq/L 22-29 jcys=782) BLOOD UREA NITROGEN 6 mg/dL 7-21 (BEAKER) (test oofp=322) CREATININE (BEAKER) (test 0.64 mg/dL 0.57-1.25 ahvv=861) GLUCOSE RANDOM (BEAKER) 90 mg/dL 70-105 (test pctt=020) CALCIUM (BEAKER) (test 8.2 mg/dL 8.4-10.2 xojh=206) AST (SGOT) (BEAKER) (test 12 U/L 5-34 ftok=481) ALT (SGPT) (BEAKER) (test 13 U/L 6-55 mdjq=501) EGFR (BEAKER) (test 107 mL/min/1.73 sq ESTIMATED GFR IS NOT ydue=5369) m ACCURATE CREATININE CLEARANCE IN PREDICTING GLOMERULAR FILTRATION RATE. ESTIMATED GFR IS NOT APPLICABLE FOR DIALYSIS PATIENTS. LACTIC ACID, VENOUS, WHOLE [id number] 09:09:00 Test Item Value Reference Range Comments LACTATE BLOOD VENOUS (2) (BEAKER) (test 0.8 mmol/L 0.5-2.2 sowa=4282) CBC W/PLT COUNT & AUTO [id number] 09:02:00 Test Item Value Reference Range Comments WHITE BLOOD CELL COUNT (BEAKER) (test adek=174) 8.7 K/ L 3.5-10.5 RED BLOOD CELL COUNT (BEAKER) (test zjvi=592) 3.15 M/ L 3.93-5.22 HEMOGLOBIN (BEAKER) (test gjtl=738) 7.9 GM/DL 11.2-15.7 HEMATOCRIT (BEAKER) (test csfr=888) 26.1 % 34.1-44.9 MEAN CORPUSCULAR VOLUME (BEAKER) (test qorg=409) 82.9 fL 79.4-94.8 MEAN CORPUSCULAR HEMOGLOBIN (BEAKER) (test 25.1 pg 25.6-32.2 gphj=648) MEAN CORPUSCULAR HEMOGLOBIN CONC (BEAKER) (test 30.3 GM/DL 32.2-35.5 fdju=767) RED CELL DISTRIBUTION WIDTH (BEAKER) (test 18.6 % 11.7-14.4 irgc=123) PLATELET COUNT (BEAKER) (test swgx=611) 201 K/CU MM 150-450 MEAN PLATELET VOLUME (BEAKER) (test wnby=545) 10.3 fL 9.4-12.3 NUCLEATED RED BLOOD CELLS (BEAKER) (test 0 /100 WBC 0-0 cbrj=987) NEUTROPHILS RELATIVE PERCENT (BEAKER) (test 77 % beur=928) LYMPHOCYTES RELATIVE PERCENT (BEAKER) (test 14 % bzod=096) MONOCYTES RELATIVE PERCENT (BEAKER) (test 8 % rvyl=186) EOSINOPHILS RELATIVE PERCENT (BEAKER) (test 0 % ltku=584) BASOPHILS RELATIVE PERCENT (BEAKER) (test 1 % uqun=071) NEUTROPHILS ABSOLUTE COUNT (BEAKER) (test 6.67 K/ L 1.56-6.13 tqgc=026) LYMPHOCYTES ABSOLUTE COUNT (BEAKER) (test 1.17 K/ L 1.18-3.74 mdcy=486) MONOCYTES ABSOLUTE COUNT (BEAKER) (test 0.69 K/ L 0.24-0.36 ated=253) EOSINOPHILS ABSOLUTE COUNT (BEAKER) (test 0.01 K/ L 0.04-0.36 tlbs=201) BASOPHILS ABSOLUTE COUNT (BEAKER) (test 0.06 K/ L 0.01-0.08 fvsz=041) IMMATURE GRANULOCYTES-RELATIVE PERCENT (BEAKER) 1 % 0-1 (test rrru=5009) STREP PNEUMONIAE [id number] 07:55:00 Test Item Value Reference Range Comments STREP PNEUMONIAE ANTIGEN Positive for pneumococcal Presumptive negative for (BEAKER) (test pneumonia pneumococcal pneumonia - wwos=8991) [facility] BASIC METABOLIC [id number] 06:14:00 Test Item Value Reference Range Comments SODIUM (BEAKER) (test 146 meq/L 136-145 kylp=419) POTASSIUM (BEAKER) (test 3.7 meq/L 3.5-5.1 anpd=777) CHLORIDE (BEAKER) (test 112 meq/L 98-107 gspu=469) CO2 (BEAKER) (test 27 meq/L 22-29 dlkn=230) BLOOD UREA NITROGEN 6 mg/dL 7-21 (BEAKER) (test uqto=737) CREATININE (BEAKER) (test 0.64 mg/dL 0.57-1.25 gwjz=900) GLUCOSE RANDOM (BEAKER) 92 mg/dL 70-105 (test cebk=461) CALCIUM (BEAKER) (test 8.2 mg/dL 8.4-10.2 mwrn=287) EGFR (BEAKER) (test 107 mL/min/1.73 sq m ESTIMATED GFR IS NOT ystt=8784) ACCURATE CREATININE CLEARANCE IN PREDICTING GLOMERULAR FILTRATION RATE. ESTIMATED GFR IS NOT APPLICABLE FOR DIALYSIS PATIENTS. CBC W/PLT COUNT & AUTO [id number] 05:58:00 Test Item Value Reference Range Comments WHITE BLOOD CELL COUNT (BEAKER) (test qfro=568) 8.3 K/ L 3.5-10.5 RED BLOOD CELL COUNT (BEAKER) (test dssf=884) 3.24 M/ L 3.93-5.22 HEMOGLOBIN (BEAKER) (test vqpd=522) 8.1 GM/DL 11.2-15.7 HEMATOCRIT (BEAKER) (test fajz=378) 26.7 % 34.1-44.9 MEAN CORPUSCULAR VOLUME (BEAKER) (test kdjz=801) 82.4 fL 79.4-94.8 MEAN CORPUSCULAR HEMOGLOBIN (BEAKER) (test 25.0 pg 25.6-32.2 ulrr=967) MEAN CORPUSCULAR HEMOGLOBIN CONC (BEAKER) (test 30.3 GM/DL 32.2-35.5 wikn=362) RED CELL DISTRIBUTION WIDTH (BEAKER) (test 18.6 % 11.7-14.4 fmvl=969) PLATELET COUNT (BEAKER) (test tlom=322) 231 K/CU MM 150-450 MEAN PLATELET VOLUME (BEAKER) (test wwqf=600) 10.1 fL 9.4-12.3 NUCLEATED RED BLOOD CELLS (BEAKER) (test 0 /100 WBC 0-0 jygb=862) NEUTROPHILS RELATIVE PERCENT (BEAKER) (test 79 % hvrt=828) LYMPHOCYTES RELATIVE PERCENT (BEAKER) (test 13 % kcqz=464) MONOCYTES RELATIVE PERCENT (BEAKER) (test 7 % acpd=004) EOSINOPHILS RELATIVE PERCENT (BEAKER) (test 0 % wfqx=225) BASOPHILS RELATIVE PERCENT (BEAKER) (test 1 % orrn=816) NEUTROPHILS ABSOLUTE COUNT (BEAKER) (test 6.62 K/ L 1.56-6.13 dlej=095) LYMPHOCYTES ABSOLUTE COUNT (BEAKER) (test 1.05 K/ L 1.18-3.74 fmcm=150) MONOCYTES ABSOLUTE COUNT (BEAKER) (test 0.56 K/ L 0.24-0.36 tddh=228) EOSINOPHILS ABSOLUTE COUNT (BEAKER) (test 0.00 K/ L 0.04-0.36 quqw=256) BASOPHILS ABSOLUTE COUNT (BEAKER) (test 0.05 K/ L 0.01-0.08 tiux=971) IMMATURE GRANULOCYTES-RELATIVE PERCENT (BEAKER) 1 % 0-1 (test wjex=1802) HEPATITIS PANEL, [id number] 02:31:00 Test Item Value Reference Range Comments HEPATITIS A IGM ANTIBODY (BEAKER) (test Nonreactive Nonreactive xyba=336) HEPATITIS B CORE IGM ANTIBODY (BEAKER) (test Nonreactive Nonreactive gfpq=197) HEPATITIS C ANTIBODY (BEAKER) (test utug=885) Nonreactive Nonreactive HEPATITIS B SURFACE ANTIGEN (2) (BEAKER) (test Nonreactive Nonreactive fxpx=2176) TSH/FREE T4 IF [id number] 02:31:00 Test Item Value Reference Range Comments THYROID STIMULATING HORMONE (BEAKER) (test 2.10 uIU/mL 0.35-4.94 hgxr=236) HIV-1 ANTIGEN WITH HIV-1/2 [id number] 02:31:00 Test Item Value Reference Range Comments HIV-1 ANTIGEN WITH HIV 1\T\2 ANTIBODY (2) Nonreactive Nonreactive (BEAKER) (test kfjs=7329) BASIC METABOLIC [id number] 02:07:00 Test Item Value Reference Range Comments SODIUM (BEAKER) (test 145 meq/L 136-145 bsdy=788) POTASSIUM (BEAKER) (test 3.6 meq/L 3.5-5.1 igsa=021) CHLORIDE (BEAKER) (test 110 meq/L 98-107 etmq=191) CO2 (BEAKER) (test 25 meq/L 22-29 zvhm=591) BLOOD UREA NITROGEN 7 mg/dL 7-21 (BEAKER) (test vfsv=371) CREATININE (BEAKER) (test 0.60 mg/dL 0.57-1.25 sfjb=543) GLUCOSE RANDOM (BEAKER) 96 mg/dL 70-105 (test xuwl=003) CALCIUM (BEAKER) (test 8.4 mg/dL 8.4-10.2 akgc=570) EGFR (BEAKER) (test 115 mL/min/1.73 sq m ESTIMATED GFR IS NOT dahs=3076) ACCURATE CREATININE CLEARANCE IN PREDICTING GLOMERULAR FILTRATION RATE. ESTIMATED GFR IS NOT APPLICABLE FOR DIALYSIS PATIENTS. CBC W/PLT COUNT & AUTO [id number] 01:54:00 Test Item Value Reference Range Comments WHITE BLOOD CELL COUNT (BEAKER) (test lhee=465) 8.4 K/ L 3.5-10.5 RED BLOOD CELL COUNT (BEAKER) (test psqi=338) 3.39 M/ L 3.93-5.22 HEMOGLOBIN (BEAKER) (test wdyx=696) 8.4 GM/DL 11.2-15.7 HEMATOCRIT (BEAKER) (test mgdo=407) 27.6 % 34.1-44.9 MEAN CORPUSCULAR VOLUME (BEAKER) (test lvrz=539) 81.4 fL 79.4-94.8 MEAN CORPUSCULAR HEMOGLOBIN (BEAKER) (test 24.8 pg 25.6-32.2 trdw=994) MEAN CORPUSCULAR HEMOGLOBIN CONC (BEAKER) (test 30.4 GM/DL 32.2-35.5 uozz=172) RED CELL DISTRIBUTION WIDTH (BEAKER) (test 18.6 % 11.7-14.4 nwwo=866) PLATELET COUNT (BEAKER) (test mcyz=206) 248 K/CU MM 150-450 MEAN PLATELET VOLUME (BEAKER) (test pxdu=595) 10.6 fL 9.4-12.3 NUCLEATED RED BLOOD CELLS (BEAKER) (test 0 /100 WBC 0-0 chwe=856) NEUTROPHILS RELATIVE PERCENT (BEAKER) (test 77 % bykz=980) LYMPHOCYTES RELATIVE PERCENT (BEAKER) (test 14 % gxrf=893) MONOCYTES RELATIVE PERCENT (BEAKER) (test 7 % ldak=139) EOSINOPHILS RELATIVE PERCENT (BEAKER) (test 1 % zrnv=441) BASOPHILS RELATIVE PERCENT (BEAKER) (test 0 % oump=848) NEUTROPHILS ABSOLUTE COUNT (BEAKER) (test 6.45 K/ L 1.56-6.13 itue=305) LYMPHOCYTES ABSOLUTE COUNT (BEAKER) (test 1.20 K/ L 1.18-3.74 wcfz=808) MONOCYTES ABSOLUTE COUNT (BEAKER) (test 0.61 K/ L 0.24-0.36 ogas=686) EOSINOPHILS ABSOLUTE COUNT (BEAKER) (test 0.04 K/ L 0.04-0.36 knzy=852) BASOPHILS ABSOLUTE COUNT (BEAKER) (test 0.03 K/ L 0.01-0.08 thha=592) IMMATURE GRANULOCYTES-RELATIVE PERCENT (BEAKER) 1 % 0-1 (test qfcc=0965)
[2019-06-09 20:43] LABS: Urine Blood TRACE (NEG); Urine Glucose NEGATIVE (NEG); Urine Protein NEGATIVE (NEG); Urine Specific Gravity 1.025 (1.005-1.030); Urine pH 6.5 (5.0-7.0)
--- NOTE | 2019-06-09 20:52 | RAD REPORT ---
EXAM DESCRIPTION: RAD - Chest Pa And Lat (2 Views) - 06/09/2019 8:44 pm CLINICAL HISTORY: COUGH COMPARISON: Chest Single View dated 07/13/2018; Chest Single View dated 07/12/2018 TECHNIQUE: Frontal and lateral views of the chest were obtained. FINDINGS: The lungs are clear. Heart size is normal and central vasculature is within normal limit s. No pleural effusion or pneumothorax seen. No acute bony finding noted. No aortic abnormality. IMPRESSION: No acute cardiopulmonary process.
[2019-06-09 21:05] LABS: Urine Bacteria >50 /HPF (<20); Urine Culture Reflex Order REFLEXED; Urine Mucus 1+ /HPF (NONE SEEN); Urine RBC <5 /HPF (NONE SEEN)
--- NOTE | 2019-06-09 21:14 | EDPHYS ---
Physician Documentation [facility] Name: Belgica Hill Age: 34 yrs Sex: Female : 1985 Arrival Date: 06/09/2019 Time: 19:13 Bed 14 Private MD: ED Physician Shadi Orta HPI: 06/09 21:11 This 34 yrs old Female presents to ER via Ambulatory with complaints of Cold la1 Symptoms. 21:11 Onset: The symptoms/episode began/occurred 2 week(s) ago. Associated signs and la1 symptoms: Pertinent negatives: chest pain, congestion, constipation, dysuria, earache, fever. Modifying factors: The patient symptoms are alleviated by nothing, the patient symptoms are aggravated by nothing. The patient has not experienced similar symptoms in the past. 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 - Social history:: Smoking status: Patient/guardian denies using tobacco, the patient reports quitting approximately 1 years ago. - Ebola Screening: : Patient negative for fever greater than or equal to 101.5 degrees Fahrenheit, and additional compatible Ebola Virus Disease symptoms Patient denies exposure to infectious person Patient denies travel to an Ebola-affected area in the 21 days before illness onset No symptoms or risks identified at this time. ROS: 21:12 Constitutional: Negative for fever, chills, and weight loss, Eyes: Negative for injury, la1 pain, redness, and discharge, ENT: Negative for injury, pain, and discharge, Neck: Negative for injury, pain, and swelling, Cardiovascular: Negative for chest pain, palpitations, and edema. 21:12 Abdomen/GI: Negative for abdominal pain, nausea, vomiting, diarrhea, and constipation, Back: Negative for injury and pain, MS/Extremity: Negative for injury and deformity, Neuro: Negative for headache, weakness, numbness, tingling, and seizure. 21:12 Respiratory: Positive for cough. Exam: 21:12 Constitutional: This is a well developed, well nourished patient who is awake, alert, la1 and in no acute distress. Eyes: Pupils equal round and reactive to light, extra-ocular motions intact. Lids and lashes normal. Conjunctiva and sclera are non-icteric and not injected. Cornea within normal limits. Periorbital areas with no swelling, redness, or edema. Neck: Trachea midline, no thyromegaly or masses palpated, and no cervical lymphadenopathy. Supple, full range of motion without nuchal rigidity, or vertebral point tenderness. No Meningismus. Chest/axilla: Normal chest wall appearance and motion. Nontender with no deformity. No lesions are appreciated. Cardiovascular: Regular rate and rhythm with a normal S1 and S2. No gallops, murmurs, or rubs. Normal PMI, no JVD. No pulse deficits. Respiratory: Lungs have equal breath sounds bilaterally, clear to auscultation No rales, rhonchi or wheezes noted. No increased work of breathing, no retractions or nasal flaring. Abdomen/GI: Soft, non-tender, with normal bowel sounds. No distension or tympany. No guarding or rebound. No evidence of tenderness throughout. Skin: Warm, dry with normal turgor. Normal color with no rashes, no lesions, and no evidence of cellulitis. MS/ Extremity: Pulses equal, no cyanosis. Neurovascular intact. Full, normal range of motion. Vital Signs: 19:49 BP 143 / 87; Pulse 86; Resp 17 S; Temp 98.3(O); Pulse Ox 98% on R/A; Weight 97.52 kg ca1 (R); Height 5 ft. 3 in. (160.02 cm) (R); Pain 2/10; 19:49 Body Mass Index 38.09 (97.52 kg, 160.02 cm) ca1 MDM: 20:21 Patient medically screened. la1 21:12 Data reviewed: vital signs, nurses notes, lab test result(s), radiologic studies, and la1 as a result, I will discharge patient. Counseling: I had a detailed discussion with the patient and/or guardian regarding: the historical points, exam findings, and any diagnostic results supporting the discharge/admit diagnosis, lab results, radiology results, the need for outpatient follow up, a family practitioner. Special discussion: Based on the history and exam findings, there is no indication for further emergent testing or inpatient evaluation. I discussed with the patient/guardian the need to see the primary care provider for further evaluation of the symptoms. I discussed with the patient/guardian that the patient's current presentation does not indicate dosing of antibiotics. They should follow-up with their primary care provider and return if the symptoms persist or progress. 06/09 19:52 Order name: Flu; Complete Time: 20:58 ca1 06/09 19:52 Order name: Strep; Complete Time: 20:58 ca1 06/09 20:18 Order name: Throat Culture EDID 06/09 20:37 Order name: Urine Microscopic Only mw2 06/09 20:37 Order name: Urine Culture 2 06/09 20:38 Order name: Urine Dipstick--Ancillary (enter results); Complete Time: 20:58 mw2 06/09 20:02 Order name: XRAY Chest Pa And Lat (2 Views); Complete Time: 20:58 ca1 06/09 20:38 Order name: Urine --Ancillary (enter results); Complete Time: 20:58 mw2 Administered Medications: No medications were administered Disposition: 06/10 07:34 Co-signature as Attending Physician, Shadi Orta MD I agree with the assessment and tw4 plan of care. Disposition: 06/09/19 21:13 Discharged to Home. Impression: Cough. - Condition is Stable. - Discharge Instructions: Allergies, Adult, Cool Mist Vaporizer, Cough, Adult. - Prescriptions for Tessalon Perles 100 mg Oral Capsule - take 1 capsule by ORAL route every 8 hours As needed; 15 capsule. - Family Work Release, Medication Reconciliation Form, Thank You Letter form. - Follow up: Private Physician; When: 2 - 3 days; Reason: Recheck today's complaints, Re-evaluation by your physician. Follow up: Emergency Department; When: As needed; Reason: Trouble breathing, Worsening of condition. - Problem is new. - Symptoms are unchanged. Signatures: Dispatcher [employer] EDID Miguel Noel, [employer] SUPERVISOR-C [employer] SUPERVISOR-Cla1 Miguel Thurston RN RN jShadi Morris MD MD tw4 Anh Caballero RN RN ca1 Corrections: (The following items were deleted from the chart) 06/09 21:35 21:13 06/09/2019 21:13 Discharged to Home. Impression: Cough. Condition is Stable. jd3 Forms are Family Work Release, Medication Reconciliation Form, Thank You Letter, Antibiotic Education, Prescription Opioid Use. Follow up: Private Physician; When: 2 - 3 days; Reason: Recheck today's complaints, Re-evaluation by your physician. Follow up: Emergency Department; When: As needed; Reason: Trouble breathing, Worsening of condition. Problem is new. Symptoms are unchanged. la1
--- NOTE | 2019-06-09 21:14 | ER ---
Nurse's Notes [facility] Name: Belgica Hill Age: 34 yrs Sex: Female : 1985 Arrival Date: 06/09/2019 Time: 19:13 Bed 14 Private MD: Diagnosis: Cough Presentation: 06/09 19:45 Presenting complaint: Patient states: Productive Cough and congestion x 2 weeks, ca1 Stomach cramps x 3 days. Reports fever and chills in the first 3 days of coughing. Cough is getting worse. Transition of care: patient was not received from another setting of care. Onset of symptoms was June 09, 2019. Risk Assessment: Do you want to hurt yourself or someone else? Patient reports no desire to harm self or others. Initial Sepsis Screen: Does the patient meet any 2 criteria? No. Patient's initial sepsis screen is negative. Does the patient have a suspected source of infection? No. Patient's initial sepsis screen is negative. Care prior to arrival: None. 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 - Social history:: Smoking status: Patient/guardian denies using tobacco, the patient reports quitting approximately 1 years ago. - Ebola Screening: : Patient negative for fever greater than or equal to 101.5 degrees Fahrenheit, and additional compatible Ebola Virus Disease symptoms Patient denies exposure to infectious person Patient denies travel to an Ebola-affected area in the 21 days before illness onset No symptoms or risks identified at this time. Screenin:50 Abuse screen: Denies threats or abuse. Nutritional screening: No deficits noted. jd3 Tuberculosis screening: No symptoms or risk factors identified. Fall Risk Ambulatory Aid- None/Bed Rest/Nurse Assist (0 pts). Gait- Normal/Bed Rest/Wheelchair (0 pts) Mental Status- Oriented to own ability (0 pts). Total Conde Fall Scale indicates No Risk (0-24 pts). Assessment: 20:30 General: Appears in no apparent distress. uncomfortable, Behavior is calm, cooperative, jd3 appropriate for age. Pain: Complains of pain in head and throat Quality of pain is described as aching. Neuro: Level of Consciousness is awake, alert, obeys commands, Oriented to person, place, time, situation. Cardiovascular: Capillary refill < 3 seconds Patient's skin is warm and dry. Respiratory: Reports cough that is persistent Airway is patent Respiratory effort is even, unlabored, Respiratory pattern is regular, symmetrical. GI: Abdomen is round non-distended, Abd is soft and non tender X 4 quads. : No signs and/or symptoms were reported regarding the genitourinary system. EENT: Reports nasal congestion. Derm: Skin is intact, Skin is dry, Skin is normal, Skin temperature is warm. Musculoskeletal: Circulation, motion, and sensation intact. Range of motion: intact in all extremities. 21:33 Reassessment: Patient appears in no apparent distress at this time. Patient and/or jd3 family updated on plan of care and expected duration. Pain level reassessed. Patient is alert, oriented x 3, equal unlabored respirations, skin warm/dry/pink. reported understanding of discharge instructions. even and steady gait upon discharge. Vital Signs: 19:49 BP 143 / 87; Pulse 86; Resp 17 S; Temp 98.3(O); Pulse Ox 98% on R/A; Weight 97.52 kg ca1 (R); Height 5 ft. 3 in. (160.02 cm) (R); Pain 2/10; 19:49 Body Mass Index 38.09 (97.52 kg, 160.02 cm) ca1 ED Course: 19:13 Patient arrived in ED. as 19:48 Triage completed. ca1 19:49 Arm band placed on right wrist. ca1 20:03 Miguel Noel FNP-C [facility]. la1 20:03 Shadi Orta MD is Attending Physician. la1 20:32 Miguel Thurston RN is Primary Nurse. jd3 20:44 XRAY Chest Pa And Lat (2 Views) In Process Unspecified. EDMS 20:50 Patient has correct armband on for positive identification. Bed in low position. Call jd3 light in reach. Side rails up X 1. Adult w/ patient. 21:33 No provider procedures requiring assistance completed. Patient did not have IV access jd3 during this emergency room visit. Administered Medications: No medications were administered Outcome: 21:13 Discharge ordered by . otilia 21:33 Discharged to home ambulatory, with family. jd3 21:33 Condition: stable 21:33 Discharge instructions given to patient, family, Instructed on discharge instructions, follow up and referral plans. Demonstrated understanding of instructions, follow-up care. 21:35 Patient left the ED. jd3 Signatures: Dispatcher [employer] EDMS Rebecca Bangura Lee, MOLD INJECTOR-C MOLD INJECTOR-Cla1 Miguel Thurston RN RN jd3 Anh Caballero RN RN ca1 Corrections: (The following items were deleted from the chart) 21:35 21:33 Reassessment: Patient appears in no apparent distress at this time. Patient jd3 and/or family updated on plan of care and expected duration. Pain level reassessed. Patient is alert, oriented x 3, equal unlabored respirations, skin warm/dry/pink. jd3
[2019-06-09 22:36] VITALS: BP 143/87; TEMP 98.3; O2SAT 98
== END 2019-06-09 21:35 | disposition home or self-care (01) ==
LOC: ER 19:12
DX: R05 Cough (principal); Z88.2 Allergy status to sulfonamides; Z88.0 Allergy status to penicillin
CPT/HCPCS: 71046; 81003; 81015; 81025; 87070; 87081; 87086; 87088; 87804; 99283

== ENCOUNTER 2021-01-23 09:55 | Emergency (ER) | payer SELFPAY ==
--- OUTSIDE RECORDS SUMMARY | 2021-01-23 10:03 | XMS REPORT | Continuity of Care Document ---
:1985 Author Organization [facility] t Address [address] [place] [address] Care Team Providers Name Role Phone DOUGLAS Attending Clinician Unavailable DOUGLAS Admitting Clinician Unavailable Problems Condition Condition Condition Status Onset Resolution Last Treating Co mments Source Name Details Category Date Date Treatment Clinician Date Acute Acute Disease Active [facility] pulmonary pulmonary 2-28 [facility] - embolism embolism 00:00: Medica l 00 [place] Acute Acute Disease Active [facility] hypoxemic hypoxemic 2-27 [facility] - respirator respirator 00:00: Me dical y failure y failure 00 Cent er 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 C. Disease Active 2018- [facility] difficile difficile 2-27 [facility] - colitis colitis 00:00: Medical 00 Center Acute Acute Disease Active 2019- [facility] pulmonary pulmonary 2-27 [facility] - edema edema 00:00: Medical 00 Center Acute Acute Disease Active 2019- [facility] systolic systolic 2-27 [facility] - CHF CHF 00:00: Medical (congestiv (congestiv 00 Ce nter e heart e heart failure), failure), NYHA class NYHA class 4 4 Acute Acute Disease Active 2019- [facility] metabolic metabolic 2-27 [facility] - encephalop encephalop 00:00: Me dical athy athy 00 Center Hypothyroi Hypothyroi Disease Active 2019- [facility] dism dism 2-26 [facility] - 00:[facility]: Medical 00 Center Physical Physical Disease Active [facility] deconditio deconditio 07-20 Marcela kes - walter walter 00:00: Medical 00 [place] TRES (acute TRES (acute Disease Active [facility] kidney kidney 07-20 [facility] - injury) injury) 00:00: Medical 00 [place] UTI UTI Disease Active [facility] (urinary (urinary 07-20 [facility] - tract tract 00:00: Medical infection) infection) 00 Ce nter Hypernatre Hypernatre Disease Active [facility] kirit kirit 07-20 [facility] - 00:00: Medical 00 [place] 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[facility] abscess abscess 07-19 [facility] - 00:00: Medical 00 Center Allergies, Adverse Reactions, Alerts Allergy Allergy Status Severity Reaction(s) Onset Inactive Treating Comm ents Source Name Type Date Date Clinician Penicill Drug Active Anaphylaxis Tolerated [facility] ins Allergy 07-19 ceftriaxo [facility] - 00:00: ne 07/2018 Medical 00 [place] Sulfur Drug Active Anaphylaxis [facility] Allergy 07[facility]19 [facility] - 00:00: Medical 00 [place] Alprazol Drug Active Other (See Confusion [facility] am Allergy Comments) 07-19 , [facility] - 00:00: Delirium, Medical 00 [facility] Social History Social Habit Start Date Stop Date Quantity Comments Source Sex Assigned At [facility] Tobacco use and 2018-07-19 2018-07-19 Never used [facility] - exposure 00:00:00 00:00:00 Medical [place] History of tobacco 2018-07-03 Current smoker I [facility] - use 00:00:00 [facility] Smoking Status Start Date Stop Date Source Former smoker 2018-07-19 00:00:00 2018-07-19 00:00:00 [facility] Medications Ordered Filled Start Stop Current Ordering Indication Dosage Frequency Signature Comments Components Source Medication Medication Date Date Medication? Clinician (SIG) Name Name cefTRIAXone Yes 2g Inject [address] [facility] (ROCEPHIN) 3-20 intravenou [facility] - MBP 2 g in 00:00: sly every Me dical 100 mL NS 00 12 Center (twelve) hours. apixaban Yes 5mg Q.5D Take [address] [facility] (ELIQUIS) 5 3-20 tablet (5 [facility] - mg Tab 00:00: mg total) Medica l tablet 00 by mouth 2 Center (two) times daily. Procedures This patient has no known procedures. Plan of Care Planned Activity Planned Date Details Comments Source Future Scheduled 2020-01-24 INFLUENZA VACCINE (#1) [facility] - Test 00:00:00 [code = INFLUENZA Medical Ce nter VACCINE (#1)] Future Scheduled [address] [facility] - Test 00:00:00 malignant neoplasm of Medica l Center cervix (procedure) [code = 058526528] Future Scheduled [address] [facility] - Test 00:00:00 (procedure) [code = Medical Center 10922475] Future Scheduled [address] [facility] - Test 00:00:00 0-64 YRS (1 of 1 - Medical C enter PPSV23) [code = PNEUMOCOCCAL VACCINE 0-64 YRS (1 of 1 - PPSV23)] Results Test Description Test Time Test Comments Results Result Sourc e Comments RAD, CHEST, 1 2018-08-08 Reason for FINAL REPORT PATIENT VIEW, NON DEPT 13:13:00 exam:->hypoxia ID: [id number] RAD, CHEST, 1 VIEW, NON DEPT INDICATION: hypoxia COMPARISON: Prior day's exam FINDINGS: Portable frontal view of the chest. IMPRESSION: Support Lines: None. Lungs and pleura: Improvement inspiration with persistent interstitial congestion at the hilum. No pneumothorax.Heart and mediastinum: Stable contours. Additional findings: None. Signed: JR Robbins Robert MDReport Verified Date/Time: 08/08/2018 13:13:02 Reading Location: [facility] C013V Neuro Reading Room C METABOLIC PANEL 2018-08-08 06:21:00 Test Item Value Reference Range Interpretation Comme nts SODIUM (BEAKER) (test code 138 meq/L 136-145 = 381) POTASSIUM (BEAKER) (test 3.3 meq/L 3.5-5.1 L Spe cimen slightly code = 379) hemolyzed CHLORIDE (BEAKER) (test 100 meq/L 98-107 code = 382) CO2 (BEAKER) (test code = 23 meq/L 22-29 355) BLOOD UREA NITROGEN 17 mg/dL 7-21 (BEAKER) (test code = 354) CREATININE (BEAKER) (test 0.74 mg/dL 0.57-1.25 Sp ecimen slightly code = 358) hemolyzed GLUCOSE RANDOM (BEAKER) 94 mg/dL 70-105 (test code = 652) CALCIUM (BEAKER) (test code 9.8 mg/dL 8.4-10.2 = 697) EGFR (BEAKER) (test code = 90 mL/min/1.73 sq m ESTIMATED GFR IS NOT 1092) ACCURATE CRE ATININE CLEARANCE IN TX EDICTING GLOMERULAR FILT RATION RATE. ESTIMATED GFR IS NOT APPLICABLE FOR DIALYSIS PATIENTS. POCT-GLUCOSE [id number] 17:59:00 Test Item Value Reference Range Interpretation Comments POC-GLUCOSE METER 166 mg/dL 70-[address] [facility] (BEAKER) (test code = [place] 1538) [id number] 05:42:00 Test Item Value Reference Range Interpretation Comments MAGNESIUM (BEAKER) 1.7 mg/dL 1.6-2.6 Specimen slightly (test code = 627) hemolyzed [id number] 05:42:00 Test Item Value Reference Range Interpretation Comments PHOSPHORUS (BEAKER) 4.8 mg/dL 2.3-4.7 H Specimen slightly (test code = 604) hemolyzed BASIC METABOLIC [id number] 05:42:00 Test Item Value Reference Range Interpretation Comments SODIUM (BEAKER) 136 meq/L 136-145 (test code = 381) POTASSIUM (BEAKER) 3.1 meq/L 3.5-5.1 L Specimen slightly (test code = 379) hemolyzed CHLORIDE (BEAKER) 97 meq/L 98-107 L (test code = 382) CO2 (BEAKER) (test 24 meq/L 22-29 code = 355) BLOOD UREA NITROGEN 18 mg/dL 7-21 (BEAKER) (test code = 354) CREATININE (BEAKER) 0.83 mg/dL 0.57-1.25 Specimen slightly (test code = 358) hemolyzed GLUCOSE RANDOM 96 mg/dL 70-105 (BEAKER) (test code = 652) CALCIUM (BEAKER) 10.1 mg/dL 8.4-10.2 (test code = 697) EGFR (BEAKER) (test 79 mL/min/1.73 ESTIMA JOHNIE GFR IS code = 1092) sq m NOT ACCURATE CREATININE CLEARANCE IN PREDICTING GLOMERULAR FILTRATION RATE . ESTIMATED GFR I S NOT APPLICABLE FOR DIALYSIS PATIEN TS. CBC W/PLT COUNT & AUTO [id number] 05:02:00 Test Item Value Reference Range Interpretation Comments WHITE BLOOD CELL COUNT (BEAKER) 9.7 K/ L 3.5-10.5 (test code = 775) RED BLOOD CELL COUNT (BEAKER) 4.26 M/ L 3.93-5.22 (test code = 761) HEMOGLOBIN (BEAKER) (test code = 10.7 GM/DL 11.2-15.7 L 410) HEMATOCRIT (BEAKER) (test code = 35.7 % 34.1-44.9 411) MEAN CORPUSCULAR VOLUME (BEAKER) 83.8 fL 79.4-94.8 (test code = 753) MEAN CORPUSCULAR HEMOGLOBIN 25.1 pg 25.6-32.2 L (BEAKER) (test code = 751) MEAN CORPUSCULAR HEMOGLOBIN CONC 30.0 GM/DL 32.2-35.5 L (BEAKER) (test code = 752) RED CELL DISTRIBUTION WIDTH 17.7 % 11.7-14.4 H (BEAKER) (test code = 412) PLATELET COUNT (BEAKER) (test 469 K/CU MM 150-450 H code = 756) MEAN PLATELET VOLUME (BEAKER) 10.8 fL 9.4-12.3 (test code = 754) NUCLEATED RED BLOOD CELLS 0 /100 WBC 0-0 (BEAKER) (test code = 413) NEUTROPHILS RELATIVE PERCENT 65 % (BEAKER) (test code = 429) LYMPHOCYTES RELATIVE PERCENT 22 % (BEAKER) (test code = 430) MONOCYTES RELATIVE PERCENT 7 % (BEAKER) (test code = 431) EOSINOPHILS RELATIVE PERCENT 4 % (BEAKER) (test code = 432) BASOPHILS RELATIVE PERCENT 1 % (BEAKER) (test code = 437) NEUTROPHILS ABSOLUTE COUNT 6.32 K/ L 1.56-6.13 H (BEAKER) (test code = 670) LYMPHOCYTES ABSOLUTE COUNT 2.13 K/ L 1.18-3.74 (BEAKER) (test code = 414) MONOCYTES ABSOLUTE COUNT (BEAKER) 0.71 K/ L 0.24-0.36 H (test code = 415) EOSINOPHILS ABSOLUTE COUNT 0.42 K/ L 0.04-0.36 H (BEAKER) (test code = 416) BASOPHILS ABSOLUTE COUNT (BEAKER) 0.10 K/ L 0.01-0.08 H (test code = 417) IMMATURE GRANULOCYTES-RELATIVE 1 % 0-1 PERCENT (BEAKER) (test code = 2801) [id number] 06:38:00 Test Item Value Reference Range Interpretation Comments PHOSPHORUS (BEAKER) (test code = 4.9 mg/dL 2.3-4.7 H 604) [id number] 06:38:00 Test Item Value Reference Range Interpretation Comments MAGNESIUM (BEAKER) (test code = 1.8 mg/dL 1.6-2.6 627) BASIC METABOLIC [id number] 06:38:00 Test Item Value Reference Range Interpretation Comments SODIUM (BEAKER) 138 meq/L 136-145 (test code = 381) POTASSIUM (BEAKER) 2.9 meq/L 3.5-5.1 L (test code = 379) CHLORIDE (BEAKER) 97 meq/L 98-107 L (test code = 382) CO2 (BEAKER) (test 29 meq/L 22-29 code = 355) BLOOD UREA NITROGEN 22 mg/dL 7-21 H (BEAKER) (test code = 354) CREATININE (BEAKER) 0.79 mg/dL 0.57-1.25 (test code = 358) GLUCOSE RANDOM 105 mg/dL 70-105 (BEAKER) (test code = 652) CALCIUM (BEAKER) 10.1 mg/dL 8.4-10.2 (test code = 697) EGFR (BEAKER) (test 84 mL/min/1.73 ESTIMA JOHNIE GFR IS code = 1092) sq m NOT ACCURATE CREATININE CLEARANCE IN PREDICTING GLOMERULAR FILTRATION RATE . ESTIMATED GFR I S NOT APPLICABLE FOR DIALYSIS PATIEN TS. CBC W/PLT COUNT & AUTO [id number] 05:58:00 Test Item Value Reference Range Interpretation Comments WHITE BLOOD CELL COUNT (BEAKER) 9.4 K/ L 3.5-10.5 (test code = 775) RED BLOOD CELL COUNT (BEAKER) 4.26 M/ L 3.93-5.22 (test code = 761) HEMOGLOBIN (BEAKER) (test code = 10.9 GM/DL 11.2-15.7 L 410) HEMATOCRIT (BEAKER) (test code = 35.3 % 34.1-44.9 411) MEAN CORPUSCULAR VOLUME (BEAKER) 82.9 fL 79.4-94.8 (test code = 753) MEAN CORPUSCULAR HEMOGLOBIN 25.6 pg 25.6-32.2 (BEAKER) (test code = 751) MEAN CORPUSCULAR HEMOGLOBIN CONC 30.9 GM/DL 32.2-35.5 L (BEAKER) (test code = 752) RED CELL DISTRIBUTION WIDTH 17.9 % 11.7-14.4 H (BEAKER) (test code = 412) PLATELET COUNT (BEAKER) (test 415 K/CU MM 150-450 code = 756) MEAN PLATELET VOLUME (BEAKER) 10.5 fL 9.4-12.3 (test code = 754) NUCLEATED RED BLOOD CELLS 0 /100 WBC 0-0 (BEAKER) (test code = 413) NEUTROPHILS RELATIVE PERCENT 64 % (BEAKER) (test code = 429) LYMPHOCYTES RELATIVE PERCENT 22 % (BEAKER) (test code = 430) MONOCYTES RELATIVE PERCENT 9 % (BEAKER) (test code = 431) EOSINOPHILS RELATIVE PERCENT 4 % (BEAKER) (test code = 432) BASOPHILS RELATIVE PERCENT 1 % (BEAKER) (test code = 437) NEUTROPHILS ABSOLUTE COUNT 6.00 K/ L 1.56-6.13 (BEAKER) (test code = 670) LYMPHOCYTES ABSOLUTE COUNT 2.05 K/ L 1.18-3.74 (BEAKER) (test code = 414) MONOCYTES ABSOLUTE COUNT (BEAKER) 0.83 K/ L 0.24-0.36 H (test code = 415) EOSINOPHILS ABSOLUTE COUNT 0.42 K/ L 0.04-0.36 H (BEAKER) (test code = 416) BASOPHILS ABSOLUTE COUNT (BEAKER) 0.08 K/ L 0.01-0.08 (test code = 417) IMMATURE GRANULOCYTES-RELATIVE 1 % 0-1 PERCENT (BEAKER) (test code = 2801) [id number] 09:27:00 Test Item Value Reference Range Interpretation Comments PHOSPHORUS (BEAKER) (test code = 4.9 mg/dL 2.3-4.7 H 604) BASIC METABOLIC [id number] 09:27:00 Test Item Value Reference Range Interpretation Comments SODIUM (BEAKER) 138 meq/L 136-145 (test code = 381) POTASSIUM (BEAKER) 3.5 meq/L 3.5-5.1 (test code = 379) CHLORIDE (BEAKER) 99 meq/L 98-107 (test code = 382) CO2 (BEAKER) (test 27 meq/L 22-29 code = 355) BLOOD UREA NITROGEN 22 mg/dL 7-21 H (BEAKER) (test code = 354) CREATININE (BEAKER) 0.71 mg/dL 0.57-1.25 (test code = 358) GLUCOSE RANDOM 108 mg/dL 70-105 H (BEAKER) (test code = 652) CALCIUM (BEAKER) 10.4 mg/dL 8.4-10.2 H (test code = 697) EGFR (BEAKER) (test 95 mL/min/1.73 ESTIMA JOHNIE GFR IS code = 1092) sq m NOT ACCURATE CREATININE CLEARANCE IN PREDICTING GLOMERULAR FILTRATION RATE . ESTIMATED GFR I S NOT APPLICABLE FOR DIALYSIS PATIEN TS. CBC W/PLT COUNT & AUTO [id number] 06:27:00 Test Item Value Reference Range Interpretation Comments WHITE BLOOD CELL COUNT (BEAKER) 9.1 K/ L 3.5-10.5 (test code = 775) RED BLOOD CELL COUNT (BEAKER) 4.25 M/ L 3.93-5.22 (test code = 761) HEMOGLOBIN (BEAKER) (test code = 10.7 GM/DL 11.2-15.7 L 410) HEMATOCRIT (BEAKER) (test code = 35.7 % 34.1-44.9 411) MEAN CORPUSCULAR VOLUME (BEAKER) 84.0 fL 79.4-94.8 (test code = 753) MEAN CORPUSCULAR HEMOGLOBIN 25.2 pg 25.6-32.2 L (BEAKER) (test code = 751) MEAN CORPUSCULAR HEMOGLOBIN CONC 30.0 GM/DL 32.2-35.5 L (BEAKER) (test code = 752) RED CELL DISTRIBUTION WIDTH 18.3 % 11.7-14.4 H (BEAKER) (test code = 412) PLATELET COUNT (BEAKER) (test 452 K/CU MM 150-450 H code = 756) MEAN PLATELET VOLUME (BEAKER) 10.7 fL 9.4-12.3 (test code = 754) NUCLEATED RED BLOOD CELLS 0 /100 WBC 0-0 (BEAKER) (test code = 413) NEUTROPHILS RELATIVE PERCENT 62 % (BEAKER) (test code = 429) LYMPHOCYTES RELATIVE PERCENT 24 % (BEAKER) (test code = 430) MONOCYTES RELATIVE PERCENT 9 % (BEAKER) (test code = 431) EOSINOPHILS RELATIVE PERCENT 4 % (BEAKER) (test code = 432) BASOPHILS RELATIVE PERCENT 1 % (BEAKER) (test code = 437) NEUTROPHILS ABSOLUTE COUNT 5.64 K/ L 1.56-6.13 (BEAKER) (test code = 670) LYMPHOCYTES ABSOLUTE COUNT 2.14 K/ L 1.18-3.74 (BEAKER) (test code = 414) MONOCYTES ABSOLUTE COUNT (BEAKER) 0.83 K/ L 0.24-0.36 H (test code = 415) EOSINOPHILS ABSOLUTE COUNT 0.36 K/ L 0.04-0.36 (BEAKER) (test code = 416) BASOPHILS ABSOLUTE COUNT (BEAKER) 0.08 K/ L 0.01-0.08 (test code = 417) IMMATURE GRANULOCYTES-RELATIVE 1 % 0-1 PERCENT (BEAKER) (test code = 2801) [id number] 19:57:00 Test Item Value Reference Range Interpretation Comments MAGNESIUM (BEAKER) (test code = 1.6 mg/dL 1.6-2.6 627) BASIC METABOLIC [id number] 19:57:00 Test Item Value Reference Range Interpretation Comments SODIUM (BEAKER) 140 meq/L 136-145 (test code = 381) POTASSIUM (BEAKER) 3.4 meq/L 3.5-5.1 L (test code = 379) CHLORIDE (BEAKER) 96 meq/L 98-107 L (test code = 382) CO2 (BEAKER) (test 31 meq/L 22-29 H code = 355) BLOOD UREA NITROGEN 23 mg/dL 7-21 H (BEAKER) (test code = 354) CREATININE (BEAKER) 0.74 mg/dL 0.57-1.25 (test code = 358) GLUCOSE RANDOM 121 mg/dL 70-105 H ([facility]) (test code = 652) CALCIUM (BEAKER) 10.5 mg/dL 8.4-10.2 H (test code = 697) EGFR (AKER) (test 90 mL/min/1.73 ESTIMA JOHNIE GFR IS code = 1092) sq m NOT ACCURATE CREATININE CLEARANCE IN PREDICTING GLOMERULAR FILTRATION RATE . ESTIMATED GFR I S NOT APPLICABLE FOR DIALYSIS PATIEN TS. POCT-GLUCOSE [id number] 18:02:00 Test Item Value Reference Range Interpretation Comments POC-GLUCOSE METER 129 mg/dL 70-[address] [facility] ([facility]) (test code = KRYSTAL Gomez [facility] 1538) [id number] POCT-GLUCOSE [id number] 12:08:00 Test Item Value Reference Range Interpretation Comments POC-GLUCOSE METER 145 mg/dL 70-[address] [facility] ([facility]) (test code = KRYSTAL Gomez [facility] 1538) [id number] POCT-GLUCOSE [id number] 06:33:00 Test Item Value Reference Range Interpretation Comments POC-GLUCOSE METER 109 mg/dL 70-[address] [facility] [address] ([facility]) (test code = [facility] Patricia [facility] 1538) [id number] RAD, CHEST, 1 VIEW, NON [id number] 05:12:00Reason for exam:->PICC line verificationShould this be performed at the bedside?->YesFINAL REPORT Chest one view. Clinical history: PICC line verification Compari son: Chest radiograph 08/03/2018. Technique: A single frontal [...] in the right upper quadrant. Signed: Arya Chávezeport Verified Date/Time: 08/04/2018 05:12:40 Reading Location: [facility] C013 CT Body Reading Room [id number] 03:22:00 Test Item Value Reference Range Interpretation Comments PHOSPHORUS (BEAKER) (test code = 4.5 mg/dL 2.3-4.7 604) BASIC METABOLIC [id number] 03:22:00 Test Item Value Reference Range Interpretation Comments SODIUM (BEAKER) 137 meq/L 136-145 (test code = 381) POTASSIUM (BEAKER) 3.4 meq/L 3.5-5.1 L (test code = 379) CHLORIDE (BEAKER) 93 meq/L 98-107 L (test code = 382) CO2 (BEAKER) (test 32 meq/L 22-29 H code = 355) BLOOD UREA NITROGEN 25 mg/dL 7-21 H (BEAKER) (test code = 354) CREATININE (BEAKER) 0.79 mg/dL 0.57-1.25 (test code = 358) GLUCOSE RANDOM 118 mg/dL 70-105 H (BEAKER) (test code = 652) CALCIUM (BEAKER) 10.6 mg/dL 8.4-10.2 H (test code = 697) EGFR (BEAKER) (test 84 mL/min/1.73 ESTIMA JOHNIE GFR IS code = 1092) sq m NOT ACCURATE CREATININE CLEARANCE IN PREDICTING GLOMERULAR FILTRATION RATE . ESTIMATED GFR I S NOT APPLICABLE FOR DIALYSIS PATIEN TS. CBC W/PLT COUNT & AUTO [id number] 03:06:00 Test Item Value Reference Range Interpretation Comments WHITE BLOOD CELL COUNT (BEAKER) 9.5 K/ L 3.5-10.5 (test code = 775) RED BLOOD CELL COUNT (BEAKER) 4.51 M/ L 3.93-5.22 (test code = 761) HEMOGLOBIN (BEAKER) (test code = 11.3 GM/DL 11.2-15.7 410) HEMATOCRIT (BEAKER) (test code = 37.7 % 34.1-44.9 411) MEAN CORPUSCULAR VOLUME (BEAKER) 83.6 fL 79.4-94.8 (test code = 753) MEAN CORPUSCULAR HEMOGLOBIN 25.1 pg 25.6-32.2 L (BEAKER) (test code = 751) MEAN CORPUSCULAR HEMOGLOBIN CONC 30.0 GM/DL 32.2-35.5 L (BEAKER) (test code = 752) RED CELL DISTRIBUTION WIDTH 17.8 % 11.7-14.4 H (BEAKER) (test code = 412) PLATELET COUNT (BEAKER) (test 442 K/CU MM 150-450 code = 756) MEAN PLATELET VOLUME (BEAKER) 10.4 fL 9.4-12.3 (test code = 754) NUCLEATED RED BLOOD CELLS 0 /100 WBC 0-0 (BEAKER) (test code = 413) NEUTROPHILS RELATIVE PERCENT 70 % (BEAKER) (test code = 429) LYMPHOCYTES RELATIVE PERCENT 19 % (BEAKER) (test code = 430) MONOCYTES RELATIVE PERCENT 9 % (BEAKER) (test code = 431) EOSINOPHILS RELATIVE PERCENT 1 % (BEAKER) (test code = 432) BASOPHILS RELATIVE PERCENT 1 % (BEAKER) (test code = 437) NEUTROPHILS ABSOLUTE COUNT 6.58 K/ L 1.56-6.13 H (BEAKER) (test code = 670) LYMPHOCYTES ABSOLUTE COUNT 1.81 K/ L 1.18-3.74 (BEAKER) (test code = 414) MONOCYTES ABSOLUTE COUNT (BEAKER) 0.83 K/ L 0.24-0.36 H (test code = 415) EOSINOPHILS ABSOLUTE COUNT 0.12 K/ L 0.04-0.36 (BEAKER) (test code = 416) BASOPHILS ABSOLUTE COUNT (BEAKER) 0.06 K/ L 0.01-0.08 (test code = 417) IMMATURE GRANULOCYTES-RELATIVE 1 % 0-1 PERCENT (BEAKER) (test code = 2801) POCT-GLUCOSE [id number] 18:21:00 Test Item Value Reference Range Interpretation Comments POC-GLUCOSE METER 176 mg/dL 70-[address] [facility] (BEAKER) (test code = [place] 1538) [id number] POCT-GLUCOSE [id number] 11:59:00 Test Item Value Reference Range Interpretation Comments POC-GLUCOSE METER 140 mg/dL 70-[address] [facility] (BEAKER) (test code = [place] 1538) [id number] 08:32:00 Test Item Value Reference Range Interpretation Comments POTASSIUM (BEAKER) (test code = 4.0 meq/L 3.5-5.1 379) Check Serum Potassium level 2 hours after oral potassium replacement completed or 30 min after intravenous potassium replacement.POCT-GLUCOSE [id number] 06:25:00 Test Item Value Reference Range Interpretation Comments POC-GLUCOSE METER 121 mg/dL 70-[address] [facility] (BEAKER) (test code = [place] 1538) [id number] RAD, CHEST, 1 VIEW, NON [id number] 05:21:00While intubatedReason for exam:- >intubated, hypoxemiaShould this be performed at the bedside?->YesFINAL [...] effusion. There is no pneumothorax. Signed: Arya Chávez MDReport Verified Date/Time: 08/03/2018 05:21:21 Reading Location: [address] Body Reading Room [id number] 04:50:00 Test Item Value Reference Range Interpretation Comments PHOSPHORUS (BEAKER) (test code = 3.8 mg/dL 2.3-4.7 604) BASIC METABOLIC [id number] 04:50:00 Test Item Value Reference Range Interpretation Comments SODIUM (BEAKER) 140 meq/L 136-145 (test code = 381) POTASSIUM (BEAKER) 3.5 meq/L 3.5-5.1 (test code = 379) CHLORIDE (BEAKER) 98 meq/L 98-107 (test code = 382) CO2 (BEAKER) (test 30 meq/L 22-29 H code = 355) BLOOD UREA NITROGEN 27 mg/dL 7-21 H (BEAKER) (test code = 354) CREATININE (BEAKER) 0.72 mg/dL 0.57-1.25 (test code = 358) GLUCOSE RANDOM 109 mg/dL 70-105 H (BEAKER) (test code = 652) CALCIUM (BEAKER) 10.5 mg/dL 8.4-10.2 H (test code = 697) EGFR (BEAKER) (test 93 mL/min/1.73 ESTIMA JOHNIE GFR IS code = 1092) sq m NOT ACCURATE CREATININE CLEARANCE IN PREDICTING GLOMERULAR FILTRATION RATE . ESTIMATED GFR I S NOT APPLICABLE FOR DIALYSIS PATIEN TS. BLOOD GAS, [id number] 04:45:00 Test Item Value Reference Range Interpretation Comments PH ARTERIAL (BEAKER) (test code = 7.48 7.35-7.45 H 383) PCO2 ARTERIAL (BEAKER) (test code 47 mmHg 35-45 H = 384) PO2 ARTERIAL (BEAKER) (test code = 73 mmHg 80-90 L 385) O2 SATURATION ARTERIAL (BEAKER) 95.3 % 96.0-97.0 L (test code = 386) HCO3 ARTERIAL (BEAKER) (test code 33 mmol/L 21-29 H = 388) BASE EXCESS ARTERIAL (BEAKER) 8.8 mmol/L -2.0-3.0 H (test code = 387) PATIENT TEMPERATURE (BEAKER) (test 37.2 C code = 1818) FIO2 (BEAKER) (test code = 1819) 40.0 % CBC W/PLT COUNT & AUTO [id number] 04:41:00 Test Item Value Reference Range Interpretation Comments WHITE BLOOD CELL COUNT (BEAKER) 6.5 K/ L 3.5-10.5 (test code = 775) RED BLOOD CELL COUNT (BEAKER) 4.25 M/ L 3.93-5.22 (test code = 761) HEMOGLOBIN (BEAKER) (test code = 10.7 GM/DL 11.2-15.7 L 410) HEMATOCRIT (BEAKER) (test code = 36.2 % 34.1-44.9 411) MEAN CORPUSCULAR VOLUME (BEAKER) 85.2 fL 79.4-94.8 (test code = 753) MEAN CORPUSCULAR HEMOGLOBIN 25.2 pg 25.6-32.2 L (BEAKER) (test code = 751) MEAN CORPUSCULAR HEMOGLOBIN CONC 29.6 GM/DL 32.2-35.5 L (BEAKER) (test code = 752) RED CELL DISTRIBUTION WIDTH 18.1 % 11.7-14.4 H (BEAKER) (test code = 412) PLATELET COUNT (BEAKER) (test 390 K/CU MM 150-450 code = 756) MEAN PLATELET VOLUME (BEAKER) 10.5 fL 9.4-12.3 (test code = 754) NUCLEATED RED BLOOD CELLS 0 /100 WBC 0-0 (BEAKER) (test code = 413) NEUTROPHILS RELATIVE PERCENT 62 % (BEAKER) (test code = 429) LYMPHOCYTES RELATIVE PERCENT 24 % (BEAKER) (test code = 430) MONOCYTES RELATIVE PERCENT 11 % (BEAKER) (test code = 431) EOSINOPHILS RELATIVE PERCENT 2 % (BEAKER) (test code = 432) BASOPHILS RELATIVE PERCENT 1 % (BEAKER) (test code = 437) NEUTROPHILS ABSOLUTE COUNT 4.05 K/ L 1.56-6.13 (BEAKER) (test code = 670) LYMPHOCYTES ABSOLUTE COUNT 1.53 K/ L 1.18-3.74 (BEAKER) (test code = 414) MONOCYTES ABSOLUTE COUNT (BEAKER) 0.71 K/ L 0.24-0.36 H (test code = 415) EOSINOPHILS ABSOLUTE COUNT 0.13 K/ L 0.04-0.36 (BEAKER) (test code = 416) BASOPHILS ABSOLUTE COUNT (BEAKER) 0.05 K/ L 0.01-0.08 (test code = 417) IMMATURE GRANULOCYTES-RELATIVE 1 % 0-1 PERCENT (BEAKER) (test code = 2801) POCT-GLUCOSE [id number] 23:57:00 Test Item Value Reference Range Interpretation Comments POC-GLUCOSE METER 140 mg/dL 70-110 H TESTED AT [place] [address] ([facility]) (test code = KRYSTAL Gomez [facility] 1538) [id number] POCT-GLUCOSE [id number] 18:40:00 Test Item Value Reference Range Interpretation Comments POC-GLUCOSE METER 108 mg/dL 70-110 TESTED AT [place] [address] ([facility]) (test code = KRYSTAL Gomez [facility] 1538) [address] [id number] 18:09:00 Test Item Value Reference Range Interpretation Comments POTASSIUM (BEAKER) (test code = 4.0 meq/L 3.5-5.1 379) Check Serum Potassium level 2 hours after oral potassium replacement completed or 30 min after intravenous potassium replacement.[id number] 14:26:00 Test Item Value Reference Range Interpretation Comments POTASSIUM (BEAKER) (test code = 3.9 meq/L 3.5-5.1 379) Check Serum Potassium level 2 hours after oral potassium replacement completed or 30 min after intravenous potassium replacement.POCT-GLUCOSE [id number] 11:56:00 Test Item Value Reference Range Interpretation Comments POC-GLUCOSE METER 123 mg/dL 70-[address] [facility] [address] (BEAKER) (test code = [place]ST[place] 1538) [id number] RAD, CHEST, 1 VIEW, NON [id number] 07:24:00While intubatedReason for exam:- >intubated, hypoxemiaShould this be performed at the bedside?->YesFINAL REPORT RAD, CHEST, 1 VIEW, NON DEPT INDICATION: intubated, hypoxemia COMPARISON: Prior day's exam FINDINGS: Portable frontal view of the chest. IMPRESSION: Support Lines: Stable left PICC. Lungs and pleura: Unchanged congestive interstitial disease. No pneumothorax.Heart and mediastinum: Stable contours. Additional findings: None. Signed: JR Robbins Robert MDReport Verified Date/Time: 08/02/2018 07:24:36 Reading Location: [address] Neuro Reading Room BLOOD GAS, [id number] 06:38:00 Test Item Value Reference Range Interpretation Comments PH ARTERIAL (BEAKER) (test code = 7.49 7.35-7.45 H 383) PCO2 ARTERIAL (BEAKER) (test code 42 mmHg 35-45 = 384) PO2 ARTERIAL (BEAKER) (test code = 109 mmHg 80-90 H 385) O2 SATURATION ARTERIAL (BEAKER) 98.3 % 96.0-97.0 H (test code = 386) HCO3 ARTERIAL (BEAKER) (test code 32 mmol/L 21-29 H = 388) BASE EXCESS ARTERIAL (BEAKER) 7.9 mmol/L -2.0-3.0 H (test code = 387) PATIENT TEMPERATURE (BEAKER) (test 37.0 C code = 1818) FIO2 (BEAKER) (test code = 1819) 50.0 % [id number] 04:42:00 Test Item Value Reference Range Interpretation Comments PHOSPHORUS (BEAKER) (test code = 2.7 mg/dL 2.3-4.7 604) [id number] 04:42:00 Test Item Value Reference Range Interpretation Comments MAGNESIUM (BEAKER) (test code = 2.2 mg/dL 1.6-2.6 627) BASIC METABOLIC [id number] 04:42:00 Test Item Value Reference Range Interpretation Comments SODIUM (BEAKER) 140 meq/L 136-145 (test code = 381) POTASSIUM (BEAKER) 3.1 meq/L 3.5-5.1 L (test code = 379) CHLORIDE (BEAKER) 97 meq/L 98-107 L (test code = 382) CO2 (BEAKER) (test 32 meq/L 22-29 H code = 355) BLOOD UREA NITROGEN 30 mg/dL 7-21 H (BEAKER) (test code = 354) CREATININE (BEAKER) 0.69 mg/dL 0.57-1.25 (test code = 358) GLUCOSE RANDOM 102 mg/dL 70-105 (BEAKER) (test code = 652) CALCIUM (BEAKER) 10.0 mg/dL 8.4-10.2 (test code = 697) EGFR (BEAKER) (test 98 mL/min/1.73 ESTIMA JOHNIE GFR IS code = 1092) sq m NOT ACCURATE CREATININE CLEARANCE IN PREDICTING GLOMERULAR FILTRATION RATE . ESTIMATED GFR I S NOT APPLICABLE FOR DIALYSIS PATIEN TS. CBC W/PLT COUNT & AUTO [id number] 04:05:00 Test Item Value Reference Range Interpretation Comments WHITE BLOOD CELL COUNT (BEAKER) 6.0 K/ L 3.5-10.5 (test code = 775) RED BLOOD CELL COUNT (BEAKER) 4.20 M/ L 3.93-5.22 (test code = 761) HEMOGLOBIN (BEAKER) (test code = 10.5 GM/DL 11.2-15.7 L 410) HEMATOCRIT (BEAKER) (test code = 35.2 % 34.1-44.9 411) MEAN CORPUSCULAR VOLUME (BEAKER) 83.8 fL 79.4-94.8 (test code = 753) MEAN CORPUSCULAR HEMOGLOBIN 25.0 pg 25.6-32.2 L (BEAKER) (test code = 751) MEAN CORPUSCULAR HEMOGLOBIN CONC 29.8 GM/DL 32.2-35.5 L (BEAKER) (test code = 752) RED CELL DISTRIBUTION WIDTH 18.3 % 11.7-14.4 H (BEAKER) (test code = 412) PLATELET COUNT (BEAKER) (test 373 K/CU MM 150-450 code = 756) MEAN PLATELET VOLUME (BEAKER) 10.4 fL 9.4-12.3 (test code = 754) NUCLEATED RED BLOOD CELLS 0 /100 WBC 0-0 (BEAKER) (test code = 413) NEUTROPHILS RELATIVE PERCENT 55 % (BEAKER) (test code = 429) LYMPHOCYTES RELATIVE PERCENT 26 % (BEAKER) (test code = 430) MONOCYTES RELATIVE PERCENT 14 % (BEAKER) (test code = 431) EOSINOPHILS RELATIVE PERCENT 4 % (BEAKER) (test code = 432) BASOPHILS RELATIVE PERCENT 1 % (BEAKER) (test code = 437) NEUTROPHILS ABSOLUTE COUNT 3.28 K/ L 1.56-6.13 (BEAKER) (test code = 670) LYMPHOCYTES ABSOLUTE COUNT 1.54 K/ L 1.18-3.74 (BEAKER) (test code = 414) MONOCYTES ABSOLUTE COUNT (BEAKER) 0.83 K/ L 0.24-0.36 H (test code = 415) EOSINOPHILS ABSOLUTE COUNT 0.22 K/ L 0.04-0.36 (BEAKER) (test code = 416) BASOPHILS ABSOLUTE COUNT (BEAKER) 0.05 K/ L 0.01-0.08 (test code = 417) IMMATURE GRANULOCYTES-RELATIVE 1 % 0-1 PERCENT (BEAKER) (test code = 2801) POCT-GLUCOSE [id number] 00:19:00 Test Item Value Reference Range Interpretation Comments POC-GLUCOSE METER 85 mg/dL 70-[address] [facility] (BEAKER) (test code = [place] [address] 1538) [id number] 20:41:00 Test Item Value Reference Range Interpretation Comments MAGNESIUM (BEAKER) (test code = 2.3 mg/dL 1.6-2.6 627) POCT-GLUCOSE [id number] 17:45:00 Test Item Value Reference Range Interpretation Comments POC-GLUCOSE METER 111 mg/dL 70-[address] [facility] ([facility]) (test code = KRYSTAL Gomez [place] 1538) [id number] 13:40:00 Test Item Value Reference Range Interpretation Comments POTASSIUM (BEAKER) (test code = 3.2 meq/L 3.5-5.1 L 379) [id number] 13:40:00 Test Item Value Reference Range Interpretation Comments MAGNESIUM (BEAKER) (test code = 2.4 mg/dL 1.6-2.6 627) POCT-GLUCOSE [id number] 13:24:00 Test Item Value Reference Range Interpretation Comments POC-GLUCOSE METER 119 mg/dL 70-110 H TESTED AT [place] [address] ([facility]) (test code = KRYSTAL Gomez [facility] 1538) [address] RAD, CHEST, 1 VIEW, NON [id number] 09:07:00While intubatedReason for exam:- >intubated, hypoxemiaShould this be performed at the bedside?->YesFINAL REPORT CLINICAL HISTORY: intubated, hypoxemia TECHNIQUE: 1 view of the chest. COMPARISON: 07/31/2018 IMPRESSION: The ETT and NGT have been removed. The left PICC line remains. Bilateral airspace opacities are grossly unchanged. There is no increasing pleural fluid. The cardiomediastinal silhouette is magnified by technique. Signed: Shani Zimmerman MDReport Verified Date/Time: 08/01/2018 09:07:57 Reading Location: [facility] C013V Neuro Reading Room POCT- GLUCOSE [id number] 06:20:00 Test Item Value Reference Range Interpretation Comments POC-GLUCOSE METER 102 mg/dL 70-110 TESTED AT [place] [address] ([facility]) (test code = KRYSTAL Gomez [facility] 1538) [id number] BLOOD GAS, [id number] 05:44:00 Test Item Value Reference Range Interpretation Comments PH ARTERIAL ([facility]) (test code = 7.49 7.35-7.45 H 383) PCO2 ARTERIAL (BEAKER) (test code 49 mmHg 35-45 H = 384) PO2 ARTERIAL (BEAKER) (test code 183 mmHg 80-90 H = 385) O2 SATURATION ARTERIAL (BEAKER) 99.3 % 96.0-97.0 H (test code = 386) HCO3 ARTERIAL (BEAKER) (test code 36 mmol/L 21-29 H = 388) BASE EXCESS ARTERIAL (BEAKER) 11.6 mmol/L -2.0-3.0 H (test code = 387) PATIENT TEMPERATURE (BEAKER) 37.5 C (test code = 1818) FIO2 (BEAKER) (test code = 1819) 60.0 % [id number] 05:01:00 Test Item Value Reference Range Interpretation Comments PHOSPHORUS (BEAKER) (test code = 4.0 mg/dL 2.3-4.7 604) BASIC METABOLIC [id number] 05:01:00 Test Item Value Reference Range Interpretation Comments SODIUM (BEAKER) 139 meq/L 136-145 (test code = 381) POTASSIUM (BEAKER) 3.1 meq/L 3.5-5.1 L (test code = 379) CHLORIDE (BEAKER) 90 meq/L 98-107 L (test code = 382) CO2 (BEAKER) (test 34 meq/L 22-29 H code = 355) BLOOD UREA NITROGEN 46 mg/dL 7-21 H (BEAKER) (test code = 354) CREATININE (BEAKER) 0.85 mg/dL 0.57-1.25 (test code = 358) GLUCOSE RANDOM 110 mg/dL 70-105 H (BEAKER) (test code = 652) CALCIUM (BEAKER) 10.5 mg/dL 8.4-10.2 H (test code = 697) EGFR (BEAKER) (test 77 mL/min/1.73 ESTIMA JOHNIE GFR IS code = 1092) sq m NOT ACCURATE CREATININE CLEARANCE IN PREDICTING GLOMERULAR FILTRATION RATE . ESTIMATED GFR I S NOT APPLICABLE FOR DIALYSIS PATIEN TS. CBC W/PLT COUNT & AUTO [id number] 04:00:00 Test Item Value Reference Range Interpretation Comments WHITE BLOOD CELL COUNT (BEAKER) 5.8 K/ L 3.5-10.5 (test code = 775) RED BLOOD CELL COUNT (BEAKER) 4.11 M/ L 3.93-5.22 (test code = 761) HEMOGLOBIN (BEAKER) (test code = 10.2 GM/DL 11.2-15.7 L 410) HEMATOCRIT (BEAKER) (test code = 34.1 % 34.1-44.9 411) MEAN CORPUSCULAR VOLUME (BEAKER) 83.0 fL 79.4-94.8 (test code = 753) MEAN CORPUSCULAR HEMOGLOBIN 24.8 pg 25.6-32.2 L (BEAKER) (test code = 751) MEAN CORPUSCULAR HEMOGLOBIN CONC 29.9 GM/DL 32.2-35.5 L (BEAKER) (test code = 752) RED CELL DISTRIBUTION WIDTH 18.6 % 11.7-14.4 H (BEAKER) (test code = 412) PLATELET COUNT (BEAKER) (test 344 K/CU MM 150-450 code = 756) MEAN PLATELET VOLUME (BEAKER) 10.3 fL 9.4-12.3 (test code = 754) NUCLEATED RED BLOOD CELLS 0 /100 WBC 0-0 (BEAKER) (test code = 413) NEUTROPHILS RELATIVE PERCENT 56 % (BEAKER) (test code = 429) LYMPHOCYTES RELATIVE PERCENT 20 % (BEAKER) (test code = 430) MONOCYTES RELATIVE PERCENT 15 % (BEAKER) (test code = 431) EOSINOPHILS RELATIVE PERCENT 8 % (BEAKER) (test code = 432) BASOPHILS RELATIVE PERCENT 1 % (BEAKER) (test code = 437) NEUTROPHILS ABSOLUTE COUNT 3.23 K/ L 1.56-6.13 (BEAKER) (test code = 670) LYMPHOCYTES ABSOLUTE COUNT 1.15 K/ L 1.18-3.74 L (BEAKER) (test code = 414) MONOCYTES ABSOLUTE COUNT (BEAKER) 0.84 K/ L 0.24-0.36 H (test code = 415) EOSINOPHILS ABSOLUTE COUNT 0.43 K/ L 0.04-0.36 H (BEAKER) (test code = 416) BASOPHILS ABSOLUTE COUNT (BEAKER) 0.04 K/ L 0.01-0.08 (test code = 417) IMMATURE GRANULOCYTES-RELATIVE 1 % 0-1 PERCENT (BEAKER) (test code = 2801) POCT-GLUCOSE [id number] 00:23:00 Test Item Value Reference Range Interpretation Comments POC-GLUCOSE METER 105 mg/dL 70-[address] [facility] [address] (BEAKER) (test code = [place] 1538) [id number] 20:23:00 Test Item Value Reference Range Interpretation Comments MAGNESIUM (BEAKER) (test code = 2.2 mg/dL 1.6-2.6 627) POCT-GLUCOSE [id number] 17:54:00 Test Item Value Reference Range Interpretation Comments POC-GLUCOSE METER 156 mg/dL 70-110 H TESTED AT [place] [id number] (BEAKER) (test code = [place]ST[place] 1538) [address] [id number] 15:45:00 Test Item Value Reference Range Interpretation Comments MAGNESIUM (BEAKER) (test code = 2.3 mg/dL 1.6-2.6 627) BLOOD GAS, [id number] 15:32:00 Test Item Value Reference Range Interpretation Comments PH ARTERIAL (BEAKER) (test code = 7.51 7.35-7.45 H 383) PCO2 ARTERIAL (BEAKER) (test code 50 mmHg 35-45 H = 384) PO2 ARTERIAL (BEAKER) (test code 109 mmHg 80-90 H = 385) O2 SATURATION ARTERIAL (BEAKER) 98.3 % 96.0-97.0 H (test code = 386) HCO3 ARTERIAL (BEAKER) (test code 38 mmol/L 21-29 H = 388) BASE EXCESS ARTERIAL (BEAKER) 13.4 mmol/L -2.0-3.0 H (test code = 387) PATIENT TEMPERATURE (BEAKER) 37.0 C (test code = 1818) BASIC METABOLIC [id number] 11:32:00 Test Item Value Reference Range Interpretation Comments SODIUM (BEAKER) 136 meq/L 136-145 (test code = 381) POTASSIUM (BEAKER) 3.6 meq/L 3.5-5.1 (test code = 379) CHLORIDE (BEAKER) 86 meq/L 98-107 L (test code = 382) CO2 (BEAKER) (test 38 meq/L 22-29 H code = 355) BLOOD UREA NITROGEN 52 mg/dL 7-21 H (BEAKER) (test code = 354) CREATININE (BEAKER) 1.14 mg/dL 0.57-1.25 (test code = 358) GLUCOSE RANDOM 103 mg/dL 70-105 (BEAKER) (test code = 652) CALCIUM (BEAKER) 10.2 mg/dL 8.4-10.2 (test code = 697) EGFR (BEAKER) (test 55 mL/min/1.73 ESTIMA JOHNIE GFR IS code = 1092) sq m NOT ACCURATE CREATININE CLEARANCE IN PREDICTING GLOMERULAR FILTRATION RATE . ESTIMATED GFR I S NOT APPLICABLE FOR DIALYSIS PATIEN TS. [id number] 07:46:00 Test Item Value Reference Range Interpretation Comments PHOSPHORUS (BEAKER) (test code = 6.9 mg/dL 2.3-4.7 H 604) [id number] 07:46:00 Test Item Value Reference Range Interpretation Comments MAGNESIUM (BEAKER) (test code = 2.3 mg/dL 1.6-2.6 627) COMPREHENSIVE METABOLIC [id number] 07:46:00 Test Item Value Reference Range Interpretation Comments TOTAL PROTEIN 8.2 gm/dL 6.0-8.3 (BEAKER) (test code = 770) ALBUMIN (BEAKER) 3.9 g/dL 3.5-5.0 (test code = 1145) ALKALINE PHOSPHATASE 53 U/L 40-150 (BEAKER) (test code = 346) BILIRUBIN TOTAL 0.3 mg/dL 0.2-1.2 (BEAKER) (test code = 377) SODIUM (BEAKER) (test 135 meq/L 136-145 L code = 381) POTASSIUM (BEAKER) 3.6 meq/L 3.5-5.1 (test code = 379) CHLORIDE (BEAKER) 85 meq/L 98-107 L (test code = 382) CO2 (BEAKER) (test 37 meq/L 22-29 H code = 355) BLOOD UREA NITROGEN 45 mg/dL 7-21 H (BEAKER) (test code = 354) CREATININE (BEAKER) 1.15 mg/dL 0.57-1.25 (test code = 358) GLUCOSE RANDOM 117 mg/dL 70-105 H (BEAKER) (test code = 652) CALCIUM (BEAKER) 10.0 mg/dL 8.4-10.2 (test code = 697) AST (SGOT) (BEAKER) 18 U/L 5-34 (test code = 353) ALT (SGPT) (BEAKER) 19 U/L 6-55 (test code = 347) EGFR (BEAKER) (test 54 mL/min/1.73 ESTIMA JOHNIE GFR IS code = 1092) sq m NOT ACCURATE CREATININE CLEARANCE IN PREDICTING GLOMERULAR FILTRATION RATE . ESTIMATED GFR I S NOT APPLICABLE FOR DIALYSIS PATIEN TS. Specimen slightly lipemicCBC W/PLT COUNT & AUTO [id number] 06:44:00 Test Item Value Reference Range Interpretation Comments WHITE BLOOD CELL COUNT (BEAKER) 5.8 K/ L 3.5-10.5 (test code = 775) RED BLOOD CELL COUNT (BEAKER) 4.13 M/ L 3.93-5.22 (test code = 761) HEMOGLOBIN (BEAKER) (test code = 10.3 GM/DL 11.2-15.7 L 410) HEMATOCRIT (BEAKER) (test code = 34.6 % 34.1-44.9 411) MEAN CORPUSCULAR VOLUME (BEAKER) 83.8 fL 79.4-94.8 (test code = 753) MEAN CORPUSCULAR HEMOGLOBIN 24.9 pg 25.6-32.2 L (BEAKER) (test code = 751) MEAN CORPUSCULAR HEMOGLOBIN CONC 29.8 GM/DL 32.2-35.5 L (BEAKER) (test code = 752) RED CELL DISTRIBUTION WIDTH 18.6 % 11.7-14.4 H (BEAKER) (test code = 412) PLATELET COUNT (BEAKER) (test 335 K/CU MM 150-450 code = 756) MEAN PLATELET VOLUME (BEAKER) 10.6 fL 9.4-12.3 (test code = 754) NUCLEATED RED BLOOD CELLS 0 /100 WBC 0-0 (BEAKER) (test code = 413) NEUTROPHILS RELATIVE PERCENT 52 % (BEAKER) (test code = 429) LYMPHOCYTES RELATIVE PERCENT 26 % (BEAKER) (test code = 430) MONOCYTES RELATIVE PERCENT 12 % (BEAKER) (test code = 431) EOSINOPHILS RELATIVE PERCENT 8 % (BEAKER) (test code = 432) BASOPHILS RELATIVE PERCENT 1 % (BEAKER) (test code = 437) NEUTROPHILS ABSOLUTE COUNT 3.03 K/ L 1.56-6.13 (BEAKER) (test code = 670) LYMPHOCYTES ABSOLUTE COUNT 1.51 K/ L 1.18-3.74 (BEAKER) (test code = 414) MONOCYTES ABSOLUTE COUNT (BEAKER) 0.69 K/ L 0.24-0.36 H (test code = 415) EOSINOPHILS ABSOLUTE COUNT 0.48 K/ L 0.04-0.36 H (BEAKER) (test code = 416) BASOPHILS ABSOLUTE COUNT (BEAKER) 0.05 K/ L 0.01-0.08 (test code = 417) IMMATURE GRANULOCYTES-RELATIVE 1 % 0-1 PERCENT (BEAKER) (test code = 2801) BLOOD GAS, [id number] 06:41:00 Test Item Value Reference Range Interpretation Comments PH ARTERIAL (BEAKER) (test code = 7.49 7.35-7.45 H 383) PCO2 ARTERIAL (BEAKER) (test code 54 mmHg 35-45 H = 384) PO2 ARTERIAL (BEAKER) (test code 74 mmHg 80-90 L = 385) O2 SATURATION ARTERIAL (BEAKER) 95.7 % 96.0-97.0 L (test code = 386) HCO3 ARTERIAL (BEAKER) (test code 40 mmol/L 21-29 HH = 388) BASE EXCESS ARTERIAL (BEAKER) 14.7 mmol/L -2.0-3.0 H (test code = 387) PATIENT TEMPERATURE (BEAKER) 36.6 C (test code = 1818) FIO2 (BEAKER) (test code = 1819) 50.0 % While intubatedPOCT-GLUCOSE [id number] 05:56:00 Test Item Value Reference Range Interpretation Comments POC-GLUCOSE METER 149 mg/dL 70-[address] [facility] (BEAKER) (test code = [place] 1538) [id number] RAD, CHEST, 1 VIEW, NON [id number] 04:52:00While intubatedReason for exam:- >intubated, hypoxemiaShould this be performed at the bedside?->YesFINAL REPORT RAD, CHEST, 1 VIEW, NON DEPT INDICATION: intubated, hypoxemia COMPARISON: Prior day's exam FINDINGS: Portable frontal view of the chest. IMPRESSION: Support Lines: Stable. Lungs and pleura: Unchanged airspace and pleural opacities. No pneumothorax.Heart and mediastinum: Stable contours. Additional findings: None. Signed: Ja Fernando Verified Date/Time: 07/31/2018 04:52:56 Reading Location: [address] Reading Room POCT-GLUCOSE [id number] 00:15:00 Test Item Value Reference Range Interpretation Comments POC-GLUCOSE METER 137 mg/dL 70-[address] [facility] [address] (BEAKER) (test code = [place] 1538) [address] [id number] 20:57:00 Test Item Value Reference Range Interpretation Comments MAGNESIUM (BEAKER) (test code = 2.5 mg/dL 1.6-2.6 627) BASIC METABOLIC [id number] 20:57:00 Test Item Value Reference Range Interpretation Comments SODIUM (BEAKER) 137 meq/L 136-145 (test code = 381) POTASSIUM (BEAKER) 3.6 meq/L 3.5-5.1 (test code = 379) CHLORIDE (BEAKER) 84 meq/L 98-107 L (test code = 382) CO2 (BEAKER) (test 39 meq/L 22-29 H code = 355) BLOOD UREA NITROGEN 35 mg/dL 7-21 H (BEAKER) (test code = 354) CREATININE (BEAKER) 1.05 mg/dL 0.57-1.25 (test code = 358) GLUCOSE RANDOM 113 mg/dL 70-105 H (BEAKER) (test code = 652) CALCIUM (BEAKER) 10.3 mg/dL 8.4-10.2 H (test code = 697) EGFR (BEAKER) (test 60 mL/min/1.73 ESTIMA JOHNIE GFR IS code = 1092) sq m NOT ACCURATE CREATININE CLEARANCE IN PREDICTING GLOMERULAR FILTRATION RATE . ESTIMATED GFR I S NOT APPLICABLE FOR DIALYSIS PATIEN TS. POCT-GLUCOSE [id number] 18:15:00 Test Item Value Reference Range Interpretation Comments POC-GLUCOSE METER 104 mg/dL 70-[address] [facility] (BEAKER) (test code = [place] 1538) [id number] POCT-GLUCOSE [id number] 18:05:00 Test Item Value Reference Range Interpretation Comments POC-GLUCOSE METER 128 mg/dL 70-110 H TESTED AT [place] [address] (BEAKER) (test code = KRYSTAL Gomez [facility] 1538) [address] RAD, CHEST, 1 VIEW, NON [id number] 14:13:00Reason for exam:->ARDSShould this be performed at the bedside?->YesFINAL REPORT TECHNIQUE: Frontal chest radiograph dated 07/30/2018. CLINICAL HISTORY: ARDS COMPARISON STUDY: Chest radiograph performed earlier the same day IMPRESSION:Life supporttubes and lines are stable in position. No change in diffuse bilateral airspace disease. No pleural effusion or pneumothorax. Cardiomediastinal silhouette is normal in size. No fracture. Signed: Kaitlin Verde MDReport Verified Date/Time: 07/30/2018 14:13:56 Reading Location: [facility] Radiology Reading Room [id number] 12:47:00 Test Item Value Reference Range Interpretation Comments MAGNESIUM (BEAKER) (test code = 2.2 mg/dL 1.6-2.6 627) BASIC METABOLIC [id number] 12:47:00 Test Item Value Reference Range Interpretation Comments SODIUM (BEAKER) 139 meq/L 136-145 (test code = 381) POTASSIUM (BEAKER) 3.3 meq/L 3.5-5.1 L (test code = 379) CHLORIDE (BEAKER) 85 meq/L 98-107 L (test code = 382) CO2 (BEAKER) (test 39 meq/L 22-29 H code = 355) BLOOD UREA NITROGEN 32 mg/dL 7-21 H (BEAKER) (test code = 354) CREATININE (BEAKER) 0.85 mg/dL 0.57-1.25 (test code = 358) GLUCOSE RANDOM 110 mg/dL 70-105 H (BEAKER) (test code = 652) CALCIUM (BEAKER) 10.8 mg/dL 8.4-10.2 H (test code = 697) EGFR (BEAKER) (test 77 mL/min/1.73 ESTIMA JOHNIE GFR IS code = 1092) sq m NOT ACCURATE CREATININE CLEARANCE IN PREDICTING GLOMERULAR FILTRATION RATE . ESTIMATED GFR I S NOT APPLICABLE FOR DIALYSIS PATIEN TS. BLOOD GAS, [id number] 12:40:00 Test Item Value Reference Range Interpretation Comments PH ARTERIAL (BEAKER) (test code = 7.57 7.35-7.45 H 383) PCO2 ARTERIAL (BEAKER) (test code 49 mmHg 35-45 H = 384) PO2 ARTERIAL (BEAKER) (test code 79 mmHg 80-90 L = 385) O2 SATURATION ARTERIAL (BEAKER) 97.0 % 96.0-97.0 (test code = 386) HCO3 ARTERIAL (BEAKER) (test code 44 mmol/L 21-29 HH = 388) BASE EXCESS ARTERIAL (BEAKER) 19.8 mmol/L -2.0-3.0 H (test code = 387) PATIENT TEMPERATURE (BEAKER) 36.5 C (test code = 1818) FIO2 (BEAKER) (test code = 1819) 50.0 % POCT-GLUCOSE [id number] 12:25:00 Test Item Value Reference Range Interpretation Comments POC-GLUCOSE METER 122 mg/dL 70-110 H TESTED AT [place] [address] ([facility]) (test code = KRYSTAL Gomez [facility] 1538) [id number] POCT-GLUCOSE [id number] 07:07:00 Test Item Value Reference Range Interpretation Comments POC-GLUCOSE METER 117 mg/dL 70-110 H TESTED AT [place] [address] ([facility]) (test code = [facility] 1538) [address] [id number] 05:03:00 Test Item Value Reference Range Interpretation Comments PHOSPHORUS (BEAKER) (test code = 6.0 mg/dL 2.3-4.7 H 604) [id number] 05:01:00 Test Item Value Reference Range Interpretation Comments PROTIME (BEAKER) (test code = 14.5 seconds 11.7-14.7 759) INR (BEAKER) (test code = 370) 1.1 <=5.9 PARTIAL THROMBOPLASTIN TIME 35.6 seconds 22.5-36.0 (BEAKER) (test code = 760) RECOMMENDED COUMADIN/WARFARIN INR THERAPY RANGESSTANDARD DOSE: 2.0 - 3.0 Includes: PROPHYLAXIS forvenous thrombosis, systemic embolization; TREATMENT for venous thrombosis and/or pulmonary embolus.HIGH RISK: Target INR is 2.5-3.5 for patients with mechanical heart valves.BLOOD GAS, [id number] 04:56:00 Test Item Value Reference Range Interpretation Comments PH ARTERIAL (BEAKER) (test code = 7.48 7.35-7.45 H 383) PCO2 ARTERIAL (BEAKER) (test code 53 mmHg 35-45 H = 384) PO2 ARTERIAL (BEAKER) (test code 79 mmHg 80-90 L = 385) O2 SATURATION ARTERIAL (BEAKER) 96.0 % 96.0-97.0 (test code = 386) HCO3 ARTERIAL (BEAKER) (test code 39 mmol/L 21-29 H = 388) BASE EXCESS ARTERIAL (BEAKER) 14.0 mmol/L -2.0-3.0 H (test code = 387) PATIENT TEMPERATURE (BEAKER) 37.5 C (test code = 1818) FIO2 (BEAKER) (test code = 1819) 50.0 % While intubatedRAD, CHEST, 1 VIEW, NON [id number] 04:46:00While intubatedReason for exam:->intubated, hypoxemiaShould this be [...] No pneumothorax.Heart and mediastinum: Stable contours. Additional f indings: None. Signed: [facility] Verified Date/Time: 07/30/2018 04:46:21 ReadingLocation: [facility] Reading Room CBC W/PLT COUNT & AUTO [id number] 04:40:00 Test Item Value Reference Range Interpretation Comments WHITE BLOOD CELL COUNT (BEAKER) 5.6 K/ L 3.5-10.5 (test code = 775) RED BLOOD CELL COUNT (BEAKER) 3.96 M/ L 3.93-5.22 (test code = 761) HEMOGLOBIN (BEAKER) (test code = 9.8 GM/DL 11.2-15.7 L 410) HEMATOCRIT (BEAKER) (test code = 33.2 % 34.1-44.9 L 411) MEAN CORPUSCULAR VOLUME (BEAKER) 83.8 fL 79.4-94.8 (test code = 753) MEAN CORPUSCULAR HEMOGLOBIN 24.7 pg 25.6-32.2 L (BEAKER) (test code = 751) MEAN CORPUSCULAR HEMOGLOBIN CONC 29.5 GM/DL 32.2-35.5 L (BEAKER) (test code = 752) RED CELL DISTRIBUTION WIDTH 18.4 % 11.7-14.4 H (BEAKER) (test code = 412) PLATELET COUNT (BEAKER) (test 294 K/CU MM 150-450 code = 756) MEAN PLATELET VOLUME (BEAKER) 10.2 fL 9.4-12.3 (test code = 754) NUCLEATED RED BLOOD CELLS 0 /100 WBC 0-0 (BEAKER) (test code = 413) NEUTROPHILS RELATIVE PERCENT 51 % (BEAKER) (test code = 429) LYMPHOCYTES RELATIVE PERCENT 25 % (BEAKER) (test code = 430) MONOCYTES RELATIVE PERCENT 11 % (BEAKER) (test code = 431) EOSINOPHILS RELATIVE PERCENT 11 % (BEAKER) (test code = 432) BASOPHILS RELATIVE PERCENT 1 % (BEAKER) (test code = 437) NEUTROPHILS ABSOLUTE COUNT 2.82 K/ L 1.56-6.13 (BEAKER) (test code = 670) LYMPHOCYTES ABSOLUTE COUNT 1.39 K/ L 1.18-3.74 (BEAKER) (test code = 414) MONOCYTES ABSOLUTE COUNT (BEAKER) 0.62 K/ L 0.24-0.36 H (test code = 415) EOSINOPHILS ABSOLUTE COUNT 0.63 K/ L 0.04-0.36 H (BEAKER) (test code = 416) BASOPHILS ABSOLUTE COUNT (BEAKER) 0.04 K/ L 0.01-0.08 (test code = 417) IMMATURE GRANULOCYTES-RELATIVE 1 % 0-1 PERCENT (BEAKER) (test code = 2801) BLOOD [id number] 02:00:00 Test Item Value Reference Range Interpretation Comments CULTURE (BEAKER) (test No growth in 5 days code = 1095) BLOOD [id number] 02:00:00 Test Item Value Reference Range Interpretation Comments CULTURE (BEAKER) (test No growth in 5 days code = 1095) POCT-GLUCOSE [id number] 01:27:00 Test Item Value Reference Range Interpretation Comments POC-GLUCOSE METER 112 mg/dL 70-[address] [facility] [address] (BEAKER) (test code = [place] 1538) [address] [id number] 20:35:00 Test Item Value Reference Range Interpretation Comments MAGNESIUM (BEAKER) (test code = 2.0 mg/dL 1.6-2.6 627) BASIC METABOLIC [id number] 20:35:00 Test Item Value Reference Range Interpretation Comments SODIUM (BEAKER) 139 meq/L 136-145 (test code = 381) POTASSIUM (BEAKER) 3.8 meq/L 3.5-5.1 (test code = 379) CHLORIDE (BEAKER) 87 meq/L 98-107 L (test code = 382) CO2 (BEAKER) (test 38 meq/L 22-29 H code = 355) BLOOD UREA NITROGEN 23 mg/dL 7-21 H (BEAKER) (test code = 354) CREATININE (BEAKER) 0.79 mg/dL 0.57-1.25 (test code = 358) GLUCOSE RANDOM 127 mg/dL 70-105 H (BEAKER) (test code = 652) CALCIUM (BEAKER) 10.6 mg/dL 8.4-10.2 H (test code = 697) EGFR (BEAKER) (test 84 mL/min/1.73 ESTIMA JOHNIE GFR IS code = 1092) sq m NOT ACCURATE CREATININE CLEARANCE IN PREDICTING GLOMERULAR FILTRATION RATE . ESTIMATED GFR I S NOT APPLICABLE FOR DIALYSIS PATIEN TS. RAD, CHEST, 1 VIEW, NON [id number] 20:14:00Reason for exam:->PICC placementShould this be performed at the bedside?->YesFINAL REPORT Portable chest. CLINICAL HISTORY: PICC placement. COMPARISON STUD Y: July 29, 2018. FINDINGS: The cardiac silhouette is enlarged. The pulmonary parenchyma demonstrateextensive interstitial and airspace opacities, as on previous. Again noted, a left PICC line has been inserted, the tip projecting over the SVC. The remaining support lines and tubes are unchanged. No p neumothorax is seen. Degenerative changes are noted. IMPRESSION: Left PICC line insertion, the tip projecting over the SVC. Signed: Maciej Espinal Verified Date/Time: 07/29/2018 20:14:53 Reading Location: [facility] C013X Ortho Consult Reading Room POCT-GLUCOSE [id number] 16:57:00 Test Item Value Reference Range Interpretation Comments POC-GLUCOSE METER 149 mg/dL 70-[address] [facility] ([facility]) (test code = [facility] 1538) [id number] HEPARIN ASSAY - LOW MOLECULAR [id number] 15:18:00 Test Item Value Reference Range Interpretation Comments LOVENOX-ANTI 10A (BEAKER) (test 1.09 u/ml 0.60-2.00 code = 1605) Anti-Factor 10-A Level (Heparin Assay for Low Molecular Weight Heparin)Monitoring Guidelines: Blood samples should be obtained 4 hours post subcutaneous injection (time of Peak level) Therapeutic Peak Levels: 0.6-1.0 units/mL twice daily enoxaparin 1.0-2.0 units/mL once daily enoxaparinRef: CHEST 2012;141:[id number] 13:27:00 Test Item Value Reference Range Interpretation Comments POC-GLUCOSE METER 121 mg/dL 70-[address] [facility] (BEAKER) (test code = [facility] 1538) [id number] BASIC METABOLIC [id number] 12:13:00 Test Item Value Reference Range Interpretation Comments SODIUM (BEAKER) 140 meq/L 136-145 (test code = 381) POTASSIUM (BEAKER) 3.2 meq/L 3.5-5.1 L (test code = 379) CHLORIDE (BEAKER) 91 meq/L 98-107 L (test code = 382) CO2 (BEAKER) (test 41 meq/L 22-29 HH code = 355) BLOOD UREA NITROGEN 16 mg/dL 7-21 (BEAKER) (test code = 354) CREATININE (BEAKER) 0.68 mg/dL 0.57-1.25 (test code = 358) GLUCOSE RANDOM 133 mg/dL 70-105 H (BEAKER) (test code = 652) CALCIUM (BEAKER) 10.0 mg/dL 8.4-10.2 (test code = 697) EGFR (BEAKER) (test 100 mL/min/1.73 ESTIM ATED GFR IS code = 1092) sq m NOT ACCURATE CREATININE CLEARANCE IN PREDICTING GLOMERULAR FILTRATION RATE . ESTIMATED GFR I S NOT APPLICABLE FOR DIALYSIS PATIEN TS. [id number] 11:59:00 Test Item Value Reference Range Interpretation Comments MAGNESIUM (BEAKER) (test code = 1.9 mg/dL 1.6-2.6 627) CBC W/PLT COUNT & AUTO [id number] 07:37:00 Test Item Value Reference Range Interpretation Comments WHITE BLOOD CELL COUNT (BEAKER) 5.1 K/ L 3.5-10.5 (test code = 775) RED BLOOD CELL COUNT (BEAKER) 3.67 M/ L 3.93-5.22 L (test code = 761) HEMOGLOBIN (BEAKER) (test code = 9.1 GM/DL 11.2-15.7 L 410) HEMATOCRIT (BEAKER) (test code = 31.6 % 34.1-44.9 L 411) MEAN CORPUSCULAR VOLUME (BEAKER) 86.1 fL 79.4-94.8 (test code = 753) MEAN CORPUSCULAR HEMOGLOBIN 24.8 pg 25.6-32.2 L (BEAKER) (test code = 751) MEAN CORPUSCULAR HEMOGLOBIN CONC 28.8 GM/DL 32.2-35.5 L (BEAKER) (test code = 752) RED CELL DISTRIBUTION WIDTH 18.0 % 11.7-14.4 H (BEAKER) (test code = 412) PLATELET COUNT (BEAKER) (test 294 K/CU MM 150-450 code = 756) MEAN PLATELET VOLUME (BEAKER) 10.6 fL 9.4-12.3 (test code = 754) NUCLEATED RED BLOOD CELLS 0 /100 WBC 0-0 (BEAKER) (test code = 413) NEUTROPHILS RELATIVE PERCENT 55 % (BEAKER) (test code = 429) LYMPHOCYTES RELATIVE PERCENT 23 % (BEAKER) (test code = 430) MONOCYTES RELATIVE PERCENT 11 % (BEAKER) (test code = 431) EOSINOPHILS RELATIVE PERCENT 9 % (BEAKER) (test code = 432) BASOPHILS RELATIVE PERCENT 0 % (BEAKER) (test code = 437) NEUTROPHILS ABSOLUTE COUNT 2.83 K/ L 1.56-6.13 (BEAKER) (test code = 670) LYMPHOCYTES ABSOLUTE COUNT 1.16 K/ L 1.18-3.74 L (BEAKER) (test code = 414) MONOCYTES ABSOLUTE COUNT (BEAKER) 0.58 K/ L 0.24-0.36 H (test code = 415) EOSINOPHILS ABSOLUTE COUNT 0.44 K/ L 0.04-0.36 H (BEAKER) (test code = 416) BASOPHILS ABSOLUTE COUNT (BEAKER) 0.02 K/ L 0.01-0.08 (test code = 417) IMMATURE GRANULOCYTES-RELATIVE 2 % 0-1 H PERCENT (BEAKER) (test code = 2801) [id number] 07:05:00 Test Item Value Reference Range Interpretation Comments PHOSPHORUS (BEAKER) (test code = 5.1 mg/dL 2.3-4.7 H 604) BASIC METABOLIC [id number] 07:05:00 Test Item Value Reference Range Interpretation Comments SODIUM (BEAKER) 142 meq/L 136-145 (test code = 381) POTASSIUM (BEAKER) 3.9 meq/L 3.5-5.1 (test code = 379) CHLORIDE (BEAKER) 92 meq/L 98-107 L (test code = 382) CO2 (BEAKER) (test 38 meq/L 22-29 H code = 355) BLOOD UREA NITROGEN 17 mg/dL 7-21 (BEAKER) (test code = 354) CREATININE (BEAKER) 0.70 mg/dL 0.57-1.25 (test code = 358) GLUCOSE RANDOM 140 mg/dL 70-105 H (BEAKER) (test code = 652) CALCIUM (BEAKER) 10.3 mg/dL 8.4-10.2 H (test code = 697) EGFR (BEAKER) (test 96 mL/min/1.73 ESTIMA JOHNIE GFR IS code = 1092) sq m NOT ACCURATE CREATININE CLEARANCE IN PREDICTING GLOMERULAR FILTRATION RATE . ESTIMATED GFR I S NOT APPLICABLE FOR DIALYSIS PATIEN TS. [id number] 07:00:00 Test Item Value Reference Range Interpretation Comments PROTIME (BEAKER) (test code = 14.7 seconds 11.7-14.7 759) INR (BEAKER) (test code = 370) 1.1 <=5.9 PARTIAL THROMBOPLASTIN TIME 30.5 seconds 22.5-36.0 (BEAKER) (test code = 760) RECOMMENDED COUMADIN/WARFARIN INR THERAPY RANGESSTANDARD DOSE: 2.0 - 3.0 Includes: PROPHYLAXIS forvenous thrombosis, systemic embolization; TREATMENT for venous thrombosis and/or pulmonary embolus.HIGH RISK: Target INR is 2.5-3.5 for patients with mechanical heart valves.[id number] 06:59:00 Test Item Value Reference Range Interpretation Comments MAGNESIUM (BEAKER) (test code = 2.4 mg/dL 1.6-2.6 627) BLOOD GAS, [id number] 06:57:00 Test Item Value Reference Range Interpretation Comments PH ARTERIAL (BEAKER) (test code = 7.46 7.35-7.45 H 383) PCO2 ARTERIAL (BEAKER) (test code 59 mmHg 35-45 H = 384) PO2 ARTERIAL (BEAKER) (test code 120 mmHg 80-90 H = 385) O2 SATURATION ARTERIAL (BEAKER) 98.4 % 96.0-97.0 H (test code = 386) HCO3 ARTERIAL (BEAKER) (test code 41 mmol/L 21-29 HH = 388) BASE EXCESS ARTERIAL (BEAKER) 15.4 mmol/L -2.0-3.0 H (test code = 387) PATIENT TEMPERATURE (BEAKER) 37.2 C (test code = 1818) FIO2 (BEAKER) (test code = 1819) 50.0 % While intubatedRAD, CHEST, 1 VIEW, NON [id number] 06:02:00While intubatedReason for exam:->intubated, hypoxemiaShould this be performed at the bedside?->YesFINAL REPORT Chest one view. Clinical history: intubated, hypoxemia Comparison: Chest radiograph 07/28/2018. Technique: A single frontal view of the chest was obtained. Findings:Support devices are in satisfactory position.The cardiomediastinal contours are stable. There are persistent diffuse bilateral airspace opacities. There is no pneumothorax. Small bilateral pleural effusions cannot be excluded. Signed: Arya Chávez MDReport Verified Date/Time: 07/29/2018 06:02:56 Reading Location: [facility] C013Y DE Body Reading Room Electronically signed by: Peewee OLIVAREZ 07/29/2018 06:02 AMPOCT-GLUCOSE [id number] 05:55:00 Test Item Value Reference Range Interpretation Comments POC-GLUCOSE METER 165 mg/dL 70-[address] [facility] (BEAKER) (test code = [facility] 1538) [id number] POCT-GLUCOSE [id number] 00:09:00 Test Item Value Reference Range Interpretation Comments POC-GLUCOSE METER 133 mg/dL 70-110 H TESTED AT [place] [id number] (BEAKER) (test code = [facility] 1538) [id number] 22:33:00 Test Item Value Reference Range Interpretation Comments MAGNESIUM (BEAKER) (test code = 1.8 mg/dL 1.6-2.6 627) BASIC METABOLIC [id number] 22:33:00 Test Item Value Reference Range Interpretation Comments SODIUM (BEAKER) 142 meq/L 136-145 (test code = 381) POTASSIUM (BEAKER) 3.5 meq/L 3.5-5.1 (test code = 379) CHLORIDE (BEAKER) 95 meq/L 98-107 L (test code = 382) CO2 (BEAKER) (test 36 meq/L 22-29 H code = 355) BLOOD UREA NITROGEN 16 mg/dL 7-21 (BEAKER) (test code = 354) CREATININE (BEAKER) 0.73 mg/dL 0.57-1.25 (test code = 358) GLUCOSE RANDOM 121 mg/dL 70-105 H (BEAKER) (test code = 652) CALCIUM (BEAKER) 9.8 mg/dL 8.4-10.2 (test code = 697) EGFR (BEAKER) (test 92 mL/min/1.73 ESTIMA JOHNIE GFR IS code = 1092) sq m NOT ACCURATE CREATININE CLEARANCE IN PREDICTING GLOMERULAR FILTRATION RATE . ESTIMATED GFR I S NOT APPLICABLE FOR DIALYSIS PATIEN TS. POCT-GLUCOSE [id number] 17:48:00 Test Item Value Reference Range Interpretation Comments POC-GLUCOSE METER 140 mg/dL 70-[address] [facility] ([facility]) (test code = [facility] 1538) [id number] 12:42:00 Test Item Value Reference Range Interpretation Comments MAGNESIUM (BEAKER) (test code = 1.9 mg/dL 1.6-2.6 627) BASIC METABOLIC [id number] 12:42:00 Test Item Value Reference Range Interpretation Comments SODIUM (BEAKER) 141 meq/L 136-145 (test code = 381) POTASSIUM (BEAKER) 4.4 meq/L 3.5-5.1 (test code = 379) CHLORIDE (BEAKER) 97 meq/L 98-107 L (test code = 382) CO2 (BEAKER) (test 35 meq/L 22-29 H code = 355) BLOOD UREA NITROGEN 15 mg/dL 7-21 (BEAKER) (test code = 354) CREATININE (BEAKER) 0.71 mg/dL 0.57-1.25 (test code = 358) GLUCOSE RANDOM 121 mg/dL 70-105 H (BEAKER) (test code = 652) CALCIUM (BEAKER) 9.8 mg/dL 8.4-10.2 (test code = 697) EGFR (BEAKER) (test 95 mL/min/1.73 ESTIMA JOHNIE GFR IS code = 1092) sq m NOT ACCURATE CREATININE CLEARANCE IN PREDICTING GLOMERULAR FILTRATION RATE . ESTIMATED GFR I S NOT APPLICABLE FOR DIALYSIS PATIEN TS. POCT-GLUCOSE [id number] 12:32:00 Test Item Value Reference Range Interpretation Comments POC-GLUCOSE METER 129 mg/dL 70-110 H TESTED AT [place] [id number] ([facility]) (test code = [facility] 1538) [address] RAD, CHEST, 1 VIEW, NON [id number] 07:24:00While intubatedReason for exam:- >intubated, hypoxemiaShould this be performed at the bedside?->YesFINAL [...] MDReport Verified Date/Time: 07/28/2018 07:24:03 Reading Location: [facility] Reading Room [id number] 05:26:00 Test Item Value Reference Range Interpretation Comments PHOSPHORUS (BEAKER) (test code = 3.8 mg/dL 2.3-4.7 604) [id number] 05:26:00 Test Item Value Reference Range Interpretation Comments MAGNESIUM (BEAKER) (test code = 2.0 mg/dL 1.6-2.6 627) COMPREHENSIVE METABOLIC [id number] 05:26:00 Test Item Value Reference Range Interpretation Comments TOTAL PROTEIN 7.0 gm/dL 6.0-8.3 (BEAKER) (test code = 770) ALBUMIN (BEAKER) 3.2 g/dL 3.5-5.0 L (test code = 1145) ALKALINE PHOSPHATASE 46 U/L 40-150 (BEAKER) (test code = 346) BILIRUBIN TOTAL 0.2 mg/dL 0.2-1.2 (BEAKER) (test code = 377) SODIUM (BEAKER) (test 142 meq/L 136-145 code = 381) POTASSIUM (BEAKER) 3.6 meq/L 3.5-5.1 (test code = 379) CHLORIDE (BEAKER) 96 meq/L 98-107 L (test code = 382) CO2 (BEAKER) (test 39 meq/L 22-29 H code = 355) BLOOD UREA NITROGEN 14 mg/dL 7-21 (BEAKER) (test code = 354) CREATININE (BEAKER) 0.65 mg/dL 0.57-1.25 (test code = 358) GLUCOSE RANDOM 102 mg/dL 70-105 (BEAKER) (test code = 652) CALCIUM (BEAKER) 9.9 mg/dL 8.4-10.2 (test code = 697) AST (SGOT) (BEAKER) 24 U/L 5-34 (test code = 353) ALT (SGPT) (BEAKER) 19 U/L 6-55 (test code = 347) EGFR (BEAKER) (test 105 ESTIMATE D GFR IS code = 1092) mL/min/1.73 sq NOT ACCURA TE m CREATININE CLEARANCE IN PREDICTING GLOMERULAR FILTRATION RATE . ESTIMATED GFR I S NOT APPLICABLE FOR DIALYSIS PATIEN TS. [id number] 05:14:00 Test Item Value Reference Range Interpretation Comments PROTIME (BEAKER) (test code = 14.7 seconds 11.7-14.7 759) INR (BEAKER) (test code = 370) 1.1 <=5.9 PARTIAL THROMBOPLASTIN TIME 40.2 seconds 22.5-36.0 H (BEAKER) (test code = 760) RECOMMENDED COUMADIN/WARFARIN INR THERAPY RANGESSTANDARD DOSE: 2.0 - 3.0 Includes: PROPHYLAXIS forvenous thrombosis, systemic embolization; TREATMENT for venous thrombosis and/or pulmonary embolus.HIGH RISK: Target INR is 2.5-3.5 for patients with mechanical heart valves.BLOOD GAS, [id number] 05:11:00 Test Item Value Reference Range Interpretation Comments PH ARTERIAL (BEAKER) (test code = 7.44 7.35-7.45 383) PCO2 ARTERIAL (BEAKER) (test code 64 mmHg 35-45 H = 384) PO2 ARTERIAL (BEAKER) (test code 117 mmHg 80-90 H = 385) O2 SATURATION ARTERIAL (BEAKER) 98.2 % 96.0-97.0 H (test code = 386) HCO3 ARTERIAL (BEAKER) (test code 42 mmol/L 21-29 HH = 388) BASE EXCESS ARTERIAL (BEAKER) 15.5 mmol/L -2.0-3.0 H (test code = 387) PATIENT TEMPERATURE (BEAKER) 37.5 C (test code = 1818) FIO2 (BEAKER) (test code = 1819) 50.0 % While intubatedCBC W/PLT COUNT & AUTO [id number] 05:03:00 Test Item Value Reference Range Interpretation Comments WHITE BLOOD CELL COUNT (BEAKER) 5.3 K/ L 3.5-10.5 (test code = 775) RED BLOOD CELL COUNT (BEAKER) 3.40 M/ L 3.93-5.22 L (test code = 761) HEMOGLOBIN (BEAKER) (test code = 8.7 GM/DL 11.2-15.7 L 410) HEMATOCRIT (BEAKER) (test code = 29.2 % 34.1-44.9 L 411) MEAN CORPUSCULAR VOLUME (BEAKER) 85.9 fL 79.4-94.8 (test code = 753) MEAN CORPUSCULAR HEMOGLOBIN 25.6 pg 25.6-32.2 (BEAKER) (test code = 751) MEAN CORPUSCULAR HEMOGLOBIN CONC 29.8 GM/DL 32.2-35.5 L (BEAKER) (test code = 752) RED CELL DISTRIBUTION WIDTH 17.7 % 11.7-14.4 H (BEAKER) (test code = 412) PLATELET COUNT (BEAKER) (test 264 K/CU MM 150-450 code = 756) MEAN PLATELET VOLUME (BEAKER) 10.2 fL 9.4-12.3 (test code = 754) NUCLEATED RED BLOOD CELLS 0 /100 WBC 0-0 (BEAKER) (test code = 413) NEUTROPHILS RELATIVE PERCENT 54 % (BEAKER) (test code = 429) LYMPHOCYTES RELATIVE PERCENT 23 % (BEAKER) (test code = 430) MONOCYTES RELATIVE PERCENT 10 % (BEAKER) (test code = 431) EOSINOPHILS RELATIVE PERCENT 11 % (BEAKER) (test code = 432) BASOPHILS RELATIVE PERCENT 1 % (BEAKER) (test code = 437) NEUTROPHILS ABSOLUTE COUNT 2.83 K/ L 1.56-6.13 (BEAKER) (test code = 670) LYMPHOCYTES ABSOLUTE COUNT 1.22 K/ L 1.18-3.74 (BEAKER) (test code = 414) MONOCYTES ABSOLUTE COUNT (BEAKER) 0.53 K/ L 0.24-0.36 H (test code = 415) EOSINOPHILS ABSOLUTE COUNT 0.60 K/ L 0.04-0.36 H (BEAKER) (test code = 416) BASOPHILS ABSOLUTE COUNT (BEAKER) 0.03 K/ L 0.01-0.08 (test code = 417) IMMATURE GRANULOCYTES-RELATIVE 1 % 0-1 PERCENT (BEAKER) (test code = 2801) POCT-GLUCOSE [id number] 21:23:00 Test Item Value Reference Range Interpretation Comments POC-GLUCOSE METER 118 mg/dL 70-[address] [facility] (BEAKER) (test code = [facility] [place] 1538) [id number] [id number] 20:20:00 Test Item Value Reference Range Interpretation Comments MAGNESIUM (BEAKER) (test code = 1.8 mg/dL 1.6-2.6 627) BASIC METABOLIC [id number] 20:20:00 Test Item Value Reference Range Interpretation Comments SODIUM (BEAKER) 142 meq/L 136-145 (test code = 381) POTASSIUM (BEAKER) 3.5 meq/L 3.5-5.1 (test code = 379) CHLORIDE (BEAKER) 96 meq/L 98-107 L (test code = 382) CO2 (BEAKER) (test 39 meq/L 22-29 H code = 355) BLOOD UREA NITROGEN 16 mg/dL 7-21 (BEAKER) (test code = 354) CREATININE (BEAKER) 0.66 mg/dL 0.57-1.25 (test code = 358) GLUCOSE RANDOM 107 mg/dL 70-105 H (BEAKER) (test code = 652) CALCIUM (BEAKER) 9.9 mg/dL 8.4-10.2 (test code = 697) EGFR (BEAKER) (test 103 mL/min/1.73 ESTIM ATED GFR IS code = 1092) sq m NOT ACCURATE CREATININE CLEARANCE IN PREDICTING GLOMERULAR FILTRATION RATE . ESTIMATED GFR I S NOT APPLICABLE FOR DIALYSIS PATIEN TS. POCT-GLUCOSE [id number] 18:38:00 Test Item Value Reference Range Interpretation Comments POC-GLUCOSE METER 103 mg/dL 70-[address] [facility] (BEAKER) (test code = [facility] [place] 1538) [id number] HEPARIN ASSAY - LOW MOLECULAR [id number] 14:56:00 Test Item Value Reference Range Interpretation Comments LOVENOX-ANTI 10A (BEAKER) (test 1.20 u/ml 0.60-2.00 code = 1605) Anti-Factor 10-A Level (Heparin Assay for Low Molecular Weight Heparin)Monitoring Guidelines: Blood samples should be obtained 4 hours post subcutaneous injection (time of Peak level) Therapeutic Peak Levels: 0.6-1.0 units/mL twice daily enoxaparin 1.0-2.0 units/mL once daily enoxaparinRef: CHEST 2012;141:[id number] level, draw 4 hours after 3rd dose of Lovenox. POCT-GLUCOSE [id number] 13:02:00 Test Item Value Reference Range Interpretation Comments POC-GLUCOSE METER 116 mg/dL 70-[address] [facility] (BEAKER) (test code = [facility] [place] 1538) [address] BLOOD GAS, [id number] 11:56:00 Test Item Value Reference Range Interpretation Comments PH ARTERIAL (BEAKER) (test code = 7.44 7.35-7.45 383) PCO2 ARTERIAL (BEAKER) (test code 60 mmHg 35-45 H = 384) PO2 ARTERIAL (BEAKER) (test code 108 mmHg 80-90 H = 385) O2 SATURATION ARTERIAL (BEAKER) 97.9 % 96.0-97.0 H (test code = 386) HCO3 ARTERIAL (BEAKER) (test code 40 mmol/L 21-29 HH = 388) BASE EXCESS ARTERIAL (BEAKER) 14.1 mmol/L -2.0-3.0 H (test code = 387) PATIENT TEMPERATURE (BEAKER) 37.5 C (test code = 1818) FIO2 (BEAKER) (test code = 1819) 50.0 % SPUTUM CULTURE + GRAM [id number] 10:06:00 Test Item Value Reference Range Interpretation Comments CULTURE (BEAKER) See comment (test code = 1095) GRAM STAIN RESULT 3+ White blood cells (BEAKER) (test code = seen 1123) GRAM STAIN RESULT 0-5 epithelial cells (BEAKER) (test code = 791981) GRAM STAIN RESULT No organisms seen (BEAKER) (test code = 670743) <1+ yeastNo Normal respiratory perez presentRAD, CHEST, 1 VIEW, NON DEPT 2018-07-27 07:38:00While intubatedReason for exam:->intubated, hypoxemiaShould this be performed at the bedside?->YesFINAL REPORT CLINICAL HISTORY: intubated, hypoxemia TECHNIQUE: 1 view of the c hest. COMPARISON: 07/26/2018 IMPRESSION: The supporting lines and tubes are unchanged. Confluent bilateral airspace opacities are unchanged versus slightly increased. Pleural effusions cannot be excluded. The cardiac mediastinal silhouette is obscured. Signed: Shani Zimmerman MDReport Verified Date/Time: 07/27/2018 07:38:50 Reading Location: [facility] C013V Neuro Reading Room CBC W/PLT COUNT & AUTO [id number] 05:47:00 Test Item Value Reference Range Interpretation Comments WHITE BLOOD CELL COUNT (BEAKER) 4.6 K/ L 3.5-10.5 (test code = 775) RED BLOOD CELL COUNT (BEAKER) 3.21 M/ L 3.93-5.22 L (test code = 761) HEMOGLOBIN (BEAKER) (test code = 8.2 GM/DL 11.2-15.7 L 410) HEMATOCRIT (BEAKER) (test code = 28.0 % 34.1-44.9 L 411) MEAN CORPUSCULAR VOLUME (BEAKER) 87.2 fL 79.4-94.8 (test code = 753) MEAN CORPUSCULAR HEMOGLOBIN 25.5 pg 25.6-32.2 L (BEAKER) (test code = 751) MEAN CORPUSCULAR HEMOGLOBIN CONC 29.3 GM/DL 32.2-35.5 L (BEAKER) (test code = 752) RED CELL DISTRIBUTION WIDTH 16.9 % 11.7-14.4 H (BEAKER) (test code = 412) PLATELET COUNT (BEAKER) (test 218 K/CU MM 150-450 code = 756) MEAN PLATELET VOLUME (BEAKER) 10.4 fL 9.4-12.3 (test code = 754) NUCLEATED RED BLOOD CELLS 0 /100 WBC 0-0 (BEAKER) (test code = 413) NEUTROPHILS RELATIVE PERCENT 52 % (BEAKER) (test code = 429) LYMPHOCYTES RELATIVE PERCENT 24 % (BEAKER) (test code = 430) MONOCYTES RELATIVE PERCENT 10 % (BEAKER) (test code = 431) EOSINOPHILS RELATIVE PERCENT 13 % (BEAKER) (test code = 432) BASOPHILS RELATIVE PERCENT 1 % (BEAKER) (test code = 437) NEUTROPHILS ABSOLUTE COUNT 2.41 K/ L 1.56-6.13 (BEAKER) (test code = 670) LYMPHOCYTES ABSOLUTE COUNT 1.11 K/ L 1.18-3.74 L (BEAKER) (test code = 414) MONOCYTES ABSOLUTE COUNT (BEAKER) 0.45 K/ L 0.24-0.36 H (test code = 415) EOSINOPHILS ABSOLUTE COUNT 0.59 K/ L 0.04-0.36 H (BEAKER) (test code = 416) BASOPHILS ABSOLUTE COUNT (BEAKER) 0.03 K/ L 0.01-0.08 (test code = 417) IMMATURE GRANULOCYTES-RELATIVE 1 % 0-1 PERCENT (BEAKER) (test code = 2801) [id number] 05:35:00 Test Item Value Reference Range Interpretation Comments PHOSPHORUS (BEAKER) (test code = 3.5 mg/dL 2.3-4.7 604) [id number] 05:35:00 Test Item Value Reference Range Interpretation Comments MAGNESIUM (BEAKER) (test code = 1.8 mg/dL 1.6-2.6 627) COMPREHENSIVE METABOLIC [id number] 05:35:00 Test Item Value Reference Range Interpretation Comments TOTAL PROTEIN 6.7 gm/dL 6.0-8.3 (BEAKER) (test code = 770) ALBUMIN (BEAKER) 3.0 g/dL 3.5-5.0 L (test code = 1145) ALKALINE PHOSPHATASE 43 U/L 40-150 (BEAKER) (test code = 346) BILIRUBIN TOTAL 0.2 mg/dL 0.2-1.2 (BEAKER) (test code = 377) SODIUM (BEAKER) (test 141 meq/L 136-145 code = 381) POTASSIUM (BEAKER) 3.8 meq/L 3.5-5.1 (test code = 379) CHLORIDE (BEAKER) 96 meq/L 98-107 L (test code = 382) CO2 (BEAKER) (test 38 meq/L 22-29 H code = 355) BLOOD UREA NITROGEN 15 mg/dL 7-21 (BEAKER) (test code = 354) CREATININE (BEAKER) 0.59 mg/dL 0.57-1.25 (test code = 358) GLUCOSE RANDOM 106 mg/dL 70-105 H (BEAKER) (test code = 652) CALCIUM (BEAKER) 9.9 mg/dL 8.4-10.2 (test code = 697) AST (SGOT) (BEAKER) 30 U/L 5-34 (test code = 353) ALT (SGPT) (BEAKER) 18 U/L 6-55 (test code = 347) EGFR (BEAKER) (test 117 ESTIMATE D GFR IS code = 1092) mL/min/1.73 sq NOT ACCURA TE m CREATININE CLEARANCE IN PREDICTING GLOMERULAR FILTRATION RATE . ESTIMATED GFR I S NOT APPLICABLE FOR DIALYSIS PATIEN TS. BLOOD GAS, [id number] 05:23:00 Test Item Value Reference Range Interpretation Comments PH ARTERIAL (BEAKER) (test code = 7.46 7.35-7.45 H 383) PCO2 ARTERIAL (BEAKER) (test code 52 mmHg 35-45 H = 384) PO2 ARTERIAL (BEAKER) (test code 151 mmHg 80-90 H = 385) O2 SATURATION ARTERIAL (BEAKER) 99.0 % 96.0-97.0 H (test code = 386) HCO3 ARTERIAL (BEAKER) (test code 36 mmol/L 21-29 H = 388) BASE EXCESS ARTERIAL (BEAKER) 11.1 mmol/L -2.0-3.0 H (test code = 387) PATIENT TEMPERATURE (BEAKER) 37.0 C (test code = 1818) FIO2 (BEAKER) (test code = 1819) 50.0 % While intubatedPOCT-GLUCOSE [id number] 04:36:00 Test Item Value Reference Range Interpretation Comments POC-GLUCOSE METER 108 mg/dL 70-[address] [facility] ([facility]) (test code = [facility] 1538) [id number] POCT-GLUCOSE [id number] 23:10:00 Test Item Value Reference Range Interpretation Comments POC-GLUCOSE METER 127 mg/dL 70-[address] [facility] [address] ([facility]) (test code = [facility] 1538) [id number] 20:05:00 Test Item Value Reference Range Interpretation Comments MAGNESIUM (BEAKER) (test code = 1.9 mg/dL 1.6-2.6 627) BASIC METABOLIC [id number] 20:05:00 Test Item Value Reference Range Interpretation Comments SODIUM (BEAKER) 142 meq/L 136-145 (test code = 381) POTASSIUM (BEAKER) 3.8 meq/L 3.5-5.1 (test code = 379) CHLORIDE (BEAKER) 95 meq/L 98-107 L (test code = 382) CO2 (BEAKER) (test 39 meq/L 22-29 H code = 355) BLOOD UREA NITROGEN 16 mg/dL 7-21 ([facility]) (test code = 354) CREATININE ([facility]) 0.61 mg/dL 0.57-1.25 (test code = 358) GLUCOSE RANDOM 104 mg/dL 70-105 ([facility]) (test code = 652) CALCIUM (AKER) 10.0 mg/dL 8.4-10.2 (test code = 697) EGFR ([facility]) (test 113 mL/min/1.73 ESTIM ATED GFR IS code = 1092) sq m NOT ACCURATE CREATININE CLEARANCE IN PREDICTING GLOMERULAR FILTRATION RATE . ESTIMATED GFR I S NOT APPLICABLE FOR DIALYSIS PATIEN TS. POCT-GLUCOSE [id number] 18:18:00 Test Item Value Reference Range Interpretation Comments POC-GLUCOSE METER 105 mg/dL 70-[address] [facility] [address] ([facility]) (test code = [place] 1538) [id number] MR, BRAIN, [id number] 18:14:00FINAL REPORT MR, BRAIN, WITH \T\ WITHOUT CONTRAST INDICATION: Evaluate brain abscesses TECHNIQUE: Multiplanar, multisequence MR imaging of the brain was obtained before and after uneventful administration of gadolinium contrast. COMPARISON: Contrast enhanced brain MRI dated July 19, 2018 obtained by [facility] [place] FINDINGS:There are two primary diffusion restricted foci [...] to intubation status. Signed: JR Robbins Robert MDRsj Verified Date/Time: 07/26/2018 18:14:16 Reading Location: [facility] Reading Room POCT-GLUCOSE [id number] 12:40:00 Test Item Value Reference Range Interpretation Comments POC-GLUCOSE METER 94 mg/dL 70-[address] [facility] [address] (BEAKER) (test code = [place] [address] 1538) RAD, CHEST, 1 VIEW, NON [id number] 06:56:00While intubatedReason for exam:- >intubated, hypoxemiaShould this be performed at the bedside?->YesFINAL [...] No acute bony abnormality. Signed: Darwin Garrison MDReport Verified Date/Time: 07/26/2018 06:56:26 Reading Location: [facility] Radiology Reading Room APTT 2018-07-26 06:03:00 Test Item Value Reference Range Interpretation Comments PARTIAL THROMBOPLASTIN TIME 72.1 seconds 22.5-36.0 H (BEAKER) (test code = 760) BLOOD GAS, [id number] 05:48:00 Test Item Value Reference Range Interpretation Comments PH ARTERIAL (BEAKER) (test code = 7.36 7.35-7.45 383) PCO2 ARTERIAL (BEAKER) (test code 73 mmHg 35-45 HH = 384) PO2 ARTERIAL (BEAKER) (test code 89 mmHg 80-90 = 385) O2 SATURATION ARTERIAL (BEAKER) 96.0 % 96.0-97.0 (test code = 386) HCO3 ARTERIAL (BEAKER) (test code 40 mmol/L 21-29 HH = 388) BASE EXCESS ARTERIAL (BEAKER) 12.6 mmol/L -2.0-3.0 H (test code = 387) PATIENT TEMPERATURE (BEAKER) 37.0 C (test code = 1818) FIO2 (BEAKER) (test code = 1819) 50.0 % POCT-GLUCOSE [id number] 05:46:00 Test Item Value Reference Range Interpretation Comments POC-GLUCOSE METER 154 mg/dL 70-[address] [facility] (BEAKER) (test code = [place] 1538) [id number] COMPREHENSIVE METABOLIC [id number] 04:35:00 Test Item Value Reference Range Interpretation Comments TOTAL PROTEIN 6.4 gm/dL 6.0-8.3 (BEAKER) (test code = 770) ALBUMIN (BEAKER) 2.8 g/dL 3.5-5.0 L (test code = 1145) ALKALINE PHOSPHATASE 43 U/L 40-150 (BEAKER) (test code = 346) BILIRUBIN TOTAL 0.2 mg/dL 0.2-1.2 (BEAKER) (test code = 377) SODIUM (BEAKER) (test 141 meq/L 136-145 code = 381) POTASSIUM (BEAKER) 3.8 meq/L 3.5-5.1 (test code = 379) CHLORIDE (BEAKER) 96 meq/L 98-107 L (test code = 382) CO2 (BEAKER) (test 41 meq/L 22-29 HH code = 355) BLOOD UREA NITROGEN 17 mg/dL 7-21 (BEAKER) (test code = 354) CREATININE (BEAKER) 0.61 mg/dL 0.57-1.25 (test code = 358) GLUCOSE RANDOM 119 mg/dL 70-105 H (BEAKER) (test code = 652) CALCIUM (BEAKER) 9.4 mg/dL 8.4-10.2 (test code = 697) AST (SGOT) (BEAKER) 22 U/L 5-34 (test code = 353) ALT (SGPT) (BEAKER) 10 U/L 6-55 (test code = 347) EGFR (BEAKER) (test 113 ESTIMATE D GFR IS code = 1092) mL/min/1.73 sq NOT ACCURA TE m CREATININE CLEARANCE IN PREDICTING GLOMERULAR FILTRATION RATE . ESTIMATED GFR I S NOT APPLICABLE FOR DIALYSIS PATIJORGE YOUNG. [id number] 04:31:00 Test Item Value Reference Range Interpretation Comments TRIGLYCERIDES (BEAKER) (test code = 233 mg/dL 540) TRIGLYCERIDE REFERENCE RANGELow Risk <150Borderline Risk 150-199High Risk 200-499Very High Risk>=[id number] 04:31:00 Test Item Value Reference Range Interpretation Comments MAGNESIUM (BEAKER) (test code = 1.8 mg/dL 1.6-2.6 627) [id number] 04:31:00 Test Item Value Reference Range Interpretation Comments PHOSPHORUS (BEAKER) (test code = 3.2 mg/dL 2.3-4.7 604) BLOOD GAS, [id number] 04:13:00 Test Item Value Reference Range Interpretation Comments PH ARTERIAL (BEAKER) (test code = 7.35 7.35-7.45 383) PCO2 ARTERIAL (BEAKER) (test code 78 mmHg 35-45 HH = 384) PO2 ARTERIAL (BEAKER) (test code 165 mmHg 80-90 H = 385) O2 SATURATION ARTERIAL (BEAKER) 98.9 % 96.0-97.0 H (test code = 386) HCO3 ARTERIAL (BEAKER) (test code 42 mmol/L 21-29 HH = 388) BASE EXCESS ARTERIAL (BEAKER) 14.7 mmol/L -2.0-3.0 H (test code = 387) PATIENT TEMPERATURE (BEAKER) 37.0 C (test code = 1818) FIO2 (BEAKER) (test code = 1819) 60.0 % While intubatedCBC W/PLT COUNT & AUTO [id number] 04:12:00 Test Item Value Reference Range Interpretation Comments WHITE BLOOD CELL COUNT (BEAKER) 4.4 K/ L 3.5-10.5 (test code = 775) RED BLOOD CELL COUNT (BEAKER) 3.10 M/ L 3.93-5.22 L (test code = 761) HEMOGLOBIN (BEAKER) (test code = 7.8 GM/DL 11.2-15.7 L 410) HEMATOCRIT (BEAKER) (test code = 27.0 % 34.1-44.9 L 411) MEAN CORPUSCULAR VOLUME (BEAKER) 87.1 fL 79.4-94.8 (test code = 753) MEAN CORPUSCULAR HEMOGLOBIN 25.2 pg 25.6-32.2 L (BEAKER) (test code = 751) MEAN CORPUSCULAR HEMOGLOBIN CONC 28.9 GM/DL 32.2-35.5 L (BEAKER) (test code = 752) RED CELL DISTRIBUTION WIDTH 16.7 % 11.7-14.4 H (BEAKER) (test code = 412) PLATELET COUNT (BEAKER) (test 206 K/CU MM 150-450 code = 756) MEAN PLATELET VOLUME (BEAKER) 10.0 fL 9.4-12.3 (test code = 754) NUCLEATED RED BLOOD CELLS 0 /100 WBC 0-0 (BEAKER) (test code = 413) NEUTROPHILS RELATIVE PERCENT 51 % (BEAKER) (test code = 429) LYMPHOCYTES RELATIVE PERCENT 27 % (BEAKER) (test code = 430) MONOCYTES RELATIVE PERCENT 9 % (BEAKER) (test code = 431) EOSINOPHILS RELATIVE PERCENT 12 % (BEAKER) (test code = 432) BASOPHILS RELATIVE PERCENT 1 % (BEAKER) (test code = 437) NEUTROPHILS ABSOLUTE COUNT 2.25 K/ L 1.56-6.13 (BEAKER) (test code = 670) LYMPHOCYTES ABSOLUTE COUNT 1.21 K/ L 1.18-3.74 (BEAKER) (test code = 414) MONOCYTES ABSOLUTE COUNT (BEAKER) 0.39 K/ L 0.24-0.36 H (test code = 415) EOSINOPHILS ABSOLUTE COUNT 0.53 K/ L 0.04-0.36 H (BEAKER) (test code = 416) BASOPHILS ABSOLUTE COUNT (BEAKER) 0.02 K/ L 0.01-0.08 (test code = 417) IMMATURE GRANULOCYTES-RELATIVE 1 % 0-1 PERCENT (BEAKER) (test code = 2801) POCT-GLUCOSE [id number] 00:09:00 Test Item Value Reference Range Interpretation Comments POC-GLUCOSE METER 127 mg/dL 70-[address] [facility] (test code = [place] 1538) [address] POCT-GLUCOSE [id number] 18:07:00 Test Item Value Reference Range Interpretation Comments POC-GLUCOSE METER 151 mg/dL 70-[address] [facility] (test code = KRYSTAL Gomez [facility] 1538) [id number] BLOOD GAS, [id number] 14:03:00 Test Item Value Reference Range Interpretation Comments PH ARTERIAL (BEAKER) (test code = 7.33 7.35-7.45 L 383) PCO2 ARTERIAL (BEAKER) (test code 76 mmHg 35-45 HH = 384) PO2 ARTERIAL (BEAKER) (test code 102 mmHg 80-90 H = 385) O2 SATURATION ARTERIAL (BEAKER) 96.9 % 96.0-97.0 (test code = 386) HCO3 ARTERIAL (BEAKER) (test code 40 mmol/L 21-29 HH = 388) BASE EXCESS ARTERIAL (BEAKER) 11.8 mmol/L -2.0-3.0 H (test code = 387) PATIENT TEMPERATURE (BEAKER) 37.1 C (test code = 1818) FIO2 (BEAKER) (test code = 1819) 50.0 % TOXOPLASMA GONDII ANTIBODY, [id number] 13:46:00 Test Item Value Reference Range Interpretation Comments TOXOPLASMA IGM ANTIBODY (BEAKER) Negative (test code = 742) TEST PERFORMED BY PromoRepublicPOCT-GLUCOSE [id number] 12:14:00 Test Item Value Reference Range Interpretation Comments POC-GLUCOSE METER 119 mg/dL 70-[address] [facility] (BEAKER) (test code = [place] 1538) [address] BLOOD [id number] 07:01:00 Test Item Value Reference Range Interpretation Comments CULTURE (BEAKER) (test No growth in 5 days code = 1095) BLOOD [id number] 07:01:00 Test Item Value Reference Range Interpretation Comments CULTURE (BEAKER) (test No growth in 5 days code = 1095) CBC W/PLT COUNT & AUTO [id number] 06:12:00 Test Item Value Reference Range Interpretation Comments WHITE BLOOD CELL COUNT (BEAKER) 5.6 K/ L 3.5-10.5 (test code = 775) RED BLOOD CELL COUNT (BEAKER) 3.15 M/ L 3.93-5.22 L (test code = 761) HEMOGLOBIN (BEAKER) (test code = 7.9 GM/DL 11.2-15.7 L 410) HEMATOCRIT (BEAKER) (test code = 27.7 % 34.1-44.9 L 411) MEAN CORPUSCULAR VOLUME (BEAKER) 87.9 fL 79.4-94.8 (test code = 753) MEAN CORPUSCULAR HEMOGLOBIN 25.1 pg 25.6-32.2 L (BEAKER) (test code = 751) MEAN CORPUSCULAR HEMOGLOBIN CONC 28.5 GM/DL 32.2-35.5 L (BEAKER) (test code = 752) RED CELL DISTRIBUTION WIDTH 16.6 % 11.7-14.4 H (BEAKER) (test code = 412) PLATELET COUNT (BEAKER) (test 214 K/CU MM 150-450 code = 756) MEAN PLATELET VOLUME (BEAKER) 10.6 fL 9.4-12.3 (test code = 754) NUCLEATED RED BLOOD CELLS 0 /100 WBC 0-0 (BEAKER) (test code = 413) NEUTROPHILS RELATIVE PERCENT 63 % (BEAKER) (test code = 429) LYMPHOCYTES RELATIVE PERCENT 20 % (BEAKER) (test code = 430) MONOCYTES RELATIVE PERCENT 7 % (BEAKER) (test code = 431) EOSINOPHILS RELATIVE PERCENT 9 % (BEAKER) (test code = 432) BASOPHILS RELATIVE PERCENT 0 % (BEAKER) (test code = 437) NEUTROPHILS ABSOLUTE COUNT 3.53 K/ L 1.56-6.13 (BEAKER) (test code = 670) LYMPHOCYTES ABSOLUTE COUNT 1.11 K/ L 1.18-3.74 L (BEAKER) (test code = 414) MONOCYTES ABSOLUTE COUNT (BEAKER) 0.40 K/ L 0.24-0.36 H (test code = 415) EOSINOPHILS ABSOLUTE COUNT 0.53 K/ L 0.04-0.36 H (BEAKER) (test code = 416) BASOPHILS ABSOLUTE COUNT (BEAKER) 0.01 K/ L 0.01-0.08 (test code = 417) IMMATURE GRANULOCYTES-RELATIVE 1 % 0-1 PERCENT (BEAKER) (test code = 2809) [id number] 05:24:00 Test Item Value Reference Range Interpretation Comments PHOSPHORUS (BEAKER) (test code = 3.3 mg/dL 2.3-4.7 604) [id number] 05:24:00 Test Item Value Reference Range Interpretation Comments MAGNESIUM (BEAKER) (test code = 1.3 mg/dL 1.6-2.6 L 627) COMPREHENSIVE METABOLIC [id number] 05:24:00 Test Item Value Reference Range Interpretation Comments TOTAL PROTEIN 6.1 gm/dL 6.0-8.3 (BEAKER) (test code = 770) ALBUMIN (BEAKER) 2.6 g/dL 3.5-5.0 L (test code = 1145) ALKALINE PHOSPHATASE 45 U/L 40-150 (BEAKER) (test code = 346) BILIRUBIN TOTAL 0.2 mg/dL 0.2-1.2 (BEAKER) (test code = 377) SODIUM (BEAKER) (test 140 meq/L 136-145 code = 381) POTASSIUM (BEAKER) 4.3 meq/L 3.5-5.1 (test code = 379) CHLORIDE (BEAKER) 99 meq/L 98-107 (test code = 382) CO2 (BEAKER) (test 38 meq/L 22-29 H code = 355) BLOOD UREA NITROGEN 14 mg/dL 7-21 (BEAKER) (test code = 354) CREATININE (BEAKER) 0.65 mg/dL 0.57-1.25 (test code = 358) GLUCOSE RANDOM 128 mg/dL 70-105 H (BEAKER) (test code = 652) CALCIUM (BEAKER) 8.8 mg/dL 8.4-10.2 (test code = 697) AST (SGOT) (BEAKER) 12 U/L 5-34 (test code = 353) ALT (SGPT) (BEAKER) 8 U/L 6-55 (test code = 347) EGFR (BEAKER) (test 105 ESTIMATE D GFR IS code = 1092) mL/min/1.73 sq NOT ACCURA TE m CREATININE CLEARANCE IN PREDICTING GLOMERULAR FILTRATION RATE . ESTIMATED GFR I S NOT APPLICABLE FOR DIALYSIS PATIEN HECTOR. [id number] 05:18:00 Test Item Value Reference Range Interpretation Comments PARTIAL THROMBOPLASTIN TIME 76.2 seconds 22.5-36.0 H (BEAKER) (test code = 760) BLOOD GAS, [id number] 05:18:00 Test Item Value Reference Range Interpretation Comments PH ARTERIAL (BEAKER) (test code = 7.32 7.35-7.45 L 383) PCO2 ARTERIAL (BEAKER) (test code 78 mmHg 35-45 HH = 384) PO2 ARTERIAL (BEAKER) (test code = 162 mmHg 80-90 H 385) O2 SATURATION ARTERIAL (BEAKER) 98.8 % 96.0-97.0 H (test code = 386) HCO3 ARTERIAL (BEAKER) (test code 39 mmol/L 21-29 H = 388) BASE EXCESS ARTERIAL (BEAKER) 9.7 mmol/L -2.0-3.0 H (test code = 387) PATIENT TEMPERATURE (BEAKER) (test 38.0 C code = 1818) FIO2 (BEAKER) (test code = 1819) 70.0 % While intubatedRAD, CHEST, 1 VIEW, NON [id number] 04:30:00While intubatedReason for exam:->intubated, hypoxemiaShould this be [...] new lung consolidation or pneumothorax. Signed: [facility] Verified Date/Time: 07/25/2018 04:30:31 Reading Location: [address] Reading Room APTT 2018-07-25 02:21:00 Test Item Value Reference Range Interpretation Comments PARTIAL THROMBOPLASTIN TIME 70.5 seconds 22.5-36.0 H ([facility]) (test code = 760) POCT-GLUCOSE [id number] 01:58:00 Test Item Value Reference Range Interpretation Comments POC-GLUCOSE METER 135 mg/dL 70-[address] [facility] ([facility]) (test code = K[place]ST[place] 1538) [id number] SCREEN, [id number] 22:22:00 Test Item Value Reference Range Interpretation Comments TEST URINE ([facility]) (test Negative code = 583) [id number] 19:30:00 Test Item Value Reference Range Interpretation Comments PARTIAL THROMBOPLASTIN TIME 82.7 seconds 22.5-36.0 H (BEAKER) (test code = 760) POCT-GLUCOSE [id number] 18:04:00 Test Item Value Reference Range Interpretation Comments POC-GLUCOSE METER 125 mg/dL 70-110 H TESTED AT [place] [address] (BEAKER) ([facility] = [facility] [place] [address]) [address] POCT-GLUCOSE [id number] 17:35:00 Test Item Value Reference Range Interpretation Comments POC-GLUCOSE METER 80 mg/dL 70-110 TESTED AT [place] [address] (BEAKER) (test code = [facility] [address]38) BLOOD GAS, [id number] 12:31:00 Test Item Value Reference Range Interpretation Comments PH ARTERIAL (BEAKER) (test code = 7.31 7.35-7.45 L 383) PCO2 ARTERIAL (BEAKER) (test code 71 mmHg 35-45 HH = 384) PO2 ARTERIAL (BEAKER) (test code = 139 mmHg 80-90 H 385) O2 SATURATION ARTERIAL (BEAKER) 98.4 % 96.0-97.0 H (test code = 386) HCO3 ARTERIAL (BEAKER) (test code 35 mmol/L 21-29 H = 388) BASE EXCESS ARTERIAL (BEAKER) 7.2 mmol/L -2.0-3.0 H (test code = 387) PATIENT TEMPERATURE (BEAKER) (test 37.3 C code = 1818) FIO2 (BEAKER) (test code = 1819) 70.0 % POCT-GLUCOSE [id number] 11:52:00 Test Item Value Reference Range Interpretation Comments POC-GLUCOSE METER 119 mg/dL 70-110 H TESTED AT [place] [address] (BEAKER) (test code = [facility] [place] 1538) [address] [id number] 11:05:00 Test Item Value Reference Range Interpretation Comments PARTIAL THROMBOPLASTIN TIME 87.8 seconds 22.5-36.0 H (BEAKER) (test code = 760) RAD, CHEST, 1 VIEW, NON [id number] 08:36:00While intubatedReason for exam:- >intubated, hypoxemiaShould this be performed at the bedside?->YesFINAL [...] vena cava.. Impression: No change Signed: Lana Solanoepsj Verified Date/Time: 07/24/2018 08:36:14 Reading Location: [address] Body Reading Room [id number] 06:52:00 Test Item Value Reference Range Interpretation Comments PHOSPHORUS (BEAKER) (test code = 2.8 mg/dL 2.3-4.7 604) [id number] 06:52:00 Test Item Value Reference Range Interpretation Comments MAGNESIUM (BEAKER) (test code = 1.4 mg/dL 1.6-2.6 L 627) COMPREHENSIVE METABOLIC [id number] 06:52:00 Test Item Value Reference Range Interpretation Comments TOTAL PROTEIN 5.9 gm/dL 6.0-8.3 L (BEAKER) (test code = 770) ALBUMIN (BEAKER) 2.6 g/dL 3.5-5.0 L (test code = 1145) ALKALINE PHOSPHATASE 48 U/L 40-150 (BEAKER) (test code = 346) BILIRUBIN TOTAL 0.2 mg/dL 0.2-1.2 (BEAKER) (test code = 377) SODIUM (BEAKER) (test 140 meq/L 136-145 code = 381) POTASSIUM (BEAKER) 4.3 meq/L 3.5-5.1 (test code = 379) CHLORIDE (BEAKER) 103 meq/L 98-107 (test code = 382) CO2 (BEAKER) (test 34 meq/L 22-29 H code = 355) BLOOD UREA NITROGEN 11 mg/dL 7-21 (BEAKER) (test code = 354) CREATININE (BEAKER) 0.64 mg/dL 0.57-1.25 (test code = 358) GLUCOSE RANDOM 125 mg/dL 70-105 H (BEAKER) (test code = 652) CALCIUM (BEAKER) 8.4 mg/dL 8.4-10.2 (test code = 697) AST (SGOT) (BEAKER) 11 U/L 5-34 (test code = 353) ALT (SGPT) (BEAKER) 6 U/L 6-55 (test code = 347) EGFR (BEAKER) (test 107 ESTIMATE D GFR IS code = 1092) mL/min/1.73 sq NOT ACCURA TE m CREATININE CLEARANCE IN PREDICTING GLOMERULAR FILTRATION RATE . ESTIMATED GFR I S NOT APPLICABLE FOR DIALYSIS PATIEN TS. BLOOD GAS, [id number] 06:24:00 Test Item Value Reference Range Interpretation Comments PH ARTERIAL (BEAKER) (test code = 7.32 7.35-7.45 L 383) PCO2 ARTERIAL (BEAKER) (test code 69 mmHg 35-45 H = 384) PO2 ARTERIAL (BEAKER) (test code = 129 mmHg 80-90 H 385) O2 SATURATION ARTERIAL (BEAKER) 98.1 % 96.0-97.0 H (test code = 386) HCO3 ARTERIAL (BEAKER) (test code 34 mmol/L 21-29 H = 388) BASE EXCESS ARTERIAL (BEAKER) 7.0 mmol/L -2.0-3.0 H (test code = 387) PATIENT TEMPERATURE (BEAKER) (test 38.0 C code = 1818) FIO2 (BEAKER) (test code = 1819) 70.0 % While intubatedCBC W/PLT COUNT & AUTO [id number] 06:19:00 Test Item Value Reference Range Interpretation Comments WHITE BLOOD CELL COUNT (BEAKER) 6.4 K/ L 3.5-10.5 (test code = 775) RED BLOOD CELL COUNT (BEAKER) 3.13 M/ L 3.93-5.22 L (test code = 761) HEMOGLOBIN (BEAKER) (test code = 8.0 GM/DL 11.2-15.7 L 410) HEMATOCRIT (BEAKER) (test code = 26.8 % 34.1-44.9 L 411) MEAN CORPUSCULAR VOLUME (BEAKER) 85.6 fL 79.4-94.8 (test code = 753) MEAN CORPUSCULAR HEMOGLOBIN 25.6 pg 25.6-32.2 (BEAKER) (test code = 751) MEAN CORPUSCULAR HEMOGLOBIN CONC 29.9 GM/DL 32.2-35.5 L (BEAKER) (test code = 752) RED CELL DISTRIBUTION WIDTH 16.4 % 11.7-14.4 H (BEAKER) (test code = 412) PLATELET COUNT (BEAKER) (test 182 K/CU MM 150-450 code = 756) MEAN PLATELET VOLUME (BEAKER) 10.2 fL 9.4-12.3 (test code = 754) NUCLEATED RED BLOOD CELLS 0 /100 WBC 0-0 (BEAKER) (test code = 413) NEUTROPHILS RELATIVE PERCENT 73 % (BEAKER) (test code = 429) LYMPHOCYTES RELATIVE PERCENT 14 % (BEAKER) (test code = 430) MONOCYTES RELATIVE PERCENT 5 % (BEAKER) (test code = 431) EOSINOPHILS RELATIVE PERCENT 8 % (BEAKER) (test code = 432) BASOPHILS RELATIVE PERCENT 0 % (BEAKER) (test code = 437) NEUTROPHILS ABSOLUTE COUNT 4.64 K/ L 1.56-6.13 (BEAKER) (test code = 670) LYMPHOCYTES ABSOLUTE COUNT 0.87 K/ L 1.18-3.74 L (BEAKER) (test code = 414) MONOCYTES ABSOLUTE COUNT (BEAKER) 0.34 K/ L 0.24-0.36 (test code = 415) EOSINOPHILS ABSOLUTE COUNT 0.49 K/ L 0.04-0.36 H (BEAKER) (test code = 416) BASOPHILS ABSOLUTE COUNT (BEAKER) 0.02 K/ L 0.01-0.08 (test code = 417) IMMATURE GRANULOCYTES-RELATIVE 1 % 0-1 PERCENT (BEAKER) (test code = 2801) POCT-GLUCOSE [id number] 06:13:00 Test Item Value Reference Range Interpretation Comments POC-GLUCOSE METER 132 mg/dL 70-[address] [facility] (BEAKER) (test code = [place] 1538) [id number] CBC W/PLT COUNT & AUTO [id number] 01:49:00 Test Item Value Reference Range Interpretation Comments WHITE BLOOD CELL COUNT (BEAKER) 7.0 K/ L 3.5-10.5 (test code = 775) RED BLOOD CELL COUNT (BEAKER) 3.19 M/ L 3.93-5.22 L (test code = 761) HEMOGLOBIN (BEAKER) (test code = 8.0 GM/DL 11.2-15.7 L 410) HEMATOCRIT (BEAKER) (test code = 27.3 % 34.1-44.9 L 411) MEAN CORPUSCULAR VOLUME (BEAKER) 85.6 fL 79.4-94.8 (test code = 753) MEAN CORPUSCULAR HEMOGLOBIN 25.1 pg 25.6-32.2 L (BEAKER) (test code = 751) MEAN CORPUSCULAR HEMOGLOBIN CONC 29.3 GM/DL 32.2-35.5 L (BEAKER) (test code = 752) RED CELL DISTRIBUTION WIDTH 16.4 % 11.7-14.4 H (BEAKER) (test code = 412) PLATELET COUNT (BEAKER) (test 191 K/CU MM 150-450 code = 756) MEAN PLATELET VOLUME (BEAKER) 10.4 fL 9.4-12.3 (test code = 754) NUCLEATED RED BLOOD CELLS 0 /100 WBC 0-0 (BEAKER) (test code = 413) NEUTROPHILS RELATIVE PERCENT 68 % (BEAKER) (test code = 429) LYMPHOCYTES RELATIVE PERCENT 15 % (BEAKER) (test code = 430) MONOCYTES RELATIVE PERCENT 5 % (BEAKER) (test code = 431) EOSINOPHILS RELATIVE PERCENT 11 % (BEAKER) (test code = 432) BASOPHILS RELATIVE PERCENT 0 % (BEAKER) (test code = 437) NEUTROPHILS ABSOLUTE COUNT 4.79 K/ L 1.56-6.13 (BEAKER) (test code = 670) LYMPHOCYTES ABSOLUTE COUNT 1.04 K/ L 1.18-3.74 L (BEAKER) (test code = 414) MONOCYTES ABSOLUTE COUNT (BEAKER) 0.38 K/ L 0.24-0.36 H (test code = 415) EOSINOPHILS ABSOLUTE COUNT 0.75 K/ L 0.04-0.36 H (BEAKER) (test code = 416) BASOPHILS ABSOLUTE COUNT (BEAKER) 0.02 K/ L 0.01-0.08 (test code = 417) IMMATURE GRANULOCYTES-RELATIVE 1 % 0-1 PERCENT (BEAKER) (test code = 2801) [id number] 01:26:00 Test Item Value Reference Range Interpretation Comments PARTIAL THROMBOPLASTIN TIME 66.2 seconds 22.5-36.0 H ([facility]) (test code = 760) POCT-GLUCOSE [id number] 00:57:00 Test Item Value Reference Range Interpretation Comments POC-GLUCOSE METER 105 mg/dL 70-110 TESTED AT [place] [address] ([facility]) (test code = [facility] 1538) [id number] POCT-GLUCOSE [id number] 18:55:00 Test Item Value Reference Range Interpretation Comments POC-GLUCOSE METER 102 mg/dL 70-110 TESTED AT [place] [address] ([facility]) (test code = [facility] 1538) [address] [id number] 18:46:00 Test Item Value Reference Range Interpretation Comments PARTIAL THROMBOPLASTIN TIME 66.5 seconds 22.5-36.0 H ([facility]) (test code = 760) POCT-GLUCOSE [id number] 11:56:00 Test Item Value Reference Range Interpretation Comments POC-GLUCOSE METER 90 mg/dL 70-110 TESTED AT [place] [address] ([facility]) (test code = [facility] [id number]) TOXOPLASMA GONDII ANTIBODY, [id number] 11:31:00 Test Item Value Reference Range Interpretation Comments TOXOPLASMA GONDII IGG QUANTITATIVE < IU/mL <10.0 ([facility]) (test code = 3428) Toxoplasma Gondii IgG Result Interpretation: </= 9.9 IU/mL Normal 10-11 IU/mL Equivocal >/= 12 IU/mL [id number] 11:12:00 Test Item Value Reference Range Interpretation Comments PARTIAL THROMBOPLASTIN TIME 78.5 seconds 22.5-36.0 H ([facility]) (test code = 760) HEMOGLOBIN AND [id number] 11:05:00 Test Item Value Reference Range Interpretation Comments HEMOGLOBIN ([facility]) (test code = 6.9 GM/DL 11.2-15.7 L 410) HEMATOCRIT ([facility]) (test code = 24.2 % 34.1-44.9 L 411) BLOOD GAS, [id number] 10:57:00 Test Item Value Reference Range Interpretation Comments PH ARTERIAL (BEAKER) (test code = 7.30 7.35-7.45 L 383) PCO2 ARTERIAL (BEAKER) (test code 66 mmHg 35-45 H = 384) PO2 ARTERIAL (BEAKER) (test code = 160 mmHg 80-90 H 385) O2 SATURATION ARTERIAL (BEAKER) 98.8 % 96.0-97.0 H (test code = 386) HCO3 ARTERIAL (BEAKER) (test code 32 mmol/L 21-29 H = 388) BASE EXCESS ARTERIAL (BEAKER) 4.6 mmol/L -2.0-3.0 H (test code = 387) PATIENT TEMPERATURE (BEAKER) (test 38.0 C code = 1818) FIO2 (BEAKER) (test code = 1819) 80.0 % SPUTUM CULTURE + GRAM [id number] 10:48:00 Test Item Value Reference Range Interpretation Comments CULTURE (BEAKER) No growth (test code = 1095) GRAM STAIN RESULT 2+ White blood cells (BEAKER) (test code = seen 1123) GRAM STAIN RESULT 0-5 epithelial cells (BEAKER) (test code = 58126) GRAM STAIN RESULT No organisms seen (BEAKER) (test code = 81777) POCT-GLUCOSE [id number] 06:42:00 Test Item Value Reference Range Interpretation Comments POC-GLUCOSE METER 106 mg/dL 70-[address] [facility] 67[address] (BEAKER) (test code = KRYSTAL Gomez [facility] 1538) [address] RAD, CHEST, 1 VIEW, NON [id number] 04:43:00While intubatedReason for exam:- >intubated, hypoxemiaShould this be performed at the bedside?->YesFINAL REPORT RAD, CHEST, 1 VIEW, NON DEPT INDICATION: intubated, hypoxemia COMPARISON: Prior day's exam FINDINGS: Portable frontal view of the chest. IMPRESSION: Support Lines: ET tube, feeding tube and left- sided central catheter without evidence of malpositioning. Right-sided PICC is been removed in the interim. Lungs and pleura: Left retrocardiac and bilateral airspace opacities are slightly decreased in the interim, compatible with decreased edema No pneumothorax.Heart and mediastinum: Stable contours. Additional findings: None. Signed: Peterson Bookereport Verified Date/Time: 07/23/2018 04:43:52 Reading Location: [facility] C013V Neuro Reading Room D GAS, [id number] 04:29:00 Test Item Value Reference Range Interpretation Comments PH ARTERIAL (BEAKER) (test code = 7.31 7.35-7.45 L 383) PCO2 ARTERIAL (BEAKER) (test code 64 mmHg 35-45 H = 384) PO2 ARTERIAL (BEAKER) (test code = 180 mmHg 80-90 H 385) O2 SATURATION ARTERIAL (BEAKER) 99.0 % 96.0-97.0 H (test code = 386) HCO3 ARTERIAL (BEAKER) (test code 31 mmol/L 21-29 H = 388) BASE EXCESS ARTERIAL (BEAKER) 4.5 mmol/L -2.0-3.0 H (test code = 387) PATIENT TEMPERATURE (BEAKER) (test 38.0 C code = 1818) FIO2 (BEAKER) (test code = 1819) 100.0 % While [id number] 04:07:00 Test Item Value Reference Range Interpretation Comments PHOSPHORUS (BEAKER) (test code = 4.5 mg/dL 2.3-4.7 604) [id number] 04:07:00 Test Item Value Reference Range Interpretation Comments MAGNESIUM (BEAKER) (test code = 1.4 mg/dL 1.6-2.6 L 627) COMPREHENSIVE METABOLIC [id number] 04:07:00 Test Item Value Reference Range Interpretation Comments TOTAL PROTEIN 6.0 gm/dL 6.0-8.3 (BEAKER) (test code = 770) ALBUMIN (BEAKER) 2.7 g/dL 3.5-5.0 L (test code = 1145) ALKALINE PHOSPHATASE 49 U/L 40-150 (BEAKER) (test code = 346) BILIRUBIN TOTAL 0.3 mg/dL 0.2-1.2 (BEAKER) (test code = 377) SODIUM (BEAKER) (test 141 meq/L 136-145 code = 381) POTASSIUM (BEAKER) 4.3 meq/L 3.5-5.1 (test code = 379) CHLORIDE (BEAKER) 104 meq/L 98-107 (test code = 382) CO2 (BEAKER) (test 31 meq/L 22-29 H code = 355) BLOOD UREA NITROGEN 13 mg/dL 7-21 (BEAKER) (test code = 354) CREATININE (BEAKER) 0.79 mg/dL 0.57-1.25 (test code = 358) GLUCOSE RANDOM 97 mg/dL 70-105 (BEAKER) (test code = 652) CALCIUM (BEAKER) 8.1 mg/dL 8.4-10.2 L (test code = 697) AST (SGOT) (BEAKER) 11 U/L 5-34 (test code = 353) ALT (SGPT) (BEAKER) 9 U/L 6-55 (test code = 347) EGFR (BEAKER) (test 84 mL/min/1.73 ESTIMA JOHNIE GFR IS code = 1092) sq m NOT ACCURATE CREATININE CLEARANCE IN PREDICTING GLOMERULAR FILTRATION RATE . ESTIMATED GFR I S NOT APPLICABLE FOR DIALYSIS PATIJORGE YOUNG. [id number] 04:00:00 Test Item Value Reference Range Interpretation Comments PARTIAL THROMBOPLASTIN TIME 63.6 seconds 22.5-36.0 H (BEAKER) (test code = 760) CBC W/PLT COUNT & AUTO [id number] 03:49:00 Test Item Value Reference Range Interpretation Comments WHITE BLOOD CELL COUNT (BEAKER) 7.8 K/ L 3.5-10.5 (test code = 775) RED BLOOD CELL COUNT (BEAKER) 2.82 M/ L 3.93-5.22 L (test code = 761) HEMOGLOBIN (BEAKER) (test code = 7.0 GM/DL 11.2-15.7 L 410) HEMATOCRIT (BEAKER) (test code = 24.0 % 34.1-44.9 L 411) MEAN CORPUSCULAR VOLUME (BEAKER) 85.1 fL 79.4-94.8 (test code = 753) MEAN CORPUSCULAR HEMOGLOBIN 24.8 pg 25.6-32.2 L (BEAKER) (test code = 751) MEAN CORPUSCULAR HEMOGLOBIN CONC 29.2 GM/DL 32.2-35.5 L (BEAKER) (test code = 752) RED CELL DISTRIBUTION WIDTH 18.0 % 11.7-14.4 H (BEAKER) (test code = 412) PLATELET COUNT (BEAKER) (test 181 K/CU MM 150-450 code = 756) MEAN PLATELET VOLUME (BEAKER) 10.5 fL 9.4-12.3 (test code = 754) NUCLEATED RED BLOOD CELLS 0 /100 WBC 0-0 (BEAKER) (test code = 413) NEUTROPHILS RELATIVE PERCENT 78 % (BEAKER) (test code = 429) LYMPHOCYTES RELATIVE PERCENT 14 % (BEAKER) (test code = 430) MONOCYTES RELATIVE PERCENT 6 % (BEAKER) (test code = 431) EOSINOPHILS RELATIVE PERCENT 1 % (BEAKER) (test code = 432) BASOPHILS RELATIVE PERCENT 0 % (BEAKER) (test code = 437) NEUTROPHILS ABSOLUTE COUNT 6.13 K/ L 1.56-6.13 (BEAKER) (test code = 670) LYMPHOCYTES ABSOLUTE COUNT 1.12 K/ L 1.18-3.74 L (BEAKER) (test code = 414) MONOCYTES ABSOLUTE COUNT (BEAKER) 0.48 K/ L 0.24-0.36 H (test code = 415) EOSINOPHILS ABSOLUTE COUNT 0.05 K/ L 0.04-0.36 (BEAKER) (test code = 416) BASOPHILS ABSOLUTE COUNT (BEAKER) 0.03 K/ L 0.01-0.08 (test code = 417) IMMATURE GRANULOCYTES-RELATIVE 0 % 0-1 PERCENT (BEAKER) (test code = 2801) POCT-GLUCOSE [id number] 01:32:00 Test Item Value Reference Range Interpretation Comments POC-GLUCOSE METER 98 mg/dL 70-[address] [facility] [address] (BEAKER) (test code = KRYSTAL Gomez [facility] [address] 1538) [id number] 19:05:00 Test Item Value Reference Range Interpretation Comments PARTIAL THROMBOPLASTIN TIME 36.8 seconds 22.5-36.0 H (BEAKER) (test code = 760) BLOOD GAS, [id number] 18:27:00 Test Item Value Reference Range Interpretation Comments PH ARTERIAL (BEAKER) (test code = 7.34 7.35-7.45 L 383) PCO2 ARTERIAL (BEAKER) (test code 60 mmHg 35-45 H = 384) PO2 ARTERIAL (BEAKER) (test code = 92 mmHg 80-90 H 385) O2 SATURATION ARTERIAL (BEAKER) 95.6 % 96.0-97.0 L (test code = 386) HCO3 ARTERIAL (BEAKER) (test code 31 mmol/L 21-29 H = 388) BASE EXCESS ARTERIAL (BEAKER) 5.0 mmol/L -2.0-3.0 H (test code = 387) PATIENT TEMPERATURE (BEAKER) (test 38.5 C code = 1818) FIO2 (BEAKER) (test code = 1819) 100.0 % POCT-GLUCOSE [id number] 18:14:00 Test Item Value Reference Range Interpretation Comments POC-GLUCOSE METER 89 mg/dL 70-[address] [facility] [address] (BEAKER) (test code = [place] [address] 1538) BLOOD GAS, [id number] 14:54:00 Test Item Value Reference Range Interpretation Comments PH ARTERIAL (BEAKER) (test code = 7.36 7.35-7.45 383) PCO2 ARTERIAL (BEAKER) (test code 60 mmHg 35-45 H = 384) PO2 ARTERIAL (BEAKER) (test code = 88 mmHg 80-90 385) O2 SATURATION ARTERIAL (BEAKER) 94.9 % 96.0-97.0 L (test code = 386) HCO3 ARTERIAL (BEAKER) (test code 32 mmol/L 21-29 H = 388) BASE EXCESS ARTERIAL (BEAKER) 6.3 mmol/L -2.0-3.0 H (test code = 387) PATIENT TEMPERATURE (BEAKER) (test 39.0 C code = 1818) FIO2 (BEAKER) (test code = 1819) 100.0 % BASIC METABOLIC [id number] 12:45:00 Test Item Value Reference Range Interpretation Comments SODIUM (BEAKER) 141 meq/L 136-145 (test code = 381) POTASSIUM (BEAKER) 4.5 meq/L 3.5-5.1 (test code = 379) CHLORIDE (BEAKER) 102 meq/L 98-107 (test code = 382) CO2 (BEAKER) (test 28 meq/L 22-29 code = 355) BLOOD UREA NITROGEN 9 mg/dL 7-21 (BEAKER) (test code = 354) CREATININE (BEAKER) 0.66 mg/dL 0.57-1.25 (test code = 358) GLUCOSE RANDOM 78 mg/dL 70-105 (BEAKER) (test code = 652) CALCIUM (BEAKER) 7.9 mg/dL 8.4-10.2 L (test code = 697) EGFR (BEAKER) (test 103 mL/min/1.73 ESTIM ATED GFR IS code = 1092) sq m NOT ACCURATE CREATININE CLEARANCE IN PREDICTING GLOMERULAR FILTRATION RATE . ESTIMATED GFR I S NOT APPLICABLE FOR DIALYSIS PATIEN TS. [id number] 12:32:00 Test Item Value Reference Range Interpretation Comments PARTIAL THROMBOPLASTIN TIME 44.4 seconds 22.5-36.0 H (BEAKER) (test code = 760) CRYPTOCOCCAL [id number] 11:54:00 Test Item Value Reference Range Interpretation Comments CRYPTOCOCCAL ANTIGEN, SERUM Negative Negative, Interference (BEAKER) (test code = 1828) RESPIRATORY PANEL [id number] 10:54:00 Test Item Value Reference Range Interpretation Comments HUMAN METAPNEUMOVIRUS Not detected Not detected, (BEAKER) (test code = 2683) Equivocal RHINOVIRUS (BEAKER) (test Not detected Not detected, code = 2684) Equivocal INFLUENZA A (BEAKER) (test Not detected Not detected, code = 2685) Equivocal INFLUENZA A (NO SUBTYPE) Not detected, (test code = 3606) Equivocal INFLUENZA A SUBTYPE H1 Not detected, (BEAKER) (test code = 2686) Equivocal INFLUENZA A SUBTYPE H3 Not detected, (BEAKER) (test code = 2687) Equivocal INFLUENZA A SUBTYPE H1-2009 Not detected, (BEAKER) (test code = 3198) Equivocal INFLUENZA B (BEAKER) (test Not detected Not detected, code = 2688) Equivocal RESPIRATORY SYNCYTIAL VIRUS Not detected Not detected, (BEAKER) (test code = 3199) Equivocal PARAINFLUENZA VIRUS 1 Not detected Not detected, (BEAKER) (test code = 2691) Equivocal PARAINFLUENZA VIRUS 2 Not detected Not detected, (BEAKER) (test code = 2692) Equivocal PARAINFLUENZA VIRUS 3 Not detected Not detected, (BEAKER) (test code = 2693) Equivocal PARAINFLUENZA VIRUS 4 Not detected Not detected, (BEAKER) (test code = 3200) Equivocal ADENOVIRUS (BEAKER) (test Not detected Not detected, code = 2694) Equivocal CORONAVIRUS 229E (BEAKER) Not detected Not detected, (test code = 3201) Equivocal CORONAVIRUS HKU1 (BEAKER) Not detected Not detected, (test code = 3202) Equivocal CORONAVIRUS NL63 (BEAKER) Not detected Not detected, (test code = 3203) Equivocal CORONAVIRUS OC43 (BEAKER) Not detected Not detected, (test code = 3204) Equivocal BORDETELLA PERTUSSIS Not detected Not detected, (BEAKER) (test code = 3205) Equivocal CHLAMYDOPHILA PNEUMONIAE Not detected Not detected, (BEAKER) (test code = 3206) Equivocal MYCOPLASMA PNEUMONIAE Not detected Not detected, (BEAKER) (test code = 3207) Equivocal Other viruses and bacteria not targeted by this PCR panel cannot be excluded; therefore clinical correlation and follow up of serology, culture results, and other molecular studies is required. The results are not intended to be used as the sole means for clinical diagnosis or patient management decisions. This sample was tested at the [facility] using the [employer] Respiratory Panel. It is FDA cleared and has been verified and approved by the [facility] for clinical use on nasal swab specimens. It is not FDA-cleared for use on bronchial wash/lavage samples. However, for this sample type, validation was performed and test characteristics were determined and approved, by [facility] for clinical use under the Clinical Laboratory Improvement Amendments (CLIA) of 1988 requirements. Therefore, FDA clearance isnot required. This laboratory is CLIA- certified and [employer] ([employer])-accredited to perform high complexity testing.HEPATIC FUNCTION [id number] 10:38:00 Test Item Value Reference Range Interpretation Comments TOTAL PROTEIN (BEAKER) (test code = 6.2 gm/dL 6.0-8.3 770) ALBUMIN (BEAKER) (test code = 1145) 2.9 g/dL 3.5-5.0 L BILIRUBIN TOTAL (BEAKER) (test code 0.4 mg/dL 0.2-1.2 = 377) BILIRUBIN DIRECT (BEAKER) (test 0.3 mg/dL 0.1-0.5 code = 706) ALKALINE PHOSPHATASE (BEAKER) (test 55 U/L 40-150 code = 346) AST (SGOT) (BEAKER) (test code = 14 U/L 5-34 353) ALT (SGPT) (BEAKER) (test code = 13 U/L 6-55 347) LACTIC ACID, ARTERIAL, WHOLE [id number] 09:17:00 Test Item Value Reference Range Interpretation Comments LACTATE BLOOD ARTERIAL (2) 0.6 mmol/L 0.5-2.2 (BEAKER) (test code = 2874) BLOOD GAS, [id number] 08:59:00 Test Item Value Reference Range Interpretation Comments PH ARTERIAL (BEAKER) (test code = 7.36 7.35-7.45 383) PCO2 ARTERIAL (BEAKER) (test code 56 mmHg 35-45 H = 384) PO2 ARTERIAL (BEAKER) (test code = 136 mmHg 80-90 H 385) O2 SATURATION ARTERIAL (BEAKER) 98.4 % 96.0-97.0 H (test code = 386) HCO3 ARTERIAL (BEAKER) (test code 31 mmol/L 21-29 H = 388) BASE EXCESS ARTERIAL (BEAKER) 4.6 mmol/L -2.0-3.0 H (test code = 387) PATIENT TEMPERATURE (BEAKER) (test 38.0 C code = 1818) FIO2 (BEAKER) (test code = 1819) 80.0 % CT, SINUS, WITHOUT IV [id number] 08:48:00Reason for exam:->evaluate extension of brain abscessFINAL [...] cells which are completely opacified. The left t ympanomastoid air cells are also completely opacified by fluid. There are air- fluid levels in the bilateral maxillary and sphenoid sinuses. However, please note that there is support tubing in place. The nasal septum is deviated to the left. There is a right lamellar cell. 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 Impression: Nonspecific hypodensity in the right temporal lobe adjacent to fluid-filledmastoid air cells. 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 An abscess cannot be excluded. Further evaluation with a gadolinium-enhanced MRI brain is recommended. Signed: Shani Zimmerman Verified Date/Time: 07/22/2018 08:48:38 Reading Location: [address] Neuro Reading Room RAD, CHEST, 1 VIEW, NON [id number] 06:48:00Reason for exam:->intubatedShould this be performed at the bedside?->YesFINAL REPORT RAD, CHEST, 1 VIEW, NON DEPT INDICATION: intubated COMPARISON: Prior day's exam FINDINGS: Portable frontal view of the chest. IMPRESSION: Support Lines: ET tube and right-sided PICC are unchanged without evidence of malpositioning. Lungs and pleura: Bilateral airspace and interstitial opacities have apparently increased slightly in the interim, however, this maybe due in part to interstitial crowding decreased inspiration on current exam. Left retrocardiac atelectasis not significantly changed. Superimposed infection may be excluded clinically. No pneumothorax.Heart and mediastinum: Stable contours. Additional findings: None. Signed: Peterson Booker Verified Date/Time: 07/22/2018 06:48:56 Reading Location: [address] Neuro Reading Room POCT-GLUCOSE [id number] 06:17:00 Test Item Value Reference Range Interpretation Comments POC-GLUCOSE METER 113 mg/dL 70-[address] [facility] [address] (BEAKER) (test code = [place] 1538) [address] BLOOD GAS, [id number] 05:57:00 Test Item Value Reference Range Interpretation Comments PH ARTERIAL (BEAKER) (test code = 7.39 7.35-7.45 383) PCO2 ARTERIAL (BEAKER) (test code 73 mmHg 35-45 HH = 384) PO2 ARTERIAL (BEAKER) (test code 49 mmHg 80-90 L = 385) O2 SATURATION ARTERIAL (BEAKER) 79.5 % 96.0-97.0 L (test code = 386) HCO3 ARTERIAL (BEAKER) (test code 43 mmol/L 21-29 HH = 388) BASE EXCESS ARTERIAL (BEAKER) 15.3 mmol/L -2.0-3.0 H (test code = 387) PATIENT TEMPERATURE (BEAKER) 38.0 C (test code = 1818) FIO2 (BEAKER) (test code = 1819) 80.0 % [id number] 05:19:00 Test Item Value Reference Range Interpretation Comments MAGNESIUM (BEAKER) (test code = 1.3 mg/dL 1.6-2.6 L 627) BASIC METABOLIC [id number] 05:19:00 Test Item Value Reference Range Interpretation Comments SODIUM (BEAKER) 141 meq/L 136-145 (test code = 381) POTASSIUM (BEAKER) 3.8 meq/L 3.5-5.1 (test code = 379) CHLORIDE (BEAKER) 102 meq/L 98-107 (test code = 382) CO2 (BEAKER) (test 30 meq/L 22-29 H code = 355) BLOOD UREA NITROGEN 9 mg/dL 7-21 (BEAKER) (test code = 354) CREATININE (BEAKER) 0.69 mg/dL 0.57-1.25 (test code = 358) GLUCOSE RANDOM 89 mg/dL 70-105 (BEAKER) (test code = 652) CALCIUM (BEAKER) 8.0 mg/dL 8.4-10.2 L (test code = 697) EGFR (BEAKER) (test 98 mL/min/1.73 ESTIMA JOHNIE GFR IS code = 1092) sq m NOT ACCURATE CREATININE CLEARANCE IN PREDICTING GLOMERULAR FILTRATION RATE . ESTIMATED GFR I S NOT APPLICABLE FOR DIALYSIS PATIEN TS. [id number] 05:16:00 Test Item Value Reference Range Interpretation Comments PARTIAL THROMBOPLASTIN TIME 33.2 seconds 22.5-36.0 (BEAKER) (test code = 760) Prior to initiating heparinCBC W/PLT COUNT & AUTO [id number] 05:05:00 Test Item Value Reference Range Interpretation Comments WHITE BLOOD CELL COUNT (BEAKER) 8.4 K/ L 3.5-10.5 (test code = 775) RED BLOOD CELL COUNT (BEAKER) 3.11 M/ L 3.93-5.22 L (test code = 761) HEMOGLOBIN (BEAKER) (test code = 7.7 GM/DL 11.2-15.7 L 410) HEMATOCRIT (BEAKER) (test code = 25.9 % 34.1-44.9 L 411) MEAN CORPUSCULAR VOLUME (BEAKER) 83.3 fL 79.4-94.8 (test code = 753) MEAN CORPUSCULAR HEMOGLOBIN 24.8 pg 25.6-32.2 L (BEAKER) (test code = 751) MEAN CORPUSCULAR HEMOGLOBIN CONC 29.7 GM/DL 32.2-35.5 L (BEAKER) (test code = 752) RED CELL DISTRIBUTION WIDTH 18.4 % 11.7-14.4 H (BEAKER) (test code = 412) PLATELET COUNT (BEAKER) (test 202 K/CU MM 150-450 code = 756) MEAN PLATELET VOLUME (BEAKER) 10.7 fL 9.4-12.3 (test code = 754) NUCLEATED RED BLOOD CELLS 0 /100 WBC 0-0 (BEAKER) (test code = 413) NEUTROPHILS RELATIVE PERCENT 80 % (BEAKER) (test code = 429) LYMPHOCYTES RELATIVE PERCENT 11 % (BEAKER) (test code = 430) MONOCYTES RELATIVE PERCENT 6 % (BEAKER) (test code = 431) EOSINOPHILS RELATIVE PERCENT 1 % (BEAKER) (test code = 432) BASOPHILS RELATIVE PERCENT 1 % (BEAKER) (test code = 437) NEUTROPHILS ABSOLUTE COUNT 6.75 K/ L 1.56-6.13 H (BEAKER) (test code = 670) LYMPHOCYTES ABSOLUTE COUNT 0.95 K/ L 1.18-3.74 L (BEAKER) (test code = 414) MONOCYTES ABSOLUTE COUNT (BEAKER) 0.53 K/ L 0.24-0.36 H (test code = 415) EOSINOPHILS ABSOLUTE COUNT 0.09 K/ L 0.04-0.36 (BEAKER) (test code = 416) BASOPHILS ABSOLUTE COUNT (BEAKER) 0.06 K/ L 0.01-0.08 (test code = 417) IMMATURE GRANULOCYTES-RELATIVE 1 % 0-1 PERCENT (BEAKER) (test code = 2801) CT, CHEST WITH IV CONTRAST- PE TEST [id number] 03:36:00FINAL REPORT TECHNIQUE: CT scan of the [...] 3:[address] Booker Signed: Peterson Booker MDReport Verified Date/Time: 07/22/2018 03:36:58 Reading Location: [address] Neuro Reading Room BASIC METABOLIC [id number] 23:30:00 Test Item Value Reference Range Interpretation Comments SODIUM (BEAKER) 141 meq/L 136-145 (test code = 381) POTASSIUM (BEAKER) 3.7 meq/L 3.5-5.1 (test code = 379) CHLORIDE (BEAKER) 102 meq/L 98-107 (test code = 382) CO2 (BEAKER) (test 29 meq/L 22-29 code = 355) BLOOD UREA NITROGEN 7 mg/dL 7-21 (BEAKER) (test code = 354) CREATININE (BEAKER) 0.64 mg/dL 0.57-1.25 (test code = 358) GLUCOSE RANDOM 79 mg/dL 70-105 (BEAKER) (test code = 652) CALCIUM (BEAKER) 7.9 mg/dL 8.4-10.2 L (test code = 697) EGFR (BEAKER) (test 107 mL/min/1.73 ESTIM ATED GFR IS code = 1092) sq m NOT ACCURATE CREATININE CLEARANCE IN PREDICTING GLOMERULAR FILTRATION RATE . ESTIMATED GFR I S NOT APPLICABLE FOR DIALYSIS PATIEN TS. RAD, CHEST, 1 VIEW, NON [id number] 19:05:00Reason for exam:->post RYAN PICC lineShould this be performed at the bedside?->YesFINAL REPORT History: Respiratory distress. FINDINGS: Compared with earlier fi lm the same date, diffuse bilateral airspace opacity, possibly lung edema, pneumonia or ARDS has increased. Life-support tubes and lines appear in stable positions. No pneumothorax. The heart and mediastinum are stable. Bones are unremarkable. IMPRESSION: 1. Diffuse bilateral pulmonary airspace opacity, increased since earlier film of the same date. Signed: Donovan Shepherd Verified Date/Time:07/21/2018 19:05:16 Reading Location: [facility] Diagnostic Imaging Reading Room - [place] [address] POCT-GLUCOSE [id number] 18:47:00 Test Item Value Reference Range Interpretation Comments POC-GLUCOSE METER 99 mg/dL 70-[address] [facility] [address] (BEAKER) (test code = KRYSTAL Gomez [facility] [address] 1538) BASIC METABOLIC [id number] 18:00:00 Test Item Value Reference Range Interpretation Comments SODIUM (BEAKER) 143 meq/L 136-145 (test code = 381) POTASSIUM (BEAKER) 3.7 meq/L 3.5-5.1 (test code = 379) CHLORIDE (BEAKER) 106 meq/L 98-107 (test code = 382) CO2 (BEAKER) (test 28 meq/L 22-29 code = 355) BLOOD UREA NITROGEN 7 mg/dL 7-21 (BEAKER) (test code = 354) CREATININE (BEAKER) 0.62 mg/dL 0.57-1.25 (test code = 358) GLUCOSE RANDOM 94 mg/dL 70-105 (BEAKER) (test code = 652) CALCIUM (BEAKER) 7.9 mg/dL 8.4-10.2 L (test code = 697) EGFR (BEAKER) (test 111 mL/min/1.73 ESTIM ATED GFR IS code = 1092) sq m NOT ACCURATE CREATININE CLEARANCE IN PREDICTING GLOMERULAR FILTRATION RATE . ESTIMATED GFR I S NOT APPLICABLE FOR DIALYSIS PATIEN TS. [id number] 17:56:00 Test Item Value Reference Range Interpretation Comments MAGNESIUM (BEAKER) (test code = 1.6 mg/dL 1.6-2.6 627) LACTIC ACID, ARTERIAL, WHOLE [id number] 17:54:00 Test Item Value Reference Range Interpretation Comments LACTATE BLOOD 0.6 mmol/L 0.5-2.2 Specimen sligh tly ARTERIAL (2) (BEAKER) hemoly zed (test code = 2874) BLOOD GAS, [id number] 14:00:00 Test Item Value Reference Range Interpretation Comments PH ARTERIAL (BEAKER) (test code = 7.46 7.35-7.45 H 383) PCO2 ARTERIAL (BEAKER) (test code 38 mmHg 35-45 = 384) PO2 ARTERIAL (BEAKER) (test code = 193 mmHg 80-90 H 385) O2 SATURATION ARTERIAL (BEAKER) 99.4 % 96.0-97.0 H (test code = 386) HCO3 ARTERIAL (BEAKER) (test code 26 mmol/L 21-29 = 388) BASE EXCESS ARTERIAL (BEAKER) 2.4 mmol/L -2.0-3.0 (test code = 387) PATIENT TEMPERATURE (BEAKER) (test 37.0 C code = 1818) FIO2 (BEAKER) (test code = 1819) 70.0 % RAD, CHEST, 1 VIEW, NON [id number] 13:26:00Reason for exam:- >intubationShould this be performed at the bedside?->YesFINAL REPORT Chest dated 07/21/2018 COMPARISON: 07/20/2018 Clinical Information: intubation Comment: Since prior examination, there is interval intubation with tip seen approximately 3 cm above the clint. A nasogastric tube and right subclavian central venous catheter are noted.There is no significant interval change in airspace disease in both lungs. Signed: Avery Maldonado MDReport Verified Date/Time: 07/21/2018 13:26:53 Reading Location: [facility] [id number] Consult Reading Room D GAS, [id number] 11:39:00 Test Item Value Reference Range Interpretation Comments PH ARTERIAL (BEAKER) (test code = 7.50 7.35-7.45 H 383) PCO2 ARTERIAL (BEAKER) (test code 42 mmHg 35-45 = 384) PO2 ARTERIAL (BEAKER) (test code = 53 mmHg 80-90 L 385) O2 SATURATION ARTERIAL (BEAKER) 90.0 % 96.0-97.0 L (test code = 386) HCO3 ARTERIAL (BEAKER) (test code 32 mmol/L 21-29 H = 388) BASE EXCESS ARTERIAL (BEAKER) 7.8 mmol/L -2.0-3.0 H (test code = 387) PATIENT TEMPERATURE (BEAKER) (test 37.0 C code = 1818) FIO2 (BEAKER) (test code = 1819) 100.0 % [id number] 10:18:00 Test Item Value Reference Range Interpretation Comments MAGNESIUM (BEAKER) (test code = 2.1 mg/dL 1.6-2.6 627) BASIC METABOLIC [id number] 10:18:00 Test Item Value Reference Range Interpretation Comments SODIUM (BEAKER) 143 meq/L 136-145 (test code = 381) POTASSIUM (BEAKER) 3.7 meq/L 3.5-5.1 (test code = 379) CHLORIDE (BEAKER) 103 meq/L 98-107 (test code = 382) CO2 (BEAKER) (test 28 meq/L 22-29 code = 355) BLOOD UREA NITROGEN 6 mg/dL 7-21 L (BEAKER) (test code = 354) CREATININE (BEAKER) 0.65 mg/dL 0.57-1.25 (test code = 358) GLUCOSE RANDOM 90 mg/dL 70-105 (BEAKER) (test code = 652) CALCIUM (BEAKER) 8.1 mg/dL 8.4-10.2 L (test code = 697) EGFR (BEAKER) (test 105 mL/min/1.73 ESTIM ATED GFR IS code = 1092) sq m NOT ACCURATE CREATININE CLEARANCE IN PREDICTING GLOMERULAR FILTRATION RATE . ESTIMATED GFR I S NOT APPLICABLE FOR DIALYSIS PATIEN TS. BLOOD GAS, [id number] 06:19:00 Test Item Value Reference Range Interpretation Comments PH ARTERIAL (BEAKER) (test code = 7.54 7.35-7.45 H 383) PCO2 ARTERIAL (BEAKER) (test code 37 mmHg 35-45 = 384) PO2 ARTERIAL (BEAKER) (test code = 180 mmHg 80-90 H 385) O2 SATURATION ARTERIAL (BEAKER) 99.4 % 96.0-97.0 H (test code = 386) HCO3 ARTERIAL (BEAKER) (test code 31 mmol/L 21-29 H = 388) BASE EXCESS ARTERIAL (BEAKER) 7.6 mmol/L -2.0-3.0 H (test code = 387) PATIENT TEMPERATURE (BEAKER) (test 37.3 C code = 1818) FIO2 (BEAKER) (test code = 1819) 100.0 % [id number] 05:24:00 Test Item Value Reference Range Interpretation Comments FERRITIN (BEAKER) (test code = 361) 149 ng/mL 5-275 VITAMIN B12 AND [id number] 05:24:00 Test Item Value Reference Range Interpretation Comments VITAMIN B12 (BEAKER) (test code = 361 pg/mL 213-816 774) FOLATE (BEAKER) (test code = 362) 6.2 ng/mL >=7.0 L SCREEN, [id number] 05:04:00 Test Item Value Reference Range Interpretation Comments TEST URINE (BEAKER) (test Negative code = 583) [id number] 05:00:00 Test Item Value Reference Range Interpretation Comments MAGNESIUM (BEAKER) (test code = 0.8 mg/dL 1.6-2.6 LL 627) RETICULOCYTE [id number] 05:00:00 Test Item Value Reference Range Interpretation Comments RETICULOCYTE COUNT PCT (BEAKER) (test 5.1 % 0.5-1.7 H code = 575) IRON, TIBC, % SAT. (WITHOUT FERRITIN)[id number] 04:59:00 Test Item Value Reference Range Interpretation Comments IRON (BEAKER) (test code = 547) 14.0 ug/dL 40.0-160.0 L TOTAL IRON BINDING CAPACITY 158 ug/dL 250-450 L (BEAKER) (test code = 769) IRON % SATURATION (2) (BEAKER) 9 % 20-55 L (test code = 2590) [id number] 04:58:00 Test Item Value Reference Range Interpretation Comments PHOSPHORUS (BEAKER) (test code = 3.8 mg/dL 2.3-4.7 604) BASIC METABOLIC [id number] 04:58:00 Test Item Value Reference Range Interpretation Comments SODIUM (BEAKER) 145 meq/L 136-145 (test code = 381) POTASSIUM (BEAKER) 3.7 meq/L 3.5-5.1 (test code = 379) CHLORIDE (BEAKER) 108 meq/L 98-107 H (test code = 382) CO2 (BEAKER) (test 29 meq/L 22-29 code = 355) BLOOD UREA NITROGEN 6 mg/dL 7-21 L (BEAKER) (test code = 354) CREATININE (BEAKER) 0.66 mg/dL 0.57-1.25 (test code = 358) GLUCOSE RANDOM 91 mg/dL 70-105 (BEAKER) (test code = 652) CALCIUM (BEAKER) 8.2 mg/dL 8.4-10.2 L (test code = 697) EGFR (BEAKER) (test 103 mL/min/1.73 ESTIM ATED GFR IS code = 1092) sq m NOT ACCURATE CREATININE CLEARANCE IN PREDICTING GLOMERULAR FILTRATION RATE . ESTIMATED GFR I S NOT APPLICABLE FOR DIALYSIS PATIEN TS. LACTATE DEHYDROGENASE (LDH)2018-07-21 04:58:00 Test Item Value Reference Range Interpretation Comments LACTATE DEHYDROGENASE (BEAKER) (test 310 U/L 125-220 H code = 635) B-TYPE NATRIURETIC FACTOR (BNP)2018-07-21 04:54:00 Test Item Value Reference Range Interpretation Comments B-TYPE NATRIURETIC PEPTIDE (BEAKER) 187 pg/mL 0-100 H (test code = 700) CBC W/PLT COUNT & AUTO [id number] 04:42:00 Test Item Value Reference Range Interpretation Comments WHITE BLOOD CELL COUNT (BEAKER) 9.7 K/ L 3.5-10.5 (test code = 775) RED BLOOD CELL COUNT (BEAKER) 3.07 M/ L 3.93-5.22 L (test code = 761) HEMOGLOBIN (BEAKER) (test code = 7.7 GM/DL 11.2-15.7 L 410) HEMATOCRIT (BEAKER) (test code = 25.2 % 34.1-44.9 L 411) MEAN CORPUSCULAR VOLUME (BEAKER) 82.1 fL 79.4-94.8 (test code = 753) MEAN CORPUSCULAR HEMOGLOBIN 25.1 pg 25.6-32.2 L (BEAKER) (test code = 751) MEAN CORPUSCULAR HEMOGLOBIN CONC 30.6 GM/DL 32.2-35.5 L (BEAKER) (test code = 752) RED CELL DISTRIBUTION WIDTH 18.6 % 11.7-14.4 H (BEAKER) (test code = 412) PLATELET COUNT (BEAKER) (test 201 K/CU MM 150-450 code = 756) MEAN PLATELET VOLUME (BEAKER) 10.6 fL 9.4-12.3 (test code = 754) NUCLEATED RED BLOOD CELLS 0 /100 WBC 0-0 (BEAKER) (test code = 413) NEUTROPHILS RELATIVE PERCENT 80 % (BEAKER) (test code = 429) LYMPHOCYTES RELATIVE PERCENT 12 % (BEAKER) (test code = 430) MONOCYTES RELATIVE PERCENT 6 % (BEAKER) (test code = 431) EOSINOPHILS RELATIVE PERCENT 0 % (BEAKER) (test code = 432) BASOPHILS RELATIVE PERCENT 0 % (BEAKER) (test code = 437) NEUTROPHILS ABSOLUTE COUNT 7.76 K/ L 1.56-6.13 H (BEAKER) (test code = 670) LYMPHOCYTES ABSOLUTE COUNT 1.20 K/ L 1.18-3.74 (BEAKER) (test code = 414) MONOCYTES ABSOLUTE COUNT (BEAKER) 0.60 K/ L 0.24-0.36 H (test code = 415) EOSINOPHILS ABSOLUTE COUNT 0.03 K/ L 0.04-0.36 L (BEAKER) (test code = 416) BASOPHILS ABSOLUTE COUNT (BEAKER) 0.04 K/ L 0.01-0.08 (test code = 417) IMMATURE GRANULOCYTES-RELATIVE 0 % 0-1 PERCENT (BEAKER) (test code = 2801) EEG AWAKE AND [id number] 20:05:00Reason for exam:->monica abscess Neurophysiology Electroencephalogram Report DATE OF REPORT: 07/20/18Date(s) of Study: 07/20/18ACC: [id number]: [id number] time: 17:17hrsStop time: 17:38hICD-10: R41.82 Altered Mental StatusCPT Code: 38584 EEG: awake and drowsy <40 min HISTORY: 33 y/o female referred for [...] anteriorly, similar frequency activity was seen with low voltage >18 Hz activity present frontally. There was [...] a mild nonspecific encephalopathic state. No epileptiform abnormalities, including electrographic seizures. An EEG without epileptiform discharges does not exclude the possibility of epilepsy. Fiordaliza Woodson [facility] Neurophysiology Jerrell Noland MDNeurophysiology/Epilepsy Attending RAD, CHEST, 1 VIEW, NON [id number] 19:52:00Reason for exam:->pneumococcal pneumoniaShould this be performed [...] effusions. Signed: Maninder Vazquez MDReport Verified Date/Time: 07/20/2018 19:52:35 Reading Location: [facility] Reading Room [id number] 18:50:00 Test Item Value Reference Range Interpretation Comments POC-POTASSIUM 3.6 meq/L 3.6-5.5 TESTED AT [place] [address] ([facility]) (test code [facility] [address] = 1540) [id number] 18:50:00 Test Item Value Reference Range Interpretation Comments POC-GLUCOSE ([facility]) 86 mg/dL 70-110 TESTED AT [place] [address] (test code = 1855) [facility] [address] POCT-CALCIUM [id number] 18:50:00 Test Item Value Reference Range Interpretation Comments POC-CALCIUM IONIZED 1.08 mmol/L 1.12-1.27 L TESTED A T [place] [address] ([facility]) (test code = [facility] 1536) [id number] [id number] 18:50:00 Test Item Value Reference Range Interpretation Comments POC-HEMATOCRIT 22 % 36-45 L TESTED AT [place] [address] ([facility]) (test code = [facility] [address] 3905) [id number] 18:50:00 Test Item Value Reference Range Interpretation Comments POC-HEMOGLOBIN 7.5 g/dL 12.0-15.0 L TESTED AT [place] [address] ([facility]) (test code = [facility] 1857) [id number] AT [place] [address] [place] [facility] [address] POCT-BLOOD GASES, [id number] 18:49:00 Test Item Value Reference Range Interpretation Comments TEMP, CELSIUS-POC 37.0 (BEAKER) (test code = 1834) FIO2-POC (BEAKER) TESTED AT [facility] [address] (test code = 1835) [place] [address] PH, ARTERIAL-POC 7.525 7.350-7.450 H (BEAKER) (test code = 1836) PCO2, ARTERIAL-POC 31.9 mm Hg 35.0-45.0 L (BEAKER) (test code = 1837) PO2, ARTERIAL-POC 44.0 mm Hg 80.0-90.0 L (BEAKER) (test code = 1838) SO2, ARTERIAL-POC 85.0 % 96.0-97.0 L (BEAKER) (test code = 1839) HCO3, ARTERIAL-POC 26.4 meq/L 21.0-29.0 (BEAKER) (test code = 1840) BASE EXCESS, 4.0 meq/L -2.0-3.0 H ARTERIAL-POC (BEAKER) (test code = 1841) [id number] 18:49:00 Test Item Value Reference Range Interpretation Comments POC-SODIUM (BEAKER) 145 meq/L 135-148 TESTED A T [place] [address] (test code = 1542) [place] [address] POCT-LACTIC ACID, [id number] 17:54:00 Test Item Value Reference Range Interpretation Comments POC-LACTIC ACID, 0.5 mmol/L 0.9-1.7 L TESTED AT [facility] [address] [place] (BEAKER) (test [place] code = 2805) [id number] [id number] 17:54:00 Test Item Value Reference Range Interpretation Comments POC-SODIUM (BEAKER) 146 meq/L 135-148 TESTED A T [place] [address] (test code = 1542) [facility] [place] [address] [id number] 17:54:00 Test Item Value Reference Range Interpretation Comments POC-POTASSIUM 3.4 meq/L 3.6-5.5 L TESTED AT [place] [id number] (BEAKER) (test code [facility] [address] = 1540) [id number] 17:54:00 Test Item Value Reference Range Interpretation Comments POC-GLUCOSE (BEAKER) 88 mg/dL 70-110 TESTED AT [place] [address] (test code = 1855) [facility] [address] POCT-CALCIUM [id number] 17:54:00 Test Item Value Reference Range Interpretation Comments POC-CALCIUM IONIZED 1.11 mmol/L 1.12-1.27 L TESTED A T [place] [address] (BEAKER) (test code = [facility] 1536) [address] [id number] 17:54:00 Test Item Value Reference Range Interpretation Comments POC-HEMATOCRIT 22 % 36-45 L TESTED AT [place] [address] (BEAKER) (test code = [facility] [address] 1857) [id number] 17:54:00 Test Item Value Reference Range Interpretation Comments POC-HEMOGLOBIN 7.5 g/dL 12.0-15.0 L TESTED AT [place] [address] ([facility]) (test code = [facility] 1856) [id number] AT [place] [address] [place] [facility] [address] POCT-BLOOD GASES, [id number] 17:53:00 Test Item Value Reference Range Interpretation Comments TEMP, CELSIUS-POC 37.0 (BEAKER) (test code = 1834) FIO2-POC (BEAKER) TESTED AT [place] [address] (test code = 1835) [facility] [address] PH, VENOUS-POC 7.456 7.320-7.420 H (BEAKER) (test code = 1842) PCO2, VENOUS-POC 38.6 mm Hg 41.0-51.0 L (BEAKER) (test code = 1843) PO2, VENOUS-POC 36.0 mm Hg 25.0-40.0 (BEAKER) (test code = 1844) SO2, VENOUS-POC 72.0 % 40.0-70.0 H (BEAKER) (test code = 1845) HCO3, VENOUS-POC 27.2 meq/L 21.0-29.0 (BEAKER) (test code = 1846) BASE EXCESS, 3.0 meq/L -2.0-3.0 VENOUS-POC (BEAKER) (test code = 1847) TOXOPLASMA GONDII ANTIBODY, [id number] 12:55:00 Test Item Value Reference Range Interpretation Comments TOXOPLASMA GONDII IGG QUANTITATIVE < IU/mL <10.0 (BEAKER) (test code = 3428) Toxoplasma Gondii IgG Result Interpretation: </= 9.9 IU/mL Normal 10-11 IU/mL Equivocal >/= 12 IU/mL PositiveVANCOMYCIN LEVEL, TROUGH 2018-07-20 11:06:00 Test Item Value Reference Range Interpretation Comments VANCOMYCIN TROUGH (BEAKER) (test 8.2 ug/mL 10.0-20.0 L code = 522) COMPREHENSIVE METABOLIC [id number] 09:18:00 Test Item Value Reference Range Interpretation Comments TOTAL PROTEIN 6.0 gm/dL 6.0-8.3 (BEAKER) (test code = 770) ALBUMIN (BEAKER) 2.9 g/dL 3.5-5.0 L (test code = 1145) ALKALINE PHOSPHATASE 49 U/L 40-150 (BEAKER) (test code = 346) BILIRUBIN TOTAL 0.6 mg/dL 0.2-1.2 (BEAKER) (test code = 377) SODIUM (BEAKER) (test 146 meq/L 136-145 H code = 381) POTASSIUM (BEAKER) 3.7 meq/L 3.5-5.1 (test code = 379) CHLORIDE (BEAKER) 111 meq/L 98-107 H (test code = 382) CO2 (BEAKER) (test 28 meq/L 22-29 code = 355) BLOOD UREA NITROGEN 6 mg/dL 7-21 L (BEAKER) (test code = 354) CREATININE (BEAKER) 0.64 mg/dL 0.57-1.25 (test code = 358) GLUCOSE RANDOM 90 mg/dL 70-105 (BEAKER) (test code = 652) CALCIUM (BEAKER) 8.2 mg/dL 8.4-10.2 L (test code = 697) AST (SGOT) (BEAKER) 12 U/L 5-34 (test code = 353) ALT (SGPT) (BEAKER) 13 U/L 6-55 (test code = 347) EGFR (BEAKER) (test 107 ESTIMATE D GFR IS code = 1092) mL/min/1.73 sq NOT ACCURA TE m CREATININE CLEARANCE IN PREDICTING GLOMERULAR FILTRATION RATE . ESTIMATED GFR I S NOT APPLICABLE FOR DIALYSIS PATIEN TS. LACTIC ACID, VENOUS, WHOLE [id number] 09:09:00 Test Item Value Reference Range Interpretation Comments LACTATE BLOOD VENOUS (2) (BEAKER) 0.8 mmol/L 0.5-2.2 (test code = 2872) CBC W/PLT COUNT & AUTO [id number] 09:02:00 Test Item Value Reference Range Interpretation Comments WHITE BLOOD CELL COUNT (BEAKER) 8.7 K/ L 3.5-10.5 (test code = 775) RED BLOOD CELL COUNT (BEAKER) 3.15 M/ L 3.93-5.22 L (test code = 761) HEMOGLOBIN (BEAKER) (test code = 7.9 GM/DL 11.2-15.7 L 410) HEMATOCRIT (BEAKER) (test code = 26.1 % 34.1-44.9 L 411) MEAN CORPUSCULAR VOLUME (BEAKER) 82.9 fL 79.4-94.8 (test code = 753) MEAN CORPUSCULAR HEMOGLOBIN 25.1 pg 25.6-32.2 L (BEAKER) (test code = 751) MEAN CORPUSCULAR HEMOGLOBIN CONC 30.3 GM/DL 32.2-35.5 L (BEAKER) (test code = 752) RED CELL DISTRIBUTION WIDTH 18.6 % 11.7-14.4 H (BEAKER) (test code = 412) PLATELET COUNT (BEAKER) (test 201 K/CU MM 150-450 code = 756) MEAN PLATELET VOLUME (BEAKER) 10.3 fL 9.4-12.3 (test code = 754) NUCLEATED RED BLOOD CELLS 0 /100 WBC 0-0 (BEAKER) (test code = 413) NEUTROPHILS RELATIVE PERCENT 77 % (BEAKER) (test code = 429) LYMPHOCYTES RELATIVE PERCENT 14 % (BEAKER) (test code = 430) MONOCYTES RELATIVE PERCENT 8 % (BEAKER) (test code = 431) EOSINOPHILS RELATIVE PERCENT 0 % (BEAKER) (test code = 432) BASOPHILS RELATIVE PERCENT 1 % (BEAKER) (test code = 437) NEUTROPHILS ABSOLUTE COUNT 6.67 K/ L 1.56-6.13 H (BEAKER) (test code = 670) LYMPHOCYTES ABSOLUTE COUNT 1.17 K/ L 1.18-3.74 L (BEAKER) (test code = 414) MONOCYTES ABSOLUTE COUNT (BEAKER) 0.69 K/ L 0.24-0.36 H (test code = 415) EOSINOPHILS ABSOLUTE COUNT 0.01 K/ L 0.04-0.36 L (BEAKER) (test code = 416) BASOPHILS ABSOLUTE COUNT (BEAKER) 0.06 K/ L 0.01-0.08 (test code = 417) IMMATURE GRANULOCYTES-RELATIVE 1 % 0-1 PERCENT (BEAKER) (test code = 2801) STREP PNEUMONIAE [id number] 07:55:00 Test Item Value Reference Range Interpretation Comments STREP PNEUMONIAE Positive for Presumptive negative A ANTIGEN (BEAKER) pneumococcal for pneumococcal (test code = 1615) [facility] BAS[facility] METABOLIC [id number] 06:14:00 Test Item Value Reference Range Interpretation Comments SODIUM (BEAKER) 146 meq/L 136-145 H (test code = 381) POTASSIUM (BEAKER) 3.7 meq/L 3.5-5.1 (test code = 379) CHLORIDE (BEAKER) 112 meq/L 98-107 H (test code = 382) CO2 (BEAKER) (test 27 meq/L 22-29 code = 355) BLOOD UREA NITROGEN 6 mg/dL 7-21 L (BEAKER) (test code = 354) CREATININE (BEAKER) 0.64 mg/dL 0.57-1.25 (test code = 358) GLUCOSE RANDOM 92 mg/dL 70-105 (BEAKER) (test code = 652) CALCIUM (BEAKER) 8.2 mg/dL 8.4-10.2 L (test code = 697) EGFR (BEAKER) (test 107 mL/min/1.73 ESTIM ATED GFR IS code = 1092) sq m NOT ACCURATE CREATININE CLEARANCE IN PREDICTING GLOMERULAR FILTRATION RATE . ESTIMATED GFR I S NOT APPLICABLE FOR DIALYSIS PATIEN TS. CBC W/PLT COUNT & AUTO [id number] 05:58:00 Test Item Value Reference Range Interpretation Comments WHITE BLOOD CELL COUNT (BEAKER) 8.3 K/ L 3.5-10.5 (test code = 775) RED BLOOD CELL COUNT (BEAKER) 3.24 M/ L 3.93-5.22 L (test code = 761) HEMOGLOBIN (BEAKER) (test code = 8.1 GM/DL 11.2-15.7 L 410) HEMATOCRIT (BEAKER) (test code = 26.7 % 34.1-44.9 L 411) MEAN CORPUSCULAR VOLUME (BEAKER) 82.4 fL 79.4-94.8 (test code = 753) MEAN CORPUSCULAR HEMOGLOBIN 25.0 pg 25.6-32.2 L (BEAKER) (test code = 751) MEAN CORPUSCULAR HEMOGLOBIN CONC 30.3 GM/DL 32.2-35.5 L (BEAKER) (test code = 752) RED CELL DISTRIBUTION WIDTH 18.6 % 11.7-14.4 H (BEAKER) (test code = 412) PLATELET COUNT (BEAKER) (test 231 K/CU MM 150-450 code = 756) MEAN PLATELET VOLUME (BEAKER) 10.1 fL 9.4-12.3 (test code = 754) NUCLEATED RED BLOOD CELLS 0 /100 WBC 0-0 (BEAKER) (test code = 413) NEUTROPHILS RELATIVE PERCENT 79 % (BEAKER) (test code = 429) LYMPHOCYTES RELATIVE PERCENT 13 % (BEAKER) (test code = 430) MONOCYTES RELATIVE PERCENT 7 % (BEAKER) (test code = 431) EOSINOPHILS RELATIVE PERCENT 0 % (BEAKER) (test code = 432) BASOPHILS RELATIVE PERCENT 1 % (BEAKER) (test code = 437) NEUTROPHILS ABSOLUTE COUNT 6.62 K/ L 1.56-6.13 H (BEAKER) (test code = 670) LYMPHOCYTES ABSOLUTE COUNT 1.05 K/ L 1.18-3.74 L (BEAKER) (test code = 414) MONOCYTES ABSOLUTE COUNT (BEAKER) 0.56 K/ L 0.24-0.36 H (test code = 415) EOSINOPHILS ABSOLUTE COUNT 0.00 K/ L 0.04-0.36 L (BEAKER) (test code = 416) BASOPHILS ABSOLUTE COUNT (BEAKER) 0.05 K/ L 0.01-0.08 (test code = 417) IMMATURE GRANULOCYTES-RELATIVE 1 % 0-1 PERCENT (BEAKER) (test code = 2801) HEPATITIS PANEL, [id number] 02:31:00 Test Item Value Reference Range Interpretation Comments HEPATITIS A IGM ANTIBODY (BEAKER) Nonreactive Nonreactive (test code = 498) HEPATITIS B CORE IGM ANTIBODY Nonreactive Nonreactive (BEAKER) (test code = 645) HEPATITIS C ANTIBODY (BEAKER) Nonreactive Nonreactive (test code = 367) HEPATITIS B SURFACE ANTIGEN (2) Nonreactive Nonreactive (BEAKER) (test code = 2585) TSH/FREE T4 IF [id number] 02:31:00 Test Item Value Reference Range Interpretation Comments THYROID STIMULATING HORMONE 2.10 uIU/mL 0.35-4.94 (BEAKER) (test code = 772) HIV-1 ANTIGEN WITH HIV-1/2 [id number] 02:31:00 Test Item Value Reference Range Interpretation Comments HIV-1 ANTIGEN WITH HIV 1\T\2 Nonreactive Nonreactive ANTIBODY (2) (BEAKER) (test code = 2586) BASIC METABOLIC [id number] 02:07:00 Test Item Value Reference Range Interpretation Comments SODIUM (BEAKER) 145 meq/L 136-145 (test code = 381) POTASSIUM (BEAKER) 3.6 meq/L 3.5-5.1 (test code = 379) CHLORIDE (BEAKER) 110 meq/L 98-107 H (test code = 382) CO2 (BEAKER) (test 25 meq/L 22-29 code = 355) BLOOD UREA NITROGEN 7 mg/dL 7-21 (BEAKER) (test code = 354) CREATININE (BEAKER) 0.60 mg/dL 0.57-1.25 (test code = 358) GLUCOSE RANDOM 96 mg/dL 70-105 (BEAKER) (test code = 652) CALCIUM (BEAKER) 8.4 mg/dL 8.4-10.2 (test code = 697) EGFR (BEAKER) (test 115 mL/min/1.73 ESTIM ATED GFR IS code = 1092) sq m NOT ACCURATE CREATININE CLEARANCE IN PREDICTING GLOMERULAR FILTRATION RATE . ESTIMATED GFR I S NOT APPLICABLE FOR DIALYSIS PATIEN TS. CBC W/PLT COUNT & AUTO [id number] 01:54:00 Test Item Value Reference Range Interpretation Comments WHITE BLOOD CELL COUNT (BEAKER) 8.4 K/ L 3.5-10.5 (test code = 775) RED BLOOD CELL COUNT (BEAKER) 3.39 M/ L 3.93-5.22 L (test code = 761) HEMOGLOBIN (BEAKER) (test code = 8.4 GM/DL 11.2-15.7 L 410) HEMATOCRIT (BEAKER) (test code = 27.6 % 34.1-44.9 L 411) MEAN CORPUSCULAR VOLUME (BEAKER) 81.4 fL 79.4-94.8 (test code = 753) MEAN CORPUSCULAR HEMOGLOBIN 24.8 pg 25.6-32.2 L (BEAKER) (test code = 751) MEAN CORPUSCULAR HEMOGLOBIN CONC 30.4 GM/DL 32.2-35.5 L (BEAKER) (test code = 752) RED CELL DISTRIBUTION WIDTH 18.6 % 11.7-14.4 H (BEAKER) (test code = 412) PLATELET COUNT (BEAKER) (test 248 K/CU MM 150-450 code = 756) MEAN PLATELET VOLUME (BEAKER) 10.6 fL 9.4-12.3 (test code = 754) NUCLEATED RED BLOOD CELLS 0 /100 WBC 0-0 (BEAKER) (test code = 413) NEUTROPHILS RELATIVE PERCENT 77 % (BEAKER) (test code = 429) LYMPHOCYTES RELATIVE PERCENT 14 % (BEAKER) (test code = 430) MONOCYTES RELATIVE PERCENT 7 % (BEAKER) (test code = 431) EOSINOPHILS RELATIVE PERCENT 1 % (BEAKER) (test code = 432) BASOPHILS RELATIVE PERCENT 0 % (BEAKER) (test code = 437) NEUTROPHILS ABSOLUTE COUNT 6.45 K/ L 1.56-6.13 H (BEAKER) (test code = 670) LYMPHOCYTES ABSOLUTE COUNT 1.20 K/ L 1.18-3.74 (BEAKER) (test code = 414) MONOCYTES ABSOLUTE COUNT (BEAKER) 0.61 K/ L 0.24-0.36 H (test code = 415) EOSINOPHILS ABSOLUTE COUNT 0.04 K/ L 0.04-0.36 (BEAKER) (test code = 416) BASOPHILS ABSOLUTE COUNT (BEAKER) 0.03 K/ L 0.01-0.08 (test code = 417) IMMATURE GRANULOCYTES-RELATIVE 1 % 0-1 PERCENT (BEAKER) (test code = 1091)
--- NOTE | 2021-01-23 11:08 | RAD REPORT ---
EXAM DESCRIPTION: RAD - Chest Single View - 01/23/2021 10:51 am CLINICAL HISTORY: COUGH COMPARISON: Chest Pa And Lat (2 Views) dated 06/09/2019; Abdomen 1 View (KUB) dated 07/13/2018; Abdome n 1 View (KUB) dated 07/13/2018; Chest Single View dated 07/13/2018 FINDINGS: Lines: None. Lungs: No evidence of edema or pneumonia. Relative opacification of the lung bases favored to be due to overlapping soft tissues. Pleural: No significant pleural effusions or pneumothorax. Cardiac: The heart size is within normal limits. Bones: No acute fractures. Other: IMPRESSION: No acute cardiopulmonary disease.
[2021-01-23 14:17] LABS: SARS-COV-2 RT PCR POSITIVE (NEGATIVE)
[2021-01-23] MEDS ORDERED: CASIRIVIMAB/IMDEVIMAB 10 ML VIAL ONE (14:54)
[2021-01-23] MEDS ORDERED: NA CHLORIDE 0.9% 250 ML ONE (14:54)
--- NOTE | 2021-01-23 14:56 | ER ---
Nurse's Notes [facility] Name: Belgica Hill Age: 35 yrs Sex: Female : 1985 Arrival Date: 01/23/2021 Time: 09:57 Bed 11 Private MD: Diagnosis: SARS-associated coronavirus as the cause of diseases classified elsewhere Presentation: 01/23 10:30 Chief complaint: Patient states: Diarrhea and cough that began , progressed to ss intermittent fever/ chills and fatigue. Pt reports Thursday she lost her sense of taste. Coronavirus screen: Client presents with at least one sign or symptom that may indicate coronavirus-19. Ebola Screen: Patient denies exposure to infectious person. Patient denies travel to an Ebola-affected area in the 21 days before illness onset. Initial Sepsis Screen: Does the patient meet any 2 criteria? No. Patient's initial sepsis screen is negative. Does the patient have a suspected source of infection? No. Patient's initial sepsis screen is negative. Risk Assessment: Do you want to hurt yourself or someone else? Patient reports no desire to harm self or others. Onset of symptoms was January 17, 2021. 10:30 Method Of Arrival: Ambulatory ss 10:30 Acuity: DARIUS 3 ss Triage Assessment: 16:51 Pain: Denies pain. 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 - Social history:: Smoking status: Patient/guardian denies using tobacco, Stopped _ months ago .25. - Family history:: not pertinent. - Hospitalizations: : No recent hospitalization is reported. Screenin:20 Abuse screen: Denies threats or abuse. Denies injuries from another. Nutritional ss screening: No deficits noted. Tuberculosis screening: Never had TB. Fall Risk None identified. Assessment: 10:20 General: Appears uncomfortable, ill, Behavior is calm, cooperative, Reports feeling ill ss for > 3 days. Neuro: Level of Consciousness is awake, alert, obeys commands, Oriented to person, place, time, situation, Station Inspector are equal bilaterally Speech is normal. Cardiovascular: Pulses are palpable in right radial artery and left radial artery. Respiratory: Airway is patent Respiratory effort is even, unlabored, Respiratory pattern is regular, symmetrical. GI: Reports diarrhea. EENT: Oral mucosa is moist. Throat is clear Reports nasal discharge that is watery. Derm: Skin is pink, warm \T\ dry. 12:43 Reassessment: Patient appears in no apparent distress at this time. No changes from ld1 previously documented assessment. Patient and/or family updated on plan of care and expected duration. Pain level reassessed. 14:09 Reassessment: Patient appears in no apparent distress at this time. No changes from ld1 previously documented assessment. Patient is alert, oriented x 3, equal unlabored respirations, skin warm/dry/pink. 15:13 Reassessment: Patient appears in no apparent distress at this time. No changes from ld1 previously documented assessment. Patient and/or family updated on plan of care and expected duration. Pain level reassessed. Patient is alert, oriented x 3, equal unlabored respirations, skin warm/dry/pink. 16:21 Reassessment: Patient appears in no apparent distress at this time. No changes from ld1 previously documented assessment. Patient and/or family updated on plan of care and expected duration. Pain level reassessed. Patient is alert, oriented x 3, equal unlabored respirations, skin warm/dry/pink. Vital Signs: 10:30 BP 141 / 71; Pulse 109; Resp 16; Temp 100.3(O); Pulse Ox 95% on R/A; Height 5 ft. 3 in. ss (160.02 cm); 12:43 BP 136 / 72; Pulse 106; Resp 18; Pulse Ox 96% on R/A; ld1 14:09 BP 132 / 77; Pulse 98; Resp 20; Pulse Ox 95% on R/A; ld1 15:13 BP 129 / 79; Pulse 99; Resp 18; Pulse Ox 94% on R/A; ld1 16:21 BP 134 / 80; Pulse 84; Resp 18; Pulse Ox 95% on R/A; ld1 ED Course: 09:57 Patient arrived in ED. rg4 09:58 Arya Cartagena MD is Attending Physician. rn 10:20 Patient has correct armband on for positive identification. Bed in low position. Call ss light in reach. 10:32 Triage completed. ss 10:32 Arm band placed on left wrist. ss 10:51 XRAY Chest (1 view) In Process Unspecified. EDMS 15:30 Inserted saline lock: 20 gauge in left antecubital area, using aseptic technique. ld1 16:50 No provider procedures requiring assistance completed. IV discontinued, intact, ld1 bleeding controlled, No redness/swelling at site. Administered Medications: 15:08 Drug: REGEN-COV Dose Pack 120 mg/mL-120 mg/mL (EUA) 600 mg Route: IV; Rate: calculated ld1 rate; Site: left antecubital; 16:28 Follow up: Response: No adverse reaction; IV Status: Completed infusion; IV Intake: ld1 250ml Intake: 16:28 IV: 250ml; Total: 250ml. ld1 Outcome: 14:55 Discharge ordered by . rn 16:51 Discharged to home ambulatory. ld1 16:51 Condition: stable 16:51 Discharge instructions given to patient, Instructed on discharge instructions, follow up and referral plans. Demonstrated understanding of instructions, follow-up care. 16:51 Patient left the ED. ld1 Signatures: Dispatcher [employer] EDMS Arya Cartagena MD MD rn Smirch, Shelby, RN RN ss Garcia, Rubi 4 Gissell Herrera RN RN ld1
--- NOTE | 2021-01-23 14:56 | EDPHYS ---
Physician Documentation [facility] Name: Belgica Hill Age: 35 yrs Sex: Female : 1985 Arrival Date: 01/23/2021 Time: 09:57 Bed 11 Private MD: ED Physician Arya Cartagena HPI: 01/23 10:09 This 35 yrs old Female presents to ER via Unassigned with complaints of rn Cough, Runny Nose, Chills, Loss of Taste \T\ Smell. 10:09 The patient or guardian reports cough, that is intermittent, described as mild, with no rn sputum. Onset: The symptoms/episode began/occurred 1 week(s) ago. Severity of symptoms: At their worst the symptoms were mild, in the emergency department the symptoms are unchanged. Modifying factors: The symptoms are alleviated by nothing, the symptoms are aggravated by nothing. Associated signs and symptoms: Pertinent positives: diarrhea, nausea, rhinorrhea, sore throat, Pertinent negatives: chest pain. The patient has experienced a previous episode. The patient has not recently seen a physician. Patient reports 1 week of cough, congestion, sore throat, loss of taste and smell, diarrhea, generalized fatigue and weakness.. 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 - Social history:: Smoking status: Patient/guardian denies using tobacco, Stopped _ months ago .25. - Family history:: not pertinent. - Hospitalizations: : No recent hospitalization is reported. ROS: 10:09 Constitutional: Negative for fever, chills, and weight loss, Eyes: Negative for injury, rn pain, redness, and discharge, ENT: Positive for nasal congestion and sore throat Neck: Negative for injury, pain, and swelling, Cardiovascular: Negative for chest pain, palpitations, and edema, Respiratory: Positive for cough Abdomen/GI: Positive for diarrhea Back: Negative for injury and pain, : Negative for injury, bleeding, discharge, and swelling, MS/Extremity: Negative for injury and deformity, Skin: Negative for injury, rash, and discoloration, Neuro: Negative for headache, numbness, tingling, and seizure. 10:09 All other systems are negative. Exam: 10:09 Constitutional: This is a well developed, well nourished patient who is awake, alert, rn and in no acute distress. Ambulatory without assistance or difficulty Head/Face: Normocephalic, atraumatic. Eyes: Periorbital areas with no swelling, redness, or edema. ENT: No stridor Neck: No cervical lymphadenopathy. No meningismus Cardiovascular: Regular rate and rhythm. No pulse deficits. Respiratory: No increased work of breathing, no retractions or nasal flaring. Skin: Warm, dry MS/ Extremity: Pulses equal, no cyanosis. Neuro: Awake and alert, GCS 15 Vital Signs: 10:30 BP 141 / 71; Pulse 109; Resp 16; Temp 100.3(O); Pulse Ox 95% on R/A; Height 5 ft. 3 in. ss (160.02 cm); 12:43 BP 136 / 72; Pulse 106; Resp 18; Pulse Ox 96% on R/A; ld1 14:09 BP 132 / 77; Pulse 98; Resp 20; Pulse Ox 95% on R/A; ld1 15:13 BP 129 / 79; Pulse 99; Resp 18; Pulse Ox 94% on R/A; ld1 16:21 BP 134 / 80; Pulse 84; Resp 18; Pulse Ox 95% on R/A; ld1 MDM: 10:09 Patient medically screened. rn 14:54 Differential Diagnosis: Upper Respiratory Infection Viral Syndrome Pneumonia Other rn Covid. Data reviewed: vital signs, nurses notes, lab test result(s), radiologic studies, plain films, and as a result, I will discharge patient. Data interpreted: monitoring engineer: rate is 98 beats/min, rhythm is normal sinus rhythm, regular, with no ectopy, Interpretation: normal rate, normal rhythm, Pulse oximetry: on room air is 97 %. Interpretation: normal. Test interpretation: by ED physician or midlevel provider: plain radiologic studies, Chest x-ray negative for acute infiltrate or pneumonia. Counseling: I had a detailed discussion with the patient and/or guardian regarding: the historical points, exam findings, and any diagnostic results supporting the discharge/admit diagnosis, lab results, radiology results, the need for outpatient follow up, to return to the emergency department if symptoms worsen or persist or if there are any questions or concerns that arise at home. Special discussion: I discussed with the patient/guardian in detail that at this point there is no indication for admission to the hospital. It is understood, however, that if the symptoms persist or worsen the patient needs to return immediately for re-evaluation. ED course: Patient without oxygen requirement or Covid pneumonia on chest x-ray. Consented for Regeneron infusion given chronic lung disease, smoker, overweight, and states went into [facility]DS last year with flu pneumonia.. 01/23 10:09 Order name: XRAY Chest (1 view); Complete Time: 11:26 rn 01/23 14:17 Order name: COVID-19/FLU A+B; Complete Time: 14:22 EDMS Administered Medications: 15:08 Drug: REGEN-COV Dose Pack 120 mg/mL-120 mg/mL (EUA) 600 mg Route: IV; Rate: calculated ld1 rate; Site: left antecubital; 16:28 Follow up: Response: No adverse reaction; IV Status: Completed infusion; IV Intake: ld1 250ml Disposition Summary: 01/23/21 14:55 Discharge Ordered Location: Home rn Problem: new rn Symptoms: are unchanged rn Condition: Stable rn Diagnosis - SARS-associated coronavirus as the cause of diseases classified elsewhere rn Followup: rn - With: Private Physician - When: As needed - Reason: Recheck today's complaints, Re-evaluation by your physician Discharge Instructions: - Discharge Summary Sheet rn - COVID-19 rn - 10 Things You Can Do to Manage Your COVID-19 Symptoms at Home - [facility] rn - Viral Illness, Adult rn - Prevent the Spread of COVID-19 if You Are Sick - [facility] rn Forms: - Medication Reconciliation Form rn - Thank You Letter rn - 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 EDMS EDMS 11:03 09:59 Influenza Screen (A \T\ B)+BA.LAB.BRZ ordered. EDMS EDMS
[2021-01-23] MEDS ORDERED: NA CHLORIDE 0.9% 50 ML ONE (16:40)
[2021-01-23 17:04] VITALS: TEMP 100.3
[2021-01-23 17:19] VITALS: BP 134/80; O2SAT 95
== END 2021-01-23 16:51 | disposition home or self-care (01) ==
LOC: ER 09:55
DX: U07.1 COVID-19 (principal); Z88.0 Allergy status to penicillin; Z88.2 Allergy status to sulfonamides
CPT/HCPCS: 0240U; 71045; 96365; 99284; J7050

== ENCOUNTER 2021-07-30 12:44 | Emergency (ER) | payer SELFPAY ==
--- OUTSIDE RECORDS SUMMARY | 2021-07-30 12:52 | XMS REPORT | Continuity of Care Document ---
:1985 Author Organization [facility] t Address [address] [place] [address] Care Team Providers Name Role Phone DOUGLAS Attending Clinician Unavailable DOUGLAS Admitting Clinician Unavailable Problems Condition Condition Condition Status Onset Resolution Last Treating Co mments Source Name Details Category Date Date Treatment Clinician Date Acute Acute Disease Active [facility] pulmonary pulmonary 2-28 [facility] - embolism embolism 00:00: Medica l 00 [place] Acute Acute Disease Active [facility] hypoxemic hypoxemic 2-27 [facility] - respirator respirator 00:00: Me dical y failure y failure 00 Cent er 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 C. Disease Active [facility] difficile difficile 2-27 [facility] [...] encephalop 00:00: Me dical athy athy 00 [place] Hypothyroi Hypothyroi Disease Active 2019- [facility] dism dism 2-26 [facility] - 00:[facility]: Medical 00 Center Physical Physical Disease Active [facility] deconditio deconditio 07-20 Marcela kes - walter walter 00:00: Medical 00 [place] TRES (acute TRES (acute Disease Active [facility] kidney kidney 07-20 [facility] - injury) injury) 00:00: Medical 00 [place] UTI UTI Disease Active [facility] (urinary (urinary 07-20 [facility] - tract tract 00:00: Medical infection) infection) 00 Ce nter Hypernatre Hypernatre Disease Active [facility] kirit kirit 07-20 [facility] - 00:00: Medical 00 [place] 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[facility] abscess abscess 07-19 [facility] - 00:00: Medical 00 Center Allergies, Adverse Reactions, Alerts Allergy Allergy Status Severity Reaction(s) Onset Inactive Treating Comm ents Source Name Type Date Date Clinician Penicill Drug Active Anaphylaxis Tolerated [facility] ins Allergy 07-19 ceftriaxo [facility] - 00:00: ne 07/2018 Medical 00 [place] Sulfur Drug Active Anaphylaxis [facility] Allergy 07[facility]19 [facility] - 00:00: Medical 00 [place] Alprazol Drug Active Other (See Confusion [facility] am Allergy Comments) 07-19 , [facility] - 00:00: Delirium, Medical 00 [facility] Social History Social Habit Start Date Stop Date Quantity Comments Source Sex Assigned At [facility] Tobacco use and 2018-07-19 2018-07-19 Never used [facility] - exposure 00:00:00 00:00:00 Medical [place] History of tobacco 2018-07-03 Smoker [facility] - use 00:[facility]:00 [facility] Smoking Status Start Date Stop Date Source Former smoker 2018-07-19 00:00:00 2018-07-19 00:00:00 [facility] Medications Ordered Filled Start Stop Current Ordering [...] Medica l Center cervix (procedure) [code = 356990316] Future Scheduled [address] [facility] - Test 00:00:00 (procedure) [code = Medical Center 65809604] Future Scheduled [address] [facility] - Test 00:00:00 0-64 YRS (1 of 1 - Medical C enter PPSV23) [code = PNEUMOCOCCAL VACCINE 0-64 YRS (1 of 1 - PPSV23)] Results Test Description Test Time Test Comments Results Result [facility] e Comments RAD, CHEST, 1 2018-08-08 Reason for FINAL REPORT PATIENT VIEW, NON DEPT 13:13:00 exam:->hypoxia ID: [id number] RAD, CHEST, 1 VIEW, NON DEPT INDICATION: hypoxia COMPARISON: Prior day's exam FINDINGS: Portable frontal view of the chest. IMPRESSION: Support Lines: None. Lungs and pleura: Improvement inspiration with persistent interstitial congestion at the hilum. No pneumothorax.Heart and mediastinum: Stable contours. Additional findings: None. Signed: JR Robbins Robert MDReport Verified Date/Time: 08/08/2018 13:13:02 Reading Location: [facility] C013V Neuro Reading Room C METABOLIC [...] NOT 1092) ACCURATE CRE ATININE CLEARANCE IN RI EDICTING GLOMERULAR FILT RATION RATE. ESTIMATED GFR IS NOT APPLICABLE FOR DIALYSIS PATIENTS. POCT-GLUCOSE [id number] 17:59:00 Test Item Value Reference Range Interpretation Comments POC-GLUCOSE METER 166 mg/dL 70-110 H TESTED AT [facility] 6720 (BEAKER) (test code = [place] 1538) [address] [id number] 05:42:00 Test Item Value Reference Range Interpretation Comments MAGNESIUM (BEAKER) 1.7 mg/dL 1.6-2.6 Specimen slightly (test code = 627) hemolyzed [id number] 05:42:00 Test Item Value Reference Range Interpretation Comments PHOSPHORUS (BEAKER) 4.8 mg/dL 2.3-4.7 H Specimen slightly (test code = 604) hemolyzed BASIC METABOLIC [id number] 05:42:00 Test Item Value Reference Range Interpretation Comments SODIUM (BEAKER) 136 meq/L 136-145 (test code = 381) POTASSIUM (BEAKER) 3.1 meq/L 3.5-5.1 L Specimen slightly (test code = 379) hemolyzed CHLORIDE (BEAKER) 97 meq/L 98-107 L (test code = 382) CO2 (BEAKER) (test 24 meq/L code = 355) BLOOD UREA NITROGEN 18 [...] PATIEN TS. CBC W/PLT COUNT & AUTO [id number] 05:02:00 Test Item Value Reference Range Interpretation [...] 0-1 PERCENT (BEAKER) (test code = 2801) [id number] 06:38:00 Test Item Value Reference Range Interpretation Comments PHOSPHORUS (BEAKER) (test code = 4.9 mg/dL 2.3-4.7 H 604) [id number] 06:38:00 Test Item Value Reference Range Interpretation Comments MAGNESIUM (BEAKER) (test code = 1.8 mg/dL 1.6-2.6 627) BASIC METABOLIC [id number] 06:38:00 Test Item Value Reference Range Interpretation [...] PATIEN TS. CBC W/PLT COUNT & AUTO [id number] 05:58:00 Test Item Value Reference Range Interpretation [...] 0-1 PERCENT (BEAKER) (test code = 2801) [id number] 09:27:00 Test Item Value Reference Range Interpretation Comments PHOSPHORUS (BEAKER) (test code = 4.9 mg/dL 2.3-4.7 H 604) BASIC METABOLIC [id number] 09:27:00 Test Item Value Reference Range Interpretation [...] PATIEN TS. CBC W/PLT COUNT & AUTO [id number] 06:27:00 Test Item Value Reference Range Interpretation [...] 0-1 PERCENT (BEAKER) (test code = 2801) [id number] 19:57:00 Test Item Value Reference Range Interpretation Comments MAGNESIUM (BEAKER) (test code = 1.6 mg/dL 1.6-2.6 627) BASIC METABOLIC [id number] 19:57:00 Test Item Value Reference Range Interpretation [...] 358) GLUCOSE RANDOM 121 mg/dL 70-105 H ([facility]) (test code = 652) CALCIUM (AKER) 10.5 mg/dL 8.4-10.2 H (test code = 697) EGFR ([facility]) (test 90 mL/min/1.73 ESTIMA JOHNIE GFR IS code = 1092) sq m NOT ACCURATE CREATININE CLEARANCE IN PREDICTING GLOMERULAR FILTRATION RATE . ESTIMATED GFR I S NOT APPLICABLE FOR DIALYSIS PATIEN TS. POCT-GLUCOSE [id number] 18:02:00 Test Item Value Reference Range Interpretation Comments POC-GLUCOSE METER 129 mg/dL 70-110 H TESTED AT [facility] 67 ([facility]) (test code = [facility] 1538) [address] POCT-GLUCOSE [id number] 12:08:00 Test Item Value Reference Range Interpretation Comments POC-GLUCOSE METER 145 mg/dL 70-110 H TESTED AT [place] [address] ([facility]) (test code = [facility] 1538) [address] POCT-GLUCOSE [id number] 06:33:00 Test Item Value Reference Range Interpretation Comments POC-GLUCOSE METER 109 mg/dL 70-110 TESTED AT [place] [address] ([facility]) (test code = [facility] 1538) [address] RAD, CHEST, 1 VIEW, NON [id number] 05:12:00Reason for exam:->PICC line verificationShould this be [...] the right upper quadrant. Signed: Arya Chávez MDReport Verified Date/Time: 08/04/2018 05:12:40 Reading Location: [address] Body Reading Room [id number] 03:22:00 Test Item Value Reference Range Interpretation Comments PHOSPHORUS (BEAKER) (test code = 4.5 mg/dL 2.3-4.7 604) BASIC METABOLIC [id number] 03:22:00 Test Item Value Reference Range Interpretation [...] PATIEN TS. CBC W/PLT COUNT & AUTO [id number] 03:06:00 Test Item Value Reference Range Interpretation [...] PERCENT (BEAKER) (test code = 2801) POCT-GLUCOSE [id number] 18:21:00 Test Item Value Reference Range Interpretation Comments POC-GLUCOSE METER 176 mg/dL 70-110 H TESTED AT [facility] 6720 (BEAKER) (test code = [place] 1538) [address] POCT-GLUCOSE [id number] 11:59:00 Test Item Value Reference Range Interpretation Comments POC-GLUCOSE METER 140 mg/dL 70-110 H TESTED AT [facility] 6720 (BEAKER) (test code = [place] 1538) [address] [id number] 08:32:00 Test Item Value Reference Range Interpretation Comments POTASSIUM (BEAKER) (test code = 4.0 meq/L 3.5-5.1 379) Check Serum Potassium level 2 hours after oral potassium replacement completed or 30 min after intravenous potassium replacement.POCT-GLUCOSE [id number] 06:25:00 Test Item Value Reference Range Interpretation Comments POC-GLUCOSE METER 121 mg/dL 70-110 H TESTED AT [facility] 6720 (BEAKER) (test code = [place] 1538) [address] RAD, CHEST, 1 VIEW, NON [id number] 05:21:00While intubatedReason for exam:- >intubated, hypoxemiaShould this [...] MDReport Verified Date/Time: 08/03/2018 05:21:21 Reading Location: [address] Body Reading Room [id number] 04:50:00 Test Item Value Reference Range Interpretation Comments PHOSPHORUS (BEAKER) (test code = 3.8 mg/dL 2.3-4.7 604) BASIC METABOLIC [id number] 04:50:00 Test Item Value Reference Range Interpretation [...] APPLICABLE FOR DIALYSIS PATIEN TS. BLOOD GAS, [id number] 04:45:00 Test Item Value Reference Range Interpretation [...] 40.0 % CBC W/PLT COUNT & AUTO [id number] 04:41:00 Test Item Value Reference Range Interpretation [...] PERCENT (BEAKER) (test code = 2801) POCT-GLUCOSE [id number] 23:57:00 Test Item Value Reference Range Interpretation Comments POC-GLUCOSE METER 140 mg/dL 70-110 H TESTED AT [place] [address] ([facility]) (test code = KRYSTAL [place] [facility] 1538) [address] POCT-GLUCOSE [id number] 18:40:00 Test Item Value Reference Range Interpretation Comments POC-GLUCOSE METER 108 mg/dL 70-110 TESTED AT [place] [address] ([facility]) (test code = KRYSTAL Gomez [facility] 1538) [address] [id number] 18:09:00 Test Item Value Reference Range Interpretation Comments POTASSIUM (BEAKER) (test code = 4.0 meq/L 3.5-5.1 379) Check Serum Potassium level 2 hours after oral potassium replacement completed or 30 min after intravenous potassium replacement.[id number] 14:26:00 Test Item Value Reference Range Interpretation Comments POTASSIUM (BEAKER) (test code = 3.9 meq/L 3.5-5.1 379) Check Serum Potassium level 2 hours after oral potassium replacement completed or 30 min after intravenous potassium replacement.POCT-GLUCOSE [id number] 11:56:00 Test Item Value Reference Range Interpretation Comments POC-GLUCOSE METER 123 mg/dL 70-110 H TESTED AT [facility] 6720 (BEAKER) (test code = [place] 1538) [address] RAD, CHEST, 1 VIEW, NON [id number] 07:24:00While intubatedReason for exam:- >intubated, hypoxemiaShould this [...] MDReport Verified Date/Time: 08/02/2018 07:24:36 Reading Location: [address] Neuro Reading Room BLOOD GAS, [id number] 06:38:00 Test Item Value Reference Range Interpretation [...] (BEAKER) (test code = 1819) 50.0 % [id number] 04:42:00 Test Item Value Reference Range Interpretation Comments PHOSPHORUS (BEAKER) (test code = 2.7 mg/dL 2.3-4.7 604) [id number] 04:42:00 Test Item Value Reference Range Interpretation Comments MAGNESIUM (BEAKER) (test code = 2.2 mg/dL 1.6-2.6 627) BASIC METABOLIC [id number] 04:42:00 Test Item Value Reference Range Interpretation [...] PATIEN TS. CBC W/PLT COUNT & AUTO [id number] 04:05:00 Test Item Value Reference Range Interpretation [...] PERCENT (BEAKER) (test code = 2801) POCT-GLUCOSE [id number] 00:19:00 Test Item Value Reference Range Interpretation Comments POC-GLUCOSE METER 85 mg/dL 70-110 TESTED AT [facility] 6720 (BEAKER) (test code = [place] [address] 1538) [id number] 20:41:00 Test Item Value Reference Range Interpretation Comments MAGNESIUM (BEAKER) (test code = 2.3 mg/dL 1.6-2.6 627) POCT-GLUCOSE [id number] 17:45:00 Test Item Value Reference Range Interpretation Comments POC-GLUCOSE METER 111 mg/dL 70-110 H TESTED AT [facility] 6720 ([facility]) (test code = KRYST[address] [place] 1538) [address] [id number] 13:40:00 Test Item Value Reference Range Interpretation Comments POTASSIUM (BEAKER) (test code = 3.2 meq/L 3.5-5.1 L 379) [id number] 13:40:00 Test Item Value Reference Range Interpretation Comments MAGNESIUM (BEAKER) (test code = 2.4 mg/dL 1.6-2.6 627) POCT-GLUCOSE [id number] 13:24:00 Test Item Value Reference Range Interpretation Comments POC-GLUCOSE METER 119 mg/dL 70-110 H TESTED AT [place] [address] ([facility]) (test code = KRYSTAL Gomez [facility] 1538) [address] RAD, CHEST, 1 VIEW, NON [id number] 09:07:00While intubatedReason for exam:- >intubated, hypoxemiaShould this [...] MDReport Verified Date/Time: 08/01/2018 09:07:57 Reading Location: [facility] C013V Neuro Reading Room POCT- GLUCOSE [id number] 06:20:00 Test Item Value Reference Range Interpretation Comments POC-GLUCOSE METER 102 mg/dL 70-110 TESTED AT [facility] 67 ([facility]) (test code = KRYSTAL Gomez [facility] 1538) [address] BLOOD GAS, [id number] 05:44:00 Test Item Value Reference Range Interpretation Comments PH ARTERIAL ([facility]) (test code = 7.49 7.35-7.45 H 383) PCO2 ARTERIAL ([facility]) (test code 49 mmHg 35-45 H = [...] (BEAKER) (test code = 1819) 60.0 % [id number] 05:01:00 Test Item Value Reference Range Interpretation Comments PHOSPHORUS (BEAKER) (test code = 4.0 mg/dL 2.3-4.7 604) BASIC METABOLIC [id number] 05:01:00 Test Item Value Reference Range Interpretation [...] PATIEN TS. CBC W/PLT COUNT & AUTO [id number] 04:00:00 Test Item Value Reference Range Interpretation [...] PERCENT (BEAKER) (test code = 2801) POCT-GLUCOSE [id number] 00:23:00 Test Item Value Reference Range Interpretation Comments POC-GLUCOSE METER 105 mg/dL 70-110 TESTED AT [place] [address] (BEAKER) (test code = KRYSTAL Gomez [place] 1538) [address] [id number] 20:23:00 Test Item Value Reference Range Interpretation Comments MAGNESIUM (BEAKER) (test code = 2.2 mg/dL 1.6-2.6 627) POCT-GLUCOSE [id number] 17:54:00 Test Item Value Reference Range Interpretation Comments POC-GLUCOSE METER 156 mg/dL 70-110 H TESTED AT [facility] 6720 (BEAKER) (test code = KRYSTAL [place] 1538) [address] [id number] 15:45:00 Test Item Value Reference Range Interpretation Comments MAGNESIUM (BEAKER) (test code = 2.3 mg/dL 1.6-2.6 627) BLOOD GAS, [id number] 15:32:00 Test Item Value Reference Range Interpretation [...] C (test code = 1818) BASIC METABOLIC [id number] 11:32:00 Test Item Value Reference Range Interpretation [...] S NOT APPLICABLE FOR DIALYSIS PATIEN TS. [id number] 07:46:00 Test Item Value Reference Range Interpretation Comments PHOSPHORUS (BEAKER) (test code = 6.9 mg/dL 2.3-4.7 H 604) [id number] 07:46:00 Test Item Value Reference Range Interpretation Comments MAGNESIUM (BEAKER) (test code = 2.3 mg/dL 1.6-2.6 627) COMPREHENSIVE METABOLIC [id number] 07:46:00 Test Item Value Reference Range Interpretation [...] Specimen slightly lipemicCBC W/PLT COUNT & AUTO [id number] 06:44:00 Test Item Value Reference Range Interpretation [...] (BEAKER) (test code = 2801) BLOOD GAS, [id number] 06:41:00 Test Item Value Reference Range Interpretation [...] code = 1819) 50.0 % While intubatedPOCT-GLUCOSE [id number] 05:56:00 Test Item Value Reference Range Interpretation Comments POC-GLUCOSE METER 149 mg/dL 70-110 H TESTED AT [facility] 6720 (BEAKER) (test code = [place] 1538) [address] RAD, CHEST, 1 VIEW, NON [id number] 04:52:00While intubatedReason for exam:- >intubated, hypoxemiaShould this be performed at the bedside?->YesFINAL REPORT RAD, CHEST, 1 VIEW, NON DEPT INDICATION: intubated, hypoxemia COMPARISON: Prior day's exam FINDINGS: Portable frontal view of the chest. IMPRESSION: Support Lines: Stable. Lungs and pleura: Unchanged airspace and pleural opacities. No pneumothorax.Heart and mediastinum: Stable contours. Additional findings: None. Signed: Ja Fernando Verified Date/Time: 07/31/2018 04:52:56 Reading Location: [address] Reading Room POCT-GLUCOSE [id number] 00:15:00 Test Item Value Reference Range Interpretation Comments POC-GLUCOSE METER 137 mg/dL 70-110 H TESTED AT [facility] 6720 (BEAKER) (test code = KRYSTAL [place] 1538) [address] [id number] 20:57:00 Test Item Value Reference Range Interpretation Comments MAGNESIUM (BEAKER) (test code = 2.5 mg/dL 1.6-2.6 627) BASIC METABOLIC [id number] 20:57:00 Test Item Value Reference Range Interpretation [...] NOT APPLICABLE FOR DIALYSIS PATIEN TS. POCT-GLUCOSE [id number] 18:15:00 Test Item Value Reference Range Interpretation Comments POC-GLUCOSE METER 104 mg/dL 70-110 TESTED AT [facility] 6720 (BEAKER) (test code = KRYSTAL Gomez [facility] 1538) [address] POCT-GLUCOSE [id number] 18:05:00 Test Item Value Reference Range Interpretation Comments POC-GLUCOSE METER 128 mg/dL 70-110 H TESTED AT [facility] 6720 (BEAKER) (test code = KRYSTAL Gomez [facility] 1538) [address] RAD, CHEST, 1 VIEW, NON [id number] 14:13:00Reason for exam:->ARDSShould this be performed at [...] MDReport Verified Date/Time: 07/30/2018 14:13:56 Reading Location: [facility] Radiology Reading Room [id number] 12:47:00 Test Item Value Reference Range Interpretation Comments MAGNESIUM (BEAKER) (test code = 2.2 mg/dL 1.6-2.6 627) BASIC METABOLIC [id number] 12:47:00 Test Item Value Reference Range Interpretation [...] APPLICABLE FOR DIALYSIS PATIEN TS. BLOOD GAS, [id number] 12:40:00 Test Item Value Reference Range Interpretation [...] (test code = 1819) 50.0 % POCT-GLUCOSE [id number] 12:25:00 Test Item Value Reference Range Interpretation Comments POC-GLUCOSE METER 122 mg/dL 70-110 H TESTED AT [place] [address] ([facility]) (test code = BI[address] [place] 1538) [address] POCT-GLUCOSE [id number] 07:07:00 Test Item Value Reference Range Interpretation Comments POC-GLUCOSE METER 117 mg/dL 70-110 H TESTED AT [place] [address] ([facility]) (test code = [facility] Patricia [place] 1538) [address] [id number] 05:03:00 Test Item Value Reference Range Interpretation Comments PHOSPHORUS (BEAKER) (test code = 6.0 mg/dL 2.3-4.7 H 604) [id number] 05:01:00 Test Item Value Reference Range Interpretation [...] for patients with mechanical heart valves.BLOOD GAS, [id number] 04:56:00 Test Item Value Reference Range Interpretation [...] % While intubatedRAD, CHEST, 1 VIEW, NON [id number] 04:46:00While intubatedReason for exam:->intubated, hypoxemiaShould this be [...] Additional f indings: None. Signed: Ja Fernando [facility] Verified Date/Time: 07/30/2018 04:46:21 [facility] Reading Room CBC W/PLT COUNT & AUTO [id number] 04:40:00 Test Item Value Reference Range Interpretation [...] PERCENT (BEAKER) (test code = 2801) BLOOD [id number] 02:00:00 Test Item Value Reference Range Interpretation Comments CULTURE (BEAKER) (test No growth in 5 days code = 1095) BLOOD [id number] 02:00:00 Test Item Value Reference Range Interpretation Comments CULTURE (BEAKER) (test No growth in 5 days code = 1095) POCT-GLUCOSE [id number] 01:27:00 Test Item Value Reference Range Interpretation Comments POC-GLUCOSE METER 112 mg/dL 70-110 H TESTED AT [facility] 6720 (BEAKER) (test code = [place] 1538) [address] [id number] 20:35:00 Test Item Value Reference Range Interpretation Comments MAGNESIUM (BEAKER) (test code = 2.0 mg/dL 1.6-2.6 627) BASIC METABOLIC [id number] 20:35:00 Test Item Value Reference Range Interpretation [...] PATIEN TS. RAD, CHEST, 1 VIEW, NON [id number] 20:14:00Reason for exam:->PICC placementShould this be performed [...] tip projecting over the SVC. Signed: Maciej Espinaleport Verified Date/Time: 07/29/2018 20:14:53 Reading Location: [facility] C013X Ortho Consult Reading Room POCT-GLUCOSE [id number] 16:57:00 Test Item Value Reference Range Interpretation Comments POC-GLUCOSE METER 149 mg/dL 70-110 H TESTED AT [facility] 6720 ([facility]) (test code = [facility] 1538) [address] HEPARIN ASSAY - LOW MOLECULAR [id number] 15:18:00 Test Item Value Reference Range Interpretation Comments LOVENOX-ANTI 10A (BEAKER) (test 1.09 u/ml 0.60-2.00 code = 1605) Anti-Factor 10-A Level (Heparin Assay for Low Molecular Weight Heparin)Monitoring Guidelines: Blood samples should be obtained 4 hours post subcutaneous injection (time of Peak level) Therapeutic Peak Levels: 0.6-1.0 units/mL twice daily enoxaparin 1.0-2.0 units/mL once daily enoxaparinRef: CHEST 2012;141:[id number] 13:27:00 Test Item Value Reference Range Interpretation Comments POC-GLUCOSE METER 121 mg/dL 70-110 H TESTED AT [facility] 6720 [facility] (test code = [facility] 1538) [address] BASIC METABOLIC [id number] 12:13:00 Test Item Value Reference Range Interpretation [...] S NOT APPLICABLE FOR DIALYSIS PATIEN TS. [id number] 11:59:00 Test Item Value Reference Range Interpretation Comments MAGNESIUM (BEAKER) (test code = 1.9 mg/dL 1.6-2.6 627) CBC W/PLT COUNT & AUTO [id number] 07:37:00 Test Item Value Reference Range Interpretation [...] H PERCENT (BEAKER) (test code = 2801) [id number] 07:05:00 Test Item Value Reference Range Interpretation Comments PHOSPHORUS (BEAKER) (test code = 5.1 mg/dL 2.3-4.7 H 604) BASIC METABOLIC [id number] 07:05:00 Test Item Value Reference Range Interpretation [...] S NOT APPLICABLE FOR DIALYSIS PATIEN TS. [id number] 07:00:00 Test Item Value Reference Range Interpretation [...] is 2.5-3.5 for patients with mechanical heart valves.[id number] 06:59:00 Test Item Value Reference Range Interpretation Comments MAGNESIUM (BEAKER) (test code = 2.4 mg/dL 1.6-2.6 627) BLOOD GAS, [id number] 06:57:00 Test Item Value Reference Range Interpretation [...] % While intubatedRAD, CHEST, 1 VIEW, NON [id number] 06:02:00While intubatedReason for exam:->intubated, hypoxemiaShould this be [...] MDReport Verified Date/Time: 07/29/2018 06:02:56 Reading Location: [facility] C013Y [place] Body Reading Room Electronically signed by: Peewee OLIVAREZ 07/29/2018 06:02 AMPOCT-GLUCOSE [id number] 05:55:00 Test Item Value Reference Range Interpretation Comments POC-GLUCOSE METER 165 mg/dL 70-110 H TESTED AT [facility] 6720 (BEAKER) (test code = KRYSTAL Gomez [place] 1538) [address] POCT-GLUCOSE [id number] 00:09:00 Test Item Value Reference Range Interpretation Comments POC-GLUCOSE METER 133 mg/dL 70-110 H TESTED AT [facility] 6720 (BEAKER) (test code = KRYSTAL Gomez [place] 1538) [address] [id number] 22:33:00 Test Item Value Reference Range Interpretation Comments MAGNESIUM (BEAKER) (test code = 1.8 mg/dL 1.6-2.6 627) BASIC METABOLIC [id number] 22:33:00 Test Item Value Reference Range Interpretation [...] NOT APPLICABLE FOR DIALYSIS PATIEN TS. POCT-GLUCOSE [id number] 17:48:00 Test Item Value Reference Range Interpretation Comments POC-GLUCOSE METER 140 mg/dL 70-110 H TESTED AT [facility] 6720 ([facility] (test code = KRYSTAL Gomez [facility] 1538) [address] [id number] 12:42:00 Test Item Value Reference Range Interpretation Comments MAGNESIUM (BEAKER) (test code = 1.9 mg/dL 1.6-2.6 627) BASIC METABOLIC [id number] 12:42:00 Test Item Value Reference Range Interpretation [...] NOT APPLICABLE FOR DIALYSIS PATIEN TS. POCT-GLUCOSE [id number] 12:32:00 Test Item Value Reference Range Interpretation Comments POC-GLUCOSE METER 129 mg/dL 70-110 H TESTED AT [place] [address] ([facility]) (test code = KRYSTAL Gomez [facility] 1538) [address] RAD, CHEST, 1 VIEW, NON [id number] 07:24:00While intubatedReason for exam:- >intubated, hypoxemiaShould this [...] MDReport Verified Date/Time: 07/28/2018 07:24:03 Reading Location: [facility] Radiology Reading Room [id number] 05:26:00 Test Item Value Reference Range Interpretation Comments PHOSPHORUS (BEAKER) (test code = 3.8 mg/dL 2.3-4.7 604) [id number] 05:26:00 Test Item Value Reference Range Interpretation Comments MAGNESIUM (BEAKER) (test code = 2.0 mg/dL 1.6-2.6 627) COMPREHENSIVE METABOLIC [id number] 05:26:00 Test Item Value Reference Range Interpretation [...] S NOT APPLICABLE FOR DIALYSIS PATIEN TS. [id number] 05:14:00 Test Item Value Reference Range Interpretation [...] for patients with mechanical heart valves.BLOOD GAS, [id number] 05:11:00 Test Item Value Reference Range Interpretation [...] (test code = 1819) 50.0 % While intubatedC W/PLT COUNT & AUTO [id number] 05:03:00 Test Item Value Reference Range Interpretation [...] PERCENT (BEAKER) (test code = 2801) POCT-GLUCOSE [id number] 21:23:00 Test Item Value Reference Range Interpretation Comments POC-GLUCOSE METER 118 mg/dL 70-110 H TESTED AT [facility] 6720 (BEAKER) (test code = KRYSTAL [place] 1538) [address] [id number] 20:20:00 Test Item Value Reference Range Interpretation Comments MAGNESIUM (BEAKER) (test code = 1.8 mg/dL 1.6-2.6 627) BASIC METABOLIC [id number] 20:20:00 Test Item Value Reference Range Interpretation [...] NOT APPLICABLE FOR DIALYSIS PATIEN TS. POCT-GLUCOSE [id number] 18:38:00 Test Item Value Reference Range Interpretation Comments POC-GLUCOSE METER 103 mg/dL 70-110 TESTED AT [facility] 6720 (BEAKER) (test code = KRYSTAL [place] 1538) [address] HEPARIN ASSAY - LOW MOLECULAR [id number] 14:56:00 Test Item Value Reference Range Interpretation Comments LOVENOX-ANTI 10A (BEAKER) (test 1.20 u/ml 0.60-2.00 code = 1605) Anti-Factor 10-A Level (Heparin Assay for Low Molecular Weight Heparin)Monitoring Guidelines: Blood samples should be obtained 4 hours post subcutaneous injection (time of Peak level) Therapeutic Peak Levels: 0.6-1.0 units/mL twice daily enoxaparin 1.0-2.0 units/mL once daily enoxaparinRef: CHEST 2012;141:w69g-[id number]-Lu level, draw 4 hours after 3rd dose of Lovenox. POCT-GLUCOSE [id number] 13:02:00 Test Item Value Reference Range Interpretation Comments POC-GLUCOSE METER 116 mg/dL 70-110 H TESTED AT [facility] 6720 (BEAKER) (test code = KRYSTAL [place] 1538) [address] BLOOD GAS, [id number] 11:56:00 Test Item Value Reference Range Interpretation [...] 1819) 50.0 % SPUTUM CULTURE + GRAM [id number] 10:06:00 Test Item Value Reference Range Interpretation Comments CULTURE (BEAKER) See comment (test code = 1095) GRAM STAIN RESULT 3+ White blood cells (BEAKER) (test code = seen 1123) GRAM STAIN RESULT 0-5 epithelial cells (BEAKER) (test code = 857310) GRAM STAIN RESULT No organisms seen (BEAKER) (test code = 338415) <1+ yeastNo Normal respiratory perez presentRAD, CHEST, [...] MDReport Verified Date/Time: 07/27/2018 07:38:50 Reading Location: [facility] B1 C013V Neuro Reading Room CBC W/PLT COUNT & AUTO [id number] 05:47:00 Test Item Value Reference Range Interpretation [...] 0-1 PERCENT (BEAKER) (test code = 2801) [id number] 05:35:00 Test Item Value Reference Range Interpretation Comments PHOSPHORUS (BEAKER) (test code = 3.5 mg/dL 2.3-4.7 604) [id number] 05:35:00 Test Item Value Reference Range Interpretation Comments MAGNESIUM (BEAKER) (test code = 1.8 mg/dL 1.6-2.6 627) COMPREHENSIVE METABOLIC [id number] 05:35:00 Test Item Value Reference Range Interpretation [...] APPLICABLE FOR DIALYSIS PATIEN TS. BLOOD GAS, [id number] 05:23:00 Test Item Value Reference Range Interpretation [...] code = 1819) 50.0 % While intubatedPOCT-GLUCOSE [id number] 04:36:00 Test Item Value Reference Range Interpretation Comments POC-GLUCOSE METER 108 mg/dL 70-110 TESTED AT [facility] 6720 ([facility]) (test code = [facility] 1538) [address] POCT-GLUCOSE [id number] 23:10:00 Test Item Value Reference Range Interpretation Comments POC-GLUCOSE METER 127 mg/dL 70-110 H TESTED AT [facility] 6720 ([facility]) (test code = [facility] 1538) [address] [id number] 20:05:00 Test Item Value Reference Range Interpretation Comments MAGNESIUM (BEAKER) (test code = 1.9 mg/dL 1.6-2.6 627) BASIC METABOLIC [id number] 20:05:00 Test Item Value Reference Range Interpretation Comments SODIUM (BEAKER) 142 meq/L 136-145 (test code = 381) POTASSIUM (BEAKER) 3.8 meq/L 3.5-5.1 (test code = 379) CHLORIDE (BEAKER) 95 meq/L 98-107 L (test code = 382) CO2 (BEAKER) (test 39 meq/L 22-29 H code = 355) BLOOD UREA NITROGEN 16 mg/dL 7-21 ([facility]) (test code = 354) CREATININE (AKER) 0.61 mg/dL 0.57-1.25 (test code = 358) GLUCOSE RANDOM 104 mg/dL 70-105 ([facility]) (test code = 652) CALCIUM (AKER) 10.0 mg/dL 8.4-10.2 (test code = 697) EGFR ([facility]) (test 113 mL/min/1.73 ESTIM ATED GFR IS code = 1092) sq m NOT ACCURATE CREATININE CLEARANCE IN PREDICTING GLOMERULAR FILTRATION RATE . ESTIMATED GFR I S NOT APPLICABLE FOR DIALYSIS PATIEN TS. POCT-GLUCOSE [id number] 18:18:00 Test Item Value Reference Range Interpretation Comments POC-GLUCOSE METER 105 mg/dL 70-110 TESTED AT [facility] 6720 ([facility]) (test code = KRYSTAL [place] 1538) [address] MR, BRAIN, [id number] 18:14:00FINAL REPORT MR, BRAIN, WITH \T\ WITHOUT CONTRAST INDICATION: Evaluate brain abscesses TECHNIQUE: Multiplanar, multisequence MR imaging of the brain was obtained before and after uneventful administration of gadolinium contrast. COMPARISON: Contrast enhanced brain MRI dated July 19, 2018 obtained by [facility] FINDINGS:There are two primary diffusion restricted foci [...] MDReport Verified Date/Time: 07/26/2018 18:14:16 Reading Location: [facility] Reading Room POCT-GLUCOSE [id number] 12:40:00 Test Item Value Reference Range Interpretation Comments POC-GLUCOSE METER 94 mg/dL 70-110 TESTED AT [facility] 6720 (BEAKER) (test code = [place] [address] 1538) RAD, CHEST, 1 VIEW, NON [id number] 06:56:00While intubatedReason for exam:- >intubated, hypoxemiaShould this [...] MDReport Verified Date/Time: 07/26/2018 06:56:26 Reading Location: [facility] Radiology Reading Room APTT 2018-07-26 06:03:00 Test Item Value Reference Range Interpretation Comments PARTIAL THROMBOPLASTIN TIME 72.1 seconds 22.5-36.0 H (BEAKER) (test code = 760) BLOOD GAS, [id number] 05:48:00 Test Item Value Reference Range Interpretation [...] (test code = 1819) 50.0 % POCT-GLUCOSE [id number] 05:46:00 Test Item Value Reference Range Interpretation Comments POC-GLUCOSE METER 154 mg/dL 70-110 H TESTED AT [facility] 6720 (BEAKER) (test code = KRYSTAL [place] 1538) [address] COMPREHENSIVE METABOLIC [id number] 04:35:00 Test Item Value Reference Range Interpretation [...] S NOT APPLICABLE FOR DIALYSIS PATIEN TS. [id number] 04:31:00 Test Item Value Reference Range Interpretation Comments TRIGLYCERIDES (BEAKER) (test code = 233 mg/dL 540) TRIGLYCERIDE REFERENCE RANGELow Risk <150Borderline Risk 150-199High Risk 200-499Very High Risk>=[id number] 04:31:00 Test Item Value Reference Range Interpretation Comments MAGNESIUM (BEAKER) (test code = 1.8 mg/dL 1.6-2.6 627) [id number] 04:31:00 Test Item Value Reference Range Interpretation Comments PHOSPHORUS (BEAKER) (test code = 3.2 mg/dL 2.3-4.7 604) BLOOD GAS, [id number] 04:13:00 Test Item Value Reference Range Interpretation [...] % While intubatedCBC W/PLT COUNT & AUTO [id number] 04:12:00 Test Item Value Reference Range Interpretation [...] PERCENT (BEAKER) (test code = 2801) POCT-GLUCOSE [id number] 00:09:00 Test Item Value Reference Range Interpretation Comments POC-GLUCOSE METER 127 mg/dL 70-110 H TESTED AT [facility] 6720 ([facility] (test code = KRYSTAL [place] 1538) [address] POCT-GLUCOSE [id number] 18:07:00 Test Item Value Reference Range Interpretation Comments POC-GLUCOSE METER 151 mg/dL 70-110 H TESTED AT [facility] 6720 ([facility] (test code = KRYSTAL [place] 1538) [address] BLOOD GAS, [id number] 14:03:00 Test Item Value Reference Range Interpretation [...] = 1819) 50.0 % TOXOPLASMA GONDII ANTIBODY, [id number] 13:46:00 Test Item Value Reference Range Interpretation Comments TOXOPLASMA IGM ANTIBODY (BEAKER) Negative (test code = 742) TEST PERFORMED BY ELVPHDPOCT-GLUCOSE [id number] 12:14:00 Test Item Value Reference Range Interpretation Comments POC-GLUCOSE METER 119 mg/dL 70-110 H TESTED AT [facility] 6720 (BEAKER) (test code = KRYSTAL Gomez [place] 1538) [address] BLOOD [id number] 07:01:00 Test Item Value Reference Range Interpretation Comments CULTURE (BEAKER) (test No growth in 5 days code = 1095) BLOOD [id number] 07:01:00 Test Item Value Reference Range Interpretation Comments CULTURE (BEAKER) (test No growth in 5 days code = 1095) CBC W/PLT COUNT & AUTO [id number] 06:12:00 Test Item Value Reference Range Interpretation [...] 0-1 PERCENT (BEAKER) (test code = 2801) [id number] 05:24:00 Test Item Value Reference Range Interpretation Comments PHOSPHORUS (BEAKER) (test code = 3.3 mg/dL 2.3-4.7 604) [id number] 05:24:00 Test Item Value Reference Range Interpretation Comments MAGNESIUM (BEAKER) (test code = 1.3 mg/dL 1.6-2.6 L 627) COMPREHENSIVE METABOLIC [id number] 05:24:00 Test Item Value Reference Range Interpretation [...] S NOT APPLICABLE FOR DIALYSIS PATIEN HECTOR. [id number] 05:18:00 Test Item Value Reference Range Interpretation Comments PARTIAL THROMBOPLASTIN TIME 76.2 seconds 22.5-36.0 H (BEAKER) (test code = 760) BLOOD GAS, [id number] 05:18:00 Test Item Value Reference Range Interpretation [...] % While intubatedRAD, CHEST, 1 VIEW, NON [id number] 04:30:00While intubatedReason for exam:->intubated, hypoxemiaShould this be [...] new lung consolidation or pneumothorax. Signed: [facility] Verified Date/Time: 07/25/2018 04:30:31 Reading Location: [address] Reading Room APTT 2018-07-25 02:21:00 Test Item Value Reference Range Interpretation Comments PARTIAL THROMBOPLASTIN TIME 70.5 seconds 22.5-36.0 H ([facility]) (test code = 760) POCT-GLUCOSE [id number] 01:58:00 Test Item Value Reference Range Interpretation Comments POC-GLUCOSE METER 135 mg/dL 70-110 H TESTED AT [facility] 6720 ([facility]) (test code = KRYSTAL Gomez [place] 1538) [address] SCREEN, [id number] 22:22:00 Test Item Value Reference Range Interpretation Comments TEST URINE ([facility]) (test Negative code = 583) [id number] 19:30:00 Test Item Value Reference Range Interpretation Comments PARTIAL THROMBOPLASTIN TIME 82.7 seconds 22.5-36.0 H (BEAKER) (test code = 760) POCT-GLUCOSE [id number] 18:04:00 Test Item Value Reference Range Interpretation Comments POC-GLUCOSE METER 125 mg/dL 70-110 H TESTED AT [place] [address] (BEAKER) (test code = [facility] [place] 1538) [address] POCT-GLUCOSE [id number] 17:35:00 Test Item Value Reference Range Interpretation Comments POC-GLUCOSE METER 80 mg/dL 70-110 TESTED AT [place] [address] (BEAKER) (test code = [facility] [address] 1538) BLOOD GAS, [id number] 12:31:00 Test Item Value Reference Range Interpretation [...] (test code = 1819) 70.0 % POCT-GLUCOSE [id number] 11:52:00 Test Item Value Reference Range Interpretation Comments POC-GLUCOSE METER 119 mg/dL 70-110 H TESTED AT [place] [address] (BEAKER) (test code = [facility] 1538) [address] [id number] 11:05:00 Test Item Value Reference Range Interpretation Comments PARTIAL THROMBOPLASTIN TIME 87.8 seconds 22.5-36.0 H (BEAKER) (test code = 760) RAD, CHEST, 1 VIEW, NON [id number] 08:36:00While intubatedReason for exam:- >intubated, hypoxemiaShould this [...] vena cava.. Impression: No change Signed: Lana Solanoeport Verified Date/Time: 07/24/2018 08:36:14 Reading Location: [address] Body Reading Room [id number] 06:52:00 Test Item Value Reference Range Interpretation Comments PHOSPHORUS (BEAKER) (test code = 2.8 mg/dL 2.3-4.7 604) [id number] 06:52:00 Test Item Value Reference Range Interpretation Comments MAGNESIUM (BEAKER) (test code = 1.4 mg/dL 1.6-2.6 L 627) COMPREHENSIVE METABOLIC [id number] 06:52:00 Test Item Value Reference Range Interpretation [...] APPLICABLE FOR DIALYSIS PATIEN TS. BLOOD GAS, [id number] 06:24:00 Test Item Value Reference Range Interpretation [...] (test code = 1819) 70.0 % While intubatedC W/PLT COUNT & AUTO [id number] 06:19:00 Test Item Value Reference Range Interpretation [...] PERCENT (BEAKER) (test code = 2801) POCT-GLUCOSE [id number] 06:13:00 Test Item Value Reference Range Interpretation Comments POC-GLUCOSE METER 132 mg/dL 70-110 H TESTED AT [facility] 6720 (BEAKER) (test code = KRYSTAL [place] 1538) [address] CBC W/PLT COUNT & AUTO [id number] 01:49:00 Test Item Value Reference Range Interpretation [...] 0-1 PERCENT (BEAKER) (test code = 2801) [id number] 01:26:00 Test Item Value Reference Range Interpretation Comments PARTIAL THROMBOPLASTIN TIME 66.2 seconds 22.5-36.0 H ([facility]) (test code = 760) POCT-GLUCOSE [id number] 00:57:00 Test Item Value Reference Range Interpretation Comments POC-GLUCOSE METER 105 mg/dL 70-110 TESTED AT [place] [address] ([facility]) (test code = [facility] 1538) [address] POCT-GLUCOSE [id number] 18:55:00 Test Item Value Reference Range Interpretation Comments POC-GLUCOSE METER 102 mg/dL 70-110 TESTED AT [place] [address] ([facility]) (test code = [facility] 1538) [address] [id number] 18:46:00 Test Item Value Reference Range Interpretation Comments PARTIAL THROMBOPLASTIN TIME 66.5 seconds 22.5-36.0 H ([facility]) (test code = 760) POCT-GLUCOSE [id number] 11:56:00 Test Item Value Reference Range Interpretation Comments POC-GLUCOSE METER 90 mg/dL 70-110 TESTED AT [place] [address] ([facility]) (test code = [facility] [address] 1538) TOXOPLASMA GONDII ANTIBODY, [id number] 11:31:00 Test Item Value Reference Range Interpretation Comments TOXOPLASMA GONDII IGG QUANTITATIVE < IU/mL <10.0 ([facility]) (test code = 3428) Toxoplasma Gondii IgG Result Interpretation: </= 9.9 IU/mL Normal 10-11 IU/mL Equivocal >/= 12 IU/mL [id number] 11:12:00 Test Item Value Reference Range Interpretation Comments PARTIAL THROMBOPLASTIN TIME 78.5 seconds 22.5-36.0 H ([facility]) (test code = 760) HEMOGLOBIN AND [id number] 11:05:00 Test Item Value Reference Range Interpretation Comments HEMOGLOBIN ([facility]) (test code = 6.9 GM/DL 11.2-15.7 L 410) HEMATOCRIT ([facility]) (test code = 24.2 % 34.1-44.9 L 411) BLOOD GAS, [id number] 10:57:00 Test Item Value Reference Range Interpretation [...] 1819) 80.0 % SPUTUM CULTURE + GRAM [id number] 10:48:00 Test Item Value Reference Range Interpretation Comments CULTURE (BEAKER) No growth (test code = 1095) GRAM STAIN RESULT 2+ White blood cells (BEAKER) (test code = seen 1123) GRAM STAIN RESULT 0-5 epithelial cells (BEAKER) (test code = 32885) GRAM STAIN RESULT No organisms seen (BEAKER) (test code = 12526) POCT-GLUCOSE [id number] 06:42:00 Test Item Value Reference Range Interpretation Comments POC-GLUCOSE METER 106 mg/dL 70-110 TESTED AT [facility] 6720 (BEAKER) (test code = [place] 1538) [address] RAD, CHEST, 1 VIEW, NON [id number] 04:43:00While intubatedReason for exam:- >intubated, hypoxemiaShould this [...] Bookereport Verified Date/Time: 07/23/2018 04:43:52 Reading Location: [facility] C013V Neuro Reading Room D GAS, [id number] 04:29:00 Test Item Value Reference Range Interpretation [...] (test code = 1819) 100.0 % While [id number] 04:07:00 Test Item Value Reference Range Interpretation Comments PHOSPHORUS (BEAKER) (test code = 4.5 mg/dL 2.3-4.7 604) [id number] 04:07:00 Test Item Value Reference Range Interpretation Comments MAGNESIUM (BEAKER) (test code = 1.4 mg/dL 1.6-2.6 L 627) COMPREHENSIVE METABOLIC [id number] 04:07:00 Test Item Value Reference Range Interpretation [...] S NOT APPLICABLE FOR DIALYSIS PATIEN TS. [id number] 04:00:00 Test Item Value Reference Range Interpretation Comments PARTIAL THROMBOPLASTIN TIME 63.6 seconds 22.5-36.0 H (BEAKER) (test code = 760) CBC W/PLT COUNT & AUTO [id number] 03:49:00 Test Item Value Reference Range Interpretation [...] PERCENT (BEAKER) (test code = 2801) POCT-GLUCOSE [id number] 01:32:00 Test Item Value Reference Range Interpretation Comments POC-GLUCOSE METER 98 mg/dL 70-110 TESTED AT [facility] 67 (BEAKER) (test code = [place] [address] 1538) [id number] 19:05:00 Test Item Value Reference Range Interpretation Comments PARTIAL THROMBOPLASTIN TIME 36.8 seconds 22.5-36.0 H (BEAKER) (test code = 760) BLOOD GAS, [id number] 18:27:00 Test Item Value Reference Range Interpretation [...] (test code = 1819) 100.0 % POCT-GLUCOSE [id number] 18:14:00 Test Item Value Reference Range Interpretation Comments POC-GLUCOSE METER 89 mg/dL 70-110 TESTED AT [facility] 6720 (BEAKER) (test code = [place] [address] 1538) BLOOD GAS, [id number] 14:54:00 Test Item Value Reference Range Interpretation [...] code = 1819) 100.0 % BASIC METABOLIC [id number] 12:45:00 Test Item Value Reference Range Interpretation [...] I S NOT APPLICABLE FOR DIALYSIS PATIEN [id number] 12:32:00 Test Item Value Reference Range Interpretation Comments PARTIAL THROMBOPLASTIN TIME 44.4 seconds 22.5-36.0 H (BEAKER) (test code = 760) CRYPTOCOCCAL [id number] 11:54:00 Test Item Value Reference Range Interpretation Comments CRYPTOCOCCAL ANTIGEN, SERUM Negative Negative, Interference (BEAKER) (test code = 1828) RESPIRATORY PANEL [id number] 10:54:00 Test Item Value Reference Range Interpretation [...] decisions. This sample was tested at the [facility] Molecular Diagnostics Laboratory using the [employer]inte[employer] Respiratory Panel. It is FDA cleared and has been verified and approved by the [facility] for clinical use on nasal swab specimens. It is not FDA-cleared for use on bronchial wash/lavage samples. However, for this sample type, validation was performed and test characteristics were determined and approved, by [facility] laboratory for clinical use under the Clinical Laboratory Improvement Amendments (CLIA) of 1988 requirements. Therefore, FDA clearance isnot required. This laboratory is CLIA- certified and [employer] ([employer])-accredited to perform high complexity testing.HEPATIC FUNCTION [id number] 10:38:00 Test Item Value Reference Range Interpretation [...] U/L 6-55 347) LACTIC ACID, ARTERIAL, WHOLE [id number] 09:17:00 Test Item Value Reference Range Interpretation Comments LACTATE BLOOD ARTERIAL (2) 0.6 mmol/L 0.5-2.2 (BEAKER) (test code = 2874) BLOOD GAS, [id number] 08:59:00 Test Item Value Reference Range Interpretation [...] 1819) 80.0 % CT, SINUS, WITHOUT IV [id number] 08:48:00Reason for exam:->evaluate extension of brain abscessFINAL [...] Zimmerman Verified Date/Time: 07/22/2018 08:48:38 Reading Location: [address] Neuro Reading Room RAD, CHEST, 1 VIEW, NON [id number] 06:48:00Reason for exam:->intubatedShould this be performed at [...] Booker Verified Date/Time: 07/22/2018 06:48:56 Reading Location: [address] Neuro Reading Room POCT-GLUCOSE [id number] 06:17:00 Test Item Value Reference Range Interpretation Comments POC-GLUCOSE METER 113 mg/dL 70-110 H TESTED AT [facility] 6720 (BEAKER) (test code = KRYSTAL Gomez [facility] 1538) [address] BLOOD GAS, [id number] 05:57:00 Test Item Value Reference Range Interpretation [...] (BEAKER) (test code = 1819) 80.0 % [id number] 05:19:00 Test Item Value Reference Range Interpretation Comments MAGNESIUM (BEAKER) (test code = 1.3 mg/dL 1.6-2.6 L 627) BASIC METABOLIC [id number] 05:19:00 Test Item Value Reference Range Interpretation [...] S NOT APPLICABLE FOR DIALYSIS PATIEN TS. [id number] 05:16:00 Test Item Value Reference Range Interpretation Comments PARTIAL THROMBOPLASTIN TIME 33.2 seconds 22.5-36.0 (BEAKER) (test code = 760) Prior to initiating heparinCBC W/PLT COUNT & AUTO [id number] 05:05:00 Test Item Value Reference Range Interpretation [...] CT, CHEST WITH IV CONTRAST- PE TEST [id number] 03:36:00FINAL REPORT TECHNIQUE: CT scan of the [...] MDReport Verified Date/Time: 07/22/2018 03:36:58 Reading Location: [address] Neuro Reading Room BASIC METABOLIC [id number] 23:30:00 Test Item Value Reference Range Interpretation [...] PATIEN TS. RAD, CHEST, 1 VIEW, NON [id number] 19:05:00Reason for exam:->post RYAN PICC lineShould this [...] film of the same date. Signed: Donovan Shepherdeport Verified Date/Time:07/21/2018 19:05:16 Reading Location: [facility] Diagnostic Imaging Reading Room - [place] [address] POCT-GLUCOSE [id number] 18:47:00 Test Item Value Reference Range Interpretation Comments POC-GLUCOSE METER 99 mg/dL 70-110 TESTED AT [facility] 6720 (BEAKER) (test code = KRYSTAL Gomez [facility] [address] 1538) BASIC METABOLIC [id number] 18:00:00 Test Item Value Reference Range Interpretation [...] S NOT APPLICABLE FOR DIALYSIS PATIEN TS. [id number] 17:56:00 Test Item Value Reference Range Interpretation Comments MAGNESIUM (BEAKER) (test code = 1.6 mg/dL 1.6-2.6 627) LACTIC ACID, ARTERIAL, WHOLE [id number] 17:54:00 Test Item Value Reference Range Interpretation Comments LACTATE BLOOD 0.6 mmol/L 0.5-2.2 Specimen sligh tly ARTERIAL (2) (BEAKER) hemoly zed (test code = 2874) BLOOD GAS, [id number] 14:00:00 Test Item Value Reference Range Interpretation [...] 70.0 % RAD, CHEST, 1 VIEW, NON [id number] 13:26:00Reason for exam:- >intubationShould this be performed [...] MDReport Verified Date/Time: 07/21/2018 13:26:53 Reading Location: [facility] [id number] Consult Reading Room D GAS, [id number] 11:39:00 Test Item Value Reference Range Interpretation [...] (BEAKER) (test code = 1819) 100.0 % [id number] 10:18:00 Test Item Value Reference Range Interpretation Comments MAGNESIUM (BEAKER) (test code = 2.1 mg/dL 1.6-2.6 627) BASIC METABOLIC [id number] 10:18:00 Test Item Value Reference Range Interpretation [...] APPLICABLE FOR DIALYSIS PATIEN TS. BLOOD GAS, [id number] 06:19:00 Test Item Value Reference Range Interpretation [...] (BEAKER) (test code = 1819) 100.0 % [id number] 05:24:00 Test Item Value Reference Range Interpretation Comments FERRITIN (BEAKER) (test code = 361) 149 ng/mL 5-275 VITAMIN B12 AND [id number] 05:24:00 Test Item Value Reference Range Interpretation Comments VITAMIN B12 (BEAKER) (test code = 361 pg/mL 213-816 774) FOLATE (BEAKER) (test code = 362) 6.2 ng/mL >=7.0 L SCREEN, [id number] 05:04:00 Test Item Value Reference Range Interpretation Comments TEST URINE (BEAKER) (test Negative code = 583) [id number] 05:00:00 Test Item Value Reference Range Interpretation Comments MAGNESIUM (BEAKER) (test code = 0.8 mg/dL 1.6-2.6 LL 627) RETICULOCYTE [id number] 05:00:00 Test Item Value Reference Range Interpretation [...] % 20-55 L (test code = 2590) [id number] 04:58:00 Test Item Value Reference Range Interpretation Comments PHOSPHORUS (BEAKER) (test code = 3.8 mg/dL 2.3-4.7 604) BASIC METABOLIC [id number] 04:58:00 Test Item Value Reference Range Interpretation [...] = 700) CBC W/PLT COUNT & AUTO [id number] 04:42:00 Test Item Value Reference Range Interpretation [...] (test code = 2801) EEG AWAKE AND [id number] 20:05:00Reason for exam:->monica abscess Neurophysiology Electroencephalogram Report DATE OF REPORT: 07/20/18Date(s) of Study: 07/20/18ACC: [id number]: [id number] time: 17:17hrsStop time: 17:38hICD-10: R41.82 Altered Mental StatusCPT Code: 21535 EEG: awake and drowsy <40 min HISTORY: [...] exclude the possibility of epilepsy. Fiordaliza Woodson MD[facility] Neurophysiology Jerrell Noland MDNeurophysiology/Epilepsy Attending RAD, CHEST, 1 VIEW, NON [id number] 19:52:00Reason for exam:->pneumococcal pneumoniaShould this be performed [...] MDReport Verified Date/Time: 07/20/2018 19:52:35 Reading Location: [facility] Reading Room [id number] 18:50:00 Test Item Value Reference Range Interpretation Comments POC-POTASSIUM 3.6 meq/L 3.6-5.5 TESTED AT [place] [address] ([facility]) (test code [facility] [address] = 1540) [id number] 18:50:00 Test Item Value Reference Range Interpretation Comments POC-GLUCOSE ([facility]) 86 mg/dL 70-110 TESTED AT [place] [address] (test code = 1855) [facility] [address] POCT-CALCIUM [id number] 18:50:00 Test Item Value Reference Range Interpretation Comments POC-CALCIUM IONIZED 1.08 mmol/L 1.12-1.27 L TESTED A T [place] [address] ([facility]) (test code = [facility] 1536) [address] [id number] 18:50:00 Test Item Value Reference Range Interpretation Comments POC-HEMATOCRIT 22 % 36-45 L TESTED AT [place] [address] ([facility]) (test code = [facility] [address] 2691) [id number] 18:50:00 Test Item Value Reference Range Interpretation Comments POC-HEMOGLOBIN 7.5 g/dL 12.0-15.0 L TESTED AT [place] [address] ([facility]) (test code = [facility] 1850) [id number] AT [place] [address] [facility] [place] [address] POCT-BLOOD GASES, [id number] 18:49:00 Test Item Value Reference Range Interpretation Comments TEMP, CELSIUS-POC 37.0 (AKER) (test code = 1834) FIO2-POC (BEAKER) TESTED AT [place] [address] (test code = 1835) [facility] [place] [address] PH, ARTERIAL-POC 7.525 7.350-7.450 H (BEAKER) (test [...] H ARTERIAL-POC (BEAKER) (test code = 1841) [id number] 18:49:00 Test Item Value Reference Range Interpretation Comments POC-SODIUM (BEAKER) 145 meq/L 135-148 TESTED A T [place] [address] (test code = 1542) [facility] [address] POCT-LACTIC ACID, [id number] 17:54:00 Test Item Value Reference Range Interpretation Comments POC-LACTIC ACID, 0.5 mmol/L 0.9-1.7 L TESTED AT [facility] [address] VENOUS (BEAKER) (test [place] code = 2805) [address] [id number] 17:54:00 Test Item Value Reference Range Interpretation Comments POC-SODIUM (BEAKER) 146 meq/L 135-148 TESTED A T [place] [address] (test code = 1542) [place] [address] [id number] 17:54:00 Test Item Value Reference Range Interpretation Comments POC-POTASSIUM 3.4 meq/L 3.6-5.5 L TESTED AT [place] [id number] (BEAKER) (test code [facility] [address] = 1540) [id number] 17:54:00 Test Item Value Reference Range Interpretation Comments POC-GLUCOSE (BEAKER) 88 mg/dL 70-110 TESTED AT [place] [address] (test code = 1855) [facility] [address] POCT-CALCIUM [id number] 17:54:00 Test Item Value Reference Range Interpretation Comments POC-CALCIUM IONIZED 1.11 mmol/L 1.12-1.27 L TESTED A T [place] [address] (BEAKER) (test code = [facility] 1536) [address] [id number] 17:54:00 Test Item Value Reference Range Interpretation Comments POC-HEMATOCRIT 22 % 36-45 L TESTED AT [place] [address] (BEAKER) (test code = [facility] [address] 1857) [id number] 17:54:00 Test Item Value Reference Range Interpretation Comments POC-HEMOGLOBIN 7.5 g/dL 12.0-15.0 L TESTED AT [place] [address] ([facility] (test code = [facility] 1856) [id number] AT [place] [address] [facility] [address] POCT-BLOOD GASES, [id number] 17:53:00 Test Item Value Reference Range Interpretation Comments TEMP, CELSIUS-POC 37.0 (BEAKER) (test code = 1834) FIO2-POC (BEAKER) TESTED AT [place] [address] (test code = 1835) [facility] [address] PH, VENOUS-POC 7.456 7.320-7.420 H (BEAKER) (test [...] (test code = 1847) TOXOPLASMA GONDII ANTIBODY, [id number] 12:55:00 Test Item Value Reference Range Interpretation Comments TOXOPLASMA GONDII IGG QUANTITATIVE < IU/mL <10.0 (BEAKER) (test code = 3428) Toxoplasma Gondii IgG Result Interpretation: </= 9.9 IU/mL Normal 10-11 IU/mL Equivocal >/= 12 IU/mL PositiveVANCOMYCIN LEVEL, TROUGH 2018-07-20 11:06:00 Test Item Value Reference Range Interpretation Comments VANCOMYCIN TROUGH (BEAKER) (test 8.2 ug/mL 10.0-20.0 L code = 522) COMPREHENSIVE METABOLIC [id number] 09:18:00 Test Item Value Reference Range Interpretation [...] DIALYSIS PATIEN TS. LACTIC ACID, VENOUS, WHOLE [id number] 09:09:00 Test Item Value Reference Range Interpretation Comments LACTATE BLOOD VENOUS (2) (BEAKER) 0.8 mmol/L 0.5-2.2 (test code = 2872) CBC W/PLT COUNT & AUTO [id number] 09:02:00 Test Item Value Reference Range Interpretation [...] (BEAKER) (test code = 2801) STREP PNEUMONIAE [id number] 07:55:00 Test Item Value Reference Range Interpretation Comments STREP PNEUMONIAE Positive for Presumptive negative A ANTIGEN (BEAKER) pneumococcal for pneumococcal (test code = 1615) pneumonia [facility] BASIC METABOLIC [id number] 06:14:00 Test Item Value Reference Range Interpretation [...] PATIEN TS. CBC W/PLT COUNT & AUTO [id number] 05:58:00 Test Item Value Reference Range Interpretation [...] 0-1 PERCENT (BEAKER) (test code = 2801) TSH/FREE T4 IF [id number] 02:31:00 Test Item Value Reference Range Interpretation Comments THYROID STIMULATING HORMONE 2.10 uIU/mL 0.35-4.94 (BEAKER) (test code = 772) HIV-1 ANTIGEN WITH HIV-1/2 [id number] 02:31:00 Test Item Value Reference Range Interpretation Comments HIV-1 ANTIGEN WITH HIV 1\T\2 Nonreactive Nonreactive ANTIBODY (2) (BEAKER) (test code = 2586) HEPATITIS PANEL, [id number] 02:31:00 Test Item Value Reference Range Interpretation Comments HEPATITIS A IGM ANTIBODY (BEAKER) Nonreactive Nonreactive (test code = 498) HEPATITIS B CORE IGM ANTIBODY Nonreactive Nonreactive (BEAKER) (test code = 645) HEPATITIS C ANTIBODY (BEAKER) Nonreactive Nonreactive (test code = 367) HEPATITIS B SURFACE ANTIGEN (2) Nonreactive Nonreactive (BEAKER) (test code = 2585) BASIC METABOLIC [id number] 02:07:00 Test Item Value Reference Range Interpretation [...] PATIEN TS. CBC W/PLT COUNT & AUTO [id number] 01:54:00 Test Item Value Reference Range Interpretation [...] % 0-1 PERCENT (BEAKER) (test code = 8027)
[2021-07-30 13:25] LABS: Absolute Lymphocytes (CBC) 1.6 K/uL (0.7-4.9); Hematocrit 40.1 % (36.0-45.0); Lymphocytes % 18.8 % (15.3-44.8); MPV 8.5 fL (7.6-11.3)
[2021-07-30 13:44] LABS: ALT/SGPT 30 U/L (12-78); AST/SGOT 16 U/L (15-37); Albumin 3.5 g/dL (3.4-5.0); Alkaline Phosphatase 88 U/L (45-117); BUN Blood Urea Nitrogen 7 mg/dL (7-18); Bicarbonate 24 mmol/L (21-32); Bilirubin Direct 0.1 mg/dL (0-0.2); Bilirubin Total 0.3 mg/dL (0.2-1.0); Glucose Level 103 mg/dL (74-106); Magnesium 1.9 mg/dL (1.8-2.4); NT PRO-BNP 239 pg/mL (<125); Potassium 3.8 mmol/L (3.5-5.1); Protein, Total 7.3 g/dL (6.4-8.2); Sodium Level 141 mmol/L (136-145)
[2021-07-30 13:45] LABS: Troponin High Sensitivity < 3.00 pg/mL (<58.9)
--- NOTE | 2021-07-30 13:55 | RAD REPORT ---
EXAM DESCRIPTION: [place] Single View07/30/2021 1:37 pm CLINICAL HISTORY: Chest pain COMPARISON: none FINDINGS: The lungs appear grossly clear. Heart is normal size
--- NOTE | 2021-07-30 14:47 | RAD REPORT ---
EXAM DESCRIPTION: CT - Head Brain Wo Cont - 07/30/2021 1:57 pm CLINICAL HISTORY: Numbness COMPARISON: 2019 TECHNIQUE: Computed axial tomography of the head was obtained. IV contrast was not requested. All CT scans are performed using dose optimization technique as appropriate and may include automated exposure control or mA/KV adjustment according to patient size. FINDINGS: An intracranial bleed is not seen . The ventricles are normal in caliber. No extra-axial fluid collection is noted. . Marked opacification left mastoids IMPRESSION: No acute intracranial abnormality is seen. If patient's symptoms persist MRI of the bra in would be recommended. Marked opacification left mastoids may indicate mastoiditis
--- NOTE | 2021-07-30 14:59 | EDPHYS ---
Physician Documentation [facility] Name: Belgica Hill Age: 36 yrs Sex: Female : 1985 Arrival Date: 07/30/2021 Time: 12:50 Bed 15 Private MD: ED Physician Arya Cartagena HPI: 07/30 15:25 This 36 yrs old Female presents to ER via Ambulatory with complaints of Chest Pain, kb Back Pain, Arm Pain. 15:25 The patient or guardian reports chest pain that is located primarily in the anterior kb chest wall, left. The pain does not radiate. Associated signs and symptoms: The patient has no apparent associated signs or symptoms. The chest pain is described as sharp. Duration: The patient or guardian reports a single episode. Modifying factors: The symptoms are alleviated by nothing. the symptoms are aggravated by nothing. Severity of pain: At its worst the pain was moderate in the emergency department the pain is unchanged. The patient has not experienced similar symptoms in the past. The patient has not recently seen a physician. sharp left chest pain that started 15 minutes prior to arrival after having an argument with spouse. States she also feels slight numbness to left upper and lower extremity. Denies shortness of breath. No neuro deficits on exam. Ambulates with steady gait. Historical: - Allergies: 13:05 PENICILLINS; ll1 13:05 Sulfa (Sulfonamide Antibiotics); ll1 - PMHx: 13:05 Depression; Hypothyroidism; ll1 13:09 sepsis; Pneumonia; c diff; blood clots; ll1 - PSHx: 13:05 None; ll1 - Immunization history:: Adult Immunizations up to date. - Social history:: Smoking status: Patient denies any tobacco usage or history of. ROS: 15:23 Constitutional: Negative for fever, chills, and weight loss. kb 15:23 Cardiovascular: Positive for chest pain, Negative for edema, orthopnea, palpitations, paroxysmal nocturnal dyspnea. 15:23 Neuro: Positive for numbness, of the left arm and left leg. 15:23 All other systems are negative. Exam: 15:24 Constitutional: This is a well developed, well nourished patient who is awake, alert, kb and in no acute distress. Head/Face: Normocephalic, atraumatic. ENT: Moist Mucous membranes Cardiovascular: Regular rate and rhythm with a normal S1 and S2. No gallops, murmurs, or rubs. No pulse deficits. Respiratory: Respirations even and unlabored. No increased work of breathing. Talking in full sentences Skin: Warm, dry with normal turgor. Normal color. MS/ Extremity: Pulses equal, no cyanosis. Neurovascular intact. Full, normal range of motion. Neuro: Awake and alert, GCS 15, oriented to person, place, time, and situation. Moves all extremities. Normal gait. Psych: Awake, alert, with orientation to person, place and time. Behavior, mood, and affect are within normal limits. Vital Signs: 13:06 Weight 104.33 kg; Height 5 ft. 3 in. (160.02 cm); ll1 15:12 BP 106 / 59; Pulse 84; Resp 18; Pulse Ox 98% on R/A; ss7 13:06 Body Mass Index 40.74 (104.33 kg, 160.02 cm) ll1 MDM: 12:53 Patient medically screened. kb 14:57 Data reviewed: vital signs, nurses notes. Data interpreted: Pulse oximetry: on room air kb is 100 %. Interpretation: normal. Counseling: I had a detailed discussion with the patient and/or guardian regarding: the historical points, exam findings, and any diagnostic results supporting the discharge/admit diagnosis, lab results, radiology results, the need for outpatient follow up, a family practitioner, to return to the emergency department if symptoms worsen or persist or if there are any questions or concerns that arise at home. ED course: After discussing diagnostic results pt states "it was a panic attack. I had that argument today, but I have had a lot of stress over the last month." . 03 13:07 Order name: Basic Metabolic Panel; Complete Time: 13:48 kb 07/30 13:07 Order name: CBC with Diff; Complete Time: 13:39 kb 07/30 13:07 Order name: LFT's; Complete Time: 13:48 kb 07/30 13:07 Order name: Magnesium; Complete Time: 13:48 kb 07/30 13:07 Order name: NT PRO-BNP; Complete Time: 13:48 kb 07/30 13:07 Order name: PT-INR; Complete Time: 13:45 kb 07/30 13:07 Order name: Troponin HS; Complete Time: 13:48 kb 07/30 13:07 Order name: XRAY Chest (1 view); Complete Time: 13:58 kb 07/30 13:07 Order name: EKG; Complete Time: 13:07 kb 07/30 13:07 Order name: Cardiac monitoring; Complete Time: 13:38 kb 07/30 13:07 Order name: EKG - Nurse/Tech; Complete Time: 13:38 kb 07/30 13:07 Order name: IV Saline Lock; Complete Time: 13:38 kb 07/30 13:07 Order name: D-Dimer; Complete Time: 13:45 kb 07/30 13:48 Order name: CT Head Brain wo Cont; Complete Time: 14:49 kb 07/30 13:07 Order name: Labs collected and sent; Complete Time: 13:38 kb 07/30 13:07 Order name: O2 Per Protocol; Complete Time: 13:38 kb 07/30 13:07 Order name: O2 Sat Monitoring; Complete Time: 13:38 kb 07/30 14:59 Order name: Vital Signs; Complete Time: 15:11 kb Administered Medications: No medications were administered Disposition: 17:07 Co-signature as Attending Physician, Arya Cartagena MD. rn 17:08 I agree with the assessment and plan of care. Attestation: The patient's history, exam rn findings, diagnostics, and a summary of any interventions or procedures was reviewed in detail with Lilly PATRICIO. Disposition Summary: 07/30/21 14:58 Discharge Ordered Location: Home kb Condition: Stable kb Diagnosis - Acute stress reaction kb - Chest pain, unspecified kb Followup: kb - With: Emergency Department - When: As needed - Reason: Worsening of condition Followup: kb - With: Private Physician - When: 2 - 3 days - Reason: Recheck today's complaints, Continuance of care, Re-evaluation by your physician Discharge Instructions: - Discharge Summary Sheet kb - Nonspecific Chest Pain, Adult, Tkcr-et-Jxov kb - Panic Attack, Dvyj-ew-Dcnc kb Forms: - Medication Reconciliation Form kb - Thank You Letter kb - Antibiotic Education kb - Prescription Opioid Use kb Signatures: Dispatcher [employer] EDLilly Katz FNP-C FNP-CkArya Dominique MD MD rn Lewis, Lynsay RN RN ll1
--- NOTE | 2021-07-30 14:59 | ER ---
Nurse's Notes [facility] Name: Belgica Hill Age: 36 yrs Sex: Female : 1985 Arrival Date: 07/30/2021 Time: 12:50 Bed 15 Private MD: Diagnosis: Acute stress reaction;Chest pain, unspecified Presentation: 07/30 13:06 Chief complaint: Patient states: Chest, back, and L arm pain, L leg pain. Coronavirus ll1 screen: Client denies travel out of the [place] in the last 14 days. At this time, the client does not indicate any symptoms associated with coronavirus-19. Ebola Screen: Patient denies travel to an Ebola-affected area in the 21 days before illness onset. Initial Sepsis Screen: Does the patient meet any 2 criteria? No. Patient's initial sepsis screen is negative. Does the patient have a suspected source of infection? No. Patient's initial sepsis screen is negative. Risk Assessment: Do you want to hurt yourself or someone else? Patient reports no desire to harm self or others. Onset of symptoms is unknown. 13:06 Method Of Arrival: Ambulatory ll1 13:06 Acuity: DARIUS 3 ll1 Triage Assessment: 13:07 General: Appears distressed, Behavior is cooperative, anxious. Pain: Complains of pain ll1 in chest/back. Neuro: No deficits noted. Cardiovascular: Reports chest pain. Musculoskeletal: Reports pain in left arm and left leg. Historical: - Allergies: 13:05 PENICILLINS; ll1 13:05 Sulfa (Sulfonamide Antibiotics); ll1 - PMHx: 13:05 Depression; Hypothyroidism; ll1 13:09 sepsis; Pneumonia; c diff; blood clots; ll1 - PSHx: 13:05 None; ll1 - Immunization history:: Adult Immunizations up to date. - Social history:: Smoking status: Patient denies any tobacco usage or history of. Screenin:39 Abuse screen: Denies threats or abuse. Nutritional screening: No deficits noted. ss7 Tuberculosis screening: No symptoms or risk factors identified. Fall Risk IV access (20 points). Assessment: 13:40 Pain: Pain does not radiate. Pain began 1 hour ago. ss7 Vital Signs: 13:06 Weight 104.33 kg; Height 5 ft. 3 in. (160.02 cm); ll1 15:12 BP 106 / 59; Pulse 84; Resp 18; Pulse Ox 98% on R/A; ss7 13:06 Body Mass Index 40.74 (104.33 kg, 160.02 cm) ll1 ED Course: 12:50 Patient arrived in ED. mr 12:53 MarkLilly FNP-C [facility]. kb 12:53 Arya Cartagena MD is Attending Physician. kb 12:58 Arm band placed on Patient placed in an exam room, on a stretcher. ll1 13:07 Triage completed. ll1 13:37 XRAY Chest (1 view) In Process Unspecified. EDMS 13:38 Kate Blanton, RN is Primary Nurse. ss7 13:38 D-Dimer Sent. ss7 13:38 Basic Metabolic Panel Sent. ss7 13:38 LFT's Sent. ss7 13:39 Patient has correct armband on for positive identification. Bed in low position. Call ss7 light in reach. monitoring and evaluation advisor on. Pulse ox on. NIBP on. 13:39 Magnesium Sent. ss7 13:39 NT PRO-BNP Sent. ss7 13:39 PT-INR Sent. ss7 13:39 Troponin HS Sent. ss7 13:39 No provider procedures requiring assistance completed. Inserted saline lock: 20 gauge ss7 in right antecubital area, using aseptic technique. Patient maintains SpO2 saturation greater than 95% on room air. 13:57 CT Head Brain wo Cont In Process Unspecified. EDMS 15:13 IV discontinued, intact. ss7 Administered Medications: No medications were administered Outcome: 14:58 Discharge ordered by . kb 15:13 Discharged to home ambulatory, with family. ss7 15:13 Condition: good 15:13 Discharge instructions given to patient, Instructed on discharge instructions, Demonstrated understanding of instructions. 15:14 Patient left the ED. ss7 Signatures: Dispatcher [employer] EDMS Lilly Flores FNP-C FNP-Ckb RiveraLana Junior Valdivia, RN RN ll1 Kate Blanton, RN RN ss7
[2021-07-30 16:22] VITALS: BP 106/59; O2SAT 98
--- NOTE | 2021-07-31 12:55 | EKG ---
Test Date: 2021-07-30 Test Time: 13:00:16 [employer] Manager: ALP MEASUREMENT RESULTS: Intervals: Rate: 89 CT: 130 QRSD: 80 QT: 360 QTc: 438 [place]: P: 31 CT: 130 QRS: 10 T: 29 INTERPRETIVE STATEMENTS: Normal sinus rhythm with sinus arrhythmia Low voltage QRS Borderline ECG Compared to ECG 07/30/2021 12:59:51 No significant changes Electronically Signed On 07-31-21 12:52:13 AUTOM[employer]BILE UPHOLSTER[employer] APPRENTICE by Omar Levin
--- NOTE | 2021-07-31 12:55 | EKG ---
Test Date: 2021-07-30 Test Time: 12:59:51 Township Supervisor: ALP MEASUREMENT RESULTS: Intervals: Rate: 92 MI: 122 QRSD: 76 QT: 354 QTc: 437 [place]: P: 32 MI: 122 QRS: 17 T: 31 INTERPRETIVE STATEMENTS: Normal sinus rhythm Low voltage QRS Borderline ECG Compared to ECG 07/19/2018 14:53:41 Low QRS voltage now present Electronically Signed On 07-31-21 12:52:13 WIRE WORKER by Omar Levin
== END 2021-07-30 15:14 | disposition home or self-care (01) ==
LOC: ER 12:44
DX: F43.0 Acute stress reaction (principal); Z88.0 Allergy status to penicillin; Z88.2 Allergy status to sulfonamides
CPT/HCPCS: 36415; 70450; 71045; 80048; 80076; 83735; 83880; 84484; 85025; 85379; 85610; 93005; 99285

== ENCOUNTER 2023-09-03 04:00 | Emergency (ER) | payer OTHER, SELFPAY ==
[2023-09-03] MEDS ORDERED: KETOROLAC 30 MG/ML INJ ONE (05:13)
[2023-09-03] MEDS ORDERED: ONDANSETRON 4 MG/2 ML VIAL ONE (05:13)
[2023-09-03] MEDS ORDERED: PANTOPRAZOLE 40 MG INJ ONE (05:13)
[2023-09-03] MEDS ORDERED: DICYCLOMINE HCL 20 MG/2 ML AMP IM ONE (05:14)
[2023-09-03] MEDS ORDERED: NA CHLORIDE 0.9% 1,000 ML ONE (05:14)
[2023-09-03] MEDS ORDERED: FAMOTIDINE 20 MG/2 ML VIAL IV ONE (05:14)
[2023-09-03] MEDS ORDERED: MORPHINE 4 MG/ML SYR ONE (05:14)
[2023-09-03 05:22] LABS: Absolute Basophils 0.1 K/uL (0-0.5); Absolute Eosinophils 0.2 K/uL (0-0.5); Absolute Lymphocytes (CBC) 1.8 K/uL (0.7-4.9); Absolute Monocytes 0.4 K/uL (0.1-1.3); Absolute Neutrophil 11.2 K/uL (1.8-8.0); Basophils % 0.6 % (0-1.3); Eosinophils % 1.4 % (0-4.4); Hematocrit 41.6 % (36.0-45.0); Hemoglobin 13.4 g/dL (12.0-15.0); Lymphocytes % 12.9 % (15.3-44.8); MCH 24.5 pg (27.0-35.0); MCHC 32.2 g/dL (32.0-36.0); MCV 75.9 fL (80-100); MPV 8.6 fL (7.6-11.3); Monocytes % 3.1 % (3.3-12.3); Platelets 342 thou/uL (152-406); RBC Red Blood Cell Count 5.49 M/uL (3.86-4.86); Red Cell Distribution Width 16.1 % (12.1-15.2)
[2023-09-03 05:29] LABS: Specific Gravity > 1.030 (1.005-1.030)
[2023-09-03 05:37] LABS: Specific Gravity > 1.030 (1.005-1.030); Sqamous Epithelial >50 /HPF (None Seen); Urine Bacteria None Seen /HPF (<20); Urine Bilirubin NEGATIVE (Negative); Urine Blood Negative (Negative); Urine Clarity Extremely Turbid (Clear); Urine Color Yellow (Yellow); Urine Culture Reflex Order NOT NEEDED; Urine Glucose NEGATIVE (Negative); Urine Ketones TRACE (Negative); Urine Microscopic Reflex YN ORDER UMIC; Urine Mucus 3+ /HPF (None Seen); Urine Nitrite NEGATIVE (Negative); Urine Protein 1+ (Negative); Urine RBC <5 /HPF (None Seen); Urine Urobilinogen Normal (Normal); Urine WBC <5 /HPF (<5); Urine pH 5.5 (5.0-7.0)
[2023-09-03 05:39] LABS: Albumin 3.5 g/dL (3.4-5.0); Albumin/Globulin Ratio 0.8 (1.1-1.8); Anion Gap 8.8 mEq/L (5.0-15.0); Bilirubin Total 0.4 mg/dL (0.2-1.0); Globulin 4.2 g/dL (2.3-3.5); Potassium 3.8 mEq/L (3.5-5.1); Protein, Total 7.7 g/dL (6.4-8.2)
--- NOTE | 2023-09-03 06:40 | ER ---
Nurse's Notes [facility] Name: Belgica Hill Age: 38 yrs Sex: Female : 1985 Arrival Date: 09/03/2023 Time: 04:00 Bed 5 Private MD: Diagnosis: Acute gastritis Presentation: 09/02 04:11 Chief complaint: Patient states: mid abdominal pain starting at 2240 last night with km8 vomiting. Coronavirus screen: Client denies travel out of the [place] in the last 14 days. Ebola Screen: No symptoms or risks identified at this time. Initial Sepsis Screen: Does the patient meet any 2 criteria? HR > 90 bpm. No. Patient's initial sepsis screen is negative. Does the patient have a suspected source of infection? No. Patient's initial sepsis screen is negative. Risk Assessment: Do you want to hurt yourself or someone else? Patient reports no desire to harm self or others. Onset of symptoms was September 02, 2023 at 22:40. 04:11 Method Of Arrival: Ambulatory km8 04:11 Acuity: DARIUS 3 km8 Triage Assessment: 04:12 General: Appears in no apparent distress. uncomfortable, Behavior is calm, cooperative, km8 appropriate for age. Pain: Complains of pain in umbilical area Pain currently is 8 out of 10 on a pain scale. Quality of pain is described as sharp, Is intermittent. EENT: No signs and/or symptoms were reported regarding the EENT system. Neuro: Level of Consciousness is awake, alert, obeys commands, Oriented to person, place, time, situation. Cardiovascular: Denies chest pain, shortness of breath, Patient's skin is warm and dry. Respiratory: Airway is patent Respiratory effort is even, unlabored, Respiratory pattern is regular, symmetrical. GI: Abdomen is obese, Reports nausea, vomiting. : No signs and/or symptoms were reported regarding the genitourinary system. Derm: Skin is intact, is healthy with good turgor, Skin is dry, Skin is pink, warm \T\ dry. normal, Skin temperature is warm. Musculoskeletal: No signs and/or symptoms reported regarding the musculoskeletal system. Range of motion: intact in all extremities. 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 - Infectious Disease History:: Denies. - Social history:: Smoking status: Patient/guardian denies using tobacco, the patient reports quitting approximately 5 years ago, Patient uses alcohol, but reports only rare drinking. Patient/guardian denies using street drugs. - Family history:: not pertinent. Screenin:00 [facility] ED Fall Risk Assessment (Adult) History of falling in the last 3 months, jb4 including since admission No falls in past 3 months (0 pts) Confusion or Disorientation No (0 pts) Intoxicated or Sedated No (0 pts) Impaired Gait No (0 pts) Mobility Assist Device Used No (0 pt) Altered Elimination No (0 pt) Score/Fall Risk Level 0 - 2 = Low Risk Oriented to surroundings, Maintained a safe environment. Abuse screen: Denies threats or abuse. Nutritional screening: No deficits noted. Tuberculosis screening: No symptoms or risk factors identified. Assessment: 04:20 General: Appears in no apparent distress. uncomfortable, Behavior is calm, cooperative, jb4 appropriate for age. Pain: Complains of pain in abdomen Pain does not radiate. Pain currently is 8 out of 10 on a pain scale. Neuro: Level of Consciousness is awake, alert, obeys commands, Oriented to person, place, time, situation. Cardiovascular: Patient's skin is warm and dry. Respiratory: Airway is patent Respiratory effort is even, unlabored, Respiratory pattern is regular, symmetrical. GI: Abdomen is obese, Reports nausea, vomiting. : No signs and/or symptoms were reported regarding the genitourinary system. EENT: No signs and/or symptoms were reported regarding the EENT system. Derm: Skin is intact, Skin is pink, warm \T\ dry. 05:40 Reassessment: Patient appears in no apparent distress at this time. Patient and/or jb4 family updated on plan of care and expected duration. Pain level reassessed. Patient is alert, oriented x 3, equal unlabored respirations, skin warm/dry/pink. 07:00 Reassessment: Patient appears in no apparent distress at this time. Patient and/or jb4 family updated on plan of care and expected duration. Pain level reassessed. Patient is alert, oriented x 3, equal unlabored respirations, skin warm/dry/pink. Vital Signs: 04:14 BP 119 / 57; Pulse 98; Resp 18; Temp 96.6(TE); Pulse Ox 95% on R/A; Weight 104.33 kg km8 (R); Height 5 ft. 3 in. (R); Pain 8/10; 04:14 Body Mass Index 40.74 (104.33 kg, 160.02 cm) km8 04:14 Pain Scale: Adult [facility] Coma Score: 06:36 Eye Response: spontaneous(4). Motor Response: obeys commands(6). Verbal Response: sp4 oriented(5). Total: 15. ED Course: 04:06 Patient arrived in ED. ra3 04:12 Triage completed. km8 04:12 Arm band placed on right wrist. km8 04:18 Yoav Roman, RN is Primary Nurse. jb4 04:18 Agustin Estes MD is Attending Physician. sp4 04:40 Radiology exam delayed due to lab results not completed at this time. (BUN/Creatinine) eh4 test not completed at this time. IV insertion attempt and/or patient not having appropriate IV at this time. 05:22 Abdomen Limited US In Process Unspecified. EDMS 06:02 CT Abd/Pelvis - IV Contrast Only In Process Unspecified. EDMS 07:00 Patient has correct armband on for positive identification. Bed in low position. Call jb4 light in reach. Side rails up X 1. Provided Education on: discharge instructions.. 07:00 No provider procedures requiring assistance completed. IV discontinued, intact, jb4 bleeding controlled, No redness/swelling at site. Pressure dressing applied. Administered Medications: 05:34 Drug: Pantoprazole IVP 40 mg IVP once Route: IVP; Site: right forearm; jb4 06:30 Follow up: Response: No adverse reaction; Marked relief of symptoms; Pain is decreased pf1 05:34 Drug: Dicyclomine IM 20 mg IM once Route: IM; Site: right gluteus; jb4 06:30 Follow up: Response: No adverse reaction; Marked relief of symptoms; Pain is decreased pf1 05:35 Drug: NS 0.9% IV 1000 ml IV at 1 bolus Per protocol; 1000 mL bolus Route: IV; Rate: 1 jb4 bolus; Site: right forearm; 05:35 Drug: Famotidine IVP 20 mg IVP once; dilute with 10 mL 0.9% NaCl; give over 2 minutes jb4 Route: IVP; Site: right forearm; 05:35 Drug: TORadol - Ketorolac IVP 30 mg IVP once Route: IVP; Site: right forearm; jb4 05:35 Drug: Ondansetron IVP 8 mg IVP once; over 2 minutes Route: IVP; Site: right forearm; jb4 05:35 Drug: morphine IVP or IV 4 mg IVP once over 4 mins Route: IVP; Infused Over: 4 mins; jb4 Site: right forearm; 06:54 Drug: Promethazine PO 25 mg PO once Route: PO; pf1 06:58 Follow up: Response: No adverse reaction; Marked relief of symptoms pf1 Medication: 07:00 VIS not applicable for this client. jb4 Outcome: 06:39 Discharge ordered by . sp4 07:00 Discharged to home ambulatory, with family, jb4 07:00 Condition: stable 07:00 Discharge instructions given to patient, Instructed on discharge instructions, follow up and referral plans. medication usage, Demonstrated understanding of instructions, follow-up care, medications, Prescriptions given X 3, 07:05 Patient left the ED. jb4 Signatures: Dispatcher [employer] EDMS Yoav Roman RN RN jb4 Donovan Dent [facility] Mckenzie Menard RN RN pf1 Agustni Estes MD MD sp4 Yajaira Arboleda RN RN km8 Sulma Parks 3
--- NOTE | 2023-09-03 06:40 | EDPHYS ---
Physician Documentation [facility] Name: Belgica Hill Age: 38 yrs Sex: Female : 1985 Arrival Date: 09/03/2023 Time: 04:00 Bed 5 Private MD: ED Physician Agustin Estes HPI: 09/02 04:18 This 38 yrs old Female presents to ER via Ambulatory with complaints of sp4 Stomach issues. 04:19 Allergies: PENICILLINS; Sulfa (Sulfonamide Antibiotics); PMHx: Depression; sp4 Hypothyroidism; sepsis; Pneumonia; c diff; blood clots; PSHx: None; . 06:36 38-year-old female presents with acute onset of mid abdominal pain starting at 10:30 in sp4 the evening after a meal. Associated with vomiting. History of 2 C-sections. . 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 - Infectious Disease History:: Denies. - Social history:: Smoking status: Patient/guardian denies using tobacco, the patient reports quitting approximately 5 years ago, Patient uses alcohol, but reports only rare drinking. Patient/guardian denies using street drugs. - Family history:: not pertinent. ROS: 06:36 Constitutional: Negative for fever, chills, and weight loss, positive nausea vomiting sp4 positive epigastric pain 06:36 All other systems are negative, Exam: 06:36 Constitutional: This is a well developed, well nourished patient who is awake, alert, sp4 and in no acute distress. Head/Face: Normocephalic, atraumatic. Eyes: Pupils equal round and reactive to light, extra-ocular motions intact. Lids and lashes normal. Conjunctiva and sclera are not injected. Cornea within normal limits. Periorbital areas with no swelling, redness, or edema. ENT: Nares patent. No nasal discharge, no septal abnormalities noted. Tympanic membranes are normal and external auditory canals are clear. Oropharynx with no redness, swelling, or masses, exudates, or evidence of obstruction, uvula midline. Mucous membranes moist. Neck: Trachea midline, no thyromegaly or masses palpated, and no cervical lymphadenopathy. Supple, full range of motion without nuchal rigidity, or vertebral point tenderness. Chest/axilla: Normal chest wall appearance and motion. Nontender with no deformity. No lesions are appreciated. Cardiovascular: Regular rate and rhythm with a normal S1 and S2. No gallops, murmurs, or rubs. Normal PMI, no JVD. No pulse deficits. Respiratory: Lungs have equal breath sounds bilaterally, clear to auscultation and percussion. No rales, rhonchi or wheezes noted. No increased work of breathing, no retractions or nasal flaring. Abdomen/GI: Soft, with normal bowel sounds. No distension or tympany. No guarding or rebound. No evidence of tenderness throughout. Back: No spinal tenderness. No costovertebral tenderness. Skin: Warm, dry with normal turgor. Normal color with no rashes, no lesions, and no evidence of cellulitis. MS/ Extremity: Pulses equal, no cyanosis. Neurovascular intact. Full, normal range of motion. Neuro: Awake and alert, GCS 15, oriented to person, place, time, and situation. Cranial nerves II-XII grossly intact. Motor strength 5/5 in all extremities. Sensory grossly intact. Psych: Awake, alert, with orientation to person, place and time. Behavior, mood, and affect are within normal limits Vital Signs: 04:14 BP 119 / 57; Pulse 98; Resp 18; Temp 96.6(TE); Pulse Ox 95% on R/A; Weight 104.33 kg km8 (R); Height 5 ft. 3 in. (R); Pain 8/10; 04:14 Body Mass Index 40.74 (104.33 kg, 160.02 cm) km8 04:14 Pain Scale: Adult [facility] Coma Score: 06:36 Eye Response: spontaneous(4). Motor Response: obeys commands(6). Verbal Response: sp4 oriented(5). Total: 15. MDM: 04:21 Patient medically screened. sp4 06:31 ED course: PROCEDURE: CTAbdomen and Pelvis With Intravenous Contrast CLINICAL sp4 INDICATION: The patient is 38 years old and is Female; mid abd pain, vomiting IV ONLYBed Name: 5 TECHNIQUE: Axial computed tomography images of the abdomen and pelvis with intravenous contrast. Sagittal and coronal reformatted images were created and reviewed. This CT exam was performed using one or more of the following dose reduction techniques: automated exposure control, adjustment of the mA and/or kV according to patient size, and/or use of iterative reconstruction technique. COMPARISON: No relevant prior studies available. FINDINGS: LUNG BASES: Unremarkable No mass. No consolidation. ABDOMEN: LIVER: Unremarkable No mass. GALLBLADDER AND BILE DUCTS: Unremarkable No calcified stones. No ductal dilation. PANCREAS: Unremarkable No mass. No ductal dilation. SPLEEN: Unremarkable No splenomegaly. ADRENALS: Unremarkable No mass. KIDNEYS AND URETERS: Unremarkable No solid mass. No hydronephrosis. STOMACH AND BOWEL: Unremarkable No obstruction. No mucosal thickening. PELVIS: APPENDIX: No findings to suggest acute appendicitis. BLADDER: Unremarkable No mass. REPRODUCTIVE: Unremarkable as visualized. ABDOMEN and PELVIS: INTRAPERITONEAL SPACE: Unremarkable No free air. No significant fluid collection. BONES/JOINTS: No acute fracture. No dislocation. SOFT TISSUES: Unremarkable VASCULATURE: Unremarkable No abdominal aortic aneurysm. LYMPH NODES: Unremarkable No enlarged lymph nodes. IMPRESSION: No acute abnormality of the abdomen or pelvis. 06:32 ED course: PROCEDURE: US Abdomen Limited, gallbladder fossa CLINICAL INDICATION: The sp4 patient is 38 years old and is Female; ABD PAIN Bed Name: 5 TECHNIQUE: Real-time ultrasound of the gallbladder fossa with image documentation. COMPARISON: No relevant prior studies available. FINDINGS: GALLBLADDER: Reported negative sonographic Chappell sign. Contracted appearance of the gallbladder with no visualized posterior shadowing stones or pericholecystic free fluid. COMMON BILE DUCT: Unremarkable as visualized. No stones. No dilation. Common bile duct measures 0.3 cm in diameter. IMPRESSION: Contracted appearance of the gallbladder with no stones or acute abnormality. . 06:36 Differential Diagnosis altered mental status, sepsis, flu, Gastritis . Data reviewed: sp4 vital signs, nurses notes, lab test result(s), radiologic studies, CT scan, ultrasound. Consideration of Admission/Observation Escalation of care including admission/observation considered. ED course: . Most likely gastritis or gastroenteritis. Stable for discharge home. 09/02 04:32 Order name: CBC with Diff; Complete Time: 06:32 sp4 09/02 04:32 Order name: CMP; Complete Time: 06:32 sp4 09/02 04:32 Order name: Lipase; Complete Time: 06:32 sp4 09/02 04:32 Order name: Test, Urine; Complete Time: 06:32 sp4 09/02 04:32 Order name: Urinalysis w/ reflexes; Complete Time: 06:32 sp4 09/02 04:32 Order name: Abdomen Limited US sp4 09/02 04:32 Order name: CT Abd/Pelvis - IV Contrast Only sp4 09/02 04:32 Order name: IV Saline Lock; Complete Time: 04:59 sp4 09/02 04:32 Order name: Labs collected and sent; Complete Time: 04:59 sp4 Administered Medications: 05:34 Drug: Pantoprazole IVP 40 mg IVP once Route: IVP; Site: right forearm; jb4 06:30 Follow up: Response: No adverse reaction; Marked relief of symptoms; Pain is decreased pf1 05:34 Drug: Dicyclomine IM 20 mg IM once Route: IM; Site: right gluteus; jb4 06:30 Follow up: Response: No adverse reaction; Marked relief of symptoms; Pain is decreased pf1 05:35 Drug: NS 0.9% IV 1000 ml IV at 1 bolus Per protocol; 1000 mL bolus Route: IV; Rate: 1 jb4 bolus; Site: right forearm; 05:35 Drug: Famotidine IVP 20 mg IVP once; dilute with 10 mL 0.9% NaCl; give over 2 minutes jb4 Route: IVP; Site: right forearm; 05:35 Drug: TORadol - Ketorolac IVP 30 mg IVP once Route: IVP; Site: right forearm; jb4 05:35 Drug: Ondansetron IVP 8 mg IVP once; over 2 minutes Route: IVP; Site: right forearm; jb4 05:35 Drug: morphine IVP or IV 4 mg IVP once over 4 mins Route: IVP; Infused Over: 4 mins; jb4 Site: right forearm; 06:54 Drug: Promethazine PO 25 mg PO once Route: PO; pf1 06:58 Follow up: Response: No adverse reaction; Marked relief of symptoms pf1 Disposition Summary: 09/03/23 06:39 Discharge Ordered Notes: Location: Home sp4 Problem: new sp4 Symptoms: have improved sp4 Condition: Stable sp4 Diagnosis - Acute gastritis sp4 Followup: sp4 - With: Private Physician - When: 7 - 10 days - Reason: Recheck today's complaints Discharge Instructions: - Discharge Summary Sheet sp4 - Gastritis, Adult, [id number] sp4 Forms: - Family Work Release pf1 - Patient Portal Instructions sp4 Prescriptions: - pantoprazole 40 mg Oral tablet, delayed release (enteric coated) - take 1 tablet ORAL route daily; 30 tablet; Refills: 0, Product Selection sp4 Permitted - dicyclomine 20 mg Oral tablet - take 1 tablet ORAL route 4 times per day PRN abdominal pain; 30 tablet; sp4 Refills: 0, Product Selection Permitted - ondansetron 8 mg Oral Tablet,disintegrating - take 1 tablet ORAL route every 8 hours PRN nausea; 30 tablet; Refills: 0, sp4 Product Selection Permitted Signatures: Dispatcher [employer] EDMS Yoav Roman RN RN jb4 Mckenzie Menard RN RN pf1 Agustin Estes MD MD sp4 Yajaira Arboleda RN RN km8 Corrections: (The following items were deleted from the chart) 04:32 04:32 Abdomen Limited+US.RAD.BRZ ordered. EDMS EDMS 04:32 04:32 Abdomen Pelvis W Con+CT.RAD.BRZ ordered. EDMS EDMS
[2023-09-03] MEDS ORDERED: PROMETHAZINE 25 MG TABLET ONE (06:46)
[2023-09-03 09:31] VITALS: BP 119/57; TEMP 96.6; O2SAT 95
--- NOTE | 2023-09-03 11:13 | RAD REPORT ---
EXAM DESCRIPTION: US - Abdomen Exam Limited - 09/03/2023 5:20 am CLINICAL HISTORY: The patient is 38 years old and is Female; ABD PAIN Bed Name: 5 TECHNIQUE: Real-time ultrasound of the gallbladder fossa with image documentation. COMPARISON: No relevant prior studies available. FINDINGS: GALLBLADDER: Reported negative sonographic Chappell sign. Contracted appearance of the gallbladder with no visualized posterior shadowing stones or per icholecystic free fluid. COMMON BILE DUCT: Unremarkable as visualized. No stones. No dilation. Common bile duct measures 0.3 cm in diameter. IMPRESSION: Contracted appearance of the gallbladder with no stones or acute abnormality. Electronically signed by: Sacha Arriaza MD 09/03/2023 05:47 AM CDT Due to temporary technical issues with the PACS/Fluency reporting system, reports are being signed by the in house radiologist without review as a courtesy to ensure prompt reporting. The interpreting r adiologist is fully responsible for the content of the report.
--- NOTE | 2023-09-03 11:26 | RAD REPORT ---
EXAM DESCRIPTION: CT - Abdomen Pelvis W Contrast - 09/03/2023 6:46 am CLINICAL HISTORY: The patient is 38 years old and is Female; mid abd pain, vomiting IV ONLY Bed Name: 5 TECHNIQUE: Axial computed tomography images of the abdomen and pelvis with intravenous contrast. S agittal and coronal reformatted images were created and reviewed. This CT exam was performed using one or more of the following dose reduction techniques: automated exposure control, adjustment of t he mA and/or kV according to patient size, and/or use of iterative reconstruction technique. COMPARISON: No relevant prior studies available. FINDINGS: LUNG BASES: Unremarkable No mass. No consolidation. ABDOMEN: LIVER: Unremarkable No mass. GALLBLADDER AND BILE DUCTS: Unremarkable No calcified stones. No ductal dilation. PANCREAS: Unremarkable No mass. No ductal dilation. SPLEEN: Unremarkable No splenomegaly. ADRENALS: Unremarkable No mass. KIDNEYS AND URETERS: Unremarkable No solid mass. No hydronephrosis. STOMACH AND BOWEL: Unremarkable No obstruction. No mucosal thickening. PELVIS: APPENDIX: No findings to suggest acute appendicitis. BLADDER: Unremarkable No mass. REPRODUCTIVE: Unremarkable as visualized. ABDOMEN and PELVIS: INTRAPERITONEAL SPACE: Unremarkable No free air. No significant fluid collection. BONES/JOINTS: No acute fracture. No dislocation. SOFT TISSUES: Unremarkable VASCULATURE: Unremarkable No abdominal aortic aneurysm. LYMPH NODES: Unremarkable No enlarged lymph nodes. IMPRESSION: No acute abnormality of the abdomen or pelvis. Electronically signed by: Sacha Arriaza MD 09/03/2023 06:25 AM CDT Due to temporary technical issues with the PACS/Fluency reporting system, reports are being signed by the in house radiologist without review as a courtesy to ensure prompt reporting. The interpreting r adiologist is fully responsible for the content of the report.
== END 2023-09-03 07:05 | disposition home or self-care (01) ==
LOC: ER 04:00
DX: K29.00 Acute gastritis without bleeding (principal); Z88.0 Allergy status to penicillin; Z88.2 Allergy status to sulfonamides
CPT/HCPCS: 85025; 81001; 36415; 81025; 83690; 80053; 74177; 76705; 96375; 96372; 96374; 99284; Q9967; Q0169; J0500; C9113; J2405; J7030